=== PATIENT | female | born 1970 | race Caucasian/White ===

== ENCOUNTER → 2017-12-14 11:51 | Outpatient (CLI) | payer BC, SELFPAY ==
--- NOTE | 2017-12-14 11:56 | BI_ITS ---
MAMMOGRAPHY - BILATERAL SCREENING 3-D CORONA SYNTHESIS REASON FOR EXAM: Female, 47 years old. Bilateral Screening 3-D tomosynthesis PERTINENT HISTORY: No significant family history. TECHNIQUE: 2-D mammograms and 3-D Corona synthesis of the breast (s) were performed. CAD was performed. COMPARISON: 10/05/2015 through 05/27/2014. FINDINGS: The breast composition is heterogeneously dense that can obscure small breast masses. No new significant architectural distortion, asymmetric density, abnormal microcalcification cluster, dominant mass, adenopathy, skin thickening or nipple retraction identified. Coarse benign-appearing calcifications. No significant abnormality identified with tomosynthesis. BI/SCREENING MAMM (CAD), BILAT IMPRESSION: No mammographic sign of malignancy. Routine yearly mammograms recommended. ASSESSMENT CATEGORY: BIRADS Category 2: Benign. A letter regarding these results will be sent to the patient by the facility within 30 days. FOLLOW UP RECOMMENDATION: Yearly follow up mammogram recommended. (A) Negative results should not deter biopsy as a palpable lesion if present should be followed on clinical grounds and biopsy performed if clinically persistent for 3 months or increasing size. Approximately 10% of breast cancers are not detected by mammography. A normal mammogram should not delay biopsy of a clinically suspicious abnormality. Electronically Signed: Manan Bhatti, at 19:49 EDT Tel , Service support ,
== END ==
PROVIDERS: Family Provider Family Medicine; PCP Family Medicine; Visit Provider Obstetrics & Gynecology
DX: Z12.31 Encounter for screening mammogram for malignant neoplasm of breast (principal)
CPT/HCPCS: 77063; 77067

== ENCOUNTER → 2018-01-25 11:57 | Outpatient (CLI) | payer BC, SELFPAY ==
--- NOTE | 2018-01-25 12:02 | RAD_ITS ---
STUDY: X-RAY - PELVIS AND BILATERAL HIPS REASON FOR EXAM: Female, 47 years old. Pelvic pain and bilateral hip pain TECHNIQUE: Radiological exam, hip, bilateral, with pelvis when performed; minimum of 5 views COMPARISON: None. FINDINGS: There is a non-specific bowel gas pattern. Normal visualized soft tissue structures. There is narrowing with cortical sclerosis and osteophyte formation of the sacroiliac joint consistent with degenerative osteoarthritic changes. Normal bilateral superior and inferior pubic rami. There are degenerative changes of the pubic symphysis with articular narrowing and sclerosis. Normal bilateral ischial tuberosities. There are osteoarthritic changes of the right femoral head with marginal osteophyte formation. Normal right acetabulum. Normal right hip joint. There are osteoarthritic changes of the left femoral head with marginal osteophyte formation. Normal left acetabulum. Normal left hip joint. RAD/Hips B/L min 2 views w/ Pelvis IMPRESSION: There are osteoarthritic changes of the pelvis and bilateral hips. Electronically Signed: Veronica Chaidez MD at 8:08 EDT Tel , Service support ,
== END ==
PROVIDERS: Family Provider Family Medicine; PCP Family Medicine; Visit Provider Family Medicine
DX: M16.0 Bilateral primary osteoarthritis of hip (principal)
CPT/HCPCS: 73521

== ENCOUNTER 2018-04-17 15:30 | Outpatient (RCR) | payer BC, SELFPAY ==
--- NOTE | 2018-04-09 08:30 | HP.OTEVAL ---
Patient's Visit Information CHANELLE GUILLERMO is a 47 year old F, referred to Occupational Therapy by RUFINA EMERSON, with a diagnosis of Lesion of R median nn forearm and hand. Date of Evaluation: 04/08/18 Occupational Therapist: Amarilys Bell, OTR/Dominique, CHT - Subjective Subjective: pt. arrives and states that in 2013 elbow went stiff and determined that pt. broke radial head. Pt. reported that her elbow cont. to feel week and painful. Over time, pt. noticed that functional tasks were becoming more difficult. pt. currently has diasnoses of lat. 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 pt. has been trying conservative methods for a while, but has not had relief yet. pt. is to recieve sx on 04/22/18 to relsease median nn and carpal tunnel release. - Pain R forearm 0 Pain Intensity Range: 0, 1, 2, 3, 4, 5, 6 - ROM ROM Comments: WNL - Strength Elbow: 4+/5 in R and 5/5 on L Career Technical Supervisor: 63# in L and 65# in R Lateral Pinch: 11# in R and 14# in L Tripod Pinch: 8# in R and 16 # in L Strength Comments: increased pain in tripod pinch, pt. reported that is is harder for her to resist OT on the R side during MMT. - Sensation Sensation Comments: denies, tested WNL - Nine Hole Peg Right: 20.21 sec. Left: 21.67 sec - In-Hand Manipulation Palm to Finger Translation: Mild - Right Comments: pt. reported that is feels rotten when trying to move money from palm to fingers. pt. attempted to compensate during the task. - DASH-Disabilities of Arm, Shoulder& Hand DASH Sum: 59 - Goals Goal:: Patient will improve lateral and tripod grasps by 5 lbs. by completing strengthening and stretching exercises in order to complete BADL?s and IADL?s. Patient will improve UE strength to 5/5 in R arm in order to complete BADL's and IADL's with increased I. Goal:: Patient will have decreased tingling sensation and report overall decrease in pain of <3 in order to complete BADL?s and IADL?s. Goal:: patient will demo improved ability to manipulate coins from palm of hand to finger tips for increased ability to complete IADL's. Goal:: Patient will demo understanding of joint protection and ECM recommendations for increase I with BADL?s and IADL?s. Goal:: Patient will demo understanding and report completion of median nn and postural exercises for increased I with BADL's and IADL's. Patient will demonstrate knowledge and understanding of taping techniques for support while performing BADL's and IADL's. - Rehabilitation General Assessment: patient presents today with Lesion of R median nn forearm and hand. pt. reports that in 2013, she had a radial injury that is likely causing the mm nn lesion. pt. also has comorbidities of lat. 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 pt. will recieve carpal tunnel release and median nn release on 04/22/18. patient presents to today with decreased strength, tingling sensation, increasing pain, and decreased ability to complete BADL's and IADL's. pt. will benefit from OT services 2x/wk until 04/22/18. Today pt. recieved hot pack and US to increase circulation and promote healing in the forearm and elbow and friction massaging on the elbow to promote healing and decrease pain. pt. was also taped over the the lat. epicondylitis for support during daily functional tasks. pt. recieved education and handout on HEP for median nn exercises and postural exercises. Rehabilitation Potential: Good - Anticipated Interventions Anticipated Interventions: A/AAROM/PROM, Strengthening, Triggerpoint Release, Modalities, Orthoses, Joint Protection/Energy Conservation, Ergonomic Education, ADL Training, Education re Diagnosis, Home Program - Visit Plan Frequency: 2x /Week Duration: until 04/22/18 TEXT: Thank you for the opportunity to evaluate your patient. For Medicare and Medicare HMO plans, please review the plan of care and approve it. It will need to be FAXED BACK to us at [phone] for Medicare purposes. Please let me know if there are questions or concerns regarding this plan of care. Physician Signature: Date:
--- NOTE | 2018-04-19 08:50 | HP.OTDCSUM ---
HP - OT D/C Summary It has been my pleasure to treat CHANELLE GUILLERMO under orders from RUFINA EMERSON, for the diagnosis of Lesion of R median nn forearm and hand for a total of 4 visit(s). Please see the following information for a summary of their discharge status. - Objective Objective/Function: no pain today without movement, sometimes has sharp pain when picking up heavier objects - Goals Patient Goals: Regain Strength, Decrease Pain, Decrease Swelling/Stiffness, Improve Fine Motor Skills, Decrease Tingling/Numbness, Increase ROM, Be More Independent in ADLS, Resume Former Household Responsibilities (Cooking,Cleaning,Yard, etc.), Resume Hobbies Goal:: Patient will improve lateral and tripod grasps by 5 lbs. by completing strengthening and stretching exercises in order to complete BADL?s and IADL?s. Patient will improve UE strength to 5/5 in R arm in order to complete BADL's and IADL's with increased I. Goal:: Patient will have decreased tingling sensation and report overall decrease in pain of <3 in order to complete BADL?s and IADL?s. Goal:: patient will demo improved ability to manipulate coins from palm of hand to finger tips for increased ability to complete IADL's. Goal:: Patient will demo understanding of joint protection and ECM recommendations for increase I with BADL?s and IADL?s. Goal:: Patient will demo understanding and report completion of median nn and postural exercises for increased I with BADL's and IADL's. Patient will demonstrate knowledge and understanding of taping techniques for support while performing BADL's and IADL's. - Plan Plan: hawk tool/massaging. cont.kinesiotape - D/C Information Discharge Comments: Patient reports that conservative methods were helpful with managing lateral epicondylitis symptoms. pt. pain decreased throughout therapy POC. pt. d/c on this date d/t upcoming median nn relsease and carpal tunnel release. pt. educated on HEP and lat. epicondylitis taping and other conservative methods for cont. pain mangement. pt. reports no further concerns at this time. If there are questions or concerns regarding this patient's occupational therapy, please fell free to call me at [phone]. Thank you for the referral of this patient. Sincerely, Amarilys Bell, OTR/L, CHT
== END 2018-04-17 19:00 | disposition home or self-care (01) ==
LOC: OT 15:30
PROVIDERS: Family Provider Family Medicine; PCP Family Medicine
DX: G56.11 Other lesions of median nerve, right upper limb (principal); G56.01 Carpal tunnel syndrome, right upper limb; M75.21 Bicipital tendinitis, right shoulder
CPT/HCPCS: 97035; 97140; 97166

== ENCOUNTER → 2018-05-23 11:26 | Outpatient (CLI) | payer BC, SELFPAY ==
[2017-07-30 10:00] VITALS: BMI 32.2
[2018-05-25 18:17] LABS: HPV Reflexed? NOT INDICATED
== END ==
PROVIDERS: Family Provider Family Medicine; PCP Family Medicine; Visit Provider Obstetrics & Gynecology
DX: Z12.4 Encounter for screening for malignant neoplasm of cervix (principal)
CPT/HCPCS: 88175; G0145

== ENCOUNTER 2018-06-17 16:00 | Outpatient (RCR) | payer BC, SELFPAY ==
--- NOTE | 2018-05-06 12:28 | HP.OTEVAL_ITS ---
Patient's Visit Information MANDY GUILLERMO is a 47 year old F, referred to Occupational Therapy by RUFINA VIEIRA, with a diagnosis of Carpal tunnel syndrome R upper limb (G56.01); G56.11. Date of Evaluation: 05/06/18 Occupational Therapist: Jenna Carrasco - Subjective Subjective: Pt. arrived as referral from Dr. Vieira. She is two weeks post op from CTS release as well as neuroplasty of R median nerve in forearm. She noted she is doing well and no brace at times of arrival. 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 - Pain R elbow and hand 1 Pain Intensity Range: 1, 4 - Objective Objective/Observation: Scars are close and healing. Some hypersensitivity noted around lateral aspect of thumba nd IF of R hand. Edema noted over volar carpal incision. No pain with palpation of either scar. - ROM Wrist: Flexion R 0-86, L 0-84; extension R 0-46, L 0-54 ROM Comments: Able to make full composite fist. - Strength Barrel Painter: Flexed in position 2: R 90, L 11 lbs; extended in position 2 R 105, L 121 Lateral Pinch: R 13, L 15 Tripod Pinch: R 9, L 16 Tip-to-Tip Pinch: R 6, L 10 - Edema Wrist: volar edema pocket over scar for CTS release - Sensation Thumb: R 3.22, lateral thumb 2.44; L 2.83 Index: R 2.83, lateral 2.44, L 2.83 Middle: R 3.22, L 3.61 Ring: R 3.22, L 3.61 Little: R 3.22 lateral 2.44, L 2.83 - Nine Hole Peg Right: 16.55 s Left: 17.48 s - Quick DASH-Disab of Arm,Shoulder& Hand Quick DASH Score: 35.0000 - Goals Goal:: Mandy to increase R housekeeping/laundry to 30 lbs to promote increase strength and manipulation of R hand and UE for self-care and workrelated taks sby d/c. Goal:: Mandy to have no more than 1/10 pain for repetitive movements 4/5 trials 80% of the time topromote QOL by d/c. Goal:: Mandy to be able to complete and manipulate multiple textures and smalle office related items as well as decrease time of 9 hole pegboard test to promote finger dexterity by time of d/c. Goal:: Mandy to be (i) to complete scar massage to promote increased ROM and decrease adhersion to promote movement of wrista nd forearm by d/c. Goal:: Mandy to be (I) to complete porper R UE mechanics and aligment to promote increased form and work station set up to decreae risk of further or reinjury 100% of the time by d/c. Goal:: Mandy to be (i) to complete HEP to promote strengthening and sensory desensitization techniques as needed 4/5 trials 80% of the time to promote returning to PLOF by d/c. - Rehabilitation General Assessment: Mandy arrived for OT evaluation on this date of 05/06/18. She is two weeks post operation of endoscopic R transverse carpal ligament release and neuroplasty of right median nerve in forearm. Some decreased ROM and strengthening noted. Strength measurements were progressed from when previously seeing OT over three-four weeks ago. She would benefit from OT to promote increased strength and ROM needed to return to PLOF by d/c. Rehabilitation Potential: Good - Anticipated Interventions Anticipated Interventions: A/AAROM/PROM, Strengthening, Edema Control, Scar Care, Desensitization, Modalities, Orthoses, Joint Protection/Energy Conservation, Ergonomic Education, Fine Motor Coord/Mauro, ADL Training, Caregiver Training, Home Program - Visit Plan Frequency: 2x /Week Duration: 6 Weeks General Plan: OT to work on ROM, PRE for strengthening program, ergonomics, and general FMC and dexterity tasks to promote particpation in ADL/IADL inclduing work-related tasks. TEXT: Thank you for the opportunity to evaluate your patient. For Medicare and Medicare HMO plans, please review the plan of care and approve it. It will need to be FAXED BACK to us at [phone] for Medicare purposes. Please let me know if there are questions or concerns regarding this plan of care. Physician Signature: Date:
--- NOTE | 2018-06-17 16:58 | OTREVAL_ITS ---
RUFINA EMERSON, It has been my pleasure to treat MANDY GUILLERMO over the last 10 visits for Carpal tunnel syndrome R upper limb (G56.01); G56.11. Please see the progress note below for an update on the occupational therapy plan of care! Subjective: Arrived and noted that everything going well but notes getting sore and tired by end of day. She noted wrist still feeling very weak. Objective/Function: Completed reassessment on this date of 06/17/18. Measurements are as follows: Wrist. - flexion R 0-90, L WFL. - extension R 0-45, L WFL. Strength: - electrician substation in flexed position 2: R 100, L 89. - electrician substation in extension position 2: R 80, L 110. - lateral R 16, L 14 lbs. - tripod R 6, L 14 lbs. - pincer R 6, L 8 lbs. Sensation: R 2nd 2.83, 3rd 3.61, 4th 2.83, 5th 2.83, thumb 2.44. L 2nd 2.83, 3rd 2.83, 4th 2.83, 5th 2.83, thumb 2.83. 9 hole pegboard test: . R 15.98 seconds. L 17.68 seconds. Tolerated well. Some in creased tenderness around lateral epicondyle from previous tennis elbow injury. Some pocket edema around wrist incision. Plan Frequency: 2x /Week Duration: 6 Weeks Visits in this POC: 12 Plan: She is to return to doctor tomorrow. She is doing well. Notes variable carryover with HEP but is working on becoming more consistent. Some increased pain from returning to work around lateral epicondylitis from previous injury. She would like to wait to schedule last two appointments until after doctor visit. She is doing well and is looking at discharge within next two appointments. Goals - Goals Goal:: Mandy to increase R electrician substation to 30 lbs to promote increase strength and manipulation of R hand and UE for self-care and workrelated taks sby d/c. Goal:: Mandy to have no more than 1/10 pain for repetitive movements 4/5 trials 80% of the time topromote QOL by d/c. Goal:: Mandy to be able to complete and manipulate multiple textures and smalle office related items as well as decrease time of 9 hole pegboard test to promote finger dexterity by time of d/c. Goal:: Mandy to be (i) to complete scar massage to promote increased ROM and decrease adhersion to promote movement of wrista nd forearm by d/c. Goal:: Mandy to be (I) to complete porper R UE mechanics and aligment to promote increased form and work station set up to decreae risk of further or reinjury 100% of the time by d/c. Goal:: Mandy to be (i) to complete HEP to promote strengthening and sensory desensitization techniques as needed 4/5 trials 80% of the time to promote returning to PLOF by d/c. Anticipated Interventions Anticipated Interventions: A/AAROM/PROM, Strengthening, Edema Control, Scar Care, Desensitization, Modalities, Orthoses, Joint Protection/Energy Conservation, Ergonomic Education, Fine Motor Coord/Mauro, ADL Training, Caregiver Training, Home Program Please do not hesitate to contact me at [phone] by phone or if you have questions or concerns regarding this new plan of care! Sincerely, Jenna Carrasco
--- NOTE | 2018-11-04 17:35 | HP.OTDCSUM ---
HP - OT D/C Summary It has been my pleasure to treat MANDY GUILLERMO under orders from RUFINA EMERSON, for the diagnosis of Carpal tunnel syndrome R upper limb (G56.01); G56.11 for a total of 10 visit(s). Please see the following information for a summary of their discharge status. - Overall Improvement % Improvement: 75 - Objective Objective/Function: Completed reassessment on this date of 06/17/18. Measurements are as follows: Wrist. - flexion R 0-90, L WFL. - extension R 0-45, L WFL. Strength: - field placement director in flexed position 2: R 100, L 89. - field placement director in extension position 2: R 80, L 110. - lateral R 16, L 14 lbs. - tripod R 6, L 14 lbs. - pincer R 6, L 8 lbs. Sensation: R 2nd 2.83, 3rd 3.61, 4th 2.83, 5th 2.83, thumb 2.44. L 2nd 2.83, 3rd 2.83, 4th 2.83, 5th 2.83, thumb 2.83. 9 hole pegboard test: . R 15.98 seconds. L 17.68 seconds. Tolerated well. Some increased tenderness around lateral epicondyle from previous tennis elbow injury. Some pocket edema around wrist incision. - Goals Patient Goals: Regain Mobility, Regain Strength, Decrease Pain, Return to Work, Improve Fine Motor Skills, Use Hand/Wrist/Arm Normally Again, Sleep Better, Decrease Tingling/Numbness, Increase ROM, Be More Independent in ADLS, Resume Former Household Responsibilities (Cooking,Cleaning,Yard, etc.), Resume Hobbies Goal:: Mandy to increase R field placement director to 30 lbs to promote increase strength and manipulation of R hand and UE for self-care and workrelated taks sby d/c. Goal:: Mandy to have no more than 1/10 pain for repetitive movements 4/5 trials 80% of the time topromote QOL by d/c. Goal:: Mandy to be able to complete and manipulate multiple textures and smalle office related items as well as decrease time of 9 hole pegboard test to promote finger dexterity by time of d/c. Goal:: Mandy to be (i) to complete scar massage to promote increased ROM and decrease adhersion to promote movement of wrista nd forearm by d/c. Goal:: Mandy to be (I) to complete porper R UE mechanics and aligment to promote increased form and work station set up to decreae risk of further or reinjury 100% of the time by d/c. Goal:: Mandy to be (i) to complete HEP to promote strengthening and sensory desensitization techniques as needed 4/5 trials 80% of the time to promote returning to PLOF by d/c. - Plan Plan: She was to return to last follow up visits but did not return. She will be d/c'd at this time and is to all with questions/concerns. - D/C Information If there are questions or concerns regarding this patient's occupational therapy, please fell free to call me at [phone]. Thank you for the referral of this patient. Sincerely, Jenna Carrasco, OTR/L
== END 2018-06-17 19:00 | disposition home or self-care (01) ==
LOC: OT 16:00
PROVIDERS: Family Provider Family Medicine; PCP Family Medicine
DX: G56.01 Carpal tunnel syndrome, right upper limb (principal); G56.11 Other lesions of median nerve, right upper limb
CPT/HCPCS: 97035; 97110; 97140; 97166; 97530

== ENCOUNTER 2018-09-09 07:36 | Day surgery (SDC) | payer BC, SELFPAY ==
[2018-09-09 07:50] VITALS: BP 151/72; PULSE 79; RESP 16; TEMP 36.9; O2SAT 100; BMI 30.2
--- NOTE | 2018-09-09 07:54 | HP.PCM_ITS ---
History of Present Illness Date of Admission: 09/09/18 The patient is a 48 year old F presents for screening colonoscopy. Patient denies any previous colonoscopies. About 2 years ago patient states she had a rectal polyp removed in office at [facility]. 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 Patient denies any family history of colon cancer state that her mom had polyps but they were not large polyps. Patient states she has bowel movements daily denies any blood except for when her hemorrhoids flareup which may occur twice a year. Past Medical/Surgical History - Planned Operation Planned Operative Procedure/s: COLONOSCOPY Date of Operative Procedure: 09/09/18 Permit Signed: No S.O.S: No Is This Patient Having a Total Joint: No - Previous Hospitalizations/Surgeries HX Hospitalizations: No HX of Surgeries: WISDOM TEETH ADULT. CARPAL TUNNEL/ NERVE RELEASE RT ARM/ [facility] 2018. D AND C 2008. RECTAL POLYP REMOVAL OFFICE PROCEDURE Any Problems With Anesthesia: No You/Your Family Experience Fever (Hyperthermia) With Anes: No Cholinesterase deficiency: No - Cardiovascular Hx Chest Pain within Last 2 months: No Hx of Irregular Heartbeat and/or Afib: No - ANXIETY, RACING HEART PER HX, NOT RECENT Hx Heart Attack: No Hx Congestive Heart Failure: No Hx Rheumatic Fever: No Hx Hypertension: No Hx Internal Defibrillator: No Hx Pacemaker: No Hx Cardiac Catheterization: No Hx Cardiac Surgery/Stents/Etc.: No Hx Stress Test: No HX Edema: No Hx Pain in Legs when Walking/Leg Cramps: No - Respiratory Chronic Cough: No HX of Shortness of Breath: No - DENIES Hoarseness: No Hx Chronic Obstructive Pulmonary Disease (COPD): No Hx Asthma: No Hx Emphysema: No Hx Sleep Apnea: No Hx Oxygen Use at Home: No Hx Respiratory Tract Infection/Cold (presently): No Do You Snore Loudly (louder than talking or can be heard): Yes Do You Often Feel Tired/ Fatigued/ Sleepy Dring Daytime?: No Has Anyone Observed You Stop Breathing During Sleep?: No Result (for STOP score): Negative Hx Smoking: No Smoking Status: Never smoker - Gastrointestinal Hx Gastroesophageal Reflux: No Hx Gastrointestinal Disorders: Yes - POLYP REMOVED Hx Gastrointestinal Bleed: No Hx Ulcer: No Hx Hiatal Hernia: No Difficulty Chewing/Swallowing: No Recent Onset of Swallowing Problems: No Special diet followed at home: No Hx Unplanned Weight Loss of 20#: No HX Unplanned Weight Gain of 20#: No - Neurological Hx Seizures: No HX Syncope/Blackout Spells/Unconsciousness: No Hx CVA/Stroke: No Hx Transient Ischemic Attacks (TIA): No Hx Multiple Sclerosis: No Hx Parkinson's Disease: No Hx Head/Neck Injury: No Hx Headaches: No Hx Back Injury/Pain: No Recent Onset of Speech Difficulty: No Restless Legs: No Does patient have nerve stimulator: No Patient instructed to have device shut off: No Rep notified?: No - Blood Disorder Hx Leukemia: No Bleeding Tendencies: No Hx Deep Vein Thrombosis: No Hx High Cholesterol: No - BORDERLINE Blood Transmitted Disease: No Hx Hepatitis: No Hx Cirrhosis: No Hx Anemia: No Hx Blood Disorders: No - Reproduction : No Is Patient Lactating: No Hx Hysterectomy: No Hx Tubal Ligation: No Are You Post Menopause: Yes - Genitourinary Hx Renal Disease: No - Musculoskeletal Hx Arthritis: No Hx Rheumatoid Arthritis: No Hx Gout: No Recent Onset of an Orthopedic Problem: No - Endocrine Hx Diabetes: No Thyroid Disease: No Hx Steroid Therapy: No - Psycho/Social Hx Substance Use: No Hx Alcohol Use: Yes - 2-3 GLASSES/WEEK Hx Anxiety: Yes - NO MEDS CURRENTLY Hx Depression: No Mental Illness: No Hx Dementia: No - Miscellaneous Hx Cancer: No Recent Exposure to Contagious Disease: No Active MRSA: No Hx of C-Diff: No Any Loose Teeth: No Allergies No Known Allergies Allergy (Unverified 09/09/18 07:49) - Discharge Is Pt Admitted From a Jail, or a [facility]: No Who Could Help: After D/C, Where Do you Plan to Go: Return Home - Physical Exam General: Alert, Oriented x3, Cooperative, No apparent distress HEENT: Atraumatic Lungs: Normal air movement Cardiovascular: Regular rate Abdomen: Soft, Non Tender, Non-Distended Extremities: No clubbing, No cyanosis, No edema Neurological: Cranial nerves II-XII grossly intact Psych/Mental Status: Normal Affect Assessment/Plan All Active Problems (Last Updated 07/30/17 @ 10:02 by Isabel Harrington) Contact dermatitis and eczema due to detergents (Acute) 48-year-old female screening for colon cancer Surgery Risks - Colonoscopy I discussed with the patient the risks of the procedure: Yes Risks Include but are not Limited To: Risks include but are not limited to: Bleeding, perforation requiring further surgery, inability to complete colonoscopy requiring barium enema.
--- NOTE | 2018-09-09 09:00 | OP.ENDO_ITS ---
09/09/2018 Koffi Watt MD [address] [id number] Re : Colonoscopy procedure for Mandy Alvarado Dear Dr. Watt This procedure was performed on Sunday, September 09, 2018. My impressions and recommendations are as follows: Impressions : - Internal hemorrhoids. - The examination was otherwise normal on direct and retroflexion views. - No specimens collected. Recommendations : - Discharge patient to home. - Continue present medications. - Repeat colonoscopy in 10 years for screening purposes. My findings are described in the full procedure note, which is enclosed. If I can be of further assistance, please feel free to contact me at Doctor phone number(s): , Work: . Sincerely, MD Belkys Luna MD 09/09/2018 9:00:31 AM This report has been signed electronically.
[2018-09-09 09:05] VITALS: BP 119/72; BP 151/72; PULSE 68; RESP 16; TEMP 36.4; O2SAT 99
[2018-09-09 09:10] VITALS: BP 119/66; BP 151/72; PULSE 70; RESP 16; O2SAT 100
[2018-09-09 09:15] VITALS: BP 119/81; BP 151/72; PULSE 64; RESP 16; O2SAT 95
[2018-09-09 09:20] VITALS: BP 125/73; BP 151/72; PULSE 62; RESP 16; TEMP 36.2; O2SAT 100
[2018-09-09 09:50] VITALS: BP 151/72
== END 2018-09-09 10:13 | disposition home or self-care (01) ==
LOC: EN 07:37 → AC 07:38
PROVIDERS: Family Provider Family Medicine; PCP Family Medicine; Referring Provider Family Medicine; Visit Provider Surgery
PROC: 0DJD8ZZ Inspection of Lower Intestinal Tract, Via Natural or Artificial Opening Endoscopic (ICD-10-PCS; CPT 45378; principal; 2018-09-09 08:40)
DX: Z12.11 Encounter for screening for malignant neoplasm of colon (principal); K64.0 First degree hemorrhoids; K56.2 Volvulus
CPT/HCPCS: 45378; J7120

== ENCOUNTER → 2018-11-20 11:57 | Outpatient (CLI) | payer BC, SELFPAY ==
[2018-11-20 14:05] LABS: Hematocrit 42.2 % (37-47); Hemoglobin 14.6 g/dl (12.0-15.0); Mean Corp Hgb Conc 34.6 g/gl (32-36); Mean Corpuscular Hgb 29.1 pg (27.0-32.0); Mean Corpuscular Volume 84.2 fL (81-99); Mean Platelet Vol. 12.6 fl (6.2-12.0); Platelet Count 198 K/mm3 (150-450); RBC Distribution Width CV 13.1 % (11.6-14.6); Red Blood Count 5.01 M/mm3 (4.2-5.4); White Blood Count 7.4 K/mm3 (4.4-11.0)
[2018-11-20 14:07] LABS: Scan Indicated on CBC? Y/N NO
[2018-11-20 14:17] LABS: Erythrocyte Sedimentation Rate 9 mm/hr (0-30)
== END ==
PROVIDERS: Family Provider Family Medicine; PCP Family Medicine; Referring Provider Family Medicine; Visit Provider Family Medicine
DX: B02.9 Zoster without complications (principal)
CPT/HCPCS: 36415; 85027; 85652

== ENCOUNTER → 2018-12-16 07:18 | Outpatient (CLI) | payer BC, SELFPAY ==
--- NOTE | 2018-12-16 07:20 | BI_ITS ---
MAMMOGRAPHY - BILATERAL SCREENING REASON FOR EXAM: Female, 48 years old. Routine annual screening examination. PERTINENT HISTORY: Non-contributory. TECHNIQUE: Digital bilateral breast corona (3D mammographic acquisition) in the CC and MLO projections. 2-D mediolateral oblique (MLO) and craniocaudad (CC) views of both breasts were obtained. CAD: Full Field Digital Mammography with Computer Added Detection was performed. COMPARISON: Comparison is made with prior study dated December 14, 2017 and October 05, 2015. FINDINGS: Breast Composition: The breasts are heterogeneously dense, which may obscure small masses. There are no dominant masses or suspicious calcifications. No other significant abnormalities are identified. There has been no significant change since the prior study. BI/SCREEN MAMM (CAD) W/CORONA BILAT IMPRESSION: Stable bilateral screening mammogram. Yearly follow-up mammogram recommended. (A) ASSESSMENT CATEGORY: BIRADS Category 1: Negative. A letter regarding these results will be sent to the patient by the facility within 30 days. Approximately 10% of breast cancers are not detected by mammography. A normal mammogram should not delay biopsy of a clinically suspicious abnormality. [id number] Electronically Signed: Javid Stephen, at 9:39 EDT , Service support ,
== END ==
PROVIDERS: Family Provider Family Medicine; PCP Family Medicine; Referring Provider Family Medicine; Visit Provider Family Medicine
DX: Z12.31 Encounter for screening mammogram for malignant neoplasm of breast (principal)
CPT/HCPCS: 77063; 77067

== ENCOUNTER → 2019-11-20 14:46 | Outpatient (CLI) | payer BC, SELFPAY ==
--- NOTE | 2019-11-20 | EMB_PTH ---
PATIENT: CHANELLE GUILLERMO LOC: [facility] U#:[id number] AGE/SX: 54/F ROOM: RE11/20/[address]: Dr. Donna Rojo MD : [id number] BED: DIS: SPEC #: [id number] RECD: 11/21/19 08:42 STATUS: YULIANA KAVITA #: [id number] GIANNI: 11/20/19 00:[address]: Donna Meza DEPT: SURGICAL PATHOLOGY RECD BY: Ankit Carbajal ENTERED: 11/21/19 08:42 SP TYPE: ENDOM BX/C ANIYA DR: Dr. Koffi Watt MD Tissues: Endometrium, NOS Procedures: Surgery Specimen Level IV HEADER OPERATION: Endometrial biopsy PRE-OP DIAGNOSIS: Postmenopausal bleeding TISSUE SUBMITTED: Endometrial biopsy MICROSCOPIC DIAGNOSIS Endometrium, biopsy: Strips of benign glandular and squamous mucosa. AM:spencer 11/24/19 MICROSCOPIC DESCRIPTION Slides are reviewed. GROSS DESCRIPTION Received in fixative is one container labeled with the patient's name and designated EMB. The specimen consists of multiple fragments of hemorrhagic soft tissue that in aggregate measure 2 x 0.5 x 0.1 cm. The specimen is totally submitted in one cassette. / SJ:spencer 11/21/19 TC:5 CPT: 23520
== END ==
PROVIDERS: PCP Family Medicine; Visit Provider Obstetrics & Gynecology
DX: N95.0 Postmenopausal bleeding (principal)
CPT/HCPCS: 88305

== ENCOUNTER 2019-11-24 16:45 | Outpatient (RCR) | payer BC, SELFPAY ==
--- NOTE | 2019-11-24 18:29 | HP.PTEVAL ---
Patient's Visit Information CHANELLE GUILLERMO is a 49 year old F referred to Physical Therapy by Dr. Koffi Watt MD with a diagnosis of HIP PAIN. Date of Evaluation: 11/24/19 Physical Therapist: Gustavo Finley PT, Cert MDT, OCS - Visit Plan Frequency: 2x /Week Duration: 4 Weeks Plan: PT INTERVENTIO STICK/FOAM ROLL I TBAND/STM ,STRENGTHNEING BILATERAL HIPS ,MODALTIES NEEDED - Subjective This 49 y/o female presents to physical therapy with hip pain . Patient has lateral hip pain for 2 years. Patient symptoms worse walking on treadmill with increasing distances either hip can flare up along with increase speed. Patient also has bilateral knee pain. Patient able to ascend/descend stairs but pain with knees. Squatting affects knees. Denies parathesia/tingling . Patient able to sleep on right side . Patient symptoms affects job demands and housework tasks. Patient symptoms affects QOL. 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 PALPATION: greater trochanter ,I-T BAND MID -DISTAL. FLEXABITY : min tight ER,IR EXCESSIVE. GAIT: reciprocal pattern calcaneal valgus ,slight knee valgus. MMT: quad/hams 4/5 ,hip flexion 4-/5,abd 4-/5,extension 4-/5 ankle 4/5. LUMBRA ROM: WFL - Special Tests L/S Slump test left side: Negative L/S Slump test right side: Negative L/S Left Straight Leg Raise: Negative L/S Right Straight Leg Raise: Negative R Hip Scour: Negative R Hip Quadrant - Intraarticular Pathology: Negative R Hip TIFFANIE - Intraarticular Pathology: Negative R Hip Trendelenberg - Glut Medius: Negative R Hip Jovany - IT Band: Negative L Hip Scour: Negative L Hip Quadrant - Intraarticular Pathology: Negative L Hip TIFFANIE - Intraarticular Pathology: Negative L Hip Jovany - IT Band: Negative - Goals Goal 1:: Independant with HEP Goal Time Frame: 4-6 Weeks Goal 2:: Patient to decrease pain bilateral hips by 60% or> to improve function with gait. Goal Time Frame: 4-6 Weeks Goal 3:: Patient to increase strength bilateral hip abd to 4/5 to improve function. Goal Time Frame: 4-6 Weeks Goal 4:: Patient to improve LFES score by 10 points or > to improve QOL. Goal Time Frame: 4-6 Weeks Goal 5:: Patient to decrease tenderness bilateral I -t band for function Goal Time Frame: 4-6 Weeks - Rehabilitation Potential Physical Therapy Diagnosis: This patient has bilateral hip pain with tenderness greater trochanter and IT band with weakness impairs walking and function thus benifit from skilled PT Rehabilitation Potential: Good - Anticipated Interventions Patient/Client Instruction: Educate patient on: Condition, Plan of Care For the Purpose of:: To decrease pain, To increase ROM, To improve muscle performance and motor function, To improve ability to perform ADL's, To increase tolerance to activity/condition/position, To improve ability of physical actions for home/community/work/leisure, To improve health of tissue, To decrease soft tissue restriction, To increase flexibility/ROM, To improve ability to perform tasks related to life management Therapeutic Exercise to Include: Strength training, Postural training, Flexibilty training, Passive ROM Comment: HIPS For the Purpose of:: To decrease pain, To increase ROM, To improve nutrient delivery to tissue, To increase oxygenation perfusion, To improve muscle performance and motor function, To improve ability to perform ADL's, To increase tolerance to activity/condition/position, To improve ability of physical actions for home/community/work/leisure, To improve health of tissue, To decrease soft tissue restriction, To increase flexibility/ROM Manual Therapy Techniques to Include: Soft tissue mobilization Comment: STICK/FOAM ROLLER I -T BAND For the Purpose of:: To decrease pain, To increase ROM, To improve nutrient delivery to tissue, To increase oxygenation perfusion, To improve health of tissue, To decrease soft tissue restriction TENS: Yes IF ES: Yes Cryotherapy (ice pack, ice massage): Yes Thermo therapy (hot pack): Yes Ultrasound (thermal/non thermal): Yes For the Purpose of:: To decrease pain, To improve nutrient delivery to tissue, To increase oxygenation perfusion, To improve health of tissue, To decrease soft tissue restriction Thank you for the opportunity to evaluate your patient. For Medicare and Medicare HMO plans, please review the plan of care and approve it. It will need to be FAXED BACK to us at [phone] for Medicare purposes. For Medicare only, by signing this I certify the plan of care. Please let me know if there are questions or concerns regarding this plan of care. Physician Signature: Date:
--- NOTE | 2020-03-15 17:06 | HP.PT.NRP ---
CHANELLE GUILLERMO was seen in my office for initial evaluation on 11/24/19. The following Plan of Care was established for this patient: Initial Frequency: 2x /Week Initial Duration: 4 Weeks Patient/Client Instruction: Educate patient on: Condition, Plan of Care For the Purpose of:: To decrease pain, To increase ROM, To improve muscle performance and motor function, To improve ability to perform ADL's, To increase tolerance to activity/condition/position, To improve ability of physical actions for home/community/work/leisure, To improve health of tissue, To decrease soft tissue restriction, To increase flexibility/ROM, To improve ability to perform tasks related to life management Therapeutic Exercise to Include: Strength training, Postural training, Flexibilty training, Passive ROM For the Purpose of:: To decrease pain, To increase ROM, To improve nutrient delivery to tissue, To increase oxygenation perfusion, To improve muscle performance and motor function, To improve ability to perform ADL's, To increase tolerance to activity/condition/position, To improve ability of physical actions for home/community/work/leisure, To improve health of tissue, To decrease soft tissue restriction, To increase flexibility/ROM Manual Therapy Techniques to Include: Soft tissue mobilization Comment: STICK/FOAM ROLLER I -T BAND For the Purpose of:: To decrease pain, To increase ROM, To improve nutrient delivery to tissue, To increase oxygenation perfusion, To improve health of tissue, To decrease soft tissue restriction TENS: Yes IF ES: Yes Cryotherapy (ice pack, ice massage): Yes Thermo therapy (hot pack): Yes Ultrasound (thermal/non thermal): Yes For the Purpose of:: To decrease pain, To improve nutrient delivery to tissue, To increase oxygenation perfusion, To improve health of tissue, To decrease soft tissue restriction This patient was last seen in our office . Pertinent comments regarding their Physical therapy will appear below: Patient seen for PT for Intiall PT Eval for HEP thus is d/c . At this point I will be discontinuing this patient from physical therapy. I would be happy to see this patient again in the future if found appropriate by the physician. Thank you! Gustavo Finley, PT, Cert MDT, OCS
== END 2019-11-24 19:00 | disposition home or self-care (01) ==
LOC: PT 16:45
PROVIDERS: PCP Family Medicine; Referring Provider Family Medicine; Visit Provider Family Medicine
DX: M25.551 Pain in right hip (principal)
CPT/HCPCS: 97110; 97162

== ENCOUNTER → 2019-11-26 09:57 | Outpatient (CLI) | payer BC, SELFPAY ==
[2019-11-26 12:55] LABS: Absolute Lymphocyte Count 2.29 X10^3/uL (0.83-4.51); Absolute Neutrophil Count 3.1 X10^3/uL (2.0-7.7); Basophil# 0.05 X10^3/uL; Basophil% 0.8 % (0-1); Eosinophil# 0.14 X10^3/uL; Eosinophils% 2.3 % (0-5); Hematocrit 41.6 % (37-47); Hemoglobin 13.8 g/dL (12.0-15.0); Lymphocyte # 2.29 X10^3/ul (4.0); Lymphocyte % 37.9 % (19-41); Mean Corp Hgb Conc 33.2 g/dL (32-36); Mean Corpuscular Hgb 29.5 pg (27.0-32.0); Mean Corpuscular Volume 88.9 fL (81-99); Mean Platelet Vol. 13.1 fl (6.2-12.0); Monocyte# 0.47 X10^3/uL; Monocyte% 7.8 % (0-10); NRBC Flagged by Analyzer 0 % (0-5); Neutrophil # 3.08 X10^3/uL (2.7-7.7); Platelet Count 178 K/mm3 (150-450); RBC Distribution Width CV 12.9 % (11.6-14.6); RBC Distribution Width SD 41.7 fl (35.1-43.9); Red Blood Count 4.68 M/mm3 (4.2-5.4)
[2019-11-26 13:39] LABS: Anion Gap 8 (5-15); BUN 12 mg/dL (7-18); Calcium,Total 9.3 mg/dL (8.5-10.1); Chloride 103 mmol/L (98-107); Cholesterol 228 mg/dL (200); Creatinine, Serum 0.71 mg/dL (0.55-1.02); EST Glomerular Filtration Rate 93 mL/min (>60); Est Glom Filt Rate - Afr Amer 112 mL/min (>60); Glucose 103 mg/dL (74-106); High Density Lipoprotein 55 mg/dL; Potassium 3.9 mmol/L (3.5-5.1); Sodium Level 138 mmol/L (136-145); Triglycerides 43 mg/dL; Very Low Density Lipoprotein 9 mg/dL (5-40)
== END ==
PROVIDERS: PCP Family Medicine; Visit Provider Family Medicine
DX: T14.8XXA Other injury of unspecified body region, initial encounter (principal); I10 Essential (primary) hypertension
CPT/HCPCS: 36415; 80048; 80061; 85025

== ENCOUNTER → 2019-12-03 08:57 | Outpatient (CLI) | payer BC, SELFPAY | PROVIDERS: PCP Family Medicine; Referring Provider Family Medicine; Visit Provider Family Medicine | DX: R39.9 Unspecified symptoms and signs involving the genitourinary system (principal) | CPT/HCPCS: 87086 ==

== ENCOUNTER → 2019-12-24 07:15 | Outpatient (CLI) | payer BC, SELFPAY ==
--- NOTE | 2019-12-24 07:18 | BI_ITS ---
MAMMOGRAPHY - BILATERAL SCREENING REASON FOR EXAM: Female, 49 years old. Routine annual screening examination. PERTINENT HISTORY: Grandmother with breast cancer. TECHNIQUE: Digital bilateral breast corona (3D mammographic acquisition) in the CC and MLO projections. 2-D mediolateral oblique (MLO) and craniocaudad (CC) views of both breasts were obtained. CAD: Full Field Digital Mammography with Computer Added Detection was performed. COMPARISON: Comparison is made with prior study dated 12/16/2018 and 12/14/2017. FINDINGS: Breast Composition: The breasts are heterogeneously dense, which may obscure small masses. There are no dominant masses or suspicious calcifications. No other significant abnormalities are identified. There has been no significant change since the prior study. BI/SCREEN MAMM (CAD) W/CORONA BILAT IMPRESSION: Stable bilateral screening mammogram. Yearly follow-up mammogram recommended. (A) ASSESSMENT CATEGORY: BIRADS Category 1: Negative. A letter regarding these results will be sent to the patient by the facility within 30 days. Approximately 10% of breast cancers are not detected by mammography. A normal mammogram should not delay biopsy of a clinically suspicious abnormality. [id number] Electronically Signed: Javid Stephen, at 9:00 EDT , Service support ,
== END ==
PROVIDERS: PCP Family Medicine; Referring Provider Family Medicine; Visit Provider Family Medicine
DX: Z12.31 Encounter for screening mammogram for malignant neoplasm of breast (principal)
CPT/HCPCS: 77063; 77067

== ENCOUNTER → 2020-08-20 10:43 | Outpatient (CLI) | payer BC, SELFPAY ==
--- NOTE | 2020-08-20 10:46 | RAD_ITS ---
STUDY: X-RAY - UNILATERAL RIBS ( LEFT ) WITH CHEST REASON FOR EXAM: Female, 50 years old. PLEURITIC CHEST PAIN TECHNIQUE - RIBS: 4 view(s) of the ribs. TECHNIQUE - CHEST: Single PA view of the chest. COMPARISON: None. FINDINGS - RIBS: Normal visualized ribs without a demonstrated fracture. FINDINGS - CHEST: The lungs are clear and expanded. There is no demonstrated pleural abnormality. Normal size heart. Normal mediastinum and marguerite. Normal visualized pulmonary arteries. Normal visualized aortic arch and descending thoracic aorta. Normal visualized thoracic spine. Normal visualized ribs, clavicles, and shoulders. There is no demonstrated abnormality of the visualized soft tissue structures of the upper abdomen. RAD/Ribs Uni Min 3V w/PA Chest IMPRESSION: RIBS: Normal x-ray examination of the ribs. CHEST: Normal x-ray examination of the chest. Electronically Signed: Alok Howe MD at 7:58 EDT Tel , Service support ,
== END ==
PROVIDERS: PCP Family Medicine; Referring Provider Family Medicine; Visit Provider Family Medicine
DX: R07.81 Pleurodynia (principal)
CPT/HCPCS: 71101

== ENCOUNTER → 2020-12-31 07:23 | Outpatient (CLI) | payer BC, SELFPAY ==
[2020-09-09 16:44] VITALS: BMI 30.2
--- NOTE | 2020-12-31 07:24 | BI_ITS ---
MAMMOGRAPHY - BILATERAL SCREENING REASON FOR EXAM: Female, 50 years old. Routine annual screening examination. PERTINENT HISTORY: Grandmother with breast cancer. TECHNIQUE: Digital bilateral breast corona (3D mammographic acquisition) in the CC and MLO projections. 2-D mediolateral oblique (MLO) and craniocaudad (CC) views of both breasts were obtained. CAD: Full Field Digital Mammography with Computer Added Detection was performed. COMPARISON: Comparison is made with prior study dated 12/24/2019 and 12/16/2018. FINDINGS: Breast Composition: The breasts are heterogeneously dense, which may obscure small masses. There are no dominant masses or suspicious calcifications. No other significant abnormalities are identified. There has been no significant change since the prior study. BI/SCRN MAMM (CAD)W/CORONA BILAT IMPRESSION: Stable bilateral screening mammogram. Yearly follow-up mammogram recommended. (A) ASSESSMENT CATEGORY: BIRADS Category 1: Negative. A letter regarding these results will be sent to the patient by the facility within 30 days. Approximately 10% of breast cancers are not detected by mammography. A normal mammogram should not delay biopsy of a clinically suspicious abnormality. [id number] Electronically Signed: Javid Stephen MD at 8:29 EDT , Service support ,
== END ==
PROVIDERS: PCP Family Medicine; Referring Provider Obstetrics & Gynecology; Visit Provider Obstetrics & Gynecology
DX: Z12.31 Encounter for screening mammogram for malignant neoplasm of breast (principal)
CPT/HCPCS: 77063; 77067

== ENCOUNTER → 2021-11-17 | Outpatient (CLI) | payer OTHER, SELFPAY ==
[2021-11-24 17:23] LABS: HPV APTIMA, High Risk Negative (Negative)
== END | disposition home or self-care (01) ==
LOC: LABSPEC 16:45
PROVIDERS: PCP Family Medicine; Visit Provider Obstetrics & Gynecology
DX: Z12.4 Encounter for screening for malignant neoplasm of cervix (principal)
CPT/HCPCS: 87624; 88175; G0145

== ENCOUNTER → 2022-01-18 | Outpatient (CLI) | payer OTHER, SELFPAY ==
--- NOTE | 2022-01-18 07:09 | BI_ITS ---
MAMMOGRAPHY - BILATERAL SCREENING REASON FOR EXAM: Female, 51 years old. Routine annual screening examination. PERTINENT HISTORY: Grandmother with breast cancer. TECHNIQUE: Digital bilateral breast corona (3D mammographic acquisition) in the CC and MLO projections. 2-D mediolateral oblique (MLO) and craniocaudad (CC) views of both breasts were obtained. CAD: Full Field Digital Mammography with Computer Added Detection was performed. COMPARISON: Comparison is made with prior study dated 12/31/2020 and 12/24/2019. FINDINGS: Breast Composition: The breasts are heterogeneously dense, which may obscure small masses. There are no dominant masses or suspicious calcifications. No other significant abnormalities are identified. There has been no significant change since the prior study. BI/SCRN MAMM (CAD)W/CORONA BILAT IMPRESSION: Stable bilateral screening mammogram. Yearly follow-up mammogram recommended. (A) ASSESSMENT CATEGORY: BIRADS Category 1: Negative. A letter regarding these results will be sent to the patient by the facility within 30 days. Approximately 10% of breast cancers are not detected by mammography. A normal mammogram should not delay biopsy of a clinically suspicious abnormality. [id number] Electronically Signed: Javid Stephen MD at 9:58 EDT ,
== END | disposition home or self-care (01) ==
LOC: OPBI 07:07
PROVIDERS: PCP Family Medicine; Visit Provider Obstetrics & Gynecology
DX: Z12.31 Encounter for screening mammogram for malignant neoplasm of breast (principal)
CPT/HCPCS: 77063; 77067

== ENCOUNTER → 2023-01-04 | Outpatient (CLI) | payer OTHER, SELFPAY ==
--- NOTE | 2023-01-04 14:23 | US_ITS ---
EXAM: Diagnostic bilateral breast mammogram and diagnostic right breast ultrasound REASON FOR EXAM: Female, 52 years old. Palpable lump along the right chest wall. 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 PERTINENT HISTORY: Grandmother with breast cancer.. TECHNIQUE: Digital bilateral breast grant (3D mammographic acquisition) in the CC and MLO projections. 2-D mediolateral oblique (MLO) and craniocaudad (CC) views of the bilateral breasts were obtained. CAD: Full Field Digital Mammography with Computer Added Detection was performed. Real-time wise scale and color sonographic images were obtained at the 3:00 position of the right inner breast and along the right axilla at the palpable area of clinical concern. COMPARISON: Screening mammogram from 01/18/2022, 12/31/2020. FINDINGS: Mammogram findings: Breast Composition: The breasts are heterogeneously dense, which may obscure small masses. There are no suspicious masses or suspicious calcifications. No other significant findings. No significant change since prior study. Ultrasound was also obtained of the right inner breast/right axilla in the palpable area of clinical concern. Ultrasound findings: There is a 0.3 x 0.3 x 0.4 cm hyperechoic lesion with indistinct but smooth margins at the 3:00 position approximately 9 cm posterior to the nipple. There is no posterior acoustic enhancement or posterior shadowing. There is no change in shape on compression. No other suspicious masses or abnormal fluid collections in the imaged right breast. US/Breast Limited Unilateral IMPRESSION: No mammographic findings suggestive of malignancy. 0.3 x 0.3 x 0.4 cm hyperechoic lesion at the 3:00 position, approximately 9 cm posterior to the nipple. This may correlate to patient''s palpable finding. Lesion is favored to represent a benign lipoma. However, a follow-up ultrasound is recommended in 6 months to assess stability. ASSESSMENT CATEGORY: BIRADS Category 3: Probably Benign - Short-Interval Follow-up Suggested. A letter regarding these results will be sent to the patient by the facility within 30 days. Recommendation: Follow-up ultrasound is recommended 6 months to assess the stability. Approximately 10% of breast cancers are not detected by mammography. A normal mammogram should not delay biopsy of a clinically suspicious abnormality. Electronically Signed: John Kruse DO at 10:16 EDT ,
== END | disposition home or self-care (01) ==
PROVIDERS: PCP Family Medicine; Referring Provider Obstetrics & Gynecology; Visit Provider Obstetrics & Gynecology
DX: N63.10 Unspecified lump in the right breast, unspecified quadrant (principal)
CPT/HCPCS: 76642; 77062; 77066; G0279

== ENCOUNTER → 2023-04-11 | Outpatient (CLI) | payer OTHER, SELFPAY ==
--- NOTE | 2023-04-11 08:34 | EKG12_ITS ---
Test Reason : PREOP Blood Pressure : / mmHG Vent. Rate : 077 BPM Atrial Rate : 077 BPM P-R Int : 132 ms QRS Dur : 092 ms QT Int : 388 ms P-R-T Axes : -18 -39 -03 degrees QTc Int : 439 ms Normal sinus rhythm Left axis deviation Abnormal ECG Confirmed by WAYNE HOPE, NATALIA ([id number]), editor city [place] ([id number]) on 04/12/2023 9:22:32 AM Referred By: Misa Wheeler Confirmed By:NATALIA BLACK MD
--- NOTE | 2023-04-11 08:50 | RAD_ITS ---
STUDY: X-RAY CHEST REASON FOR EXAM: Female, 52 years old. Preoperative evaluation for ankle fracture. TECHNIQUE: Frontal and lateral views of the chest. COMPARISON: Chest dated August 2020. FINDINGS: The lungs are clear and expanded. There is no demonstrated pleural abnormality. Stable borderline cardiomegaly with aortic tortuosity. Normal mediastinum and marguerite. Normal visualized pulmonary arteries. Mild thoracolumbar scoliosis unchanged. Normal visualized ribs, clavicles, and shoulders. No abnormality of the visualized soft tissue structures of the upper abdomen. RAD/Chest PA and Lateral IMPRESSION: Stable borderline cardiomegaly with no acute or active cardiopulmonary disease. Electronically Signed: Atul Ritchie MD at 9:38 EST ,
== END | disposition home or self-care (01) ==
LOC: RAD 08:31
PROVIDERS: PCP Family Medicine; Referring Provider Nurse Practitioner Family; Visit Provider Nurse Practitioner Family
DX: Z01.818 Encounter for other preprocedural examination (principal); S82.899A Other fracture of unspecified lower leg, initial encounter for closed fracture
CPT/HCPCS: 71046; 93005

== ENCOUNTER 2023-04-20 10:22 | Day surgery (SDC) | payer OTHER, SELFPAY ==
[2023-04-20] VITALS (12 sets, daily range): BP systolic 131–170; BP diastolic 70–109; PULSE 78–95; RESP 16–18; TEMP 36.4–36.8; O2SAT 91–99; BMI 27.6
[2023-04-20] MEDS: Lactated Ringers 1,000 ML 15 ML IV (11:09)
--- NOTE | 2023-04-20 16:20 | RAD_ITS ---
EXAM: XR RIGHT ANKLE COMPLETE, 3 OR MORE VIEWS CLINICAL INDICATION: FX TECHNIQUE: Frontal, lateral and oblique views of the right ankle. COMPARISON: No relevant prior studies available. FINDINGS: FLUOROSCOPY: IMAGES: 10 images provided. Real-time exam. Stabilization of ankle fractures. SOFT TISSUES: [Surgical exam. RAD/Ankle min 3 Views IMPRESSION: Fluoroscopic images provided. Real-time study. Electronically Signed: Coni Briceno MD at 7:51 EST ,
[2023-04-20] MEDS: Cefazolin 2 GM in 0.9% Normal Saline (100mL Bag) 100 ML IV (16:21)
[2023-04-20] MEDS: Bupivacaine 0.5% PF 10 ML VIAL (17:50)
[2023-04-20] MEDS: Bupivacaine Mpf 0.5% 30 ML VIAL (17:52)
--- NOTE | 2023-04-20 18:09 | PCM.OPRPT ---
Problems Associated Problem List Diagnoses (1) Bimalleolar fracture of right ankle: Report of Operation Date of Procedure: 04/20/23 Pre-Operative Diagnosis: 1) Right closed, displaced bimalleolar ankle fracture Post-Operative Diagnosis: same Surgery/Procedure Performed:: 1) open reduction internal fixation right bimalleolar ankle fracture 2) application of AO splint right lower extremity Description of Surgical Findings:: Anatomic reduction of right closed displaced ankle fracture noted upon ORIF. This confirmed with fluoroscopic imaging using AP mortise and lateral views. Surgeon: Jono Crowder field sales specialist: None (Duane Hernandez) Type of Anesthesia: General Special Medications: 30cc marcaine plain Specimen's removed: none Drains: none Estimated Blood Loss (mL): minimal Description of Procedure: Patient was brought back the operating placed comfortably in the supine position on the operating room table. All osseous prominences offloaded prevent any compression neuropraxia's. Well-padded right thigh tourniquet was applied. Right lower extremity was bumped to knock out any external rotation. He was positioned on blankets to elevate relative the contralateral limb. Right lower extremity scrubbed prepped draped using typical aseptic fashion. Procedure #1 open reduction internal fixation right bimalleolar ankle fracture: Palpation of the distal fibula was used to identify the distal fibula for incisional planning a direct lateral incision was made through epidermis and dermis into subcutaneous tissue with #15 blade. Any bleeders identified cauterized. Neurovascular structures protected with blunt retraction. A full-thickness periosteal and deep fascial incision was then made with a 15 blade and blunt dissection was used to clear the periosteal rail layer of the distal fibula to expose the laterally shortened and externally rotated distal fibular fracture which was oblique with regards to the sagittal plane. This was closed reduced using bone reduction forceps and Charnley's principles. AP mortise views and lateral imaging was used to confirm anatomic reduction of the fibula. The malleolus did reduce during this process due to. Vitalis phenomenon secondary ligamentotaxis. A lateral anatomic plate was applied with combination of locking and nonlocking screws per [place] using manufactures guidelines. Again anatomic reduction was noted on AP mortise and lateral views. Attention was taken to the medial malleolus in which the medial malleolus was pinned in a reduced position with 2 guidewires for partially-threaded cancellous 4 oh screws per [place] once anatomic reduction was confirmed using fluoroscopic imaging the screws were drilled and placed using manufactures guidelines. AP mortise lateral imaging confirmed anatomic reduction and stability of the close displaced bimalleolar ankle fracture status post ORIF. All incisional sites were flushed with copious amounts of normal sterile saline. Tourniquet was let down. Deep closure was performed laterally using simple interrupted buried 2-0 Vicryl. Skin closure performed with simple interrupted buried 2-0 Vicryl. Skin closure was performed with ben laterally. Medial site was closed after flushing with ben. Foot was cleansed and then dressed with Betadine Adaptic 4 x 4's Kerlix. Procedure #2 application of AO splint right lower extremity: Using 2 layers of cast padding from the base of the of the digits to proximal the widest portion of the calf were wrapped followed by two 4 inch Sonu bandages followed by additional 2 layers of cast padding followed by 2 sets of 3 x 5 x 30 plaster splint material first 1 was placed in a U position cupping the heel extending along the medial and lateral aspects of the ankle followed by a sugar-tong crossing the ankle from the heel. This was then dressed with a double 6 inch Sonu wrap. Patient was then transferred to PACU vital signs stable vascular status intact all digits for further monitoring prior to discharge. Patient tolerated procedure and anesthesia well in apparent satisfactory condition. No complications Patient will be discharged follow-up in 1 week she will maintain nonweightbearing will likely initiate early weightbearing at 4 weeks postop in a Cam walking boot. Admit VTE Documentation VTE Present on Admission: Yes VTE Pharm Prophylaxis ordered?: Yes
[2023-04-20] MEDS: Ketorolac 30 MG/ML Syringe IV (18:25)
[2023-04-20] MEDS: Acetaminophen 325 MG Tablet PO (19:16)
== END 2023-04-20 20:04 | disposition home or self-care (01) ==
LOC: SDC 10:28 → AC 10:29
PROVIDERS: PCP Nurse Practitioner Family; Referring Provider Podiatrist; Visit Provider Podiatrist
PROC: (CPT 27814; principal; 2023-04-20 11:40)
DX: S82.841A Displaced bimalleolar fracture of right lower leg, initial encounter for closed fracture (principal); X58.XXXA Exposure to other specified factors, initial encounter; I10 Essential (primary) hypertension; Z79.899 Other long term (current) drug therapy
CPT/HCPCS: 27814; 64450; 01480; 73610; 76000; C1713; J7120; J2405

== ENCOUNTER → 2023-05-18 | Outpatient (CLI) | payer OTHER, SELFPAY ==
--- NOTE | 2023-05-18 14:43 | ECHOD_ITS ---
Reason For Study: Abnormal EKG Procedure This was a 2D Doppler, Color Flow transthoracic echocardiogram. Exam performed in department. Left Ventricle Normal LV size. Left ventricular systolic function is normal. The estimated ejection fraction is 65 %. Stage 1 diastolic dysfunction. No regional wall motion abnormalities noted. Right Ventricle Normal RV size. The right ventricle is normal in size, function, and thickness. Atria Normal left atrium. Normal right atrium. Mitral Valve Normal mitral valve. Tricuspid Valve Normal tricuspid valve. Trivial tricuspid valve insufficiency. Aortic Valve Trisinus/trileaflet aortic valve. Pulmonic Valve Normal pulmonic valve. Great Vessels Normal aortic root. The pulmonary artery is normal size. Normal inferior vena cava. Pericardium/Pleural No pericardial effusion. MMode/2D Measurements & Calculations LVIDd: 4.3 cm IVSd: 1.1 cm Ao root diam: 3.4 cm LVIDs: 2.7 cm LVPWd: 0.86 cm LA dimension: 4.1 cm RVDd: 3.3 cm FS: 37.2 % LAV(MOD-bp): 40.0 ml LVAd ap4: 25.6 cm2 SV(MOD-sp4): 48.4 ml LAV(MOD-bp) Indexed: 21.9 ml/m2 LVLd ap4: 7.2 cm LAV(MOD-sp2): 40.4 ml EDV(MOD-sp4): 73.8 ml LAV(MOD-sp4): 34.1 ml EDV(sp4-el): 77.1 ml LVAs ap4: 13.3 cm2 LVLs ap4: 6.1 cm ESV(MOD-sp4): 25.3 ml ESV(sp4-el): 24.9 ml EF(MOD-sp4): 65.7 % EF(sp4-el): 67.7 % SV(sp4-el): 52.2 ml LA A4 area: 14.0 cm2 RA A4 area: 11.1 cm2 TAPSE: 2.5 cm Time Measurements MV dec time: 0.19 sec Doppler Measurements & Calculations MV E max jasper: 71.2 cm/sec Lat Peak E' Jasper: 15.0 cm/sec Med Peak E' Jasper: 5.6 cm/sec MV A max jasper: 99.0 cm/sec E/E' lat: 4.8 E/E' med: 12.6 MV E/A: 0.72 MV V2 max: 104.4 cm/sec MV P1/2t max jasper: 79.5 cm/sec Ao V2 max: 159.9 cm/sec MV max P.4 mmHg MV P1/2t: 65.2 msec Ao max P.2 mmHg MV V2 mean: 61.2 cm/sec MV dec slope: 357.1 cm/sec2 Ao V2 mean: 107.6 cm/sec MV mean P.7 mmHg Ao mean P.3 mmHg MV V2 VTI: 21.7 cm MVA(P1/2t): 3.4 cm2 Ao V2 VTI: 34.6 cm AV (velocity ratio): 0.92 LV V1 max: 148.7 cm/sec PA V2 max: 83.2 cm/sec TR max jasper: 211.6 cm/sec LV V1 max P.8 mmHg TR max P.9 mmHg LV V1 mean P.7 mmHg LV V1 mean: 103.3 cm/sec LV V1 VTI: 31.8 cm ECHO/Echo Complete Interpretation Summary Normal LV size. Left ventricular systolic function is normal. The estimated ejection fraction is 65 %. Stage 1 diastolic dysfunction. Trivial tricuspid valve insufficiency. Ordering Physician: Misa Wheeler Referring Physician: Misa Wheeler Performed By: Kamari Pettit RCS
--- OUTSIDE RECORDS SUMMARY | 2023-05-18 15:02 | XMS RPT_ITS | CCD ---
Author Name Unknown Address [address] [place] [address] Organization [facility] Care Team Providers Care Customer Service Driver Name Role Phone Magalis REYNOSO, Manjinder Myriam Unavailable [phone] Shukri HOPE, Koffi Hinkle Primary Care Provider Shukri HOPE, Koffi Hinkle Primary Care Provider [phone] Unknown, Referring Provider Unavailable Unav ailable Shukri HOPE, Koffi Hinkle Primary Care Provider None, No PCP Unavailable Unavailable Self, Referral Referring Unavailable UNKNOWN, PCP Primary Care Unavailable ALONZO, Dr. CACHORRO VEGA Attending Jeny vabalbina Slade, Dr. Norman Wolf Referring Unavai daniel Slade, Dr. Norman Wolf Attending Jojo Slade, Dr. Norman Wolf Attending Jojo sanchez UNKNOWN, PCP Primary Care Unavailable ALONZO, Dr. CACHORRO VEGA Referring Jeny vailable UNKNOWN, PCP Primary Care Unavailable [place], Dr. Norman Wolf Attending Jojo Watt MD, Koffi Maxwell Primary Care Provider Medications Completed/Discontinued Medications Medication Drug Class(es) Dates Sig (Normalized) Sig (Original) acetaminophen 325 mg / oxyCODONE hydrochloride 5 mg oral tablet (19 sources) Opioid Agonist Start: 11-08-2016 take 1 tablet by mouth every four hours as needed oxyCODONE-acetami nophen (PERCOCET) 5-325 mg tablet Take 1 tablet by mouth every 4 hours as needed. 10 tablet 0 11/08/2016 Active Problems Active Problems Problem Classification Problem Date Documented Date Episodic/Chronic Osteoarthritis (20 sources) Primary gonarthrosis, bilateral; Translations: [Bilateral primary osteoarthritis of knee] Onset: 08-10-2021 Chronic Other aftercare (1 source) Patient encounter status; Translations: [Other termination clerk (current) drug therapy] Episodic Other connective tissue disease (1 source) Dysfunction of posterior tibial tendon; Translations: [Posterior tibial tendinitis, unspecified leg] Episodic Other non-traumatic joint disorders (8 sources) Pain in right knee; Translations: [Pain in joint, lower leg] Episodic Other non-traumatic joint disorders (3 sources) Pain in left knee; Translations: [Pain in left knee] Onset: 03-24-2022 Episodic Residual codes; unclassified (2 sources) Pain; Translations: [Pain, unspecified] Episodic Past or Other Problems Problem Classification Problem Date Documented Da te Episodic/Chronic Anal and rectal conditions (19 sources) Anal polyp; Translations: [Anal polyp] Onset: 10-21-2015 10-21-2015 Episodic Genitourinary symptoms and ill-defined conditions (3 sources) Dysuria; Translations: [Dysuria] Onset: 02-11-2017 02-11-2017 Episodic Hemorrhoids (19 sources) Internal hemorrhoids grade II; Translations: [Second degree hemorrhoids] Onset: 10-21-2015 10-21-2015 Episodic Results Test Name Value Interpretation Reference Range Facil ity Vital Signs Date Time Vital Sign Value Performing Clinician Sirisha flores 01-11-2022 14:10-0400 Body height 152.4 cm Referring Provider Unknown [facility]-Yxkvpoabbdtf-Md sman 210 Work Phone: 01-11-2022 14:10-0400 Body mass index (BMI) [Ratio] 34.18 kg/m2 Referring Provider Unknown RD-Vocvuccdmbou-Jq sman 210 Work Phone: 01-11-2022 14:10-0400 Body surface area Derived from formula 1.76 m2 Referring Provider Unknown U[facility]-Uelezezfopnv-Rc sman 210 Work Phone: 01-11-2022 14:10-0400 Body weight 79.38 kg Referring Provider Unknown TX-Fudmpnkjmwcx-Tp sman 210 Work Phone: 12-05-2021 15:47-0400 Body height 165.1 cm Birgit Mancini PA-C Work Phone: [facility] 12-05-2021 15:47-0400 Body weight 81.65 kg Birgit Mancini PA-C Work Phone: [facility] 08-05-2021 09:41-0400 Body height 162.6 cm Birgit Live PA-C Work Phone: [facility] 08-05-2021 09:41-0400 Body weight 81.65 kg Birgit Mancini PA-C Work Phone: [facility] 02-11-2017 12:11-0400 BMI (Body Mass Index) 30.22 kg/m2 Manjinder Magalis PA-C [facility] Work Phone: 02-11-2017 12:11-0400 Body Temperature 98.4 [degF] Manjinder Magalis PA-C [facility] Work Phone: 02-11-2017 12:11-0400 BP Diastolic 72 mm[Hg] Manjinder Blancas PA-C [facility] Work Phone: 02-11-2017 12:11-0400 BP Systolic 118 mm[Hg] Manjinder Blancas PA-C [facility] Work Phone: 02-11-2017 12:11-0400 Height 165.1 cm Manjinder Magalis PA-C [facility] Work Phone: 02-11-2017 12:11-0400 Pulse (Heart Rate) 99 /min Manjinder Blancas PA-C [facility] Work Phone: 02-11-2017 12:11-0400 Respiratory Rate 12 /min Manjinder Blancas PA-C [facility] Work Phone: 02-11-2017 12:11-0400 Weight 82.37 kg Manjinder Blancas PA-C [facility] Work Phone: Encounters Encounter Date Encounter Type Care Provider Facility Start: 04-09-2023 Orders Only Tomas Olivera MD Work Phone: [facility] Procedures Date Procedure Procedure Detail Performing Clinician Start: 12-06-2021 Mri any jt lower ext rem w/o contrast matrl Birgit Milan PA-C Work Phone: Start: 08-05-2021 Radiologic exam knee complete 4/more views Toni Echeverria MD Work Phone: Start: 02-11-2017 End: 02-11-2017 Urnls dip stick/tablet rgnt non-auto w/o micrscp Manjinder Blancas PA-C Work Phone: Start: 02-11-2017 End: 02-11-2017 Urinalysis nonauto w/o scope Manjinder Blancas PA-C Work Phone: Plan of Treatment Date Care Activity Detail Author Start: 11-17-2026 HPV Testing HPV Testing [facility] Start: 11-17-2026 Pap Testing Pap Testing [facility] Start: 01-18-2023 Mammography Mammogram Screening [facility] Start: 01-12-2023 Influenza vaccination Influenza Vacc ine (#1) [facility] Start: 05-14-2022 Depression Assessment Depression Ass essment [facility] Start: 03-14-2022 End: 05-14-2022 CREATININE BLD CREATININE BLD Lab Routine Encounter for long-term (current) use of medications Expected: 03/14/2022, Expires: 05/14/2022 [facility] Work Phone: Immunizations Immunization Date Immunization Notes Care Provider Jace rubio 04-03-2016 influenza, injectabl e, quadrivalent, contains preservative No PCP None [facility] [address] DO Work Phone: 04-03-2016 influenza virus vaccine, unspecified formulation Tomas Olivera MD Work Phone: [facility] 01-06-2013 influenza, seasonal, injectable No PCP None [facility] [address] DO Work Phone: 01-06-2013 pneumococcal conjuga te vaccine, 13 valent No PCP None [place] [address] DO Work Phone: 01-06-2013 TD(adult) unspecifie d formulation No PCP None [place] [address] DO Work Phone: Payers Date Payer Category Payer Private Health Insurance [employer] A ETNA CHOICE POS II [id number] 2021-Present [phone] [address] [place] [address] POS [id number] 2021 Private Health Insurance [id number] 1970 Unknown [id number] 1968 Unknown [id number] 1968 Unknown [id number] 1968 Unknown [id number] Private Health Insurance [id number] Unknown [employer] Social History Date Type Detail Facility Start: 11-08-2016 End: 08-03-2020 Tobacco smoking status NHIS Never smoked tobacco [facility] Work Phone: Start: 11-08-2016 End: 08-03-2020 Tobacco use and exposure Smokeless tobacco non-user [facility] Work Phone: Start: 08-05-2021 End: 01-16-2023 Alcohol intake Current drinker of alcohol (finding) [facility] Start: 08-03-2020 History SDOH Alcohol Comment some [facility] Start: 1970 Sex Assigned At Female C [facility] Start: 07-26-2021 End: 12-05-2021 Exposure to SARS-CoV-2 (event) Not sure [facility] Start: 06-10-2022 End: 01-16-2023 History of Social function [facility] Start: 06-10-2022 End: 01-16-2023 Tobacco use panel [facility] National Score (1-10 0), lower number is lower risk 67 [facility] Start: 07-31-2021 Gender identity Identifies as female gender (finding) [facility] Start: 07-31-2021 Sexual orientation Heterosexual (kin mancilla) [facility] Clinical Notes 08-05-2021 to 12-09-2021 Telephone Encounter - MAGO Dawkins - 12/09/2021 9:09 AM EDTTelephone Encounter - [place] LPN - 12/07/2021 10:26 AM RT Arianna(Alissa) - 12/06/2021 11:20 AM EDT Note Date & Type Note Facility 12-09-2021 Miscellaneous Notes Pt would like to use port for appt on 12/12/21 @ 8:40 Please call pt to let her know what time to come in please documented in this encounter [facility] 12-07-2021 Miscellaneous Notes Pt calling to today to make sure her MRI results are available to her ortho provider. She has not seen them come to My Chart yet. Advised her results were in there and provider has not reviewed them yet. Advised her that Dr Mancini's office should be contacting her with results. Pt verbalizes understanding. [place] LPN documented in this encounter [facility] 12-06-2021 Note HNO ID: [id number] Author: RT Ramón(Alissa) Service: Radiology Author Type: Technologist Type: Progress Notes Filed: 12/06/2021 12:13 PM Note Text: Radiology Service Progress Note PATIENT NAME: Mandy Alvarado DATE OF SERVICE: December 06, 2021 TIME: 12:13 PM PATIENT IDENTITY VERIFICATION COMPLETED USING TWO (2) IDENTIFIERS: Name and Date of confirmed by patient verbally. FALL SCREENING: Has the patient had 2 falls in the last year or 1 fall with injury or currently using an Ambulatory Assistive Device (Walker, Cane, Wheelchair, Crutches, etc.)? No PATIENT GENDER DATA: Female. status: : No status: NO. PATIENT RELEVANT IMPLANT DATA REVIEWED: Yes RADIOLOGY DEPARTMENT: MR; Exam(s) Completed: Lower MSK: Knee, right PERIPHERAL IV DATA: Not applicable SIGNED BY: RT Ramón(R) December 06, 2021 12:[address] [facility] 12-06-2021 History of Presen t illness Narrative Radiology Service Progress Note PATIENT NAME: Mandy Alvarado DATE OF SERVICE: December 06, 2021 TIME: 12:13 PM PATIENT IDENTITY VERIFICATION COMPLETED USING TWO (2) IDENTIFIERS: Name and Date of confirmed by patient verbally. FALL SCREENING: Has the patient had 2 falls in the last year or 1 fall with injury or currently using an Ambulatory Assistive Device (Walker, Cane, Wheelchair, Crutches, etc.)? No PATIENT GENDER DATA: Female. status: : No status: NO. PATIENT RELEVANT IMPLANT DATA REVIEWED: Yes RADIOLOGY DEPARTMENT: MR; Exam(s) Completed: Lower MSK: Knee, right PERIPHERAL IV DATA: Not applicable SIGNED BY: RT Ramón(Alissa) December 06, 2021 12:13 PM documented in this encounter [facility] 12-05-2021 Note HNO ID: [id number] Author: Birgit Mancini PA-C Service: ? Author Type: Physician Motor Vehicle Clerk Type: Progress Notes Filed: 12/05/2021 4:55 PM Note Text: Birgit Mancini PA-C Established Patient Department of Orthopaedics Orthopaedics [address] [place] [address] Dept: [phone] December 05, 2021 SUBJECTIVE: CHIEF COMPLAINT: Established Patient and Knee Pain of the Right Knee HPI: Ms. Mandy Alvarado is a 51 year old female. She was last seen in the office on 08/05/2021 where she was started on meloxicam and consulted to physical therapy. She presents today for follow up. Today she rates her pain a 5 on a scale of 0 to 10. The pain is worse with walking. She describes the pain as achy at rest with occasional sharp/stabbing pain. She has been taking meloxicam as prescribed and is requesting a refill. She denies any recent injury or the onset of new symptoms. Past Medical History: PAST MEDICAL HISTORY Diagnosis Date - Hot flashes Past Surgical History: PAST SURGICAL HISTORY Procedure Laterality Date - HEMORRHOIDECTOMY 2018 in office - [facility] N/CARPAL TUNNEL SURG Right Family History: FAMILY HISTORY Problem Relation Age of Onset - Ovarian cancer Mother - Cancer Father Social History: Social History Tobacco Use - Smoking status: Never Smoker - Smokeless tobacco: Never Used Substance Use Topics - Alcohol use: Yes Comment: some - Drug use: Never Medications: Current Outpatient Medications Medication Sig - MULTI-VITAMIN ORAL Take by mouth once daily. - FISH OIL-DHA-EPA ORAL Take by mouth once daily. - ubidecarenone (ULTRA COQ10 ORAL) Take by mouth. - gabapentin (NEURONTIN) 100 mg capsule Take 300 mg by mouth daily at bedtime. - multivitamin (DAILY VITAMIN) tablet Take 1 tablet by mouth once daily. - VITAMIN E, DL,TOCOPHERYL ACET, (VITAMIN E, DL, ACETATE,) 100 unit cap Take by mouth. - meloxicam (MOBIC) 15 mg tablet Take 1 tablet by mouth once daily. - lidocaine (XYLOCAINE) 5 % ointment Apply 1 application to affected area as needed. (Patient not taking: Reported on 01/07/2020 ) - oxyCODONE-acetaminophen (PERCOCET) 5-325 mg tablet Take 1 tablet by mouth every 4 hours as needed. (Patient not taking: Reported on 01/07/2020) No current facility-administered medications for this visit. Allergies: Patient has no known allergies. ROS: General: negative for fatigue, malaise, weight loss/gain Musculoskeletal: see HPI Psych: no depression, anxiety OBJECTIVE: Ms. Mandy Alvarado is a pleasant 51 year old in no apparent distress. Gen:Ht 5' 5 (1.65m) Wt 180 lb (81.6kg) BMI 29.95 kg/(m2). nl development, non obese, no deformities ENT: Normocephalic, normal hearing, moist mucosa CV: Pulses:DP/PT= 2+ and symmetric, capillary refill < 2 secs, no peripheral edema/varicosities Skin: no rash, bruising or lesions. Good turgor. Psych: cooperative and appropriate, alert and oriented x 3, good mood and affect. Musculoskeletal: Left knee, bilateral hips and ankles FROM without pain or limitation. RT Knee: Alignment: Varus deformity, Correctable Active Extension 0 and Active Flexion 120 Extension lag: No Pain with ROM: Yes Effusion: Slight Erythema: No Ecchymosis: No Tender to the palpation of Medial joint line Pain with patellar compression: No Stability: Anterior/Posterior stable and Varus/Valgus stable Patellofemoral crepitus: Yes Quad Atrophy: No Herberth's: Negative Anterior drawer: Negative IMAGING: Not indicated ASSESSMENT: M17.11 Primary osteoarthritis of right knee (primary encounter diagnosis) M25.561, G89.29 Chronic pain of right knee PLAN: Reviewed images taken previously. Discussed treatment options for persistent knee pain despite therapy and anti-inflammatories including advanced imaging and corticosteroid injection. MRI of right knee ordered today. We will call patient to discuss results and schedule appropriate follow up. Patient agreeable. FOLLOW UP INSTRUCTIONS: After MRI Birgit Mancini PA-C [facility] 12-05-2021 History of Presen t illness Narrative Birgit Mancini PA-C Established Patient Department of Orthopaedics Orthopaedics [address] [place] [address] Dept: [phone] December 05, 2021 SUBJECTIVE: CHIEF COMPLAINT: Established Patient and Knee Pain of the Right Knee HPI: Ms. Mandy Alvarado is a 51 year old female. She was last seen in the office on 08/05/2021 where she was started on meloxicam and consulted to physical therapy. She presents today for follow up. Today she rates her pain a 5 on a scale of 0 to 10. The pain is worse with walking. She describes the pain as achy at rest with occasional sharp/stabbing pain. She has been taking meloxicam as prescribed and is requesting a refill. She denies any recent injury or the onset of new symptoms. Past Medical History: PAST MEDICAL HISTORY Diagnosis Date Hot flashes Past Surgical History: PAST SURGICAL HISTORY Procedure Laterality Date HEMORRHOIDECTOMY 2018 in office REVISE MEDIAN N/CARPAL TUNNEL SURG Right Family History: FAMILY HISTORY Problem Relation Age of Onset Ovarian cancer Mother Cancer Father Social History: Social History Tobacco Use Smoking status: Never Smoker Smokeless tobacco: Never Used Substance Use Topics Alcohol use: Yes Comment: some Drug use: Never Medications: Current Outpatient Medications Medication Sig MULTI-VITAMIN ORAL Take by mouth once daily. FISH OIL-DHA-EPA ORAL Take by mouth once daily. ubidecarenone (ULTRA COQ10 ORAL) Take by mouth. gabapentin (NEURONTIN) 100 mg capsule Take 300 mg by mouth daily at bedtime. multivitamin (DAILY VITAMIN) tablet Take 1 tablet by mouth once daily. VITAMIN E, DL,TOCOPHERYL ACET, (VITAMIN E, DL, ACETATE,) 100 unit cap Take by mouth. meloxicam (MOBIC) 15 mg tablet Take 1 tablet by mouth once daily. lidocaine (XYLOCAINE) 5 % ointment Apply 1 application to affected area as needed. (Patient not taking: Reported on 01/07/2020 ) oxyCODONE-acetaminophen (PERCOCET) 5-325 mg tablet Take 1 tablet by mouth every 4 hours as needed. (Patient not taking: Reported on 01/07/2020) No current facility-administered medications for this visit. Allergies: Patient has no known allergies. ROS: General: negative for fatigue, malaise, weight loss/gain Musculoskeletal: see HPI Psych: no depression, anxiety OBJECTIVE: Ms. Mandy Alvarado is a pleasant 51 year old in no apparent distress. Gen:Ht 5' 5 (1.65m) Wt 180 lb (81.6kg) BMI 29.95 kg/(m^2). nl development, non obese, no deformities ENT: Normocephalic, normal hearing, moist mucosa CV: Pulses:DP/PT= 2+ and symmetric, capillary refill < 2 secs, no peripheral edema/varicosities Skin: no rash, bruising or lesions. Good turgor. Psych: cooperative and appropriate, alert and oriented x 3, good mood and affect. Musculoskeletal: Left knee, bilateral hips and ankles FROM without pain or limitation. RT Knee: Alignment: Varus deformity, Correctable Active Extension 0 and Active Flexion 120 Extension lag: No Pain with ROM: Yes Effusion: Slight Erythema: No Ecchymosis: No Tender to the palpation of Medial joint line Pain with patellar compression: No Stability: Anterior/Posterior stable and Varus/Valgus stable Patellofemoral crepitus: Yes Quad Atrophy: No Herberth's: Negative Anterior drawer: Negative IMAGING: Not indicated ASSESSMENT: M17.11 Primary osteoarthritis of right knee (primary encounter diagnosis) M25.561, G89.29 Chronic pain of right knee PLAN: Reviewed images taken previously. Discussed treatment options for persistent knee pain despite therapy and anti-inflammatories including advanced imaging and corticosteroid injection. MRI of right knee ordered today. We will call patient to discuss results and schedule appropriate follow up. Patient agreeable. FOLLOW UP INSTRUCTIONS: After MRI Birgit Mancini PA-C documented in this encounter [facility] 11-16-2021 Miscellaneous Notes See [employer] message from 11/09/21. Orthotics ordered. Please have patient picker and packer prescription and she can schedule with [employer] documented in this encounter [facility] 11-11-2021 History of Presen t illness Narrative Mandy is a 51F presenting to clinic with complaints of R knee pain since June of this year. She states that this started after falling onto her knee. She had been doing well with the pain until this November when she felt a pop in her knee while running. She has since been experiencing migrating pain and swelling towards the end of the today. She has tried a intraarticular steroid injection, last in November at the [facility], which has given her some relief. She has also tried a course of Meloxicam and Tylenol with some relief but the pt is reluctant to stay on senior care medications. She also had an MRI performed showing a R medial meniscal tear. She comes to clinic for a second opinion as she has been told she is not a surgical candidate for meniscal surgery given her degree of medial compartment arthritis. GT-Jsopnyxvcebn-Mfpfjv 210 Work Phone: 11-11-2021 History of Presen t illness Narrative Mandy is a 51F presenting to clinic with complaints of R knee pain since June of this year. She states that this started after falling onto her knee. She had been doing well with the pain until this November when she felt a pop in her knee while running. She has since been experiencing migrating pain and swelling towards the end of the today. She has tried a intraarticular steroid injection, last in November at the [facility], which has given her some relief. She has also tried a course of Meloxicam and Tylenol with some relief but the pt is reluctant to stay on termination clerk medications. She also had an MRI performed showing a R medial meniscal tear. She comes to clinic for a second opinion as she has been told she is not a surgical candidate for meniscal surgery given her degree of medial compartment arthritis. UJ-Yjjahgyoynjl-Sfscok 200 Work Phone: 09-06-2021 Miscellaneous Notes Noted, thanks Birgit Mancini PA-C Spoke with pt jihan update: Worked great, solved initial trauma Used it as instructed Asking if she could use on a PRN basis Advised she could Pt verbalized understanding ans will call if she needs anything else documented in this encounter [facility] 09-02-2021 Note HNO ID: [id number] Author: Devon Lees PT Service: ? Author Type: Physical Therapist Type: Progress Notes Filed: 09/02/2021 9:45 AM Note Text: Episode Visit Count: 3 Therapist That Will Oversee The Plan Of Care: Devon Lees Start of Care Date: 08/10/21 Onset Date: 08/10/18 REHABILITATION AND SPORTS THERAPY PHYSICAL THERAPY TREATMENT NOTE ASSESSMENT: Mandy Alvarado tolerated the session with expected muscle soreness and no issues. She demonstrated being challenged during single leg bridging today and other new exercises, however showed good form and proper muscle activation. The patient will continue to benefit from ongoing skilled physical therapy to progress toward set goals. PLAN FOR NEXT VISIT: NC SUBJECTIVE: Patient Reason for Visit: Patient reports continued improvement. Both knees have had little to no symptoms since last visit. Has been getting outside more and walking much more and farther without any flareups. Pt. reports heel slides on the right cause sharp pain if she really pulls hard on it near end range, believes it might be hanson cyst behind that knee. Pain: Pain Pain Level: 0 Pain Location: Knee - Right;Knee - Left Post Treatment Pain Post Treatment Pain Level: No Change Post Treatment Symptoms: Muscles Worked OBJECTIVE MEASURES WITH LEVEL OF FUNCTION: Patient has slight tightness/discomfort when squatting to parallel on TRX squat, cued to not descend as far - symptoms disappeared through completion of exercise after. TREATMENT: Therapeutic Exercise: 2: Supine Bridges 2x15 4: Inchworms 4 laps on parallel bars, green band 6: Deadlift, Hoist Machine 30# - 2x15 7: TRX Alt. Backward Lunge, 2x15 8: TRX Squats 2x15 9: G Tband TKE, ea. leg, 3x20 10: Prostretch Calf Stretch, 3x30 ea. leg 11: SL Bridge 2x10 ea. 12: *W Walks - Green TB 2 Laps Skilled Intervention: Patient was educated in proper exercise technique and purpose for exercises. Reviewed and educated patient on additions for home exercise program - deadlifts, squats and backward lunges. Skilled judgment was provided in selection of appropriate interventions. Provided written instruction for home exercise program to facilitate proper performance and compliance. Correct performance of therapeutic exercises was facilitated with verbal, visual and tactile cuing. Billing Therapeutic Exercise Treatment Minutes: 43 Total Treatment Time Minutes (timed/untimed): 43 Narendra Blum, SPT Supervising therapist was present and guided the care of the patient for the entire session on this date. All documentation was reviewed and agreed upon. Devon Lees, PT [facility] 09-02-2021 History of Presen t illness Narrative Episode Visit Count: 3 Therapist That Will Oversee The Plan Of Care: Devon Lees Start of Care Date: 08/10/21 Onset Date: 08/10/18 REHABILITATION AND SPORTS THERAPY PHYSICAL THERAPY TREATMENT NOTE ASSESSMENT: Mandy Alvarado tolerated the session with expected muscle soreness and no issues. She demonstrated being challenged during single leg bridging today and other new exercises, however showed good form and proper muscle activation. The patient will continue to benefit from ongoing skilled physical therapy to progress toward set goals. PLAN FOR NEXT VISIT: NC SUBJECTIVE: Patient Reason for Visit: Patient reports continued improvement. Both knees have had little to no symptoms since last visit. Has been getting outside more and walking much more and farther without any flareups. Pt. reports heel slides on the right cause sharp pain if she really pulls hard on it near end range, believes it might be hanson cyst behind that knee. Pain: Pain Pain Level: 0 Pain Location: Knee - Right;Knee - Left Post Treatment Pain Post Treatment Pain Level: No Change Post Treatment Symptoms: Muscles Worked OBJECTIVE MEASURES WITH LEVEL OF FUNCTION: Patient has slight tightness/discomfort when squatting to parallel on TRX squat, cued to not descend as far - symptoms disappeared through completion of exercise after. TREATMENT: Therapeutic Exercise: 2: Supine Bridges 2x15 4: Inchworms 4 laps on parallel bars, green band 6: Deadlift, Hoist Machine 30# - 2x15 7: TRX Alt. Backward Lunge, 2x15 8: TRX Squats 2x15 9: G Tband TKE, ea. leg, 3x20 10: Prostretch Calf Stretch, 3x30 ea. leg 11: SL Bridge 2x10 ea. 12: *W Walks - Green TB 2 Laps Skilled Intervention: Patient was educated in proper exercise technique and purpose for exercises. Reviewed and educated patient on additions for home exercise program - deadlifts, squats and backward lunges. Skilled judgment was provided in selection of appropriate interventions. Provided written instruction for home exercise program to facilitate proper performance and compliance. Correct performance of therapeutic exercises was facilitated with verbal, visual and tactile cuing. Billing Therapeutic Exercise Treatment Minutes: 43 Total Treatment Time Minutes (timed/untimed): 43 JABIER Calvin Supervising therapist was present and guided the care of the patient for the entire session on this date. All documentation was reviewed and agreed upon. Devon Lees PT documented in this encounter [facility] 08-19-2021 Note HNO ID: [id number] Author: Devon Lees PT Service: ? Author Type: Physical Therapist Type: Progress Notes Filed: 08/19/2021 8:48 AM Note Text: Episode Visit Count: 2 Therapist That Will Oversee The Plan Of Care: Devon Lees Start of Care Date: 08/10/21 Onset Date: 08/10/18 REHABILITATION AND SPORTS THERAPY PHYSICAL THERAPY TREATMENT NOTE ASSESSMENT: Mandy Alvarado tolerated the session with decreased pain, expected muscle soreness and no issues. She demonstrated improvements in activity tolerance and decreased symptoms in bilateral knees. The patient will continue to benefit from ongoing skilled physical therapy to progress toward set goals. PLAN FOR NEXT VISIT: Begin squat progression. Focus on dynamic knee valgus control. Progress standing exercises. SUBJECTIVE: Patient Reason for Visit: Patient reports decreased pain in ERIN knees today. She reports not doing as much lately such as walking, hiking, etc. She reports HEP is a workout for her but good overall. Sitting calf stretch kind of flares up the posterior knee. Overall, pt. is doing good. Pain: Pain Pain Level: 0 Pain Location: Knee - Right;Knee - Left Post Treatment Pain Post Treatment Pain Level: No Change Post Treatment Symptoms: Feels Great OBJECTIVE MEASURES WITH LEVEL OF FUNCTION: Lateral step ups were more difficult/challenging going up with the Left foot first to the Lt. Over the Right foot first to the Rt. TREATMENT: Therapeutic Exercise: 1: Heel slides 2x10, 5 sec holds 2: * Supine Bridges 2x15 3: Supine HS stretch 2x30 sec/side 4: * Inchworms 3 laps on parallel bars, yellow bands 5: Forward Step-ups onto blue box, 2x15 - ea. leg first. 6: Lateral Step-ups onto blue box, 2x15 - ea. leg first. 7: SL hip abduction progression 3x10 each/side 8: G Tband clamshells 3x10/side 9: G Tband TKE, ea. leg, 2x15 10: Prostretch Calf Stretch, 3x30 ea. leg Skilled Intervention: Patient was educated in proper exercise technique and purpose for exercises. Reviewed and educated patient on additions for home exercise program as above (*). Skilled judgment was provided in selection of appropriate interventions. Provided written instruction for home exercise program to facilitate proper performance and compliance. Correct performance of therapeutic exercises was facilitated with verbal and visual cuing. Billing Therapeutic Exercise Treatment Minutes: 54 Total Treatment Time Minutes (timed and untimed codes) : 54 Narendra Blum, JABIER Supervising therapist was present and guided the care of the patient for the entire session on this date. All documentation was reviewed and agreed upon. Devon Lees PT [facility] 08-19-2021 History of Presen t illness Narrative Episode Visit Count: 2 Therapist That Will Oversee The Plan Of Care: Devon Lees Start of Care Date: 08/10/21 Onset Date: 08/10/18 REHABILITATION AND SPORTS THERAPY PHYSICAL THERAPY TREATMENT NOTE ASSESSMENT: Mandy Alvarado tolerated the session with decreased pain, expected muscle soreness and no issues. She demonstrated improvements in activity tolerance and decreased symptoms in bilateral knees. The patient will continue to benefit from ongoing skilled physical therapy to progress toward set goals. PLAN FOR NEXT VISIT: Begin squat progression. Focus on dynamic knee valgus control. Progress standing exercises. SUBJECTIVE: Patient Reason for Visit: Patient reports decreased pain in ERIN knees today. She reports not doing as much lately such as walking, hiking, etc. She reports HEP is a workout for her but good overall. Sitting calf stretch kind of flares up the posterior knee. Overall, pt. is doing good. Pain: Pain Pain Level: 0 Pain Location: Knee - Right;Knee - Left Post Treatment Pain Post Treatment Pain Level: No Change Post Treatment Symptoms: Feels Great OBJECTIVE MEASURES WITH LEVEL OF FUNCTION: Lateral step ups were more difficult/challenging going up with the Left foot first to the Lt. Over the Right foot first to the Rt. TREATMENT: Therapeutic Exercise: 1: Heel slides 2x10, 5 sec holds 2: * Supine Bridges 2x15 3: Supine HS stretch 2x30 sec/side 4: * Inchworms 3 laps on parallel bars, yellow bands 5: Forward Step-ups onto blue box, 2x15 - ea. leg first. 6: Lateral Step-ups onto blue box, 2x15 - ea. leg first. 7: SL hip abduction progression 3x10 each/side 8: G Tband clamshells 3x10/side 9: G Tband TKE, ea. leg, 2x15 10: Prostretch Calf Stretch, 3x30 ea. leg Skilled Intervention: Patient was educated in proper exercise technique and purpose for exercises. Reviewed and educated patient on additions for home exercise program as above (*). Skilled judgment was provided in selection of appropriate interventions. Provided written instruction for home exercise program to facilitate proper performance and compliance. Correct performance of therapeutic exercises was facilitated with verbal and visual cuing. Billing Therapeutic Exercise Treatment Minutes: 54 Total Treatment Time Minutes (timed and untimed codes) : 54 JABIER Calvin Supervising therapist was present and guided the care of the patient for the entire session on this date. All documentation was reviewed and agreed upon. Devon Lees PT documented in this encounter [facility] 08-10-2021 Note HNO ID: [id number] Author: Devon Lees, PT Service: ? Author Type: Physical Therapist Type: Progress Notes Filed: 08/10/2021 10:08 AM Note Text: Episode Visit Count: 1 Therapist That Will Oversee The Plan Of Care: Devon Lees Start of Care Date: 08/10/21 Onset Date: 08/10/18 Patient Identified by Name and Date of : Yes REHABILITATION AND SPORTS THERAPY PHYSICAL THERAPY EVALUATION PLAN OF CARE: Assessment: Mandy Alvarado presents with chief complaint of R>L knee pain that interferes with walking in the community;stair negotiation;bending;heavy exertion;lifting;physical activities;recreational activities;squatting . She presents with impairments in ADL's, flexibility, independence in exercise, overall function, range of motion, and strength. Prognosis for therapy is Good due to: current objective clinical presentation;good overall health status;within-session changes;good support system/ coping skills . She will benefit from skilled therapy services to meet the goals established for this plan of care as noted below. Goals for Episode of Care: created on 08/10/21 through 10/10/21 [place] in home exercise program. Patient will decrease pain rating by 2 points to meet minimal clinical important difference for numeric pain rating scale. Patient will increase active ROM of R knee to = L or with 5 total degrees to allow pt to to improve performance of ADLs. Patient will demonstrate increase in BLE strength to 4+ to 5/5 during manual muscle testing in order to improve function for basic self-care tasks, home management tasks, leisure / recreation skills, light functional tasks, moderate to heavy functional tasks and prior functional tasks. Perform squatting and hiking with decreased report of symptoms/pain in 4-6 weeks. Perform ADLs without pain. Improve postural awareness. Planned Interventions, Frequency, and Duration: Current Frequency: 1x/week Duration: 6 weeks Total Number of Visits Planned: 6 Planned Treatment Interventions: Therapeutic exercise (40333);Neuromuscular re-education (10039);Manual therapy (50925);Therapeutic activities (10643);Self-residential management (93152);Patient/Family/Caregiver Education;Body Mechanics Training PLAN FOR NEXT VISIT: Assess HEP carry over, will work on decreasing dynamic valgus with heel taps and squatting Patient demonstrates good understanding of plan of care and treatment. The above goals and plan of care were discussed and agreed upon by patient/family. SUBJECTIVE: Mandy Alvarado is a 51 year old female seen today for B knee pain x3 years with gradual increase. Bakers cyst on both knees R>L and knee pain is worse R>L also. Squatting, going down hill are usually the hardest and most painful motions for her. Pain is sharp, deep in the knee, and resolves with rest. 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 5 points is clinically meaningfully difference Percentiles provide an indication of how the patient's score ranks in relation to the general population. Higher percentile rankings indicate better function/quality of life. 50th percentile is the average of the general population and indicates half of respondents had a worse score. T-scores: mean of general population = 50. 5 points is clinically meaningfully difference Percentiles provide an indication of how the patient's score ranks in relation to the general population. Higher percentile rankings indicate better function/quality of life. 50th percentile is the average of the general population and indicates half of respondents had a worse score. OBJECTIVE MEASURES WITH LEVEL OF FUNCTION: LE AROM R Knee Extension: 2 Degrees R Knee Flexion: 126 Degrees R Ankle Dorsiflexion: 11 Degrees L Knee Extension: 5 Degrees L Knee Flexion: 140 Degrees L Ankle Dorsiflexion: 11 Degrees LE Strength R Hip ABduction: 4-/5 R Hip ADduction: 4/5 R Hip Internal Rotation: 4+/5 R Hip External Rotation: 4-/5 R Knee Extension (L3): 4+/5 R Knee Flexion: 4+/5 L Hip ABduction: 4/5 L Hip ADduction: 4/5 L Hip Internal Rotation: 4+/5 L Hip External Rotation: 4/5 L Knee Extension (L3): 4+/5 L Knee Flexion: 4+/5 Special Tests - Knee Knee Special Tests: Herberth's Test;Thessaly's Test Herberth's Test: Right Negative;Left Negative Thessaly's Test: Thessaly's Test (5 degrees flexion);Thessaly's Test (20 degrees flexion) Thessaly's Test (5 degrees flexion): Right Negative;Left Negative Thessaly's Test (20 degrees flexion): Right Negative;Left Negative Educatio (more content not included)... [facility] 08-10-2021 History of Presen t illness Narrative Episode Visit Count: 1 Therapist That Will Oversee The Plan Of Care: Devon Lees Start of Care Date: 08/10/21 Onset Date: 08/10/18 Patient Identified by Name and Date of : Yes REHABILITATION AND SPORTS THERAPY PHYSICAL THERAPY EVALUATION PLAN OF CARE: Assessment: Mandy Alvarado presents with chief complaint of R>L knee pain that interferes with walking in the community;stair negotiation;bending;heavy exertion;lifting;physical activities;recreational activities;squatting . She presents with impairments in ADL's, flexibility, independence in exercise, overall function, range of motion, and strength. Prognosis for therapy is Good due to: current objective clinical presentation;good overall health status;within-session changes;good support system/ coping skills . She will benefit from skilled therapy services to meet the goals established for this plan of care as noted below. Goals for Episode of Care: created on 08/10/21 through 10/10/21 [place] in home exercise program. Patient will decrease pain rating by 2 points to meet minimal clinical important difference for numeric pain rating scale. Patient will increase active ROM of R knee to = L or with 5 total degrees to allow pt to to improve performance of ADLs. Patient will demonstrate increase in BLE strength to 4+ to 5/5 during manual muscle testing in order to improve function for basic self-care tasks, home management tasks, leisure / recreation skills, light functional tasks, moderate to heavy functional tasks and prior functional tasks. Perform squatting and hiking with decreased report of symptoms/pain in 4-6 weeks. Perform ADLs without pain. Improve postural awareness. Planned Interventions, Frequency, and Duration: Current Frequency: 1x/week Duration: 6 weeks Total Number of Visits Planned: 6 Planned Treatment Interventions: Therapeutic exercise (87539);Neuromuscular re-education (48517);Manual therapy (24021);Therapeutic activities (14228);Self-residential management (86743);Patient/Family/Caregiver Education;Body Mechanics Training PLAN FOR NEXT VISIT: Assess HEP carry over, will work on decreasing dynamic valgus with heel taps and squatting Patient demonstrates good understanding of plan of care and treatment. The above goals and plan of care were discussed and agreed upon by patient/family. SUBJECTIVE: Mandy Alvarado is a 51 year old female seen today for B knee pain x3 years with gradual increase. Bakers cyst on both knees R>L and knee pain is worse R>L also. Squatting, going down hill are usually the hardest and most painful motions for her. Pain is sharp, deep in the knee, and resolves with rest. 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 5 points is clinically meaningfully difference Percentiles provide an indication of how the patient's score ranks in relation to the general population. Higher percentile rankings indicate better function/quality of life. 50th percentile is the average of the general population and indicates half of respondents had a worse score. T-scores: mean of general population = 50. 5 points is clinically meaningfully difference Percentiles provide an indication of how the patient's score ranks in relation to the general population. Higher percentile rankings indicate better function/quality of life. 50th percentile is the average of the general population and indicates half of respondents had a worse score. OBJECTIVE MEASURES WITH LEVEL OF FUNCTION: LE AROM R Knee Extension: 2 Degrees R Knee Flexion: 126 Degrees R Ankle Dorsiflexion: 11 Degrees L Knee Extension: 5 Degrees L Knee Flexion: 140 Degrees L Ankle Dorsiflexion: 11 Degrees LE Strength R Hip ABduction: 4-/5 R Hip ADduction: 4/5 R Hip Internal Rotation: 4+/5 R Hip External Rotation: 4-/5 R Knee Extension (L3): 4+/5 R Knee Flexion: 4+/5 L Hip ABduction: 4/5 L Hip ADduction: 4/5 L Hip Internal Rotation: 4+/5 L Hip External Rotation: 4/5 L Knee Extension (L3): 4+/5 L Knee Flexion: 4+/5 Special Tests - Knee Knee Special Tests: Herberth's Test;Thessaly's Test Herberth's Test: Right Negative;Left Negative Thessaly's Test: Thessaly's Test (5 degrees flexion);Thessaly's Test (20 degrees flexion) Thessaly's Test (5 degrees flexion): Right Negative;Left Negative Thessaly's Test (20 degrees flexion): Right Negative;Left Negative Education: Education Learning/educational needs: Home exercise program;Plan of Care;Posture;Body Mechanics TREATMENT: PT Treatment Interventions: Therapeutic Exercise Evaluation Therapeutic Exercise: 1: *Heel slides 3x10, 5 sec holds 2: *Quad sets 3x10, 5 sec holds 3: *Supine HS stretch 3x30 sec/side 4: *Seated or standing HS stretch 3x30 sec/side 5: *Long sitting calf stretch 3x30 sec 6: *Standing wall calf stretch 3x30 sec 7: *SL hip abduction progression 3x10 each/side 8: *G Tband clamshells 3x10/side Skilled Intervention: Patient was educated in proper exercise technique and purpose for exercises. Skilled judgment was provided in selection of appropriate interventions. Provided written instruction for home exercise program to facilitate proper performance and compliance. Correct performance of therapeutic exercises was facilitated with verbal, visual and tactile cuing. Billing * Evaluation Low Complexity: 1 Unit Therapeutic Exercise Treatment Minutes: 24 Total Treatment Time Minutes (timed and untimed codes) : 40 Devon Lees PT documented in this encounter [facility] 08-05-2021 Note HNO ID: [id number] Author: Birgit Mancini PA-C Service: ? Author Type: Physician Motor Vehicle Clerk Type: Progress Notes Filed: 08/05/2021 2:39 PM Note Text: Birgit Mancini PA-C Department of Orthopaedics Orthopaedics [facility] [address] [address] Dept: [phone] August 05, 2021 SUBJECTIVE: CHIEF COMPLAINT: New and Knee Pain of the Right Knee and New and Knee Pain of the Left Knee HPI: Ms. Mandy Alvarado is a 51 year old female. She presents today with bilateral knee pain that has been present for year. Today she rates her pain a 1 on a scale of 0 to 10. She describes the pain at rest as dull and tight. She describes the pain as sharp with squatting and when navigating down hill. She takes ibuprofen as needed for the pain. She does wear custom orthotics for plantar fascitis. Of note, she fell about a month ago and has had some swelling in her knee since then. She denies any numbness/tingling, weakness, locking/catching, giving out or previous surgeries. Past Medical History: PAST MEDICAL HISTORY Diagnosis Date - Hot flashes Past Surgical History: PAST SURGICAL HISTORY Procedure Laterality Date - HEMORRHOIDECTOMY 2018 in office - [facility]IAN N/CARPAL TUNNEL SURG Right Family History: FAMILY HISTORY Problem Relation Age of Onset - Ovarian cancer Mother - Cancer Father Social History: Social History Tobacco Use - Smoking status: Never Smoker - Smokeless tobacco: Never Used Substance Use Topics - Alcohol use: Yes Comment: some - Drug use: Never Medications: Current Outpatient Medications Medication Sig - MULTI-VITAMIN ORAL Take by mouth once daily. - FISH OIL-DHA-EPA ORAL Take by mouth once daily. - ubidecarenone (ULTRA COQ10 ORAL) Take by mouth. - gabapentin (NEURONTIN) 100 mg capsule Take 300 mg by mouth daily at bedtime. - multivitamin (DAILY VITAMIN) tablet Take 1 tablet by mouth once daily. - VITAMIN E, DL,TOCOPHERYL ACET, (VITAMIN E, DL, ACETATE,) 100 unit cap Take by mouth. - meloxicam (MOBIC) 15 mg tablet Take 1 tablet by mouth once daily. - lidocaine (XYLOCAINE) 5 % ointment Apply 1 application to affected area as needed. (Patient not taking: Reported on 01/07/2020 ) - oxyCODONE-acetaminophen (PERCOCET) 5-325 mg tablet Take 1 tablet by mouth every 4 hours as needed. (Patient not taking: Reported on 01/07/2020) No current facility-administered medications for this visit. Allergies: Patient has no known allergies. ROS: General: negative for fatigue, malaise, weight loss/gain Musculoskeletal: see HPI Psych: no depression, anxiety OBJECTIVE: Ms. Mandy Alvarado is a pleasant 51 year old in no apparent distress. Gen:Ht 5' 4 (1.63m) Wt 180 lb (81.6kg) BMI 30.88 kg/(m2). nl development, non obese, no deformities ENT: Normocephalic, normal hearing, moist mucosa CV: Pulses:DP/PT= 2+ and symmetric, capillary refill < 2 secs, no peripheral edema/varicosities Skin: no rash, bruising or lesions. Good turgor. Psych: cooperative and appropriate, alert and oriented x 3, good mood and affect. Musculoskeletal: bilateral hips and ankles FROM without pain or limitation. RT Knee: Alignment: Varus deformity, Correctable Active Extension 0 and Active Flexion 120 Extension lag: No Pain with ROM: No Effusion: Slight Erythema: No Ecchymosis: No Tender to the palpation of Medial joint line and inferior patellar pole Pain with patellar compression: No Stability: Anterior/Posterior stable and Varus/Valgus stable Patellofemoral crepitus: Yes Quad Atrophy: No Herberth's: Negative Anterior drawer: Negative LT Knee: Alignment: Varus deformity, Correctable Active Extension 0 and Active Flexion 120 Extension lag: No Pain with ROM: Yes Effusion: Slight Erythema: No Ecchymosis: No Tender to the palpation of Medial joint line Pain with patellar compression: No Stability: Anterior/Posterior stable and Varus/Valgus stable Patellofemoral crepitus: No Quad Atrophy: No Herberth's: Negative Anterior drawer: Negative IMAGIN08/05/2021 10:18 AM - Radiology, [place] In Impression IMPRESSION: Osteoarthrosis of the knees. ?This is slightly more prominent on the right compared to the left.. Hybrid Car Mechanic: YANET ? Transcribe Date/Time: Aug 05 2021 10:12A Dictated by : MORRIS CALDERÓN MD This examination was interpreted and the report reviewed and electronically signed by: MORRIS CALDERÓN MD on Aug 05 2021 10:16AM ?EST Results-Findings * * *Final Report* * * DATE OF EXAM: Aug 05 2021 ?9:15AM ? CHANG ? [id number] ?- ?XR KNEE 4V AP/PA/LAT/MERCH ERIN ? / PROCEDURE REASON: [id number] ?? ? * * * * Physician Interpretation * * * * ?Knee radiographs HISTORY: ?51 years old Clinical information: Pain BILATERAL KNEE PAIN TECHNIQUE: Images: ?XR KNEE 4V AP/PA/LAT/MERCH ERIN Comparison: ?None. RESULT: Findings: LEFT KNEE: Mild narrowing of medial compartment joint sp (more content not included)... [facility] 08-05-2021 History of Presen t illness Narrative Birgit Mancini PA-C Department of Orthopaedics Orthopaedics [address] [address] Dept: [phone] August 05, 2021 SUBJECTIVE: CHIEF COMPLAINT: New and Knee Pain of the Right Knee and New and Knee Pain of the Left Knee HPI: Ms. Mandy Alvarado is a 51 year old female. She presents today with bilateral knee pain that has been present for year. Today she rates her pain a 1 on a scale of 0 to 10. She describes the pain at rest as dull and tight. She describes the pain as sharp with squatting and when navigating down hill. She takes ibuprofen as needed for the pain. She does wear custom orthotics for plantar fascitis. Of note, she fell about a month ago and has had some swelling in her knee since then. She denies any numbness/tingling, weakness, locking/catching, giving out or previous surgeries. Past Medical History: PAST MEDICAL HISTORY Diagnosis Date Hot flashes Past Surgical History: PAST SURGICAL HISTORY Procedure Laterality Date HEMORRHOIDECTOMY 2018 in office REVISE MEDIAN N/CARPAL TUNNEL SURG Right Family History: FAMILY HISTORY Problem Relation Age of Onset Ovarian cancer Mother Cancer Father Social History: Social History Tobacco Use Smoking status: Never Smoker Smokeless tobacco: Never Used Substance Use Topics Alcohol use: Yes Comment: some Drug use: Never Medications: Current Outpatient Medications Medication Sig MULTI-VITAMIN ORAL Take by mouth once daily. FISH OIL-DHA-EPA ORAL Take by mouth once daily. ubidecarenone (ULTRA COQ10 ORAL) Take by mouth. gabapentin (NEURONTIN) 100 mg capsule Take 300 mg by mouth daily at bedtime. multivitamin (DAILY VITAMIN) tablet Take 1 tablet by mouth once daily. VITAMIN E, DL,TOCOPHERYL ACET, (VITAMIN E, DL, ACETATE,) 100 unit cap Take by mouth. meloxicam (MOBIC) 15 mg tablet Take 1 tablet by mouth once daily. lidocaine (XYLOCAINE) 5 % ointment Apply 1 application to affected area as needed. (Patient not taking: Reported on 01/07/2020 ) oxyCODONE-acetaminophen (PERCOCET) 5-325 mg tablet Take 1 tablet by mouth every 4 hours as needed. (Patient not taking: Reported on 01/07/2020) No current facility-administered medications for this visit. Allergies: Patient has no known allergies. ROS: General: negative for fatigue, malaise, weight loss/gain Musculoskeletal: see HPI Psych: no depression, anxiety OBJECTIVE: Ms. Mandy Alvarado is a pleasant 51 year old in no apparent distress. Gen:Ht 5' 4 (1.63m) Wt 180 lb (81.6kg) BMI 30.88 kg/(m^2). nl development, non obese, no deformities ENT: Normocephalic, normal hearing, moist mucosa CV: Pulses:DP/PT= 2+ and symmetric, capillary refill < 2 secs, no peripheral edema/varicosities Skin: no rash, bruising or lesions. Good turgor. Psych: cooperative and appropriate, alert and oriented x 3, good mood and affect. Musculoskeletal: bilateral hips and ankles FROM without pain or limitation. RT Knee: Alignment: Varus deformity, Correctable Active Extension 0 and Active Flexion 120 Extension lag: No Pain with ROM: No Effusion: Slight Erythema: No Ecchymosis: No Tender to the palpation of Medial joint line and inferior patellar pole Pain with patellar compression: No Stability: Anterior/Posterior stable and Varus/Valgus stable Patellofemoral crepitus: Yes Quad Atrophy: No Herberth's: Negative Anterior drawer: Negative LT Knee: Alignment: Varus deformity, Correctable Active Extension 0 and Active Flexion 120 Extension lag: No Pain with ROM: Yes Effusion: Slight Erythema: No Ecchymosis: No Tender to the palpation of Medial joint line Pain with patellar compression: No Stability: Anterior/Posterior stable and Varus/Valgus stable Patellofemoral crepitus: No Quad Atrophy: No Herberth's: Negative Anterior drawer: Negative IMAGIN08/05/2021 10:18 AM - Radiology, [place] In Impression IMPRESSION: Osteoarthrosis of the knees. This is slightly more prominent on the right compared to the left.. 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 RESULT: Findings: LEFT KNEE: Mild narrowing of medial compartment joint space. Marginal ossified exam tibial plateaus, femoral condyles, and posterior aspect of the patella. No fracture or dislocation. Trace joint fluid. No soft tissue abnormality identified. RIGHT KNEE: Narrowing of medial compartment joint space. Marginal osteophytes extend tibial plateaus, femoral condyles, and posterior aspect of the superior patella. No fracture or dislocation. No joint effusion. 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 No soft tissue abnormality identified. ASSESSMENT: M17.0 Bilateral primary osteoarthritis of knee (primary encounter diagnosis) PLAN: Reviewed images taken previously. Discussed treatment options for osteoarthritis including otc anti-inflammatories, prescription anti-inflammatories, bracing, physical therapy, and corticosteroid injections. Consult to PT placed today. Prescription for mobic sent to pharmacy. Patient agreeable with plan and will follow up as needed. FOLLOW UP INSTRUCTIONS: As needed Birgit Mancini PA-C documented in this encounter [facility] 08-05-2021 History of Presen t illness Narrative Radiology Service Progress Note PATIENT NAME: Mandy Alvarado DATE OF SERVICE: August 05, 2021 TIME: 9:15 AM PATIENT IDENTITY VERIFICATION COMPLETED USING TWO (2) IDENTIFIERS: Name and Date of confirmed by patient verbally. FALL SCREENING: Has the patient had 2 falls in the last year or 1 fall with injury or currently using an Ambulatory Assistive Device (Walker, Cane, Wheelchair, Crutches, etc.)? No PATIENT GENDER DATA: Female. status: : No status: NO. PATIENT RELEVANT IMPLANT DATA REVIEWED: Not Applicable RADIOLOGY DEPARTMENT: General X-ray: Exam(s) Completed: Lower Extremity X-Ray(s): Knee, AP / Lat / Tunne / Merchant Bilateral and Wt. Bearing PERIPHERAL IV DATA: Not applicable SIGNED BY: REMY Armijo August 05, 2021 9:15 AM documented in this encounter [facility] Chief complaint Narrative - Reported Patient here for initial evaluation of Right Knee Pain. -mv- [id number] Work Phone: Chief complaint Narrative - Reported Patient here for initial evaluation of Right Knee Pain. -mv- [id number] Work Phone: documented in this encounter [facility] note* Diagnosis Bilateral primary osteoarthritis of knee- Primary documented in this encounter [facility] note* Diagnosis Pain Generalized pain documented in this encounter [facility] note* Diagnosis Bilateral primary osteoarthritis of knee- Primary documented in this encounter [facility] note* Diagnosis Bilateral primary osteoarthritis of knee documented in this encounter [facility] note* Diagnosis Bilateral primary osteoarthritis of knee- Primary documented in this encounter [facility] note* Diagnosis Posterior tibial tendon dysfunction- Primary Other disorders of synovium, tendon, and bursa Arthritis of ankle Unspecified arthropathy, ankle and foot documented in this encounter [facility] note* Diagnosis Primary osteoarthritis of right knee- Primary Primary localized osteoarthrosis, lower leg Chronic pain of right knee documented in this encounter [facility] note* Diagnosis Primary osteoarthritis of right knee Primary localized osteoarthrosis, lower leg Chronic pain of right knee documented in this encounter [facility] note* Diagnosis Primary osteoarthritis of right knee Primary localized osteoarthrosis, lower leg Chronic pain of right knee documented in this encounter [facility] note* Diagnosis Primary osteoarthritis of right knee Primary localized osteoarthrosis, lower leg Chronic pain of right knee documented in this encounter [facility] note* Diagnosis Encounter for long-term (current) use of medications- Primary Encounter for long-term (current) use of other medications documented in this encounter [facility] note* Diagnosis Pain- Primary Generalized pain [id number] female referred by Dr. Jackson for right knee viscosupplementation. Patient has known right knee arthritis and has had physical therapy, corticosteroid injections, and multiple analgesics without significant improvement. Therefore, it was discussed that she would likely benefit from viscosupplementation as her next best option. In addition, patient is presenting with complaint of left knee pain that she has had for few years but progressively worse the past few months. She feels as th ough her right knee is worse than her left, however her left is now becoming progressively worse.[id number][facility] [place] [address] DO Work Phone: [facility] for referral (narrative)* Diagnostic Procedure Only (Routine) - Closed Specialty Diagnoses / Procedures Referred By Contac t Referred To Contact XR IMAGING Diagnoses Pain Procedures XR KNEE GENERAL 4V AP BOTH/PA BOTH/LAT/MERC BILATERAL RADIOLOGIC EXAM KNEE COMPLETE 4/MORE VIEWS Toni Echeverria MD [address] [address] Xr Imaging Referral ID Status Reason Start Date Expiration Date V isits Requested Visits Authorized [id number] Closed Auto-Generate d Referral 06/28/2021 07/28/2022 1 1 [facility] for referral (narrative)* Diagnostic Procedure Only (Routine) - Authorized Specialty Diagnoses / Procedures Referred By Contac t Referred To Contact XR IMAGING Diagnoses Pain Procedures XR FOOT GENERAL 3V AP/LAT/OBL RIGHT RADEX FOOT COMPLETE MINIMUM 3 VIEWS Tomas Olivera MD [address] [place] [address] [place] [address] Referral ID Status Reason Start Date Expiration Date Visits Requested Visits Authorized [id number] Authorized Auto-Generat ed Referral 3 05/08/2024 1 1 * Diagnostic Procedure Only (Routine) - Authorized Specialty Diagnoses / Procedures Referred By Contac t Referred To Contact XR IMAGING Diagnoses Pain Procedures XR ANKLE GENERAL 3V AP/LAT/OBL RIGHT RADEX ANKLE COMPLETE MINIMUM 3 VIEWS Tomas Olivera MD [address] [place] [address] [place] [id number] Referral ID Status Reason Start Date Expiration Date Visits Requested Visits Authorized [id number] Authorized Auto-Generat ed Referral 05/08/2024 1 1 [facility] for visit Narrative* Diagnostic Procedure Only (Routine) - Closed Specialty Diagnoses / Procedures Referred By Contac t Referred To Contact XR IMAGING Diagnoses Pain Procedures XR KNEE GENERAL 4V AP BOTH/PA BOTH/LAT/MERC BILATERAL RADIOLOGIC EXAM KNEE COMPLETE 4/MORE VIEWS Toni Echeverria MD [address] [address] Xr Imaging Referral ID Status Reason Start Date Expiration Date V isits Requested Visits Authorized [id number] Closed Auto-Generate d Referral 06/28/2021 07/28/2022 1 1 [facility] Reason for Referral Specialty Diagnoses / Procedures Referred By Contac t Referred To Contact [facility] Diagnoses Bilateral primary osteoarthritis of knee Procedures CONSULT TO PHYSICAL THERAPY PHYSICAL THERAPY EVALUATION HIGH COMPLEX 45 MINS Birgit Mancini PA-C [address] [place] [address] [facility] [place] [address] [place] [address] Referral ID Status Reason Start Date Expiration Date Visits Requested Visits Authorized [id number] Pending Review Auto-Generat ed Referral 08/05/2021 08/05/2022 1 1 Specialty Diagnoses / Procedures Referred By Contac t Referred To Contact MR IMAGING Diagnoses Primary osteoarthritis of right knee Chronic pain of right knee Procedures MRI KNEE WO IVCON RT MRI ANY JT LOWER EXTREM W/O CONTRAST MATRL Birgit Mancini PA-C [address] [place] [address] Mr Imaging Referral ID Status Reason Start Date Expiration Date Visits Requested Visits Authorized [id number] Authorized Auto-Generat ed Referral 12/05/2021 01/04/2023 1 1 Referral ID Status Reason Start Date Expiration Date V isits Requested Visits Authorized [id number] Closed Auto-Generate d Referral 12/05/2021 01/04/2023 1 1 Summary Purpose Family History No Family History Records FoundNo Family History Records FoundNo Family History Records FoundNo Family History Records Found Advance Directives No Advanced Directives Records FoundNo Advanced Directives Records FoundNo Advanced Directives Records FoundNo Advanced Directives Records Found Chief Complaint Pt is here today for a erin knee visco consult ref by alonzo. Additional Source Comments Source Comments (unrecognize d section and content) In the event this informatio n is protected by the Federal Confidentiality of Alcohol and Drug Abuse Patient Records regulations: The Federal rules restrict any use of the information to criminally investigate or prosecute any alcohol or drug abuse patient.[facility] the event this information is protected by the Federal Confidentiality of Alcohol and Drug Abuse Patient Records regulations: The Federal rules restrict any use of the information to criminally investigate or prosecute any alcohol or drug abuse patient.[facility] the event this information is protected by the Federal Confidentiality of Alcohol and Drug Abuse Patient Records regulations: The Federal rules restrict any use of the information to criminally investigate or prosecute any alcohol or drug abuse patient.[facility] the event this information is protected by the Federal Confidentiality of Alcohol and Drug Abuse Patient Records regulations: The Federal rules restrict any use of the information to criminally investigate or prosecute any alcohol or drug abuse patient.[facility] the event this information is protected by the Federal Confidentiality of Alcohol and Drug Abuse Patient Records regulations: The Federal rules restrict any use of the information to criminally investigate or prosecute any alcohol or drug abuse patient.[facility] the event this information is protected by the Federal Confidentiality of Alcohol and Drug Abuse Patient Records regulations: The Federal rules restrict any use of the information to criminally investigate or prosecute any alcohol or drug abuse patient.[facility] the event this information is protected by the Federal Confidentiality of Alcohol and Drug Abuse Patient Records regulations: The Federal rules restrict any use of the information to criminally investigate or prosecute any alcohol or drug abuse patient.[facility] the event this information is protected by the Federal Confidentiality of Alcohol and Drug Abuse Patient Records regulations: The Federal rules restrict any use of the information to criminally investigate or prosecute any alcohol or drug abuse patient.[facility] the event this information is protected by the Federal Confidentiality of Alcohol and Drug Abuse Patient Records regulations: The Federal rules restrict any use of the information to criminally investigate or prosecute any alcohol or drug abuse patient.[facility] the event this information is protected by the Federal Confidentiality of Alcohol and Drug Abuse Patient Records regulations: The Federal rules restrict any use of the information to criminally investigate or prosecute any alcohol or drug abuse patient.[facility] the event this information is protected by the Federal Confidentiality of Alcohol and Drug Abuse Patient Records regulations: The Federal rules restrict any use of the information to criminally investigate or prosecute any alcohol or drug abuse patient.[facility] the event this information is protected by the Federal Confidentiality of Alcohol and Drug Abuse Patient Records regulations: The Federal rules restrict any use of the information to criminally investigate or prosecute any alcohol or drug abuse patient.[facility] the event this information is protected by the Federal Confidentiality of Alcohol and Drug Abuse Patient Records regulations: The Federal rules restrict any use of the information to criminally investigate or prosecute any alcohol or drug abuse patient.[facility] the event this information is protected by the Federal Confidentiality of Alcohol and Drug Abuse Patient Records regulations: The Federal rules restrict any use of the information to criminally investigate or prosecute any alcohol or drug abuse patient.[facility] the event this information is protected by the Federal Confidentiality of Alcohol and Drug Abuse Patient Records regulations: The Federal rules restrict any use of the information to criminally investigate or prosecute any alcohol or drug abuse patient.[facility] the event this information is protected by the Federal Confidentiality of Alcohol and Drug Abuse Patient Records regulations: The Federal rules restrict any use of the information to criminally investigate or prosecute any alcohol or drug abuse patient.[facility] the event this information is protected by the Federal Confidentiality of Alcohol and Drug Abuse Patient Records regulations: The Federal rules restrict any use of the information to criminally investigate or prosecute any alcohol or drug abuse patient.[facility] the event this information is protected by the Federal Confidentiality of Alcohol and Drug Abuse Patient Records regulations: The Federal rules restrict any use of the information to criminally investigate or prosecute any alcohol or drug abuse patient.[facility] the event this information is protected by the Federal Confidentiality of Alcohol and Drug Abuse Patient Records regulations: The Federal rules restrict any use of the information to criminally investigate or prosecute any alcohol or drug abuse patient.[facility] Reason for Visit (unrecogniz ed section and content) Specialty Diagnoses / Procedures Referred By Archie bobby Referred To Contact [facility] Diagnoses Bilateral primary osteoarthritis of knee Procedures CONSULT TO PHYSICAL THERAPY PHYSICAL THERAPY EVALUATION HIGH COMPLEX 45 MINS Birgit Mancini PA-C [address] [place] [address] [facility] [place] [address] [place] [address] Referral ID Status Reason Start Date Expiration Date Visits Requested Visits Authorized [id number] Authorized Auto-Generat ed Referral 08/05/2021 2022 30 30 Reason Comments New Knee Pain Reason Comments PT Eval Reason Comments Refill Request Reason Comments Patient Update Reason Comments Orders Reason Comments Established Patient Knee Pain Specialty Diagnoses / Procedures Referred By Archie bobby Referred To Contact MR IMAGING Diagnoses Primary osteoarthritis of right knee Chronic pain of right knee Procedures MRI KNEE WO IVCON RT MRI ANY JT LOWER EXTREM W/O CONTRAST MATRL Birgit Mancini PA-C [address] [place] [address] Mr Imaging Referral ID Status Reason Start Date Expiration Date V isits Requested Visits Authorized [id number] Closed Auto-Generate d Referral 12/05/2021 01/04/2023 1 1 Reason Comments Results Reason Comments Opened In Error Reason Comments Appointment Care Teams (unrecognized sec tion and content) Customer Service Driver Relationship Specialty Start Date End Date Koffi Watt MD PCP - General Family Practice 10/21/15 Customer Service Driver Relationship Specialty Start Date End Date Koffi Watt MD PCP - General Family Practice 10/21/15 Customer Service Driver Relationship Specialty Start Date End Date Koffi Watt MD PCP - General Family Practice 10/21/15 Customer Service Driver Relationship Specialty Start Date End Date Koffi Watt MD PCP - General Family Practice 10/21/15 Customer Service Driver Relationship Specialty Start Date End Date Koffi Watt MD PCP - General Family Practice 10/21/15 Customer Service Driver Relationship Specialty Start Date End Date Koffi Watt MD PCP - General Family Practice 10/21/15 Customer Service Driver Relationship Specialty Start Date End Date Koffi Watt MD PCP - General Family Practice 10/21/15 Customer Service Driver Relationship Specialty Start Date End Date Koffi Watt MD PCP - General Family Practice 10/21/15 Customer Service Driver Relationship Specialty Start Date End Date Koffi Watt MD PCP - General Family Practice 10/21/15 Customer Service Driver Relationship Specialty Start Date End Date Koffi Watt MD PCP - General Family Practice 10/21/15 Customer Service Driver Relationship Specialty Start Date End Date Koffi Watt MD PCP - General Family Practice 10/21/15 Customer Service Driver Relationship Specialty Start Date End Date Koffi Watt MD PCP - General Family Medicine 10/21/15 Customer Service Driver Relationship Specialty Start Date End Date Koffi Watt MD PCP - General Family Medicine 10/21/15 Customer Service Driver Relationship Specialty Start Date End Date Koffi Watt MD PCP - General Family Medicine 10/21/15 INFORMATION SOURCE (unrecogn ized section and content) DATE CREATED AUTHOR AUTHOR'S ORGANIZ ATION 01/14/[address] [facility] DATE CREATED AUTHOR AUTHOR'S ORGANIZ ATION 06/13/2022 [facility] DATE CREATED AUTHOR AUTHOR'S ORGANIZ ATION 06/13/2022 [facility] FOR RECORDS PERTAINING TO PATIENTS WHO ARE OR HAVE BEEN ENROLLED IN A CHEMICAL DEPENDENCY/SUBSTANCEABUSE PROGRAM, SOME INFORMATION MAY BE OMITTED. This clinical summary was aggregated from multiple sources. Caution should be exercised in using it in the provision of clinical care. This summary normalizes information from multiple sources, and as a consequence, information in this document may materially change the coding, format and clinical context of patient data. In addition, data may be omitted in some cases. CLINICAL DECISIONS SHOULD BE BASED ON THE PRIMARY CLINICAL RECORDS. [employer] provides no warranty or guarantee of the accuracy or completeness of information in this document.
== END | disposition home or self-care (01) ==
LOC: CVS 14:42
PROVIDERS: PCP Nurse Practitioner Family; Referring Provider Nurse Practitioner Family; Visit Provider Nurse Practitioner Family
DX: R94.31 Abnormal electrocardiogram [ECG] [EKG] (principal)
CPT/HCPCS: 93306

== ENCOUNTER → 2023-05-28 | Outpatient (CLI) | payer OTHER, SELFPAY ==
--- NOTE | 2023-05-28 10:38 | US_ITS ---
STUDY: ULTRASOUND BREAST - RIGHT REASON FOR EXAM: Female, 53 years old. Six-month follow-up ultrasound of the breast. TECHNIQUE: Axial and longitudinal images of the RIGHT breast were performed with a high resolution ultrasound transducer. # OF IMAGES: 19 COMPARISON: Comparison is made with prior study January 04, 2023. FINDINGS: RIGHT Breast: Stable 4 mm x 3 mm x 3 mm slightly echogenic nodule at the 3:00 position in the breast at 9 cm from nipple. I suspect tiny calcifications within it. US/Breast Limited Unilateral IMPRESSION: Stable sonographic examination. Routine annual mammographic follow-up is recommended. ASSESSMENT CATEGORY: BIRADS Category 2: Benign. A letter regarding these results will be sent to the patient by the facility within 30 days. Electronically Signed: Javid Stephen MD at 12:41 EST ,
== END | disposition home or self-care (01) ==
LOC: OPUS 10:35
PROVIDERS: PCP Nurse Practitioner Family; Referring Provider Obstetrics & Gynecology; Visit Provider Obstetrics & Gynecology
DX: R92.8 Other abnormal and inconclusive findings on diagnostic imaging of breast (principal)
CPT/HCPCS: 76642

== ENCOUNTER 2023-06-13 15:00 | Outpatient (RCR) | payer OTHER, SELFPAY ==
--- NOTE | 2023-05-30 16:42 | HP.PTEVAL_ITS ---
Patient's Visit Information Visit Information Visit Information: CHANELLE GUILLERMO is a 53 year old F referred to Physical Therapy by Dr. Jono Crowder DPM with a diagnosis of R ankle ORIF. Date of Evaluation: 05/16/23 Physical Therapist: Janak Vidal DPT Visit Plan Frequency: 2x /Week Duration: 6 Weeks Plan: Start with WBing at 25%, progressing by 25% per week in CAM boot. Add in calf stretching, GS Progress ankle strengthening initially in [place] progressing to [place]. Subjective Subjective: Pt. is here today for her initial evaluation with diagnosis of R bi malleolar fracture. Pt. reports falling in [place] and having a resulting fracture. Pt. had ORIF on 04/21/23. Pt. reports overall doing well. She was just released to so 25% WBing but able to progress to full WBing in CAM boot over the next few weeks. Pt. is overall doing well, she does have some lateral soreness, but nothing major. Some light N/T noted. Pt. has not tried much exercises yet. Pt. is sleeping well. No major issues noted. Pt. is hopeful to get back to all recreational hiking without issues. Pain R lateral ankle: Pain Intensity (Out of 10): 1 Pain Intensity Range: 0 and 4 Ankle: Pain Intensity (Out of 10): 0 Comment: at rest. 5/10 with walking Objective Objective: POSTURE: Pt. has increased wt. shift to L side, with good tolerance. Pt. pleased thus far. PALPATION: Pt. has good healing incision, slight open area near the bottom. NEURO: slight reduction on lateral sensation, but otherwise normal. ROM: R ankle: DF 0deg, PF 38deg, INV 6, EVR 2deg. Normal knee ROM MMT: Pt. has 4/5 throughout R ankle, no pain with testing. GAIT: Pt. ambulates with crutches with good tolerance with ~25% WBing. Pt. reports no major pain with gait today. STAIRS: Step to pattern with use of 2 HR. Balance/Special Test Scores Lower Extremity Functional Score: 22 Goals Goal 1:: LTG: Pt. to be I with HEP. Goal 2:: STG: Pt. to be able to ambulate with CAM boot with full WBing without increase in symptoms. Goal Time Frame: 2-4 Weeks Goal 3:: LTG: Pt. to have increased R ankle ROM to symmetrical to L side without increase in symptoms. Goal Time Frame: 4-6 Weeks Goal 4:: LTG: Pt. to have increased R ankle strength to 5/5 throughout. Goal Time Frame: 4-6 Weeks Goal 5:: LTG: Pt. to have normal gait pattern without use of CAM boot. Goal Time Frame: 6-8 Weeks Goal 6:: LTG: pt. to negotiate steps with 1 HR with normal reciprocal pattern without increase in symptoms. Goal Time Frame: 6-8 Weeks Rehabilitation Potential Physical Therapy Diagnosis: Pt. has signs and symptoms consistent with R ankle hypomobility, difficulty with walking after having an ankle ORIF. Pt. would benefit from PT to address the above limitations progressing back to all previous recreational and work activities without limitations. Rehabilitation Potential: Excellent Anticipated Interventions Patient/Client Instruction: Educate patient on: Condition, Plan of Care, Risk Factors and Benefits of Fitness Program For the Purpose of:: To improve decision making, To facilitate caregiver knowledge, To improve self management, To prevent re-injury and To improve ability to perform tasks related to life management Therapeutic Exercise to Include: Strength training, Power training, Coordination, Postural training, Flexibilty training, Gait and locomotor training, Passive ROM and Active ROM For the Purpose of:: To decrease pain, To increase ROM, To improve nutrient delivery to tissue, To increase oxygenation perfusion, To improve muscle performance and motor function, To improve ability to perform ADL's, To improve gait and locomotor functions, To improve health of tissue, To decrease soft tissue restriction and To increase flexibility/ROM Text: Thank you for the opportunity to evaluate your patient. For Medicare and Medicare HMO plans, please review the plan of care and approve it. It will need to be FAXED BACK to us at [phone] for Medicare purposes. For Medicare only, by signing this I certify the plan of care. Please let me know if there are questions or concerns regarding this plan of care. Physician Signature: Date:
--- NOTE | 2023-06-21 13:11 | HP.PTREVAL ---
Re-Evaluation Intro: Dr. Jono Crowder, DPM, It has been my pleasure to treat CHANELLE GUILLERMO over the last 5 visits for R ankle ORIF. Please see the progress note below for an update on the physical therapy plan of care! Subjective Subjective: Pt has been working 4 hours per day at home, going back to work tomorrow for 2 hours to start with for the first week, will be increasing to full work day by end of Jun. Pt has been able to workout on elliptical, has been using one crutch for walking long periods (grocery shopping). No tightness or stiffness, some swelling at the end of the day and wear compression socks. Objective Objective/Function: Figure 8 R ankle measurements: 20in with some puffiness noted by pt AROM/PROM: DF 10,20 PF 40,48 INV 35 EV 15 some pain at lateral malleolus GAIT: slight decreased stance time on RLE, some soreness STAIRS: early heel off when descending, some pinching in ant R ankle Educated pt on scar mobilization, updated HEP to include self mobilization techniques and eccentric heel raises. Pt continues to have difficulty with R calf strength and stairs, especially with descending. ROM, strength, and gait have improved to a functional capacity, continue to improve with indep HEP. Plan Plan Plan: PT on hold, to trial exercises on own but to call back and schedule if having issues. Continue R ankle strengthening and joint mobility/stability. Balance/Gait/Functional tests Balance/Special Test Scores Lower Extremity Functional Score: 22 Goals Goals Goal 1:: LTG: Pt. to be I with HEP. Goal Progress: Goal Met Goal 2:: STG: Pt. to be able to ambulate with CAM boot with full WBing without increase in symptoms. Goal Time Frame: 2-4 Weeks Goal Progress: Goal Met Goal 3:: LTG: Pt. to have increased R ankle ROM to symmetrical to L side without increase in symptoms. Goal Time Frame: 4-6 Weeks Goal Progress: Goal Met Goal 4:: LTG: Pt. to have increased R ankle strength to 5/5 throughout. Goal Time Frame: 4-6 Weeks Goal Progress: Progressing Goal 5:: LTG: Pt. to have normal gait pattern without use of CAM boot. Goal Time Frame: 6-8 Weeks Goal Progress: Progressing Goal 6:: LTG: pt. to negotiate steps with 1 HR with normal reciprocal pattern without increase in symptoms. Goal Time Frame: 6-8 Weeks Goal Progress: Progressing Anticipated Interventions Anticipated Interventions Patient/Client Instruction: Educate patient on: Condition, Plan of Care, Risk Factors and Benefits of Fitness Program For the Purpose of:: To improve decision making, To facilitate caregiver knowledge, To improve self management, To prevent re-injury and To improve ability to perform tasks related to life management Therapeutic Exercise to Include: Strength training, Power training, Coordination, Postural training, Flexibilty training, Gait and locomotor training, Passive ROM and Active ROM For the Purpose of:: To decrease pain, To increase ROM, To improve nutrient delivery to tissue, To increase oxygenation perfusion, To improve muscle performance and motor function, To improve ability to perform ADL's, To improve gait and locomotor functions, To improve health of tissue, To decrease soft tissue restriction and To increase flexibility/ROM Re-Evaluation Ending Re-evaluation ending: Please do not hesitate to contact me at [phone] by phone or if you have questions or concerns regarding this new plan of care! Sincerely, Janak Vidal DPT
--- NOTE | 2023-08-20 09:45 | HP.PTDCNRP_ITS ---
Patient Information Patient Information: CHANELLE GUILLERMO was seen in my office for initial evaluation on 05/16/23. The following Plan of Care was established for this patient: POC Established Initial Frequency: 2x /Week Initial Duration: 6 Weeks Anticipated Interventions Patient/Client Instruction: Educate patient on: Condition, Plan of Care, Risk Factors and Benefits of Fitness Program For the Purpose of:: To improve decision making, To facilitate caregiver knowledge, To improve self management, To prevent re-injury and To improve ability to perform tasks related to life management Therapeutic Exercise to Include: Strength training, Power training, Coordination, Postural training, Flexibilty training, Gait and locomotor training, Passive ROM and Active ROM For the Purpose of:: To decrease pain, To increase ROM, To improve nutrient delivery to tissue, To increase oxygenation perfusion, To improve muscle perfor luna and motor function, To improve ability to perform ADL's, To improve gait and locomotor functions, To improve health of tissue, To decrease soft tissue restriction and To increase flexibility/ROM Last Seen Last Seen: This patient was last seen in our office 06/13/23. Pertinent comments regarding their Physical therapy will appear below: Pt. was seen for her ankle ORIF in PT. She was doing very well at her last visit. She was to follow up with PT if needed. She has not been back in several months and will be DC from PT at this point in time. At this point I will be discontinuing this patient from physical therapy. I would be happy to see this patient again in the future if found appropriate by t he physician. Thank you! Janak Vidal, DPT Balance/Gait/Functional tests Balance/Special Test Scores Lower Extremity Functional Score: 22
== END 2023-06-13 19:00 | disposition home or self-care (01) ==
LOC: PT 15:00
PROVIDERS: PCP Nurse Practitioner Family; Referring Provider Podiatrist; Visit Provider Podiatrist
DX: S82.841D Displaced bimalleolar fracture of right lower leg, subsequent encounter for closed fracture with routine healing (principal)
CPT/HCPCS: 97110; 97140; 97161

== ENCOUNTER → 2024-01-09 | Outpatient (CLI) | payer OTHER, SELFPAY ==
--- NOTE | 2024-01-09 07:16 | BI_ITS ---
MAMMOGRAPHY - BILATERAL SCREENING REASON FOR EXAM: Female, 53 years old. Routine annual screening examination. PERTINENT HISTORY: Grandmother with breast cancer. Aunt with breast cancer. TECHNIQUE: Digital bilateral breast corona (3D mammographic acquisition) in the CC and MLO projections. 2-D mediolateral oblique (MLO) and craniocaudad (CC) views of both breasts were obtained. CAD: Full Field Digital Mammography with Computer Added Detection was performed. COMPARISON: Comparison is made with prior study January 04, 2023 and January 18, 2022. FINDINGS: Breast Composition: The breasts are heterogeneously dense, which may obscure small masses. There are no dominant masses or suspicious calcifications. No other significant abnormalities are identified. There has been no significant change since the prior study. BI/SCRN MAMM (CAD)W/CORONA BILAT IMPRESSION: Stable bilateral screening mammogram. Yearly follow-up mammogram recommended. (A) ASSESSMENT CATEGORY: BIRADS Category 1: Negative. A letter regarding these results will be sent to the patient by the facility within 30 days. Approximately 10% of breast cancers are not detected by mammography. A normal mammogram should not delay biopsy of a clinically suspicious abnormality. [id number] Electronically Signed: Javid Stephen MD at 8:39 EDT ,
== END | disposition home or self-care (01) ==
LOC: OPBI 07:13
PROVIDERS: PCP Nurse Practitioner Family; Referring Provider Obstetrics & Gynecology; Visit Provider Obstetrics & Gynecology
DX: Z12.31 Encounter for screening mammogram for malignant neoplasm of breast (principal)
CPT/HCPCS: 77063; 77067

== ENCOUNTER 2024-01-10 06:55 | Outpatient (RCR) | payer OTHER, SELFPAY ==
--- NOTE | 2024-01-16 09:39 | HP.PTEVAL_ITS ---
Patient's Visit Information Visit Information Visit Information: CHANELLE GUILLERMO is a 53 year old F referred to Physical Therapy by Dr. Toni Starks DO with a diagnosis of L elbow OA. Date of Evaluation: 01/10/24 Physical Therapist: Janak Vidal DPT Visit Plan Frequency: 1x/Week Duration: 6 Weeks Plan: Start with progressive L elbow extension stretching, DFM, elbow joint mobs, RTC strengthening and triceps strengthening. Subjective Subjective: Pt. is here today for her initial evaluation with diagnosis of L elbow DJD, OA of L elbow. Pt. reports no mech of injury. pt. reports having increasing anterior elbow (biceps region) and posterior elbow pain. Pt. is able to work out without much issues, but reports most of her pain is with carrying heavier objects in her L UE. Pt. is sleeping well without issues. No N/T in either UE. Pt. is concerned that her exercises are making her symptoms worse, but is unsure. Pt. reports mild tenderness with palpation. She reports symptoms have been there for a while, but worse more recently. Pt. is hopeful to reduce symptoms in order to complete all activities without limitations. Pain L elbow: Pain Intensity (Out of 10): 0 Pain Intensity Range: 0 and 4 Objective Objective: POSTURE: Pt. has good posture in sitting and standing. PALPATION: Pt. has tenderness along distal biceps and lateral aspect of proximal forearm. Not much pain of UCL, LCL or olecranon. NEURO: Pt. has normal sensation through BUEs. Pt. has normal DTR of BUEs. ROM: Pt. has close to full elbow flexion, mild soreness with end range OP. Pt. is lacking 8deg of extension with OP patient reports pain at distal biceps and posterior elbow. Increase NW. PT. has full shoulder ROM, but does describe some proximal shoulder soreness with increased flexion. MMT: Pt. has good strength in mid range without increase in symptoms. Mild soreness at end range extension during eccentric movements. Special Tests L Elbow Valgus Stress Test - MCL Instability: Negative L Elbow Varus Stress Stest - MCL Instability: Negative Balance/Special Test Scores Quick DASH Score: 15.9075 Goals Goal 1:: LTG: pt. to be I with HEP for elbow ROM and strengthening. Goal Time Frame: 4-6 Weeks Goal 2:: LTG: Pt. to have increased L elbow extension to 0deg. Goal Time Frame: 4-6 Weeks Goal 3:: LTG: pt. to be able to carry a bucket at home without increase in L elbow pain. Goal Time Frame: 4-6 Weeks Rehabilitation Potential Physical Therapy Diagnosis: Pt. has signs and symptoms consistent with L elbow OA. Pt. has some lack of elbow extension and some tightness in her brachial radialis. I would recommend elbow joints mobs, stretching and some st rengthening. Rehabilitation Potential: Good Anticipated Interventions Patient/Client Instruction: Educate patient on: Condition, Plan of Care, Risk Factors and Benefits of Fitness Program For the Purpose of:: To facilitate caregiver knowledge, To improve self management, To prevent re-injury, To improve ability to perform tasks related to life management and To improve tolerance to ADL's Therapeutic Exercise to Include: Strength training, Power training, Postural training, Flexibilty training, via [employer] Balance Mas, Active ROM and Scapular Strength/Stabilization For the Purpose of:: To decrease pain, To increase ROM, To improve muscle performance and motor function, To improve ability to perform ADL's, To decrease soft tissue restriction and To increase flexibility/ROM Manual Therapy Techniques to Include: Mobilization For the Purpose of:: To decrease pain and To increase ROM Text: Thank you for the opportunity to evaluate your patient. For Medicare and Medicare HMO plans, please review the plan of care and approve it. It will need to be FAXED BACK to us at [phone] for Medicare purposes. For Medicare only, by signing this I certify the plan of care. Please let me know if there are questions or concerns regarding this plan of care. Physician Signature: Date:__
== END 2024-01-10 19:00 | disposition home or self-care (01) ==
LOC: PT 06:55
PROVIDERS: PCP Nurse Practitioner Family; Referring Provider Orthopaedic Surgery; Visit Provider Orthopaedic Surgery
DX: M19.022 Primary osteoarthritis, left elbow (principal)
CPT/HCPCS: 97161

== ENCOUNTER 2024-05-09 07:21 | Day surgery (SDC) | payer OTHER, SELFPAY ==
--- NOTE | 2024-05-05 16:36 | PAT.ANE_ITS ---
Pre-Assessment Diagnosis/Proposed Procedure Planned Operative Procedure(s): Right ankle hardware removal with posterior tibial tendon repair. 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 When Was Last Pacemaker Check QUESTION #4 FULL TEXT: You/Your Family Experience fever (hyperthermia) with Anesthesia Last Oral Intake Last Oral intake: Last Oral Intake NPO since Meds taken in AM with sips of water? Meds patient instructed to take am of surgery PONV PONV - joggle press operator: PONV - joggle press operator Female Yes 05/05/24 08:18 HX of Motion Sickness Yes 05/05/24 08:18 HX of N/V After Surgery No 05/05/24 08:18 Non-Smoker Yes 05/05/24 08:18 Duration of Surgery greater Yes 05/05/24 08:18 than 60 minutes Number of Risk Factors 4 05/05/24 08:18 PONV Score Severe Risk 05/05/24 08:18 Height & Weight Height & Weight: Anesthesia: Height & Weight Height 5 ft 4.5 in 01/02/24 07:55 Respiratory Assessment Respiratory Assessment - joggle press operator: Respiratory Tract Infection Hx - joggle press operator Hx Respiratory Tract Infection No 05/05/24 08:18 STOP Sleep Apnea STOP Sleep Apnea - joggle press operator: STOP Sleep Apnea - joggle press operator Hx Hypertension Yes 05/05/24 08:18 Hx Sleep Apnea No 05/05/24 08:18 CPAP BIPAP Do you snore loudly (louder No 05/05/24 08:18 than talking or can be heard Do you often feel tired/ No 05/05/24 08:18 fatigued/ sleepy during daytime? Has anyone observed you stop No 05/05/24 08:18 breathing during sleep? STOP Results Negative 05/05/24 08:18 QUESTION #5 FULL TEXT : Do you snore loudly (louder than talking or can be heard through closed doors)? 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 Specify any problems Hx of Preganancy in last 3 No 05/05/24 08:18 Months Nurse Filling Out Transfusion MGRIALYSSAITH 05/05/24 08:18 & Questions: Date: 05/05/24 05/05/24 08:18 Time: 08:20 05/05/24 08:18 Patient unable to answer at this time (ie. confused, unrespo /Reproduction History /Reproductive History - joggle press operator: /Reproductive Hx- joggle press operator Hx Now No 05/05/24 08:18 Gestational Age (in weeks): EDC: Hx Hx Para Hx Section SAB No 05/05/24 08:18 [facility] Medical History (Updated 05/05/24 @ 08:29 by Yasmine Hinds) History of motion sickness PONV (postoperative nausea and vomiting) Wears glasses Post-menopausal Alcohol use History of ulceration Non-smoker History of echocardiogram Cardiology follow-up encounter Diastolic dysfunction RLS (restless legs syndrome) Arthritis High cholesterol Hypertension Epistaxis, recurrent Hemorrhoids Home Medications ?Medication ?Instructions ?Recorded ?Last Taken ?Type cholecalciferol (vitamin D3) 25 2,000 unit PO DAILY SUPPLEMENT 09/05/18 Unknown History mcg (1,000 unit) tablet (Vitamin D3) [id number] carb-vit K 1 ea PO DAILY SUPPLEMENT 09/05/18 Unknown History 18 mg iron-400 mcg-500 mg tablet (Women's Daily Formula) omega 0-ore-uwi-fish oil 300 1 ea PO DAILY SUPPLEMENT 09/05/18 09/02/18 History mg-1,000 mg capsule (Fish Oil) losartan 50 mg tablet (Cozaar) 50 mg PO QHS 12/04/23 12/07/23 History glucosamine HCl 500 mg tablet 500 mg PO DAILY 07/11/23 Unknown History turmeric 400 mg capsule 400 mg PO DAILY 01/02/24 Unknown History Allergy/AdvReac Type Severity Reaction Status Date / Time No Known Allergies Allergy Verified 05/05/24 08:14 Family History (Updated 01/02/24 @ 08:01 by Izzy Maldonado MA) Father Non-Hodgkin lymphoma Mother Ovarian cancer Sister Cancer Neuroendocrine Surgical History (Updated 05/05/24 @ 08:17 by Yasmine Hinds) History of colonoscopy History of ankle surgery History of carpal tunnel surgery of right wrist Social History Smoking Status: Never smoker alcohol intake: current Alcohol type: wine Audit: Pertinent Findings Pertinent Findings EKG Perinent findings: July 11, 2023. Sinus rhythm. Occasional PAC. Left axis deviation. Left atrial enlargement. Negative T waves may be normal but possible anterior septal ischemia Echo (EF%) pertinent findings: May 18, 2023. Ejection fraction 65%. No aortic stenosis seen. Consult pertinent findings: July 11, 2023. Hypertension patient recently started on losartan. Echo as above. EKG done today noted. No change in treatment at this time. Recommendation Anesthesia Recommendation Anesthesia recommendation: OPTIMIZED for anesthesia
[2024-05-09] VITALS (10 sets, daily range): BP systolic 92–148; BP diastolic 48–88; PULSE 72–91; RESP 16; TEMP 36.1–36.8; O2SAT 93–100; BMI 27.6
[2024-05-09] MEDS: 0.9% Normal Saline (1000mL) 1,000 ML 15 ML IV (07:49)
--- NOTE | 2024-05-09 08:09 | PCM.PRE.AN2 ---
ASA Classification* ASA Classification ASA Classification: 2 Assessment & Plan Anesthesia* Anesthesia Assessment Anesthesia Assessment: Discussed sedation and/or anesthesia options, risks, benefits, and alternatives with patient/parents/legal guardian/POA. Questions invited. The patient/parents/legal guardian/POA seems to understand and agrees to proceed with anesthesia plan. Reviewed the physical assessment, medical history, allergy history and patient home medications list prior to surgery/procedure/anesthetic and documented any changes. Performed airway and anesthesia risk assessments. Anesthesia Type Anesthesia Type: General and Block Anesthesia Focused Assessment* Temperature: 98.3 F Pulse Rate: 91 Blood Pressure: 148/87 Respiratory Rate: 16 Pulse Ox: 100 Airway Assessment Mouth opens: >3 cm Mallampati Score: II Focused Labs Anesthesia Preop lab: CBC WBC 6.0 K/mm3 (4.4-11.0) 11/26/19 09:59 RBC 4.68 M/mm3 (4.2-5.4) 11/26/19 09:59 Hgb 13.8 g/dL (12.0-15.0) 11/26/19 09:59 Hct 41.6 % (37-47) 11/26/19 09:59 Plt Count 178 K/mm3 (150-450) 11/26/19 09:59 CHEMISTRY Potassium 3.9 mmol/L (3.5-5.1) 11/26/19 09:59 Sodium 138 mmol/L (136-145) 11/26/19 09:59 BUN 12 mg/dL (7-18) 11/26/19 09:59 Creatinine 0.71 mg/dL (0.55-1.02) 11/26/19 09:59 Glucose 103 mg/dL (74-106) 11/26/19 09:59 TSH 2.42 uIU/mL (0.358-3.74) 03/25/15 10:16 COAG Pre-Assessment Diagnosis/Proposed Procedure Planned Operative Procedure(s): Right ankle hardware removal with posterior tibial tendon repair. 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 When Was Last Pacemaker Check QUESTION #4 FULL TEXT: You/Your Family Experience fever (hyperthermia) with Anesthesia Last Oral Intake Last Oral intake: Last Oral Intake NPO since 04:00 05/09/24 07:37 Meds taken in AM with sips of water? Meds patient instructed to take am of surgery PONV PONV - retail performance specialist: PONV - retail performance specialist Female Yes 05/05/24 08:18 HX of Motion Sickness Yes 05/05/24 08:18 HX of N/V After Surgery No 05/05/24 08:18 Non-Smoker Yes 05/05/24 08:18 Duration of Surgery greater Yes 05/05/24 08:18 than 60 minutes Number of Risk Factors 4 05/05/24 08:18 PONV Score Severe Risk 05/05/24 08:18 Height & Weight Height & Weight: Anesthesia: Height & Weight Height 5 ft 5 in 05/09/24 07:37 Weight: 75.296 kg 05/09/24 07:37 Body Mass Index (BMI) 27.6 05/09/24 07:37 Respiratory Assessment Respiratory Assessment - retail performance specialist: Respiratory Tract Infection Hx - retail performance specialist Hx Respiratory Tract Infection No 05/05/24 08:18 STOP Sleep Apnea STOP Sleep Apnea - retail performance specialist: STOP Sleep Apnea - retail performance specialist Hx Hypertension Yes 05/05/24 08:18 Hx Sleep Apnea No 05/05/24 08:18 CPAP BIPAP Do you snore loudly (louder No 05/05/24 08:18 than talking or can be heard Do you often feel tired/ No 05/05/24 08:18 fatigued/ sleepy during daytime? Has anyone observed you stop No 05/05/24 08:18 breathing during sleep? STOP Results Negative 05/05/24 08:18 QUESTION #5 FULL TEXT : Do you snore loudly (louder than talking or can be heard through closed doors)? 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 Specify any problems Hx of Preganancy in last 3 No 05/05/24 08:18 Months Nurse Filling Out Transfusion MGRIFFITH 05/05/24 08:18 & Questions: Date: 05/05/24 05/05/24 08:18 Time: 08:20 05/05/24 08:18 Patient unable to answer at this time (ie. confused, unrespo /Reproduction History /Reproductive History - retail performance specialist: /Reproductive Hx- retail performance specialist Hx Now No 05/05/24 08:18 Gestational Age (in weeks): EDC: Hx Hx Para Hx Section SAB No 05/05/24 08:18 Active Medications Active Medications: Current Medications Generic Name Dose Route Start Last Admin Trade Name Freq PRN Reason Stop Dose Admin Cefazolin Sodium 2 gm/ N/A 20 mls @ 400 mls/hr 05/09/24 09:00 IV 05/09/24 09:02 PREOP ONE Sodium Chloride 1,000 mls @ 15 mls/hr 05/09/24 07:30 05/09/24 07:49 IV 05/14/24 20:49 15 mls/hr .Q48H FAIZAN Administration Protocol [facility] Medical History History of motion sickness PONV (postoperative nausea and vomiting) Wears glasses Post-menopausal Alcohol use History of ulceration Non-smoker History of echocardiogram Cardiology follow-up encounter Diastolic dysfunction RLS (restless legs syndrome) Arthritis High cholesterol Hypertension Epistaxis, recurrent Hemorrhoids Home Medications ?Medication ?Instructions ?Recorded ?Last Taken ?Type cholecalciferol (vitamin D3) 25 2,000 unit PO DAILY SUPPLEMENT 09/05/18 Unknown History mcg (1,000 unit) tablet (Vitamin D3) eptmaywz-oma-vlwn-FA-Ca carb-vit K 1 ea PO DAILY SUPPLEMENT 09/05/18 Unknown History 18 mg iron-400 mcg-500 mg tablet (Women's Daily Formula) omega 6-nzj-sfc-fish oil 300 1 ea PO DAILY SUPPLEMENT 09/05/18 09/02/18 History mg-1,000 mg capsule (Fish Oil) losartan 50 mg tablet (Cozaar) 50 mg PO QHS 04/16/23 05/09/24 History glucosamine HCl 500 mg tablet 500 mg PO DAILY 07/11/23 Unknown History turmeric 400 mg capsule 400 mg PO DAILY 01/02/24 Unknown History Allergy/AdvReac Type Severity Reaction Status Date / Time No Known Allergies Allergy Verified 05/09/24 07:36 Family History Father Non-Hodgkin lymphoma Mother Ovarian cancer Sister Cancer Neuroendocrine Surgical History History of colonoscopy History of ankle surgery History of carpal tunnel surgery of right wrist Social History Smoking Status: Never smoker alcohol intake: current Alcohol type: wine Review of Systems (Anesthesia) ROS Narrative System reviewed and no additional complaints, except as documented.
[2024-05-09] MEDS: Cefazolin 2 GM in Syringe IV (08:52)
--- NOTE | 2024-05-09 09:00 | RAD_ITS ---
INDICATION: PAIN EXAMINATION/TECHNIQUE: X-RAY - RIGHT XR Ankle 2 Views 3 VIEWS COMPARISON: April 20, 2023 FINDINGS: Two fluoroscopic images of the ankle were submitted. 52 seconds of fluoroscopy was utilized. There are ghost tracts within the distal fibula. The alignment is anatomic. No acute fracture nor dislocation. No suspicious bony lesions are seen. Please refer to the procedural note for further discussion. Electronically Signed: Yohana Díaz MD at 17:18 EST , RAD/Ankle 2 Views IMPRESSION: undefined
--- NOTE | 2024-05-09 10:30 | OP.PCM_ITS ---
Problems Associated Problem List Diagnoses (1) Pain due to internal orthopedic prosthetic devices, implants and grafts, initial encounter: (2) Pain in right ankle and joints of right foot: (3) Right tibialis tendinitis: Operative Report (Standard) Operative Information Date of Procedure: 05/09/24 Pre-Operative Diagnosis: 1) Painful retained hardware, right ankle 2) Posterior tibial tendinopathy, right ankle 3) Bone Spur, medial aknle, right side Post-Operative Diagnosis: same Surgery/Procedure Performed: 1) removal of painful retained hardware from medial and lateral right ankle 2) posterior tibial tendon repair via redo tubularization, right ankle 3) exostectomy right medial ankle retail product advisor: Yes Chef Assistant: leonor mederos Tasks completed by yard assistant: Opening, Closing, Opening & closing, Altering tissue, Hemostasis: Electrocautery and Retracting Type of Anesthesia: General RN Documented Start/Stop Times: Operation Date: 05/09/24 09:00 Case Time Into Pre-Op 05/09/24 07:25 Anesthesia Start 05/09/24 08:52 Into Room 05/09/24 08:52 Out of Pre-Op 05/09/24 08:52 Procedure Start 05/09/24 09:08 Procedure End 05/09/24 10:18 Anesthesia End 05/09/24 10:21 Out of Room 05/09/24 10:21 Procedure Start Time: 08:30 Procedure Stop Time: 10:15 Select all DRAINS/GRAFTS/IMPLANTS that apply: Graft Graft details: FileTrek 2 x 4 cm BioSkin Estimated Blood Loss: Minimal Specimen collected: No Description of surgery: Patient ankle fracture ORIF approximately 1 year prior. Patient had continued pain to medial and lateral ankle at the hardware site. Patient underwent MRI which confirmed thickening of the posterior tibial tendon. Decision for hardware removal on an debridement and repair of the posterior tibial tendon was made. Patient brought back the operating placed complaint supervision on the operating room table. Patient underwent spinal anesthesia. Well-padded right thigh tourniquet was applied. Right lower extremity was positioned on blankets to elevate relative to contralateral limb. Right lower extremity scrubbed prepped draped using typical aseptic fashion. Once cleared by anesthesia right lower extremity was elevated exsanguinated tourniquet was inflated to 300 mmHg. Through a lateral incision using the old incision a full-thickness incision was made with a #15 blade down to the level of the plate any bleeders identified cauterized neurovascular structures were identified and protected with blunt retraction. The plate was removed using a screwdriver and a [place] removal was confirmed with fluoroscopic imaging there remained 2 screws to the medial ankle. A medial incision was drawn along the medial aspect of the ankle extending along the course of the tibialis posterior tendon just posterior to the medial malleolus. This incision was made through the epidermis stripes into subcutaneous tissue. Any bleeders identified cauterized. Using help with a [place] the posterior tibial tendon sheath and flexor retinaculum were identified and released to expose the posterior tibial tendon with blunt dissection using Metzenbaum dissecting scissors. The posterior tibial tendon was examined there is no obvious tearing of the tendon but is noted to be flattened and thickened. Repair was made with a running interlocking 2-0 PDS. At this time the 2 medial malleolus screws were removed with the appropriate screwdriver this was confirmed with fluoroscopic imaging. There is noted be some bone spurring that is pinching the tibialis posterior tendon medially this was removed with combination of a bone rongeur and a rasp. Removal was confirmed upon fluoroscopic imaging. There is noted be healthy gliding of the tibialis posterior tendon just posterior to the medial malleolus upon repair of the tendon. The medial lateral ankle sites were flushed with copious amounts normal sterile saline. Tourniquet was let down. Again any bleeders were identified and cauterized. The flexor retinaculum and tibialis posterior tendon sheath were closed in 1 layer using a running interlocking 3-0 Vicryl prior to complete closure a 2 x 4 cm right medical bio skin graft was applied to the posterior tibial tendon to limit scar tissue formation in the area. Subcutaneous closure was performed next using a simple interrupted buried 3-0 Vicryl. Skin closure performed with a 3-0 nylon. Deep closure performed with simple interrupted buried 3-0 Vicryl to the lateral ankle followed by subcutaneous closure with s imple interrupted buried 3-0 Vicryl and skin closure with horizontal mattress using 3-0 nylon. Incisional sites were dressed with Betadine Adaptic 4 x 4's Kerlix and a single layer Cerda compression wrap. Patient was transferred to PACU with vital signs stable vascular status intact all dated for further monitoring prior to discharge. Patient tolerated procedure and anesthesia well apparent satisfactory condition. Patient can weight-bear initially with 50% body weightbearing to the right lower extremity assisted by crutches or cane. No complications. The tibialis posterior tendon was noted to be flattened and thickened. This was repaired via retubularization and noted to glide more efficiently along the posterior aspect of the medial mall lateral malleolus postrepair Hardware removal was confirmed with fluoroscopic imaging Patient tolerated procedure well Surgical Findings: as dictated above Complications Complications: No
--- NOTE | 2024-05-09 11:42 | PCM.POST.ANE ---
Anesthesia: Postop Eval I Current Vital Signs Temperature: 97.1 F Pulse Rate: 73 Blood Pressure: 109/72 Respiratory Rate: 16 Pulse Ox: 97 Oxygen Delivery Method: Room Air Assessment Airway patent: Yes Spontaneous unlabored respirations: Yes Mental status: Awake and Calm nausea: No Vomiting: No Anesthesia Complication: No Fluid Hydration Crystalloid volume administer (ml): 1,000 Total IV fluid infused: 1,000 Progress Note Anesthesia document: Postop Eval 1 completed: Yes
== END 2024-05-09 14:51 | disposition home or self-care (01) ==
LOC: SDC 07:22 → AC 07:24
PROVIDERS: PCP Nurse Practitioner Family; Referring Provider Podiatrist; Visit Provider Podiatrist
PROC: (CPT 20680; principal; 2024-05-09 08:45)
DX: T84.84XA Pain due to internal orthopedic prosthetic devices, implants and grafts, initial encounter (principal); M77.9 Enthesopathy, unspecified; Z79.899 Other long term (current) drug therapy; X58.XXXA Exposure to other specified factors, initial encounter
CPT/HCPCS: 20680; 27658; 64450; 01480; 73600; 76000; J2405

== ENCOUNTER → 2024-05-26 | Outpatient (CLI) | payer OTHER, SELFPAY | END | disposition home or self-care (01) | PROVIDERS: PCP Nurse Practitioner Family; Referring Provider Podiatrist; Visit Provider Podiatrist | DX: L97.522 Non-pressure chronic ulcer of other part of left foot with fat layer exposed (principal) | CPT/HCPCS: 87070; 87077; 87186; 87205 ==

== ENCOUNTER 2024-08-13 08:00 | Outpatient (RCR) | payer OTHER, SELFPAY ==
--- NOTE | 2024-07-16 08:16 | HP.PTEVAL ---
Patient's Visit Information Visit Information Visit Information: CHANELLE GUILLERMO is a 54 year old F referred to Physical Therapy by Dr. Jono Crowder DPM with a diagnosis of R distal LE Fx/post tib repair/infection. Date of Evaluation: 07/16/24 Physical Therapist: Devon Freitas, PT, ATC Visit Plan Frequency: 1x/Week Duration: 3 Weeks Plan: Follow up in one week to issue balance and strengthening ex's. Then follow up every 2 weeks to monitor I progress Subjective Subjective: Pt reports she had a bimalleoulor Fx in 2023. Pt notes she had surgery for the fracture that involved a plate and screws. Pt reports she was doing well when she suddenly noted a clicking sensation in her R ankle which was limiting. Pt reports she had another surgery at that time to remove her hardware and repair a torn post tib tendon. Pt reports she then had a staph infection which needed attended to. Pt reports she is now infection free and the incision is healed. Pt reports she is still in a lot of pain now. 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 Pt reports she had to wait for initiating PT until she was cleared of infection. Pt reports she is really weak at this time and is limited with flexibility. Pt denies tingling or numbness in R LE at this time. Pt reports occasional sleep difficulty at this time secondary to pain. Pt notes she is limited with stair negotiation which she has a lot of at home. Pt reports she is always better in the morning than by the end of the day. 1/10 pain while sitting here in the clinic, 6/10 pain at worst (after being on her feet for a while and has to hobble) Pain R ankle Fx: Pain Intensity (Out of 10): 1 Pain Intensity Range: 6 Objective Objective: Neuro: B LE sensation is WNL to light touch. Observation: R ankle is still noticeably swollen. Incision is healed. No signs of infection at this time. ROM: L ankle DF= 12, PF= 65; R ankle DF= 8, PF= 65 degrees MMT: L ankle DF= 38, PF= 39 #F; R ankle DF= 29, PF= 31 Gait: Pt ambulates on R LE with a mild limp. Girth: L ankle 47 cm, R ankle 53 cm Balance/Special Test Scores Lower Extremity Functional Score: 40 Goals Goal 1:: Decrease R ankle pain x 50% to aid with sleep Goal Time Frame: 4-6 Weeks Goal 2:: Increase R ankle DF ROM x 5 degrees to aid with restoring a more normalized gait pattern Goal Time Frame: 4-6 Weeks Goal 3:: Increase R ankle DF and PF strength x 7 #F to aid with return to IADL's without limitation Goal Time Frame: 4-6 Weeks Goal 4:: I with HEP Goal Time Frame: 4-6 Weeks Rehabilitation Potential Physical Therapy Diagnosis: Pt has R LE pain, weakness, and limited ROM secondary to R ankle Fx Rehabilitation Potential: Good Anticipated Interventions Patient/Client Instruction: Educate patient on: Condition and Plan of Care For the Purpose of:: To improve self management Therapeutic Exercise to Include: Strength training, Endurance training, Balance training, Flexibilty training, Passive ROM and Active ROM For the Purpose of:: To decrease pain, To increase ROM and To improve muscle performance and motor function Cryotherapy (ice pack, ice massage): Yes For the Purpose of:: To decrease pain Text: Thank you for the opportunity to evaluate your patient. For Medicare and Medicare HMO plans, please review the plan of care and approve it. It will need to be FAXED BACK to us at [phone] for Medicare purposes. For Medicare only, by signing this I certify the plan of care. Please let me know if there are questions or concerns regarding this plan of care. Physician Signature: Date:
--- NOTE | 2024-10-07 16:21 | HP.PT.NRP ---
Patient Information Patient Information: CHANELLE GUILLERMO was seen in my office for initial evaluation on 07/16/24. The following Plan of Care was established for this patient: POC Established Initial Frequency: 1x/Week Initial Duration: 3 Weeks Anticipated Interventions Patient/Client Instruction: Educate patient on: Condition and Plan of Care For the Purpose of:: To improve self management Therapeutic Exercise to Include: Strength training, Endurance training, Balance training, Flexibilty training, Passive ROM and Active ROM For the Purpose of:: To decrease pain, To increase ROM and To improve muscle performance and motor function Cryotherapy (ice pack, ice massage): Yes For the Purpose of:: To decrease pain Last Seen Last Seen: This patient was last seen in our office . Pertinent comments regarding their Physical therapy will appear below: Pt has not returned to [facility] is greater than 30 days and is discharged at this time. At this point I will be discontinuing this patient from physical therapy. I would be happy to see this patient again in the future if found appropriate by the physician. Thank you! Devon Freitas, PT, ATC Balance/Gait/Functional tests Balance/Special Test Scores Lower Extremity Functional Score: 40
== END 2024-08-13 19:00 | disposition home or self-care (01) ==
LOC: PT 08:00
PROVIDERS: PCP Nurse Practitioner Family; Referring Provider Podiatrist; Visit Provider Podiatrist
DX: S82.841D Displaced bimalleolar fracture of right lower leg, subsequent encounter for closed fracture with routine healing (principal); T84.84XD Pain due to internal orthopedic prosthetic devices, implants and grafts, subsequent encounter
CPT/HCPCS: 97110; 97161

== ENCOUNTER → 2024-10-20 | Outpatient (CLI) | payer OTHER, SELFPAY ==
--- NOTE | 2024-10-20 07:17 | CT_ITS ---
PROCEDURE: LIMITED CHEST CT CARDIAC ONLY REASON FOR EXAM: HYPERLIPIDEMIA, UNSPECIFIED TECHNIQUE: Prone and supine chest CT without contrast, high resolution CT (HRCT) protocol. Coronal and Sagittal reconstruction series were provided. One or more dose reduction techniques were used (e.g., Automated exposure control, adjustment of the mA and/or kV according to patient size, use of iterative reconstruction technique). COMPARISON: Cardiac calcium scoring October 20, 2024 FINDINGS: Hardware: None Lymph nodes: None. Heart and Vasculature: Normal size heart aortic punctate calcifications Coronary Artery Calcifications: None Lungs and Airways: Lungs and airways are clear. Pleura: No pleural thickening. No effusion. No pneumothorax. Upper Abdomen: Unremarkable. Bones: Unremarkable CT/Limited Chest CT Cardiac Only IMPRESSION: Coronary artery calcification (CAC) is 0 no other significant findings [facility]
--- OUTSIDE RECORDS SUMMARY | 2024-10-20 07:19 | XMS RPT_ITS | CCD ---
Author Organization [facility] Care Team Providers Care Internet Systems Administrator Name Role Phone Magalis REYNOSO, Manjinder Calle Unavailable [phone] Shukri HOPE, Koffi Hinkle Primary Care Provider Koffi Watt MD Primary Care Provider Unknown, Referring Provider Unavailable Unav ailable Shukri HOPE, Koffi Hinkle Primary Care Provider None, No PCP Unavailable Unavailable Self, Referral Referring Unavailable UNKNOWN, PCP Primary Care Unavailable SALATA, Dr. CACHORRO VEGA Attending Jeny vailable Berlin, Dr. Norman Wolf Referring Unavai lable Berlin, Dr. Norman Wolf Attending Unavai lable Winkelman, Dr. Norman Wolf Attending Unavai lable UNKNOWN, PCP Primary Care Unavailable SALATA, Dr. CACHORRO VEGA Referring Jeny vailable UNKNOWN, PCP Primary Care Unavailable Berlin, Dr. Norman Wolf Attending Koffi Daniel MD Primary Care Provider Dr. Koffi Watt Primary Care Provider Dr. Beni Fuller Attending Provider Monroe INSURANCE ACCOUNT ASSISTANT, INSURANCE ACCOUNT ASSISTANT-C Misa Referring Provider [phone] Monroe INSURANCE ACCOUNT ASSISTANT, INSURANCE ACCOUNT ASSISTANT-C Misa Primary Care Provider Monroe INSURANCE ACCOUNT ASSISTANT, INSURANCE ACCOUNT ASSISTANT-C Misa Primary Care Provider Dr. Beni Fuller Attending Provider Monroe INSURANCE ACCOUNT ASSISTANT, INSURANCE ACCOUNT ASSISTANT-C Misa Referring Provider Koffi Watt MD Primary Care Provider Koffi Watt MD Primary Care Provider Isauro INSURANCE ACCOUNT ASSISTANT-C, Skylar Primary Care Provider [phone], Dr. De La Cruz Attending Provider Vel DPM, Dr. De La Cruz Referring Provider KOFFI WATT Primary Care Unavailable SELF Referring Unavailable DAGMAR SCHROEDER Attending Unavailable KOFFI WATT Primary Care Unavailable DAGMAR SCHROEDER Attending Unavailable Isauro, Skylar Attending Unavailable Isauro, Skylar Referring Unavailable Isauro, Skylar Primary Care Unavailable Jono Crowder Attending Unavailable Vel, Jono Referring Unavailable Isauro, Skylar Primary Care Unavailable Beni Fuller Attending Unavailable Monroe, Misa Primary Care Unavailable Monroe, Misa Referring Unavailable Borruso, Toni Attending Unavailable Monroe, Misa Primary Care Unavailable Borruso, Toni Attending Unavailable Borruso, Toni Referring Unavailable Isauro, Skylar Primary Care Unavailable Isauro, Skylar Primary Care Unavailable Elda, Dagmar Attending Unavailable Elda, Dagmar Referring Unavailable Jono Crowder Referring Unavailable Isauro, Skylar Primary Care Unavailable Jono Crowder Attending Unavailable Jono Crowder Referring Unavailable Isauro, Skylar Primary Care Unavailable Jono Crowder Attending Unavailable Medications Current Medications Medication Drug Class(es) Dates Sig (Normalized) Sig (Original) aspirin 81 mg delayed release oral tablet (9 sources) Platelet Aggregation Inhibitor, Nonsteroidal Anti-inflammatory Drug Start: 05-09-2024 take 2 tablets by mouth once daily Aspirin 81 mg tablet,delayed release (DR/EC) Active 162 mg PO DAILY May 09, 2024 1:00am Start: 04-20-2023 End: 07-11-2023 take 2 tablets by mouth once daily Aspirin 81 mg tablet,delayed release (DR/EC) Discontinued 162 mg PO DAILY April 20, 2023 1:00am July 11, 2023 3:55pm Start: 04-20-2023 End: 07-11-2023 take 162 mg by mouth once daily Aspirin Discontinued 162 MG PO DAILY April 20, 2023 1:00am July 11, 2023 3:55pm Start: 04-16-2023 End: 04-20-2023 take 1 capsule by mouth once daily Aspirin 81 mg capsule Discontinued 81 mg PO DAILY April 16, 2023 1:00am April 20, 2023 7:08pm azithromycin 250 mg oral tablet (1 source) Macrolide Antimicrobial Start: 08-04-2024 take 2 tablets by mouth once daily, then take 1 tablet by mouth once daily azithromycin 250 mg tablet TAKE 2 TABLETS (500 MG) BY ORAL ROUTE ONCE DAILY FOR 1 DAY THEN 1 TABLET (250 MG) BY ORAL ROUTE ONCE DAILY FOR 4 DAYS 08/04/2024 active Not Available Not Available Not Available Start: 08-04-2024 take 2 tablets by mo [facility] once daily, then take 1 tablet by mouth once daily azithromycin 250 mg tablet TAKE 2 TABLETS (500 MG) BY ORAL ROUTE ONCE DAILY FOR 1 DAY THEN 1 TABLET (250 MG) BY ORAL ROUTE ONCE DAILY FOR 4 DAYS 08/04/2024 active Not Available Not Available Not Available benzonatate 100 mg oral capsule (1 source) Non-narcotic Antitussive Start: 08-04-2024 take 1 capsule by mouth three times daily benzonatate 100 mg capsule Take 1 capsule 3 times a day by oral route for 10 days. 08/04/2024 active Not Available Not Available Not Available Start: 08-04-2024 take 1 capsule by [facility] three times daily benzonatate 100 mg capsule Take 1 capsule 3 times a day by oral route for 10 days. 08/04/2024 active Not Available Not Available Not Available cholecalciferol 0.025 mg oral tablet (8 sources) Vitamin D Start: 09-05-2018 take 2 tablets by mouth once daily Cholecalciferol (Vitamin D3) (Vitamin D3) 1,000 UNIT tablet Active 2000 U PO DAILY September 05, 2018 12:00am Start: 09-05-2018 take 1 tablet by [facility] once daily Cholecalciferol (Vitamin D3) (Vitamin D3) 1,000 UNIT tablet Active 1000 UNIT PO DAILY September 05, 2018 12:00am [place] 0-Wuk-Awq-Fish Oil (8 sources) Start: 09-05-2018 take 1 capsule by mouth once daily [place] 2-Noz-Zzb-Fish Oil (Fish Oil) 1 EACH capsule Active 1 NMA PO DAILY September 05, 2018 12:00am Start: 09-05-2018 take 1 capsule by mo [facility] once daily [place] 5-Xql-Sao-Fish Oil (Fish Oil) 1 EACH capsule Active 1 EACH PO DAILY September 05, 2018 12:00am Start: 09-05-2018 take 1 capsule by [facility] once daily [place] 0-Ous-Vku-Fish Oil (Fish Oil) 1 EACH capsule Active 1 EACH PO DAILY September 04, 2018 11:00pm Start: 09-05-2018 take 1 capsule by [facility] once daily [place] 6-Fuq-Fvv-Fish Oil (Fish Oil 1,000 Mg Softgel) 1 EACH capsule Active 1 EACH PO DAILY September 04, 2018 11:00pm Start: 09-05-2018 take 1 capsule by [facility] once daily [place] 9-Gus-Knp-Fish Oil (Fish Oil 1,000 Mg Softgel) 1 EACH capsule Active 1 EACH PO DAILY September 05, 2018 12:00am estradiol 0.1 mg/ml vaginal cream (5 sources) Estrogen Start: 09-15-2024 estradiol (EST RACE) 0.01 % (0.1 mg/gram) vaginal cream INSERT 0.5 GRAM VAGINALLY AT BEDTIME TWICE WEEKLY. APPLY A PEA SIZED AMOUNT TO OUTSIDE OF VAGINA WELL 126 g 1 09/15/2024 Active Start: 12-31-2023 End: 09-15-2024 estradiol (ESTRACE) 0.01 % ( 0.1 mg/gram) vaginal cream Insert 1 gram vaginally qHS for 2 weeks, then 0.5 gram vaginally at bedtime twice weekly. Apply a pea sized amount to outside of vagina as well. 42.5 g 2 12/31/2023 09/15/2024 Discontinued FISH OIL-DHA-EPA ORAL (20 sources) FISH OIL-DHA-EPA ORAL Take by mouth once daily. Active FISH OIL-DHA-EPA ORAL Take by mouth once daily. 0 Active Comment on above: Take by mouth once d aily. glucosamine 500 mg oral tablet (6 sources) Start: 07-11-2023 take 1 tablet by mouth once daily Glucosamine Hcl 500 mg tablet Active 500 mg PO DAILY July 11, 2023 1:00am administer with a meal glucosamine sulf ate (GLUCOSAMINE ORAL) Take by mouth. Active ibuprofen 200 mg oral tablet (1 source) Nonsteroidal Anti-inflammatory Drug Wal-Profen 200 mg tablet active Encounter Date: 09/26/2023 ; prn;alternating with tylenol Status: 'Taking'; Not Available Not Available Not Available losartan potassium 50 mg oral tablet (9 sources) Angiotensin 2 Receptor Jocelyn Start: 023 take 1 tablet by mouth at bedtime Losartan (Cozaar) 50 mg tablet Active 50 mg PO AT BEDTIME April 16, 2023 1:00am MULTI-VITAMIN ORAL (20 sources) MULTI-VITAMIN OR AL Take by mouth once daily. Active MULTI-VITAMIN OR AL Take by mouth once daily. 0 Active Comment on above: Take by mouth once d aily. Af-Fl-Vadm-Fa-Ca Carb-Vit K (Women's Daily Formula Tablet) 1 EACH tablet (4 sources) Start: 09-05-2018 Eh-Om-Uxhq-Fa-Ca Carb-Vit K (Women's Daily Formula Tablet) 1 EACH tablet Active 1 EACH PO DAILY September 04, 2018 11:00pm Start: 09-05-2018 On-Wo-Qhnn-Fa- Ca Carb-Vit K (Women's Daily Formula Tablet) 1 EACH tablet Active 1 EACH PO DAILY September 05, 2018 12:00am Bq-Wv-Eppp-Fa-Ca Carb-Vit K (Women's Daily Formula) 1 EACH tablet (4 sources) Start: 09-05-2018 take 1 tablet by mouth once daily St-Ks-Zewe-Fa-Ca Carb-Vit K (Women's Daily Formula) 1 EACH tablet Active 1 NMA PO DAILY September 05, 2018 12:00am Start: 09-05-2018 take 1 tablet by anya th once daily Hr-Us-Pilt-Fa-Ca Carb-Vit K (Women's Daily Formula) 1 EACH tablet Active 1 EACH PO DAILY September 05, 2018 12:00am Start: 09-05-2018 take 1 tablet by anya th once daily Wq-Bh-Yuic-Fa-Ca Carb-Vit K (Women's Daily Formula) 1 EACH tablet Active 1 EACH PO DAILY September 04, 2018 11:00pm ondansetron 4 mg disintegrating oral tablet (5 sources) Serotonin-3 Receptor Antagonist Start: 05-09-2024 take 1 tablet by mouth every eight hours as needed for nausea and vomiting Ondansetron 4 mg tablet,disintegrating Active 4 mg PO Q8H as needed for nausea and vomiting May 09, 2024 1:00am Start: 04-20-2023 End: 07-11-2023 take 1 tablet by mouth every eight hours as needed for nausea and vomiting Ondansetron 4 mg tablet,disintegrating Discontinued 4 mg PO Q8H as needed for nausea and vomiting April 20, 2023 1:00am July 11, 2023 3:56pm oxyCODONE hydrochloride 5 mg oral tablet (6 sources) Opioid Agonist Start: 05-09-2024 take 1 tablet by mouth every four hours as needed for pain Oxycodone 5 mg tablet Active 5 mg PO Q4H as needed for pain 42 May 09, 2024 Start: 04-13-2023 End: 07-11-2023 take 1 capsule by mouth every eight hours as needed for pain Oxycodone 5 mg capsule Discontinued 5 mg PO Q8H as needed for pain 15 April 13, 2023 July 11, 2023 3:56pm Turmeric extract (1 source) Start: 01-02-2024 take 1 capsule by mouth once daily Turmeric 400 mg capsule Active 400 mg PO DAILY January 02, 2024 12:00am ubidecarenone (ULTRA COQ10 ORAL) (20 sources) ubidecarenone (U LTRA COQ10 ORAL) Take by mouth. Active ubidecarenone (U LTRA COQ10 ORAL) Take by mouth. 0 Active Comment on above: Take by mouth. vitamin e 100 unt oral capsule (20 sources) Start: 10-21-2015 VITAMIN E, DL, TOCOPHERYL ACET, (VITAMIN E, DL, ACETATE,) 100 unit cap Take by mouth. 0 10/21/2015 Active Start: 10-21-2015 VITAMIN E, DL, TOCOPHERYL ACET, (VITAMIN E, DL, ACETATE,) 100 unit cap Take by mouth. 0 10/21/2015 Active Comment on above: Take by mouth. Completed/Discontinued Medications Medication Drug Class(es) Dates Sig (Normalized) Sig (Original) acetaminophen 325 mg / HYDROcodone bitartrate 5 mg oral tablet (4 sources) Opioid Agonist Start: 04-20-2023 End: 07-11-2023 Hydrocodone-Acetami nophen 5-325 mg tablet Discontinued 1 {tbl} PO Q4H as needed for pain 42 April 20, 2023 July 11, 2023 3:55pm Start: 04-20-2023 End: 07-11-2023 take 1 tablet by mouth every four hours Hydrocodone-Acetaminophen Discontinued 1 TABLET PO Q4H 42 April 20, 2023 July 11, 2023 3:55pm acetaminophen 325 mg / oxyCODONE hydrochloride 5 mg oral tablet (20 sources) Opioid Agonist Start: 11-08-2016 End: 09-19-2024 take 1 tablet by mouth every four hours as needed oxyCODONE-acetaminophen (PERCOCET) 5-325 mg tablet Take 1 tablet by mouth every 4 hours as needed. 10 tablet 11/08/2016 09/19/2024 Discontinued (Discontinued by Patient) Comment on above: Take 1 tablet by anya every 4 hours as needed. calcium polycarbophil 625 mg oral tablet (12 sources) Start: 09-05-2018 End: 01-02-2024 take 1 tablet by mouth once daily Calcium Polycarbophil (Fiber (Calcium Polycarbophil)) 625 MG tablet Discontinued 625 mg PO DAILY September 05, 2018 12:00am January 02, 2024 7:59am docusate sodium 100 mg oral capsule (4 sources) Start: 04-20-2023 End: 07-11-2023 take 1 capsule by mouth twice daily Docusate Sodium 100 mg capsule Discontinued 100 mg PO TWICE A DAY April 20, 2023 1:00am July 11, 2023 3:55pm doxycycline monohydrate 100 mg oral capsule (12 sources) Tetracycline-cla ss Drug Start: 09-09-2020 End: 09-09-2020 take 1 capsule by mouth twice daily Doxycycline Monohydrate 100 mg capsule Discontinued 100 mg PO TWICE A DAY September 09, 2020 12:00am September 09, 2020 4:55pm Pt aware to abstain from fiber/ calcium supplement and women's multivitamin with iron while on this medication etodolac 500 mg oral tablet (1 source) Nonsteroidal Anti-inflammator y Drug Start: 01-02-2024 End: 05-05-2024 Etodolac 500 mg tablet Discontinued 500 mg PO TWICE A DAY as needed for pain 60 January 02, 2024 12:00am May 05, 2024 9:14am take regularly for 10-14 days then as needed, do not take in conjunction with other NSAID. Tylenol is okay. famotidine 10 mg oral tablet (4 sources) Histamine-2 Receptor Antagonist Start: 04-16-2023 End: 07-11-2023 take 1 tablet by mouth once daily Famotidine (Acid Controller) 10 mg tablet Discontinued 10 mg PO DAILY April 16, 2023 1:00am July 11, 2023 3:55pm gabapentin 100 mg oral capsule (20 sources) Anti-epileptic Agent Start: 05-24-2023 End: 09-19-2024 take 3 capsules by mouth at bedtime Gabapentin 100 mg capsule Discontinued 300 mg PO AT BEDTIME May 24, 2023 1:00am July 11, 2023 3:55pm Start: 05-24-2023 End: 07-11-2023 take 300 mg by mouth at bedtime Gabapentin Discontinue d 300 MG PO AT BEDTIME May 24, 2023 1:00am July 11, 2023 3:55pm gabapentin activ e Encounter Date: 09/26/2023 ; prn MedicationName: 'Gabapentin'; ConceptType: 'NDC'; Status: 'Taking'; Not Available Not Available Not Available Comment on above: Take 300 mg by mouth daily at bedtime. lidocaine 0.05 mg/mg topical ointment (20 sources) Antiarrhythmic, Amide Local Anesthetic Start: 7 End: lidocaine (XYLOCAINE) 5 % ointment Apply 1 application to affected area as needed. 1 Tube 11/09/2016 09/19/2024 Discontinued (Discontinued by Patient) Comment on above: Apply 1 application to affected area as needed. meloxicam 15 mg oral tablet (20 sources) Nonsteroidal Anti-inflammatory Drug Start: 2 End: 5 take 1 tablet by mouth once daily meloxicam (MOBIC) 15 mg tablet Indications: Primary osteoarthritis of right knee , Chronic pain of right knee TAKE 1 TABLET BY MOUTH EVERY DAY 30 tablet 03/14/2022 09/19/2024 Discontinued (Discontinued by Patient) Start: 08-05-2021 End: 01-04-2022 take 1 tablet by mouth once daily meloxicam (MOBIC) 15 mg tablet Indications: Primary osteoarthritis of right knee , Chronic pain of right knee Take 1 tablet by mouth once daily. 30 tablet 0 12/05/2021 01/04/2022 Active Comment on above: Take 1 tablet by anya th once daily. TAKE 1 TABLET BY ANYA TH EVERY DAY multivitamin (DAILY VITAMIN) tablet (20 sources) Start: 10-21-2015 End: 05-09-2025 take 1 tablet by mouth once daily multivitamin (DAILY VITAMIN) tablet Take 1 tablet by mouth once daily. 0 10/21/2015 09/19/2024 Discontinued (Discontinued by Patient) Start: 10-21-2015 take 1 tablet by anya th once daily multivitamin (DAILY VITAMIN) tablet Take 1 tablet by mouth once daily. 0 10/21/2015 Active Comment on above: Take 1 tablet by anya th once daily. predniSONE 10 mg oral tablet (8 sources) Start: 07-30-2017 End: 08-11-2017 Prednisone 10 mg tablet Discontinued 10 mg PO daily 30 July 30, 2017 12:00am August 10, 2017 12:00am August 11, 2017 12:06am Take 4 tabs once daily days 1-3 3 tabs once daily days 4-6 2 tabs once daily days 7-9 and 1 tab once daily days 10-12. sulfamethoxazole 800 mg / trimethoprim 160 mg oral tablet (3 sources) Dihydrofolate Reductase Inhibitor Antibacterial, Sulfonamide Antimicrobial Start: 02-11-2017 BACTRIM DS 800-160 MG TABS one pill q 12 hours SULFAMETHOXAZOLE-TRIME THOPRIM [id number] Manjinder Blancas PA-C Start: 02-11-2017 BACTRIM DS 800 -160 MG TABS one pill q 12 hours SULFAMETHOXAZOLE-TRIMETHOPRIM [id number] Manjinder Blancas PA-C Problems Active Problems Problem Classification Problem Date Documented Date Episodic/Chronic Allergic reactions (8 sources) Contact dermatitis due to detergent; Translations: [Irritant contact dermatitis due to detergents] 07-30-2017 Episodic Chronic ulcer of skin (1 source) Non-pressure chronic ulcer of other part of left foot with fat layer exposed; Translations: [Non-pressure chronic ulcer of other part of left foot with fat layer exposed] Onset: 06-16-2024 Chronic Disorders of lipid metabolism (4 sources) Hypercholesterolemia; Translations: [Pure hypercholesterolemia, unspecified] Onset: 10-16-2024 07-11-2023 Chronic Comment on above: BORDERLINE Essential hypertension (3 sources) Hypertensive disorder; Translations: [Essential (primary) hypertension] 07-11-2023 Chronic Fracture of lower limb (7 sources) Bimalleolar fracture of ankle ; Translations: [Displaced bimalleolar fracture of right lower leg, initial encounter for closed fracture] 04-13-2023 Episodic Joint disorders and dislocations; trauma-related (1 source) Radial tear of medial meniscus; Translations: [Other tear of medial meniscus, current injury, unspecified knee, initial encounter] 01-02-2024 Episodic Comment on above: Right Menopausal disorders (1 source) Menopausal flushing Chronic Nonmalignant breast conditions (1 source) Breast finding ; Translations: [Dense breast tissue] 12-31-2023 Episodic Osteoarthritis (20 sources) Primary gonarthrosis, bilateral; Translations: [Bilateral primary osteoarthritis of knee] Onset: 08-10-2021 Chronic Other aftercare (2 sources) Patient encounter status; Translations: [Other medical terminologist (current) drug therapy] Episodic Other and ill-defined heart disease (3 sources) Diastolic dysfunction; Translations: [Other ill-defined heart diseases] 05-24-2023 Chronic Other connective tissue disease (1 source) Dysfunction of posterior tibial tendon; Translations: [Posterior tibial tendinitis, unspecified leg] Episodic Other connective tissue disease (1 source) Tibialis tendinitis; Translations: [Posterior tibial tendinitis, right leg] 05-09-2024 Episodic Other female genital disorders (1 source) Vaginal dryness; Translations: [Other specified noninflammatory disorders of vagina] 09-19-2024 Episodic Other lower respiratory disease (2 sources) Cough; Translations: [Cough, unspecified] Onset: 08-04-2024 Resolved: 08-04-2024 Episodic Other nervous system disorders (4 sources) Acute postoperative pain; Translations: [Other acute postprocedural pain] 04-20-2023 Episodic Other non-traumatic joint disorders (8 sources) Pain in right knee; Translations: [Pain in joint, lower leg] Episodic Other non-traumatic joint disorders (3 sources) Pain in left knee; Translations: [Pain in left knee] Onset: 03-24-2022 Episodic Other non-traumatic joint disorders (1 source) Arthralgia of the ankle and/or foot; Translations: [Pain in right ankle and joints of right foot] 05-09-2024 Episodic Other upper respiratory disease (2 sources) Bleeding from nose; Translations: [Epistaxis] Episodic Other upper respiratory disease (8 sources) Cellulitis of face; Translations: [Abscess, furuncle and carbuncle of nose] 09-09-2020 Episodic Other upper respiratory disease (6 sources) Epistaxis; Translations: [Recurrent epistaxis] 09-09-2020 Episodic Other upper respiratory infections (2 sources) Acute sinusitis; Translations: [Acute sinusitis, unspecified] Onset: 08-04-2024 Resolved: 08-04-2024 Episodic Residual codes; unclassified (2 sources) Pain; Translations: [Pain, unspecified] Episodic Residual codes; unclassified (2 sources) Family history of cancer; Translations: [Family history of malignant neoplasm, unspecified] 09-19-2024 Episodic Residual codes; unclassified (1 source) Flushing; Translations: [Flushing] 09-19-2024 Episodic Residual codes; unclassified (1 source) Reduced libido; Translations: [Decreased libido] 09-19-2024 Episodic Residual codes; unclassified (1 source) Difficulty sleeping ; Translations: [Sleep disorder, unspecified] 09-19-2024 Episodic Residual codes; unclassified (1 source) Family history of malignant neoplasm, unspecified; Translations: [Family history of cancer] Onset: 09-18-2024 Episodic Past or Other Problems Problem Classification Problem Date Documented Da te Episodic/Chronic Anal and rectal conditions (20 sources) Anal polyp; Translations: [Anal polyp] Onset: 10-21-2015 10-21-2015 Episodic Complication of device; implant or graft (2 sources) Pain due to internal prosthetic device; Translations: [Pain due to internal orthopedic prosthetic devices, implants and grafts, initial encounter] Onset: 06-02-2024 05-09-2024 Episodic Genitourinary symptoms and ill-defined conditions (3 sources) Dysuria; Translations: [Dysuria] Onset: 02-11-2017 02-11-2017 Episodic Hemorrhoids (20 sources) Internal hemorrhoids grade II; Translations: [Second degree hemorrhoids] Onset: 10-21-2015 10-21-2015 Episodic Other non-traumatic joint disorders (1 source) Pain in left elbow; Translations: [Pain in left elbow] Onset: 01-02-2024 Episodic Other screening for suspected conditions (not mental disorders or infectious disease) (1 source) Encounter for screening mammogram for malignant neoplasm of breast; Translations: [Encounter for screening mammogram for malignant neoplasm of breast] Onset: 01-15-2024 Episodic Results Test Name Value Interpretation Reference Range Facility [facility] 09-18-2024 [facility] Office Visit (OBGYWM ) -- CHANELLE GUILLERMO ([id number]) 1970 F Date Time Provider Department 09/18/24 10:50 AM DAGMAR SCHROEDER OBGYWM During your visit today, we recorded the following information about you: Blood pressure Weight 110/72 77.4 kg Dagmar Schroeder MD 09/19/2024 1:33 PM Signed Chanelle Eagle is a 54 year old female who presents to discuss hormone replacement therapy. HPI: Wants to discuss HRT and family history of cancer. Doing well on vaginal estrogen cream and is satisfied with it. She is having difficulty sleeping, low libido, brain fog, hot flashes. Interested in HRT. 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 History Comments: Sexual Activity: Yes; Male Contraception: No contraception data on record PAST MEDICAL HISTORY Diagnosis Date Atypical squamous cells of undetermined significance (ASCUS) on Papanicolaou smear of cervix 12/2008 Hot flashes Hyperlipemia Menometrorrhagia Vaginal inclusion cyst 2008 PAST SURGICAL HISTORY Procedure Laterality Date ANKLE SURGERY HX Right 04/20/2023 screws and plates COLONOSCOPY SCREENING 2019 [place], DIAG AND/OR THERAPEUTIC 04/19/2011 EXTRACTION ERUPTED TOOTH/EXR HEMORRHOIDECTOMY 2018 in office PAST SURGICAL HISTORY OF Right excision of lipoma-forearm REVISE MEDIAN N/CARPAL TUNNEL SURG Right 2019 FAMILY HISTORY Problem Relation Age of Onset Ovarian cancer Mother 65 Melanoma Mother Cancer Father Lymphoma Father other (neuro endocrine cancer) Sister Breast Cancer Maternal Aunt other (vulvar cancer) Maternal Aunt Factor 5 Leiden Maternal Uncle Social History Tobacco Use Smoking status: Never Smokeless tobacco: Never Vaping Use Vaping status: Never Used Substance Use Topics Alcohol use: Yes Comment: some Drug use: Never Current Outpatient Medications Medication Sig estradiol (ESTRACE) 0.01 % (0.1 mg/gram) vaginal cream INSERT 0.5 GRAM VAGINALLY AT BEDTIME TWICE WEEKLY. APPLY A PEA SIZED AMOUNT TO OUTSIDE OF VAGINA WELL losartan (COZAAR) 50 mg tablet 1 TABLET ORALLY ONCE A DAY IN EVENING 90 DAYS calcium polycarbophil (FIBERCON) 625 mg tablet Take by mouth. glucosamine sulfate (GLUCOSAMINE ORAL) Take by mouth. MULTI-VITAMIN ORAL Take by mouth once daily. FISH OIL-DHA-EPA ORAL Take by mouth once daily. ubidecarenone (ULTRA COQ10 ORAL) Take by mouth. VITAMIN E, DL,TOCOPHERYL ACET, (VITAMIN E, DL, ACETATE,) 100 unit cap Take by mouth. No current facility-administered medications for this visit. Allergies As of Date: 09/18/2024 (No Known Allergies) Fully Assessed 09/18/2024 REVIEW OF SYSTEMS Expanded ROS: N/A Allergies and current medication updated:Yes SENSITIVE EXAM: Sensitive exam not performed. EXAM: BP 110/72 Wt 170 lb 9.6 oz (77.4kg) GENERAL: pleasant, female in no apparent distress HEENT: Normocephalic and atraumatic CHEST: Normal inspiratory effort NEURO: exam grossly non-focal EXTREMITIES: normal ASSESSMENT AND PLAN: Assessment AND Plan Family history of cancer Orders: CONSULT TO MEDICAL GENETICS - CANCER; Future Hot flashes Vaginal dryness Low libido Difficulty sleeping Doing well on vaginal estrogen cream. Discussed r/b/a HRT and questions answered. Patient interested in starting HRT. She will notify office after her mother has Factor 5 Leiden test, and patient has met with genetics regarding family history of cancer. Information given for her to read. Dagmar Schroeder, I spent 20 minutes in the visit, with more than 50% of the total [id number] time of the visit in counseling / coordination of care. Dagmar Schroeder MD 09/18/2024 11:37 AM Signed Non-Hormonal Ways to [place] with Hot Flashes and Menopause Hormone therapy is the most effective therapy for hot flashes. It is also the only FDA approved method to treat hot flashes. However, other non-hormonal options are available for women who are suffering from symptoms, but are not yet ready to consider hormone therapy. Some women are not appropriate candidates for hormone therapy, such as those have been recently treated for breast cancer, ovarian cancer, or endometrial/uterine cancer. It is important to remember that when used appropriately, hormone therapy can be a safe and effective option for many women. Here we will review non-hormonal treatment options for women. Knowing the triggers of hot flashes Hot flashes may be precipitated by hot weather, smoking, caffeine, spicy foods, alcohol, tight clothing, heat and stress. Identify and avoid your hot flash triggers. Some women notice hot flashes when they eat a lot of sugar. Exercising in warm temperatures might make hot flashes worse. Diet Avoiding caffeine, spicy foods, and alcohol can (more content not included)... Normal [facility] Inital Evaluation (1) - PTon 07-16-2024 Inital Evaluation (1) - PT [facility] [address] [place] [address] / REHABILITATION SERVICES INITIAL EVALUATION MR#: [id number] Acct: [id number] Name: CHANELLE GUILLERMO Rep #: [id number] : 1970 54 From: Devon Freitas PT, ATC Referring Dr.: Dr. Jono Crowder DPM Status: REG R [facility] Patient's Visit Information Visit Information Visit Information: CHANELLE GUILLERMO is a 54 year old F referred to Physical Therapy by Dr. Jono Crowder, ARIANA with a diagnosis of R distal LE Fx/post tib repair/infection. Date of Evaluation: 07/16/24 Physical Therapist: Devon Freitas PT, ATC Visit Plan Frequency: 1x/Week Duration: 3 Weeks Plan: Follow up in one week to issue balance and strengthening ex's. Then follow up every 2 weeks to monitor I progress Subjective Subjective: Pt reports she had a bimalleoulor Fx in 2023. Pt notes she had surgery for the fracture that involved a plate and screws. Pt reports she was doing well when she suddenly noted a clicking sensation in her R ankle which was limiting. Pt reports she had another surgery at that time to remove her hardware and repair a torn post tib tendon. Pt reports she then had a staph infection which needed attended to. Pt reports she is now infection free and the incision is healed. Pt reports she is still in a lot of pain now. 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 Pt reports she had to wait for initiating PT until she was cleared of infection. Pt reports she is really weak at this time and is limited with flexibility. Pt denies tingling or numbness in R LE at this time. Pt reports occasional sleep difficulty at this time secondary to pain. Pt notes she is limited with stair negotiation which she has a lot of at home. Pt reports she is always better in the morning than by the end of the day. 1/10 pain while sitting here in the clinic, 6/10 pain at worst (after being on her feet for a while and has to hobble) Pain R ankle Fx: Pain Intensity (Out of 10): 1 Pain Intensity Range: 6 Objective Objective: Neuro: B LE sensation is WNL to light touch. Observation: R ankle is still noticeably swollen. Incision is healed. No signs of infection at this time. ROM: L ankle DF= 12, PF= 65; R ankle DF= 8, PF= 65 degrees MMT: L ankle DF= 38, PF= 39 #F; R ankle DF= 29, PF= 31 Gait: Pt ambulates on R LE with a mild limp. Girth: L ankle 47 cm, R ankle 53 cm Balance/Special Test Scores Lower Extremity Functional Score: 40 Goals Goal 1:: Decrease R ankle pain x 50% to aid with sleep Goal Time Frame: 4-6 Weeks Goal 2:: Increase R ankle DF ROM x 5 degrees to aid with restoring a more normalized gait pattern Goal Time Frame: 4-6 Weeks Goal 3:: Increase R ankle DF and PF strength x 7 #F to aid with return to IADL's without limitation Goal Time Frame: 4-6 Weeks Goal 4:: I with HEP Goal Time Frame: 4-6 Weeks Rehabilitation Potential Physical Therapy Diagnosis: Pt has R LE pain, weakness, and limited ROM secondary to R ankle Fx Rehabilitation Potential: Good Anticipated Interventions Patient/Client Instruction: Educate patient on: Condition and Plan of Care For the Purpose of:: To improve self management Therapeutic Exercise to Include: Strength training, Endurance training, Balance training, Flexibilty training, Passive ROM and Active ROM For the Purpose of:: To decrease pain, To increase ROM and To improve muscle performance and motor function Cryotherapy (ice pack, ice massage): Yes For the Purpose of:: To decrease pain Text: Thank you for the opportunity to evaluate your patient. For Medicare and Medicare HMO plans, please review the plan of care and approve it. It will need to be FAXED BACK to us at [phone] for Medicare purposes. For Medicare only, by signing this I certify the plan of care. Please let me know if there are questions or concerns regarding this plan of care. Physician Signature: Date: 07/16/2426 CC: ARIANA Crowder; INSURANCE ACCOUNT ASSISTANT-C Skylar Box [facility] Signed [facility] Wound Cultureon 05-28-2024 PATIENT NOT PRESENT Copy of report sent to Infection Control Printer MS#[id number] 05/28/24 [facility] Meth. resistant Staph. aureus Amount Growth 3+ mecA Testing not performed Meth. resistant Staph. aureus: REACTION cefOXitin Susc Islt POS Doxycycline Islt RAUL <=0.5 Clindamycin Islt RAUL 0.25 S Clindamycin.induced Susc Islt NEG Erythromycin Islt RAUL 4 I Gentamicin Islt RAUL <=0.5 S Linezolid Islt RAUL 2 S Moxifloxacin Islt RAUL 4 I Oxacillin Susc Islt >=4 R Tetracycline Islt RAUL <=1 S TMP SMX Islt RAUL <=10 S Vancomycin Islt RAUL <=0.5 S Normal [facility] Comment on above: Performed By: #### M 100.3000, #### [facility] [address] [place], [place], [id number] Gram Stainon 05-27-2024 PATIENT NOT PRESENT Gram Stain Rare Epithelial cells Rare White Blood Cells Rare Gram positive cocci Normal [facility] Comment on above: Performed By: #### M 100.3000, #### [facility] [address] [place], [address] Ankle 2 Viewson 05-09-2024 Ankle 2 Views [facility] Imaging Services [address] [place] [address] Ankle 2 Views MR#: [id number] Acct: [id number] Name: EAGLECHANELLE THOMASON ALAN Rep #: [id number] : 1970 F 53 From: Yohana Díaz MD PCP: JHONY Roth Status: [facility] Study: Ankle 2 Views Date of Exam: 05/09/24 Exam# [id number] Ordering Dr: Jono Crowder DPM [id number] INDICATION: PAIN EXAMINATION/TECHNIQUE: X-RAY - RIGHT XR Ankle 2 Views 3 VIEWS COMPARISON: April 20, 2023 FINDINGS: Two fluoroscopic images of the ankle were submitted. 52 seconds of fluoroscopy was utilized. There are ghost tracts within the distal fibula. The alignment is anatomic. No acute fracture nor dislocation. No suspicious bony lesions are seen. Please refer to the procedural note for further discussion. Electronically Signed: Yohana Díaz MD at 17:18 EST , RAD/Ankle 2 Views IMPRESSION: undefined CC: DPM Dr. Jono Crowder; INSURANCE ACCOUNT ASSISTANT-C Skylar Box Contact Lens Technician: Signed Normal [facility] MR/POSTOP.ANEon 05-09-2024 MR/POSTOP.ANE [facility] Medical Records Department [address] [place] [address] Anesthesia Postop Eval I 05/09/24 1142 MR#: [id number] Acct: [id number] Name: CHANELLE GUILLERMO Rep #: [id number] : 1970 53 From: Ralph Smith CRNA PCP: JHONY Roth Status:REG [facility] Y Race: C Location: [place] [address] Anesthesia: Postop Eval I Current Vital Signs Temperature: 97.1 F Pulse Rate: 73 Blood Pressure: 109/72 Respiratory Rate: 16 Pulse Ox: 97 Oxygen Delivery Method: Room Air Assessment Airway patent: Yes Spontaneous unlabored respirations: Yes Mental status: Awake and Calm nausea: No Vomiting: No Anesthesia Complication: No Fluid Hydration Crystalloid volume administer (ml): 1,000 Total IV fluid infused: 1,000 Progress Note Anesthesia document: Postop Eval 1 completed: Yes 05/09/24 1144 Date Ralph Smith WAITER/WAITRESS [employer]CON[employer]Y CLASS Cosigner Signature: Date CC: Signed [facility] Operative Reporton 4 Operative Report [facility] Medical Records Department [address] [place] [address] Operative Report 05/09/24 1030 MR#: [id number] Acct: [id number] Name: CHANELLE GUILLERMO Rep #: [id number] : 1970 53 From: Jono Crowder DPM PCP: JHONY Roth Status:REG [facility] Location: [place] [address] Problems Associated Problem List Diagnoses (1) Pain due to internal orthopedic prosthetic devices, implants and grafts, initial encounter: (2) Pain in right ankle and joints of right foot: (3) Right tibialis tendinitis: Operative Report (Standard) Operative Information Date of Procedure: 05/09/24 Pre-Operative Diagnosis: 1) Painful retained hardware, right ankle 2) Posterior tibial tendinopathy, right ankle 3) Bone Spur, medial aknle, right side Post-Operative Diagnosis: same Surgery/Procedure Performed: 1) removal of painful retained hardware from medial and lateral right ankle 2) posterior tibial tendon repair via redo tubularization, right ankle 3) exostectomy right medial ankle tobacco grower: Yes Php Mysql Developer: leonor mederos Tasks completed by engineer first assistant: Opening, Closing, Opening closing, Altering tissue, Hemostasis: Electrocautery and Retracting Type of Anesthesia: General RN Documented Start/Stop Times: Operation Date: 05/09/24 09:00 Case Time Into Pre-Op 05/09/24 07:25 Anesthesia Start 05/09/24 08:52 Into Room 05/09/24 08:52 Out of Pre-Op 05/09/24 08:52 Procedure Start 05/09/24 09:08 Procedure End 05/09/24 10:18 Anesthesia End 05/09/24 10:21 Out of Room 05/09/24 10:21 Procedure Start Time: 08:30 Procedure Stop Time: 10:15 Select all DRAINS/GRAFTS/IMPLANTS that apply: Graft Graft details: ViViFi 2 x 4 cm BioSkin Estimated Blood Loss: Minimal Specimen collected: No Description of surgery: Patient ankle fracture ORIF approximately 1 year prior. Patient had continued pain to medial and lateral ankle at the hardware site. Patient underwent MRI which confirmed thickening of the posterior tibial tendon. Decision for hardware removal on an debridement and repair of the posterior tibial tendon was made. Patient brought back the operating placed complaint supervision on the operating room table. Patient underwent spinal anesthesia. Well-padded right thigh tourniquet was applied. Right lower extremity was positioned on blankets to elevate relative to contralateral limb. Right lower extremity scrubbed prepped draped using typical aseptic fashion. Once cleared by anesthesia right lower extremity was elevated exsanguinated tourniquet was inflated to 300 mmHg. Through a lateral incision using the old incision a full-thickness incision was made with a #15 blade down to the level of the plate any bleeders identified cauterized neurovascular structures were identified and protected with blunt retraction. The plate was removed using a screwdriver and a Hampton removal was confirmed with fluoroscopic imaging there remained 2 screws to the medial ankle. A medial incision was drawn along the medial aspect of the ankle extending along the course of the tibialis posterior tendon just posterior to the medial malleolus. This incision was made through the epidermis stripes into subcutaneous tissue. Any bleeders identified cauterized. Using help with a Hampton the posterior tibial tendon sheath and flexor retinaculum were identified and released to expose the posterior tibial tendon with blunt dissection using Metzenbaum dissecting scissors. The posterior tibial tendon was examined there is no obvious tearing of the tendon but is noted to be flattened and thickened. Repair was made with a running interlocking 2-0 PDS. At this time the 2 medial malleolus screws were removed with the appropriate screwdriver this was confirmed with fluoroscopic imaging. There is noted be some bone spurring that is pinching the tibialis posterior tendon medially this was removed with combination of a bone rongeur and a rasp. Removal was confirmed upon fluoroscopic imaging. There is noted be healthy gliding of the tibialis posterior tendon just posterior to the medial malleolus upon repair of the tendon. The medial lateral ankle sites were flushed with copious amounts normal sterile saline. Tourniquet was let down. Again any bleeders were identified and cauterized. The flexor retinaculum and tibialis posterior tendon sheath were closed in 1 layer using a running interlocking 3-0 Vicryl prior to complete closure a 2 x 4 cm right medical bio skin graft was applied to the posterior tibial tendon to limit scar tissue formation in the area. Subcutaneous closure was performed next using a simple interrupted buried 3- 0 Vicryl. Skin closure performed with a 3-0 nylon. Deep closure performed with simple interrupted buried 3-0 Vicryl to the lateral ankle followed by subcutaneous closure with simple interrupted buried 3-0 Umer (more content not included)... Normal [facility] MR/PAT.RADHAon 05-05-2024 MR/PAT.[facility] Medical Records Department [address] [place] [address] PAT - Anesthesia 05/05/24 1636 MR#: [id number] Acct: [id number] Name: CHANELLE GUILLERMO Rep #: [id number] : 1970 53 From: Tez Og MD PCP: JHONY Roth Status:PRE [facility] Y Race: C Location: [facility] Pre-Assessment Diagnosis/Proposed Procedure Planned Operative Procedure(s): Right ankle hardware removal with posterior tibial tendon repair. 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 When Was Last Pacemaker Check QUESTION #4 FULL TEXT: You/Your Family Experience fever (hyperthermia) with Anesthesia Last Oral Intake Last Oral intake: Last Oral Intake NPO since Meds taken in AM with sips of water? Meds patient instructed to take am of surgery PONV PONV - strickler attendant: PONV - strickler attendant Female Yes 05/05/24 08:18 HX of Motion Sickness Yes 05/05/24 08:18 HX of N/V After Surgery No 05/05/24 08:18 Non-Smoker Yes 05/05/24 08:18 Duration of Surgery greater Yes 05/05/24 08:18 than 60 minutes Number of Risk Factors 4 05/05/24 08:18 PONV Score Severe Risk 05/05/24 08:18 Height Weight Height Weight: Anesthesia: Height Weight Height 5 ft 4.5 in 01/02/24 07:55 Respiratory Assessment Respiratory Assessment - strickler attendant: Respiratory Tract Infection Hx - strickler attendant Hx Respiratory Tract Infection No 05/05/24 08:18 STOP Sleep Apnea STOP Sleep Apnea - strickler attendant: STOP Sleep Apnea - strickler attendant Hx Hypertension Yes 05/05/24 08:18 Hx Sleep Apnea No 05/05/24 08:18 CPAP BIPAP Do you snore loudly (louder No 05/05/24 08:18 than talking or can be heard Do you often feel tired/ No 05/05/24 08:18 fatigued/ sleepy during daytime? Has anyone observed you stop No 05/05/24 08:18 breathing during sleep? STOP Results Negative 05/05/24 08:18 QUESTION #5 FULL TEXT : Do you snore loudly (louder than talking or can be heard through closed doors)? 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 Specify any problems Hx of Preganancy in last 3 No 05/05/24 08:18 Months Nurse Filling Out Transfusion MGMONSE 05/05/24 08:18 Questions: Date: 05/05/24 05/05/24 08:18 Time: 08:20 05/05/24 08:18 Patient unable to answer at this time (ie. confused, unrespo /Reproduction History /Reproductive History - strickler attendant: /Reproductive Hx- strickler attendant Hx Now No 05/05/24 08:18 Gestational Age (in weeks): EDC: Hx Hx Para Hx Section SAB No 05/05/24 08:18 PFSH Medical History (Updated 05/05/24 @ 08:29 by Yasmine Hinds) History of motion sickness PONV (postoperative nausea and vomiting) Wears glasses Post-menopausal Alcohol use History of ulceration Non-smoker History of echocardiogram Cardiology follow-up encounter Diastolic dysfunction RLS (restless legs syndrome) Arthritis High cholesterol Hypertension Epistaxis, recurrent Hemorrhoids Home Medications ???Medication ???Instructions ???Recorded ???Last Taken ???Type cholecalciferol (vitamin D3) 25 2,000 unit PO DAILY SUPPLEMENT 09/05/18 Unknown History mcg (1,000 unit) tablet (Vitamin D3) hvfnvtka-hsb-zqtq-FA-Ca carb-vit K 1 ea PO DAILY SUPPLEMENT 09/05/18 Unknown History 18 mg iron-400 mcg-500 mg tablet (Women's Daily Formula) omega 9-aya-wew-fish oil 300 1 ea PO DAILY SUPPLEMENT 09/05/18 09/02/18 History mg-1,000 mg capsule (Fish Oil) losartan 50 mg tablet (Cozaa (more content not included)... Normal [facility] Inital Evaluation (1) - PTon 01-16-2024 Inital Evaluation (1) - PT [facility] [address] [place] [address] / REHABILITATION SERVICES INITIAL EVALUATION MR#: [id number] Acct: [id number] Name: CHANELLE GUILLERMO Rep #: [id number] : 1970 53 From: Janak DANGT Referring Dr.: Dr. Toni Starks DO Status: R EG RCR Insurance: [employer] SELF PAY INSURANCE Patient's Visit Information Visit Information Visit Information: CHANELLE GUILLERMO is a 53 year old F referred to Physical Therapy by Dr. Toni Starks DO with a diagnosis of L elbow OA. Date of Evaluation: 01/10/24 Physical Therapist: Janak Vidal DPT Visit Plan Frequency: 1x/Week Duration: 6 Weeks Plan: Start with progressive L elbow extension stretching, DFM, elbow joint mobs, RTC strengthening and triceps strengthening. Subjective Subjective: Pt. is here today for her initial evaluation with diagnosis of L elbow DJD, OA of L elbow. Pt. reports no mech of injury. pt. reports having increasing anterior elbow (biceps region) and posterior elbow pain. Pt. is able to work out without much issues, but reports most of her pain is with carrying heavier objects in her L UE. Pt. is sleeping well without issues. No N/T in either UE. Pt. is concerned that her exercises are making her symptoms worse, but is unsure. Pt. reports mild tenderness with palpation. She reports symptoms have been there for a while, but worse more recently. Pt. is hopeful to reduce symptoms in order to complete all activities without limitations. Pain L elbow: Pain Intensity (Out of 10): 0 Pain Intensity Range: 0 and 4 Objective Objective: POSTURE: Pt. has good posture in sitting and standing. PALPATION: Pt. has tenderness along distal biceps and lateral aspect of proximal forearm. Not much pain of UCL, LCL or olecranon. NEURO: Pt. has normal sensation through BUEs. Pt. has normal DTR of BUEs. ROM: Pt. has close to full elbow flexion, mild soreness with end range OP. Pt. is lacking 8deg of extension with OP patient reports pain at distal biceps and posterior elbow. Increase NW. PT. has full shoulder ROM, but does describe some proximal shoulder soreness with increased flexion. MMT: Pt. has good strength in mid range without increase in symptoms. Mild soreness at end range extension during eccentric movements. Special Tests L Elbow Valgus Stress Test - MCL Instability: Negative L Elbow Varus Stress Stest - MCL Instability: Negative Balance/Special Test Scores Quick DASH Score: 15.9075 Goals Goal 1:: LTG: pt. to be I with HEP for elbow ROM and strengthening. Goal Time Frame: 4-6 Weeks Goal 2:: LTG: Pt. to have increased L elbow extension to 0deg. Goal Time Frame: 4-6 Weeks Goal 3:: LTG: pt. to be able to carry a bucket at home without increase in L elbow pain. Goal Time Frame: 4-6 Weeks Rehabilitation Potential Physical Therapy Diagnosis: Pt. has signs and symptoms consistent with L elbow OA. Pt. has some lack of elbow extension and some tightness in her brachial radialis. I would recommend elbow joints mobs, stretching and some strengthening. Rehabilitation Potential: Good Anticipated Interventions Patient/Client Instruction: Educate patient on: Condition, Plan of Care, Risk Factors and Benefits of Fitness Program For the Purpose of:: To facilitate caregiver knowledge, To improve self management, To prevent re- injury, To improve ability to perform tasks related to life management and To improve tolerance to ADL's Therapeutic Exercise to Include: Strength training, Power training, Postural training, Flexibilty training, via Neurocom Balance Mas, Active ROM and Scapular Strength/Stabilization For the Purpose of:: To decrease pain, To increase ROM, To improve muscle performance and motor function, To improve ability to perform ADL's, To decrease soft tissue restriction and To increase flexibility/ROM Manual Therapy Techniques to Include: Mobilization For the Purpose of:: To decrease pain and To increase ROM Text: Thank you for the opportunity to evaluate your patient. For Medicare and Medicare HMO plans, please review the plan of care and approve it. It will need to be FAXED BACK to us at [phone] for Medicare purposes. For Medicare only, by signing this I certify the plan of care. Please let me know if there are questions or concerns regarding this plan of care. Physician Signature: Date: 01/16/24 0939 CC: INSURANCE ACCOUNT ASSISTANT-C Skylar Box; Dr. Toni Starks DO CLS Signed [facility] SCRN MAMM (CAD)W/CORONA BILATo n 01-09-2024 SCRN MAMM (CAD)W/CORONA BILAT [facility] Imaging Services [address] [place] [address] SCRN MAMM (CAD)W/CORONA BILAT MR#: [id number] Acct: [id number] Name: CHANELLE GUILLERMO Rep #: [id number] : 1970 F 53 From: Javid marin MD PCP: JHONY Roth Status: REG CLI Study: SCRN MAMM (CAD)W/CORONA BILAT Date of Exam: 12/13 01/04 Exam# [id number] Ordering Dr: Dagmar Schroeder DO [id number] MAMMOGRAPHY - BILATERAL SCREENING REASON FOR EXAM: Female, 53 years old. Routine annual screening examination. PERTINENT HISTORY: Grandmother with breast cancer. Aunt with breast cancer. TECHNIQUE: Digital bilateral breast corona (3D mammographic acquisition) in the CC and MLO projections. 2-D mediolateral oblique (MLO) and craniocaudad (CC) views of both breasts were obtained. CAD: Full Field Digital Mammography with Computer Added Detection was performed. COMPARISON: Comparison is made with prior study January 04, 2023 and January 18, 2022. FINDINGS: Breast Composition: The breasts are heterogeneously dense, which may obscure small masses. There are no dominant masses or suspicious calcifications. No other significant abnormalities are identified. There has been no significant change since the prior study. BI/SCRN MAMM (CAD)W/CORONA BILAT IMPRESSION: Stable bilateral screening mammogram. Yearly follow-up mammogram recommended. (A) ASSESSMENT CATEGORY: BIRADS Category 1: Negative. A letter regarding these results will be sent to the patient by the facility within 30 days. Approximately 10% of breast cancers are not detected by mammography. A normal mammogram should not delay biopsy of a clinically suspicious abnormality. [id number] Electronically Signed: Javid Stephen MD at 8:39 EDT Reading Location ID and State: [facility] / [place] , Service support , CC: JHONY Box; Dr. Dagmar Schroeder DO Contact Lens Technician: Signed Normal [facility] Elbow min 3 Viewson 01-02-20 Elbow min 3 Views [facility] [address] [place] [address] Elbow min 3 Views MR#: [id number] Acct: [id number] Name: CHANELLE GUILLERMO Rep #: [id number] : 1970 F 53 From: Alok Howe MD PCP: JHONY Cullen Status: DEP AMB Study: Elbow min 3 Views Date of Exam: 01/02/24 Exam# [id number] Ordering Dr: Toni Starks DO [id number] STUDY: X-RAY - LEFT ELBOW REASON FOR EXAM: Female, 53 years old. pain TECHNIQUE: 3 view(s) of the elbow. COMPARISON: None. FINDINGS: Normal visualized humerus, radius and ulna. There is degenerative arthrosis of the radiocapitellar and ulnotrochlear articulations. The soft tissue structures are unremarkable. RAD/Elbow min 3 Views IMPRESSION: Arthrosis of the elbow, as described above. Electronically Signed: Alok Howe MD at 8:16 EDT , CC: JHONY Monroe; Dr. Toni Starks DO Contact Lens Technician: Signed Normal [facility] Orthopedic Visit Reporton Orthopedic Visit Report [facility] [address] [place] [address] [address] [place] [address] OFFICE VISIT Date of Service: 01/02/24 MR#: [id number] Acct: [id number] Name: CHANELLE GUILLERMO Rep #: [id number] : 1970 Provider: Dr. Toni kebede DO Age/Sex: 53/F Location[place] [facility] Status: Signed Intake Vital Signs 07/11/23 14:50 01/02/24 07:55 Height 5 ft 4.5 in 5 ft 4.5 in Weight: 172 lb 3 oz 165 lb BMI 29.0 27.8 BP 148/81 H Blood Pressure Location Lt brachial Position Sitting Respiration 14 Pulse 104 H Pulse Source Monitor Intake Visit Reasons: LEFT ELBOW Accompanied by: Self Is patient in pain?: Yes Pain scale (1-10): 4 Allergies No Known Allergies Allergy (Verified 01/02/24 07:58) Medications ???Medication ???Instructions ???Recorded ???Confirmed ???Type cholecalciferol (vitamin D3) 25 1,000 unit PO DAILY SUPPLEMENT 09/05/18 01/02/24 History mcg (1,000 unit) tablet (Vitamin D3) oaquvduj-tex-fwka-FA-Ca carb-vit K 1 ea PO DAILY SUPPLEMENT 09/05/18 01/02/24 History 18 mg iron-400 mcg-500 mg tablet (Women's Daily Formula) omega 2-tzr-vwi-fish oil 300 1 ea PO DAILY SUPPLEMENT 09/05/18 01/02/24 History mg-1,000 mg capsule (Fish Oil) losartan 50 mg tablet (Cozaar) 50 mg PO DAILY 04/16/23 01/02/24 History glucosamine HCl 500 mg tablet 500 mg PO DAILY 07/11/23 01/02/24 History etodolac 500 mg tablet 500 mg PO BID PRN pain #60 tabs 01/02/24 01/02/24 Rx turmeric 400 mg capsule mg PO 01/02/24 01/02/24 History PFSH Medical History Diastolic dysfunction RLS (restless legs syndrome) Arthritis High cholesterol Hypertension Epistaxis, recurrent Stomach ulcer Hemorrhoids Surgical History History of ankle surgery History of carpal tunnel surgery of right wrist Family History (Updated 01/02/24 @ 08:01 by Izzy Maldonado MA) Father Non-Hodgkin lymphoma Mother Ovarian cancer Sister Cancer Neuroendocrine Social History Smoking Status: Never smoker alcohol intake: current Alcohol type: wine HPI LEFT ELBOW Details: This documentation accurately reflects the service provided and the decisions made by me, Dr. Toni Starks, DO 01/02/24 0754. Part of today???s visit was documented by Kait NORTH, acting as scribe. CHANELLE GUILLERMO is a 53 year old F here today for Left elbow. Patient states it has bothered her for about 10 years. Patient states that it has been stiff for years but with in the last year she has increase pain and it is starting to bothered her daily living. Patient has no injury to her elbow. Patient states she did do [facility]. The pain is mainly located deep in the antecubital fossa with some radiation proximal and distal. Patient works out daily and she is noticing it more. Patient can't put lotion on her neck due to the elbow tightening up. No recent images. Patient doesn't take anything for pain unless its bad and then she takes Tylenol and ibuprofen. She will use a topical arthritis cream. Her pain is not bad unless she tries to lift something with weight. Ortho Exam General General: Yes no acute distress Neurologic: Yes alert and Yes oriented x3 Psychologic: Yes reasonable and appropriate Left Elbow Skin/Wound: No eccymosis, No erythema and No Swelling Test: No Valgus Stress Test, No Varus Stress Test, No TTP Medial Epicondyle, No TTP Lateral Epicondyle and No Ulnar Nerve Subluxation ROM: Yes Flexion 0-140, Extension 0 (-14), Supination 0-90 and Pronation 0-80 Sensation: Radial: I, Ulnar: I and Median: I ELBOW: There is no joint effusion there is no crepitation with elbow range of motion she has pain with terminal extension no significant pain with terminal flexion. There is no block in her motion there is no collateral ligament instability she has an intact biceps and triceps tendon good strength. She is tender to palpation at the ulnohumeral joint laterally No gross motor or sensory deficits Supplemental Info 01/02/2024 x-ray left elbow: There is degenerative change with joint space narrowing and spurring of the ulnohumeral joint Coding Level of Care Code Off vis,new,level 3 Diagnoses Primary osteoarthritis of left elbow M19.022 Osteoarthritis type: primary Assessment and Plan Assessment and Plan (1) Degenerative joint disease of left elbow: Status: Acute Qualifiers: Osteoarthritis type: primary Qualified Code(s): M19.022 - Primary osteoarthritis, left elbow Orders: Orders Elbow min 3 Views Today M25.522 - Pain in left elbow Referrals Physical Therapy Referral M19.022 - Primary osteoarthritis, left elbow Medi (more content not included)... Normal [facility] 12-31-2023 [facility] Office Visit (OBGYWM ) -- CHANELLE GUILLERMO ([id number]) 1970 F Date Time Provider Department 12/31/23 2:50 PM DAGMAR SCHROEDER OBGYWM During your visit today, we recorded the following information about you: Blood pressure Weight Height 142/88 76.7 kg 1.613 m Dagmar Schroeder MD 12/31/2023 9:56 PM Signed Chanelle is a 53 year old who presents for an annual gynecologic exam with complaints, hot flashes . Was on Gabapentin for this, and it stopped working. Vaginal dryness. Pain with intercourse. Having night sweats as well. Questions if HRT is reasonable option for her. 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 History Comments: Sexual Activity: Yes; Male Contraception: No contraception data on record PAST MEDICAL HISTORY 12/2008: Atypical squamous cells of undetermined significance (ASCUS) on Papanicolaou smear of cervix No date: Hot flashes No date: Hyperlipemia No date: Menometrorrhagia 2009: Vaginal inclusion cystPAST SURGICAL HISTORY 04/20/2023: ANKLE SURGERY HX; Right Comment: screws and plates 2019: COLONOSCOPY SCREENING 04/19/2011: DANDC, DIAG AND/OR THERAPEUTIC No date: EXTRACTION ERUPTED TOOTH/EXR 2018: HEMORRHOIDECTOMY Comment: in office No date: PAST SURGICAL HISTORY OF; Right Comment: excision of lipoma-forearm 2019: REVISE MEDIAN N/CARPAL TUNNEL SURG; Right FAMILY HISTORY Problem Relation Age of Onset Ovarian cancer Mother 65 Cancer Father other (neuro endocrine cancer) Sister SOCIAL HISTORY Social History Tobacco Use Smoking status: Never Smokeless tobacco: Never Vaping Use Vaping status: Never Used Substance Use Topics Alcohol use: Yes Comment: some Drug use: Never REVIEW OF SYSTEMS Abdomen: No abdominal pain, nausea, vomiting, diarrhea, or constipation. No bloating, early satiety, indigestion, or increased flatulence. Bladder: No dysuria, gross hematuria, urinary frequency, urinary urgency, or incontinence Breast: No breast lumps, nipple d/c, overlying skin changes, redness or skin retraction Allergies and current medication updated:Yes EXAM: BP 142/88 Ht 5' 3.5 (1.61m) Wt 169 lb (76.7kg) BMI 29.46 kg/(m2). GENERAL: pleasant, female in no apparent distress HEENT: Normocephalic and atraumatic NECK: full range of motion DERMATOLOGY: Normal, without lesions, non-icteric, and non-hirsute BREAST: soft, non-tender, symmetric, no dominant mass, normal nipple-areolar complex, no lymphadenopathy, and no nipple discharge CHEST: Normal inspiratory effort ABDOMEN: soft, non-tender, and no masses PELVIC: external genitalia atrophic, normal Bartholin's glands, urethra, Bouton's glands, no vulvar lesions, no cervical lesions, good vaginal support, physiologic discharge present, normal appearing perineal body and perianal region, vaginal atrophy noted BIMANUAL: uterus normal size, shape and consistency, no adnexal masses, and non-tender RECTOVAGINAL: deferred. NEURO: exam grossly non-focal EXTREMITIES: normal ASSESSMENT/PLAN: 1) Health maintenance: Pap/HPV up to date. Mammogram ordered to be completed at [facility] Nutrition, exercise and routine health maintenance exams reviewed. Colon cancer screening: up to date with screening TSH/lipids/glucose: followed by PCP Information given on non hormonal treatment options and HRT for menopausal symptoms after discussion of r/b/a Rx for vaginal estrogen sent after discussion of r/b/a 2) Follow up one year or sooner as needed DO Elda Griffin Sara, MD 12/31/2023 4:01 PM Signed Hormone Therapy* (HT): Understanding Benefits and Risks (*Sometimes also called hormone replacement therapy, HRT) What are estrogen and progesterone? Estrogen and progesterone are hormones that are produced by a woman's ovaries. Why does the body need estrogen? Estrogen thickens the lining of the uterus, preparing it for the possible implantation of a fertilized egg. Estrogen also influences how the body uses calcium, an important mineral in the building of bones. In addition, estrogen helps maintain healthy levels of cholesterol in the blood. Estrogen is necessary in keeping the vagina healthy. As menopause nears, the ovaries reduce most of their production of these hormones. Lowered or fluctuating estrogen levels may cause menopause symptoms such as hot flashes, and medical conditions such as osteoporosis. What is hormone therap (more content not included)... Normal [facility] Established Visit (Orthopaed ic Surgery)on 06-12-2022 Established Visit (Orthopaedic Surgery) Diagnoses/Problems Assessed Arthritis of both knees (716.96) (M17.0) Orders Arthritis of both knees Administered: Durolane 60 MG/3ML Intra-articular Prefilled Syringe Patient Discussion/Summary Discussed risks versus benefits of having injections performed. Patient has elected to proceed with procedures. Please refer to procedure notes above. Discussed with patient to limit weightbearing activities over the next 24-48 hours, they can then progress to full activities as tolerated. Discussed with patient to avoid water submersion over the next 2 days. Discussed with patient to call me immediately if they develop worsening pain, rash, erythema, or fevers. Patient should follow-up as needed if pain persists or worsens. Rudolph Davidson, Sports Medicine [facility] Please excuse any errors in grammar or translation related to this dictation. Voice recognition software was utilized to prepare this document. Chief Complaint Bilateral knee Durolane injections, patient provided. CT History of Present Illness 06/12/22: Patient returns today for bilateral knee pain. During her last visit on 03/24/2022, we discussed the option of bilateral knee viscosupplementation injections for longer duration of symptomatic relief. She returns today for those injections. She denies any further injuries. She has no additional complaints at this time. 03/24/22: 51-year-old female referred by Dr. Luke for right knee viscosupplementation. Patient has known [...] the past few months. She feels as though her right knee is worse than her left, however her left is now becoming progressively worse. Review of Systems All other systems have been reviewed and are negative for complaint. Active Problems Problems Arthritis of both knees (716.96) (M17.0) Left knee pain (719.46) (M25.562) Right knee DJD (715.96) (M17.11) Right knee pain (719.46) (M25.561) Allergies Medication No Known Drug Allergies Recorded By: Norman Davidson; 03/24/2022 5:25:19 PM Current Meds Medication NameInstruction Durolane 60 MG/3ML Intra-articular Prefilled Syringe1 injection to each knee OrthoVisc 30 MG/2ML Intra-articular Solution Prefilled SyringeInj Aiden knee once a week for 3 weeks Physical Exam General/Constitutional: No apparent distress. Well-nourished and well developed. Head: Normocephalic, Atraumatic. Eyes: EOMI. Vascular: No edema, swelling or tenderness, except as noted in detailed exam. Respiratory: Non-labored breathing. Integumentary: No impressive skin lesions present, except as noted in detailed exam. Neurological: Alert and oriented. Psychological: Normal mood and affect. Musculoskeletal: Normal, except as noted in detailed exam. Right Knee Flexion 130. Extension 0. Crepitus present with knee flexion/extension. No ecchymosis. Muscle strength 5 out of 5 with flexion and extension. Melissa negative. Anterior drawer negative. Posterior drawer negative. Valgus stress negative. Varus stress negative. Left Knee Flexion 130. Extension 0. Crepitus present with knee flexion/extension. No ecchymosis. Muscle strength 5 out of 5 with flexion and extension. Melissa negative. Anterior drawer negative. Posterior drawer negative. Valgus stress negative. Varus stress negative. Procedure Right knee Joint Injection with Durolane Consent After discussing the various treatment options for the condition, It was agreed that a hyaluronan injection would the next step in treatment. The nature of and the indications for a hyaluronan and / or local anaesthetic injection were reviewed in detail with the patient today. The inherent risks of injection including infection, allergic reaction, increased pain, incomplete relief or temporary relief of symptoms, or nerve injury were discussed. Procedure After the risks and benefits of the procedure were explained, consent was given, and time-out was performed. The knee joint and surrounding structures were visualized with ultrasound. The site for the injection was properly marked and prepped with ChloraPrep solution. The injection site in the superior lateral pouch was anesthetized with ethyl chloride. The 1 knee capsule 1 was visualized 1 and the knee was injected with 3mL Durolane using the 22 1 gauge 1.5 inch needle and sterile technique. During injection, there was unrestricted flow and care was taken not to inject the viscosupplementation into the skin or subcutaneous tissues. A sterile band-aide was applied. Post-injection instructions were given regarding post-procedure care, when to follow up in clinic and what to expect from the procedure. T (more content not included)... Normal [facility]-24-[facility]22 Initial Visit (Orthopaedic Surgery) Diagnoses/Problems Assessed Arthritis of both knees (716.96) (M17.0) Patient Discussion/Summary I discussed with patient and agree that their pain is likely due to worsening arthritis. Considering they have failed previous conservative measures with activity modifications, therapy, multiple analgesics, and corticosteroid injections without significant improvement, I feel that MOONEY supplementation would be the next best option. Considering that she did not have a good response and is apprehensive about continued pain with a corticosteroid injection of the left knee, I feel that MOONEY supplementation would be her best option for that as well. We will begin preauthorization process for this. I will see her back for MOONEY supplementation injections when they are approved. Rudolph Davidson, [facility] Medicine [facility] Please excuse any errors in grammar or translation related to this dictation. Voice recognition software was utilized to prepare this document. Chief Complaint Pt is here today for a aiden knee visco consult ref by alonzo. History of Present Illness 51-year-old female referred by Dr. Luke for right knee viscosupplementation. Patient has known [...] the past few months. She feels as though her right knee is worse than her left, however her left is now becoming progressively worse. Review of Systems All other systems have been reviewed and are negative for complaint. Active Problems Problems Left knee pain (719.46) (M25.562) Right knee DJD (715.96) (M17.11) Right knee pain (719.46) (M25.561) Allergies No Known Drug Allergies Recorded By: Norman Davidson; 03/24/2022 5:25:19 PM Physical Exam General/Constitutional: No apparent distress. Well-nourished and well developed. Head: Normocephalic, Atraumatic. Eyes: EOMI. Vascular: No edema, swelling or tenderness, except as noted in detailed exam. Respiratory: Non-labored breathing. Integumentary: No impressive skin lesions present, except as noted in detailed exam. Neurological: Alert and oriented. Psychological: Normal mood and affect. Musculoskeletal: Normal, except as noted in detailed exam. Right Knee Flexion 130. Extension 0. Crepitus present with knee flexion/extension. No ecchymosis. Muscle strength 5 out of 5 with flexion and extension. Melissa negative. Anterior drawer negative. Posterior drawer negative. Valgus stress negative. Varus stress negative. Left Knee Flexion 130. Extension 0. Crepitus present with knee flexion/extension. No ecchymosis. Muscle strength 5 out of 5 with flexion and extension. Melissa negative. Anterior drawer negative. Posterior drawer negative. Valgus stress negative. Varus stress negative. Results/Data Imaging: I have personally reviewed and agree with Radiologist interpretation of previous imaging studies performed prior to this visit. I have included further imaging and interpretation as discussed below. Radiographs: Left knee AP, lateral, merchant, Luther: No acute fractures or dislocations. Moderate degenerative changes most pronounced in the medial and anterior compartments. Xray Knee Complete 4 or more [id number] 09:08Norman Epstein Test NameResultFlagReference Xray Knee Complete 4 or more View Please click on the link to view the study images Xray Knee Complete 4 or more [id number] 08:34ACachorro Maharaj Test NameResultFlagReference Xray Knee Complete 4 or more View(Report) FINAL REPORT Interpreted by: SENAIT LOPES KRISHNA, MD 01/12/22 10:03 Patient Name: CHANELLE GUILLERMO STUDY: Right knee 4 views. INDICATION: RIGHT KNEE PAIN M25.561: Right knee pain. COMPARISON: None. ACCESSION NUMBER(S): [id number] ORDERING CLINICIAN: CACHORRO LUKE FINDINGS: No acute fracture or malalignment. Rmnw-ho-ipwazuox medial and mild lateral/patellofemoral compartment degenerative changes with joint space loss and osteophytes. Chronic corticated fragmented tibial tubercle compatible with sequela of remote [place]-Schlatter disease. Small suprapatellar recess loose body. No significant knee joint effusion. Soft tissues are unremarkable. IMPRESSION: 1. Zium-hd-zyerhfki medial and mild lateral/patellofemoral compartment osteoarthrosis. Electronically signed by: SENAIT LOPES 01/12/22 10:03 Signatures Electronically signed by : Norman Davidson MD; Mar 24 2022 5:27PM EST (Author) [facility] KNEE CMPLT, 4 OR MORE VIEWSo n 03-24-2022 KNEE CMPLT, 4 OR MORE VIEWS Patient Name: CHANELLE GUILLERMO STUDY: KNEE; COMPLT, 4 OR MORE VIEWS; 03/24/2022 9:08 am INDICATION: knee pn M25.562: Left knee pain. COMPARISON: None. ACCESSION NUMBER(S): [id number] ORDERING CLINICIAN: NORMAN DAVIDSON FINDINGS: Left knee, four views There is tricompartmental osteophytosis without joint space narrowing. There is no fracture. There is no dislocation. There is no effusion. IMPRESSION: Mild degenerative changes left knee Electronically signed by: ANDREA WOOTEN MD Normal [facility] Radiology[facility] 03-24-2022 XR Knee 4 Views Please click on the link to view the study images Normal [facility] 130 DO Work Phone: Initial Visit (Orthopaedic S urgery)on 01-11-2022 Initial Visit (Orthopaedic Surgery) Diagnoses/Problems Assessed Right knee DJD (710.96) (M17.11) Patient Discussion/Summary R knee, osteoarthritis R knee medial meniscus tear The diagnosis and treatment options were discussed at length and the pt educated on her condition. I discussed that meniscal surgery is unlikely to help this patient given the degree of OA in her medial compartment. The pt also shares that she has only received minimal relief from conservative management including steroid injections, Meloxicam, and PT. I discussed that given she has nearly exhausted her nonsurgical options, viscosupplementation is a potential avenue she should explore which may provide her with pain relief. The patient was agreeable wit this plan and she was given a recommendation to our nonoperative sports medicine colleagues for discussion of viscosupplementation injections. Chief Complaint Patient here for initial evaluation of Right Knee Pain. -mv- History of Present Illness Chanelle is a 51F presenting to clinic with [...] steroid injection, last in November at the [facility], which has given her some relief. She has also tried a course of Meloxicam and Tylenol with some relief but the pt is reluctant to stay on medical terminologist medications. She also had an MRI performed showing a R medial meniscal tear. She comes to clinic for a second opinion as she has been told she is not a surgical candidate for meniscal surgery given her degree of medial compartment arthritis. Review of Systems Reviewed and documented Active Problems Problems Right knee pain (719.46) (M25.561) Vitals Vital Signs Recorded: [id number] 02:10PM Height5 ft Eqekdm220 lb BMI Jxbuqfvqmc86.18 kg/m2 BSA Calculated1.76 Physical Exam GENERAL EXAM General: awake, alert, conversational; no acute distress Resp: breathing comfortably on RA CV: extremities WWP KNEE EXAM The patient's limb is warm and well-perfused. They have intact sensation to light touch in all lower extremity dermatomes. There 10 cc effusion The patient's quadriceps and hamstring strength is 5 of 5. The patient can do a straight leg raise with no radicular pain. Negative Lachmans, posterior drawer The knee is stable to varus and valgus stress at both 0 and 30. There is tenderness along the medial joint line. Results/Data Xrays of the R knee demonstrating medial and patella-femoral compartment degenerative changes. MRI of the R knee personally reviewed demonstrating a tear of the medial meniscus Signatures Electronically signed by : Cachorro Luke MD; Feb 06 2022 7:42AM EST (Author) Normal [facility] KNEE CMPLT, 4 OR MORE VIEWSo n 01-11-2022 KNEE CMPLT, 4 OR MORE VIEWS Patient Name: CHANELLE GUILLERMO STUDY: Right knee 4 views. INDICATION: RIGHT KNEE PAIN M25.561: Right knee pain. COMPARISON: None. ACCESSION NUMBER(S): [id number] ORDERING CLINICIAN: CACHORRO LKUE FINDINGS: No acute fracture or malalignment. Zhvf-cn-wgjuopfh medial and mild lateral/patellofemoral compartment degenerative changes with joint space loss and osteophytes. 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 Small suprapatellar recess loose body. No significant knee joint effusion. Soft tissues are unremarkable. IMPRESSION: 1. Dwkx-ur-qmbpovug medial and mild lateral/patellofemoral compartment osteoarthrosis. Electronically signed by: SENAIT LOPES MD Normal [facility] Radiologyon 01-11-2022 XR Knee 4 Views Please click on the link to view the study images Normal [facility] [address] Work Phone: MRI KNEE WO IVCON RTon 12-06 [facility] Cervical or vagninal specime n microscopic examination by cytology stain (reported ason 11-17-2021 Cytology report Cyto stain Doc (Cvx/Vag) Comment . [facility] Work Phone: Comment on above: The Pap smear is a s creening test designed to aid in thedetection of premalignant and malignant conditions of theuterine cervix. It is not a diagnostic procedure andshould not be used as the sole means of detecting cervicalcancer. Both false-positive and false-negative reports dooccur. Detection in cervical specim en of any of human papilloma virus (HPV) 16, 18, 31, 33,on 11-17-2021 HPV 16+18+31+33+35+39 +45+51+52+56+58+5 9+66+68 DNA Probe+sig amp Ql (Cvx) Negative Negative [facility] Work Phone: Comment on above: This nucleic acid am plification test detects fourteen high- risk HPV types (16,18,31,33,35,39,45,51,52,56,58,59,66,68)without differentiation.Performed at: - [address] [id number] Director: Nara Fernandez MD, Phone: [phone] at: = - [address] [id number] Director: Nara Fernandez MD, Phone: [phone] Laboratory - Cytologyon Civil Engineering Professor Cyto stain Nom (Cvx/Vag) [ID] Comment . [facility] Work Phone: Comment on above: Riana Carmona, Furniture Finisher Apprentice (ASCP) Laboratory - Miscellaneous t estson 11-17-2021 Service comment (Unsp spec) [Interp] Comment . [facility] Work Phone: Comment on above: This liquid based Th inPrep(R) pap test was screened withthe use of an image guided system. Service comment (Unsp spec) [Interp] . . [facility] Work Phone: No Panel Informationon 11-17 Pathology report final diagnosis Narrative Comment . [facility] Work Phone: Comment on above: NEGATIVE FOR INTRAEP ITHELIAL LESION OR MALIGNANCY. XR KNEE GENERAL 4V AP BOTH/P A BOTH/LAT/MERC BILATERALon 08-05-2021 [facility] Lab Report: (P) Urinalysis, Completeon 02-12-2017 Bilirubin Ql (U) Negative Invalid Interpretation Code Negative [facility] Work Phone: [phone] NITRITE UR Negative Invalid Interpretation Code Negative [facility] Work Phone: [phone] OCCULT BLOOD-UR 250 High Negative [facility] Work Phone: [phone] specific gravity, urine 1.005 Invalid Interpretation Code 1.002-1.030 [facility] Work Phone: [phone] Urine, clarity Sl. Cloudy Invalid Interpretation Code Clear [facility] Work Phone: [phone] Urine, color Straw Invalid Interpretation Code Yellow [facility] Work Phone: [phone] Urine, glucose presence Normal mg/dl Invalid Interpretation Code Normal [facility] Work Phone: [phone] Urine, ketones presence Negative Invalid Interpretation Code Negative [facility] Work Phone: [phone] Urine, leukocyte esterase presence 25 High Negative [facility] Work Phone: [phone] Urine, pH 7.0 [pH] Invalid Interpretation Code 5.0 - 8.0 [facility] Work Phone: [phone] Urine, protein Negative Invalid Interpretation Code Negative [facility] Work Phone: [phone] UROBILI Normal mg/dl Invalid Interpretation Code Normal [facility] Work Phone: [phone] Lab Report: Urinalysis, Comp leteon 02-12-2017 Urine, bacteria in sediment 0 /[HPF] Invalid Interpretation Code None Seen [facility] Work Phone: [phone] Urine, epithelial cells in sediment 0-5 SEEN Invalid Interpretation Code 5-10 [facility] Work Phone: [phone] Urine, erythrocytes in sediment by volume 25-50 SEEN Invalid Interpretation Code 0-5 [facility] Work Phone: [phone] Urine, mucus presence in sediment 0 SEEN Invalid Interpretation Code [facility] Work Phone: WBC (Leukocytes) 0-5 SEEN Invalid Interpretation Code 0-5 [facility] Work Phone: [phone] Office Visit: UC: Bladder in fectionon 02-11-2017 blood in urine (hemoglobin) by dipstick 3+ Invalid Interpretation Code [facility] Work Phone: [phone] Documentation of current medications (procedure) Done Invalid Interpretation Code [facility] Work Phone: [phone] Fall risk assessment No Invalid Interpretation Code [facility] Work Phone: [phone] specific gravity, urine 1.010 Invalid Interpretation Code [facility] Work Phone: [phone] Tobacco use HS Never smoker Invalid Interpretation Code [facility] Work Phone: [phone] Urine, appearance clear Invalid Interpretation Code [facility] Work Phone: [phone] Urine, bilirubin presence Negative Invalid Interpretation Code [facility] Work Phone: [phone] Urine, color lt. yellow Invalid Interpretation Code [facility] Work Phone: [phone] Urine, glucose presence Negative Invalid Interpretation Code [facility] Work Phone: [phone] Urine, ketones presence Negative Invalid Interpretation Code [facility] Work Phone: [phone] Urine, leukocyte esterase presence 2+ Invalid Interpretation Code [facility] Work Phone: [phone] Urine, nitrite presence Negative Invalid Interpretation Code [facility] Work Phone: [phone] Urine, pH 5.0 [pH] Invalid Interpretation Code [facility] Work Phone: Urine, protein Negative Invalid Interpretation Code [facility] Work Phone: [phone] Urine, urobilinogen presence Negative Invalid Interpretation Code [facility] Work Phone: [phone] Vital Signs Date Time Vital Sign Value Performing Clinician Sirisha flores 09-18-2024 10:59-0400 Body mass index (BMI) [Ratio] 29.75 kg/m2 Dagmar Schroeder MD Work Phone: [facility] 09-18-2024 10:59-0400 Body weight 77.38 kg Dagmar Schroeder MD Work Phone: [facility] 09-18-2024 10:59-0400 Diastolic blood pressure 72 mm[Hg] Dagmar Schroeder MD Work Phone: [facility] 09-18-2024 10:59-0400 Systolic blood pressure 110 mm[Hg] Dagmar Schroeder MD Work Phone: [facility] 12-31-2023 15:15-0400 Body height 161.3 cm Dagmar Schroeder MD Work Phone: [facility] 12-31-2023 15:15-0400 Body mass index (BMI) [Ratio] 29.47 kg/m2 Dagmar Schroeder MD Work Phone: [facility] 12-31-2023 15:15-0400 Body weight 76.66 kg Dagmar Schroeder MD Work Phone: [facility] 12-31-2023 15:15-0400 Diastolic blood pressure 88 mm[Hg] Dagmar Schroeder MD Work Phone: [facility] 12-31-2023 15:15-0400 Systolic blood pressure 142 mm[Hg] Dagmar Schroeder MD Work Phone: [facility] 07-11-2023 14:50-0500 Body height 163.83 cm INSURANCE ACCOUNT ASSISTANT-C Misa Monroe INSURANCE ACCOUNT ASSISTANT Work Phone: [facility] 07-11-2023 14:50-0500 Body mass index (BMI) [Ratio] 29 kg/m2 INSURANCE ACCOUNT ASSISTANT-C Misa Monroe INSURANCE ACCOUNT ASSISTANT Work Phone: [facility] 07-11-2023 14:50-0500 Body weight 78.1 kg INSURANCE ACCOUNT ASSISTANT-C Misa Monroe INSURANCE ACCOUNT ASSISTANT Work Phone: [facility] 07-11-2023 14:50-0500 Diastolic blood pressure 81 mm[Hg] INSURANCE ACCOUNT ASSISTANT-C Misa Monroe INSURANCE ACCOUNT ASSISTANT Work Phone: [facility] 07-11-2023 14:50-0500 Heart rate 104 /min INSURANCE ACCOUNT ASSISTANT-C Misa Monroe INSURANCE ACCOUNT ASSISTANT Work Phone: [facility] 07-11-2023 14:50-0500 Respiratory rate 14 /min INSURANCE ACCOUNT ASSISTANT-C Misa Monroe INSURANCE ACCOUNT ASSISTANT Work Phone: [facility] 07-11-2023 14:50-0500 Systolic blood pressure 148 mm[Hg] INSURANCE ACCOUNT ASSISTANT-C Misa Monroe INSURANCE ACCOUNT ASSISTANT Work Phone: [facility] 04-20-2023 19:00-0500 Body temperature 98.3 [degF] Dr. Koffi Watt Work Phone: [facility] 04-20-2023 19:00-0500 Diastolic blood pressure 80 mm[Hg] Dr. Koffi Watt Work Phone: [facility] 04-20-2023 19:00-0500 Heart rate 78 /min Dr. Koffi Watt Work Phone: [facility] 04-20-2023 19:00-0500 Respiratory rate 18 /min Dr. Koffi Watt Work Phone: [facility] 04-20-2023 19:00-0500 SaO2% (BldA) [Mass fraction] 98 % Dr. Koffi Watt Work Phone: [facility] 04-20-2023 19:00-0500 Systolic blood pressure 136 mm[Hg] Dr. Koffi Watt Work Phone: [facility] 04-20-2023 11:[id number] Body height 163.[address] Koffi Watt Work Phone: [facility] 04-20-2023 11:02-0500 Body mass index (BMI) [Ratio] 27.6 kg/m2 Dr. Koffi Watt Work Phone: [facility] 04-20-2023 11:020500 Body weight 74.[address] Koffi Watt Work Phone: [facility] 01-11-2022 14:10-0400 Body height 152.4 cm Referring Provider Unknown XI-Wlvxylmlbcem-Ke sman 210 Work Phone: 01-11-2022 14:10-0400 Body mass index (BMI) [Ratio] 34.18 kg/m2 Referring Provider Unknown WQ-Ieqsxymhocib-Nu sman 210 Work Phone: 01-11-2022 14:10-0400 Body surface area Derived from formula 1.76 m2 Referring Provider Unknown QS-Oxgjjkwhshxu-Pz sman 210 Work Phone: 01-11-2022 14:10-0400 Body weight 79.38 kg Referring Provider Unknown MC-Mlhfgvfaybnq-Ul sman 210 Work Phone: 12-05-2021 15:47-0400 Body height 165.1 cm Birgit LYNNE-C Work Phone: [facility] 12-05-2021 15:47-0400 Body weight 81.65 kg Birgit Mancini PA-C Work Phone: [facility] 08-05-2021 09:41-0400 Body height 162.6 cm Birgit Mancini PA-C Work Phone: [facility] 08-05-2021 09:41-0400 Body weight 81.65 kg Birgit Milan PA-C Work Phone: [facility] 02-11-2017 12:11-0400 BMI (Body Mass Index) 30.22 kg/m2 Manjinder Blancas PA-C [facility] Work Phone: 02-11-2017 12:11-0400 Body Temperature 98.4 [degF] Manjinder Blancas PA-C [facility] Work Phone: 02-11-2017 12:11-0400 BP Diastolic 72 mm[Hg] Manjinder Blancas PA-C [facility] Work Phone: 02-11-2017 12:11-0400 BP Systolic 118 mm[Hg] Manjinder Blancas PA-C [facility] Work Phone: 02-11-2017 12:11-0400 Height 165.1 cm Manjinder Blancas PA-C [facility] Work Phone: 02-11-2017 12:11-0400 Pulse (Heart Rate) 99 /min Manjinder Blancas PA-C [facility] Work Phone: 02-11-2017 12:11-0400 Respiratory Rate 12 /min Manjinder Blancas PA-C [facility] Work Phone: 02-11-2017 12:11-0400 Weight 82.37 kg Manjinder Blancas PA-C [facility] Work Phone: Encounters Encounter Date Encounter Type Care Provider Facility Start: 10-20-2024 ambulatory Skylar Box Facility:[facility] Start: 09-19-2024 End: 09-19-2024 E-mail encounter from caregiver Nataliia Samuels MS Work Phone: [facility] Start: 09-19-2024 End: 09-19-2024 Patient encounter procedure Nataliia Samuels MS Work Phone: [facility] Comment on above: Genetic counseling a ppointment Start: 09-18-2024 End: 09-18-2024 Patient encounter procedure Dagmar Schroeder MD Work Phone: OB/Gynecology Comment on above: Family history of ca ncer (Primary Dx); Hot flashes; Vaginal dryness; Low libido; Difficulty sleeping Start: 09-18-2024 End: 09-18-2024 ambulatory KOFFI WATT Facility:[facility] [place] Start: 09-13-2024 End: 09-15-2024 Refill Dagmar Schroeder MD Work Phone: OB/Gynecology Comment on above: Med Change Request Start: 08-13-2024 End: 08-13-2024 ambulatory Skylar Box INSURANCE ACCOUNT ASSISTANT-C Work Phone: [facility] Work Phone: Start: 08-13-2024 End: 08-13-[address] Jono Crowder DPM -Physical Therapy Work Phone: Start: 08-04-2024 Office outpatient vi sit 15 minutes Nolvia Miles [facility] Start: 05-26-2024 End: 05-26-2024 ambulatory Jono Crowder Facility:[facility] Start: 05-09-2024 End: 05-09-2024 ambulatory Jono Crowder Facility:[facility] Start: 01-10-2024 End: 01-10-2024 ambulatory Toni Starks Facility:[facility] Start: 01-09-2024 End: 01-09-2024 ambulatory Skylar Box Facility:[facility] Start: 01-02-2024 End: 01-02-2024 ambulatory Misa Monroe Facility:[facility] Start: 12-31-2023 End: 12-31-2023 ambulatory KOFFI WATT Facility:[facility] [place] Start: 12-31-2023 End: 12-31-2023 Patient encounter procedure Dagmar Schroeder MD Work Phone: OB/Gynecology Comment on above: Encounter for gyneco logical examination (general) (routine) without abnormal findings (Primary Dx); Encounter for screening mammogram for breast cancer; Dense breast tissue Start: 12-31-2023 End: 12-31-2023 Patient encounter status Dagmar Schroeder MD Work Phone: [facility] Start: 07-11-2023 End: 07-11-2023 Patient encounter procedure INSURANCE ACCOUNT ASSISTANT-C Misa Monroe INSURANCE ACCOUNT ASSISTANT Work Phone: [facility] Work Phone: Start: 06-13-2023 End: 06-13-2023 ambulatory INSURANCE ACCOUNT ASSISTANT-C Misa Monroe INSURANCE ACCOUNT ASSISTANT Work Phone: [facility] Work Phone: Start: 06-13-2023 End: 06-13-2023 Discharged Recurring INSURANCE ACCOUNT ASSISTANT-C Misa Monroe INSURANCE ACCOUNT ASSISTANT Work Phone: [facility]-Physical Therapy Work Phone: Start: 05-30-[address] Koffi Watt Work Phone: [facility]-Physical Therapy Work Phone: Start: 05-28-2023 End: 05-28-[address] Koffi Watt Work Phone: [facility] Work Phone: Start: 05-28-2023 End: 05-28-[address] Koffi Watt Work Phone: [facility] Ul[facility] Work Phone: Start: 05-18-2023 Non-patient / Non-visit Dr. Jesús Watt Work Phone: [facility] Start: 05-18-2023 End: 05-18-[address] Koffi Watt Work Phone: [facility] Work Phone: Start: 05-18-2023 End: 05-18-[address] Koffi Watt Work Phone: [facility]Cardiovascula r Services Work Phone: Start: 05-16-[address] Koffi Watt Work Phone: [facility]-Physical Therapy Work Phone: Start: 04-20-2023 End: 04-20-2023 Admission to same day surgery center Dr. Koffi Watt Work Phone: [facility] Start: 04-11-2023 End: 04-11-2023 Non-patient / Non-visit Dr. Koffi Watt Work Phone: [facility] [facility] Work Phone: Start: 04-11-2023 End: 04-11-2023 ambulatory [facility] Work Phone: Start: 04-11-2023 End: 04-11-2023 Patient encounter procedure [facility]-Radiology, [facility] Work Phone: Start: 04-09-2023 Orders Only Tomas Olivera MD Work Phone: [facility] Comment on above: Pain (Primary Dx) Start: 01-04-2023 End: 01-04-2023 ambulatory [facility] Work Phone: Start: 01-04-2023 End: 01-04-2023 Patient encounter procedure [facility] Work Phone: Start: 06-12-[address] Norman Davidson Facility:[id number] Start: 03-24-2022 Office consultation new/estab patient 60 min No PCP None XO-Evbuvfkeqaiy-Kwbwmr [place] [address] DO Work Phone: Start: 03-24-2022 ambulatory PCP UNKNOWN Facility:[id number] Start: 03-14-2022 ambulatory Birgit montoya PA-C Work Phone: Orthopaedics Comment on above: jihan Start: 03-14-2022 E-mail encounter fro m caregiver Birgit Mancini PA-C Work Phone: [facility] Start: 03-14-2022 Refill Birgit montoya PA-C Work Phone: Orthopaedics Comment on above: Refill Request Start: 01-18-2022 End: 01-18-2022 ambulatory [facility] Work Phone: Start: 01-18-2022 End: 01-18-2022 Patient encounter procedure [facility] Start: 01-11-2022 Office outpatient ne w 30 minutes Referring Provider Unknown BT-Qahkckivicin-Lwrhzd 210 Work Phone: Start: 01-11-2022 ambulatory Referral Self Facility: [id number] Start: 01-07-2022 Refill Birgit Nair an PA-C Work Phone: Orthopaedics Comment on above: Refill Request Start: 12-09-2021 Telephone encounter Koffi banuelos DO Work Phone: Hematology/Oncology Comment on above: Appointment Start: 12-07-2021 ambulatory Birgit Nair an PA-C Work Phone: Orthopaedics Comment on above: MRI Results Start: 12-07-2021 Telephone encounter Birgit Mancini PA-C Work Phone: [facility] [place] Comment on above: Results Opened In Error Start: 12-06-2021 End: 12-06-2021 Subsequent hospital visit by physician [facility] (I-Stat/1.5t) Work Phone: Radiology Comment on above: Primary osteoarthrit is of right knee [M17.11] Start: 12-05-2021 End: 12-05-2021 Patient encounter procedure Birgit Mancini PA-C Work Phone: Orthopaedics Comment on above: Primary osteoarthrit is of right knee (Primary Dx); Chronic pain of right knee Start: 11-17-2021 End: 11-17-2021 Patient encounter procedure [facility]-Laboratory, Specimen Start: 11-11-2021 Orders Only Tim buchanan Work Phone: Podiatry Comment on above: Posterior tibial ten don dysfunction (Primary Dx); Arthritis of ankle Orders Start: 09-06-2021 Telephone encounter Birgit Mancini PA-C Work Phone: Orthopaedics Comment on above: Patient Update Start: 09-02-2021 Refill Birgit Nair an PA-C Work Phone: Orthopaedics Comment on above: Refill Request Start: 09-02-2021 End: 09-02-2021 ambulatory Devon Lees PT Work Phone: [facility] Physical Therapy Comment on above: Bilateral primary os teoarthritis of knee (Primary Dx) Start: 08-19-2021 End: 08-19-2021 ambulatory Devonjazlyn Lees PT Work Phone: [facility] Physical Therapy Comment on above: Bilateral primary os teoarthritis of knee (Primary Dx) Start: 08-10-2021 End: 08-10-2021 ambulatory Devon Nabeel PT Work Phone: [facility] Physical Therapy Comment on above: Bilateral primary os teoarthritis of knee (Primary Dx) Start: 08-05-2021 End: 08-05-2021 Patient encounter procedure Birgit Mancini PA-C Work Phone: Orthopaedics Comment on above: Bilateral primary os teoarthritis of knee (Primary Dx) Start: 08-05-2021 End: 08-05-2021 Subsequent hospital visit by physician [facility] Mellissa Timmons Work Phone: Radiology Comment on above: Pain [R52] Procedures Date Procedure Procedure Detail Performing Clinician Start: 05-28-[address] Koffi Watt Work Phone: Start: 04-20-2023 Fluoroscopic guidance Sumanth Watt Work Phone: Start: 04-20-[address] Charlotte Watt Work Phone: Start: 04-11-2023 Plain chest X-ray Start: 01-04-2023 Bilateral mammography Start: 01-04-2023 Ultrasonography of breast Start: 01-18-2022 Screening mammography Start: 12-06-2021 Mri any jt lower ext rem w/o contrast matrl Birgit Mancini PA-C Work Phone: Start: 08-05-2021 Radiologic exam knee complete 4/more views Toni Echeverria MD Work Phone: Start: 02-11-2017 End: 02-11-2017 Urnls dip stick/tablet rgnt non-auto w/o micrscp Manjinder Blancas PA-C Work Phone: Start: 02-11-2017 End: 02-11-2017 Urinalysis nonauto w/o scope Manjinder murillo PA-C Work Phone: Adult health examination Fab[facility] Plan of Treatment Date Care Activity Detail Author Start: 11-17-2026 HPV Testing HPV Testing [facility] Start: 11-17-2026 Pap Testing Pap Testing [facility] Start: 03-25-2025 End: 03-25-2025 Patient encounter procedure 03/25/2025 12:00 PM EST Office Visit [facility] [address] [place], [place] [id number] Nataliia Samuels, [place] [address] [place], [place] [id number] Family history of cancer [Z80.9] [facility] Comment on above: Family history of ca ncer [Z80.9] Start: 01-15-2025 End: 01-15-2025 Patient encounter procedure 01/15/2025 4:00 PM EDT Office Visit OB/Gynecology [address] [place], [place] [id number] Dagmar Schroeder MD [address] [facility] [place] [place] [address] Annual OB/Gynecology Comment on above: Annual Start: 01-12-2025 Influenza vaccination Influenz a Vaccine (Season Ended) [facility] Start: 01-08-2025 Screening for malign ant neoplasm of breast Mammogram Screening [facility] Start: 01-01-2025 End: 01-01-2025 Patient encounter procedure 01/01/2025 4:00 PM EDT Office Visit OB/Gynecology [address] [place], [place] [id number] Dagmar Schroeder MD [address] [facility] [place], [place] [id number] Annual OB/Gynecology Comment on above: Annual Start: 11-17-2024 Screening for malign ant neoplasm of cervix Cervical Cancer Screening [facility] Start: 09-18-2024 End: 09-18-2024 Patient encounter procedure 09/18/2024 10:50 AM EDT Office Visit OB/Gynecology [address] [place] [address] Dagmar Schroeder MD [address] [place] [address] discuss hormone therapy OB/Gynecology Comment on above: discuss hormone ther apy Start: 08-04-2024 Phone; Acute Simple Phone; [place] [facility] Start: 08-04-2024 [place] [facility] Start: 01-13-2024 Covid-19 Vaccine ( season) Covid-19 Vaccine ( season) [facility] Start: 01-13-2024 Influenza vaccination Influenza Vacc ine (#1) [facility] Start: 04-20-2023 Patient discharge [facility] Start: 04-20-2023 Anes open proc bones lower leg/ankle/foot nos ANESTH LOWER LEG BONE SURG [facility] Start: 04-20-2023 Injection aa&/strd other peripheral nerve/branch NJX AA&/STRD OTHER PN/BRANCH [facility] Start: 04-20-2023 Open treatment bimalleolar ankle fracture TREATMENT OF ANKLE FRACTURE [facility] Start: 01-18-2023 Mammography Mammogram Screening [facility] Start: 01-18-2023 Screening for malign ant neoplasm of breast Mammogram Screening [facility] Start: 01-12-2023 Covid-19 Vaccine ( season) Covid-19 Vaccine () [facility] Start: 01-12-2023 Influenza vaccination Influenza Vacc ine (#1) [facility] Start: 05-14-2022 Depression Assessment Depression Ass essment [facility] Start: 03-14-2022 End: 05-14-2022 CREATININE BLD CREATININE BLD Lab Routine Encounter for long-term (current) use of medications Expected: 03/14/2022, Expires: 05/14/2022 [facility] Work Phone: Comment on above: Expected: 03/14/2022 , Expires: 05/14/2022 Start: 02-10-2022 NPV, Provider: Norman Davidson, Status: Pen, Time: 8:20 AM NPV, Provider: Norman Davidson, Status: Pen, Time: 8:20 AM AE-Gkuuvvxiraer-Cvck an 200 Work Phone: Start: 01-27-2022 NPV, Provider: Norman Davidson, Status: Pen, Time: 8:00 AM NPV, Provider: Norman Davidson, Status: Pen, Time: 8:00 AM BN-Gsgwooibnpcd-Yjms an 210 Work Phone: Start: 01-12-2022 Influenza vaccination [facility] Start: 05-14-2021 [facility] Start: 01-12-2021 Influenza vaccination INFLUENZA (#1) [facility] Start: 2018 Pneumococcal Vaccine : 50+ (2 of 2 - PPSV23) Pneumococcal Vaccine: 50+ (2 of 2 - PPSV23) [facility] Start: 2018 SHINGRIX VACCINE (1 of 2) SHINGRIX VACCINE (1 of 2) [facility] Start: 02-11-2017 End: 02-11-2017 Urinalysis complete panel - Urine *UAC- Urinalysis, Complete w/ Micro [facility] Work Phone: Start: 02-11-2017 End: 02-11-2017 Appointment Appointment [facility] Work Phone: Start: 02-11-2017 End: 02-11-2017 Urinalysis complete panel - Urine *UAC- Urinalysis, Complete w/ Micro [facility] Work Phone: Start: 2013 COLOGUARD (FIT-DNA) COLOGUARD (FIT-D NA) [facility] Start: 2013 Colonoscopy COLONOSCOPY [facility] Start: 2013 COLORECTAL CANCER SCREENING COLORECTAL CANCER SCREENING [facility] Start: [address] COLONOGRAPHY [facility] Start: 2013 DIABETES SCREEN DIABETES SCREEN [facility] Start: 12-31-2013 Diabetes Screening Diabetes Screenin g [facility] Start: 2013 FECAL OCCULT BLOOD FECAL OCCULT BLOO D [facility] Start: 2013 Lipid 1996 panel - Serum or Plasma Lipid Screening [facility] Start: 2013 Lipid panel Lipid Screening [facility] Start: 2013 LIPID SCREEN LIPID SCREEN [facility] Start: 2013 Screening for malign ant neoplasm of colon [facility] Start: 2013 SIGMOIDOSCOPY SIGMOIDOSCOPY [facility] Start: 01-07-2013 Urine microalbumin profile DTaP,Tdap,Td Vaccine (1 - Tdap) [facility] Start: 2008 Mammography MAMMOGRAM [facility] Start: 1998 HPV TESTING HPV TESTING [facility] Start: 1989 PAP TESTING PAP TESTING [facility] Start: 1987 Hepatitis B Vaccine (1 of 3 - 19+ 3-dose series) Hepatitis B Vaccine (1 of 3 - 19+ 3-dose series) [facility] Start: 1987 Urine microalbumin profile DTAP,TDAP,TD (1 - Tdap) [facility] Start: 1986 Anxiety Screening Anxiety Screening [facility] Start: 1986 Depression Screening Depression Scre ening [facility] Start: 1986 HEPATITIS C SCREENING HEPATITIS C [facility] Start: 1986 Hepatitis C screening Hepatitis C [facility] Start: 1986 HIV SCREENING HIV SCREENING [facility] Start: 1986 HIV screening HIV Screening [facility] Start: 1980 Adult depression screening assessment DEPRESSION SCREENING [facility] Start: 1973 COVID-19 VACCINE (1) COVID-19 VACCIN E (1) [facility] Start: 1968 COVID-19 VACCINE (#1) COVID-19 VACCI NE (#1) [facility] Start: 1968 HEPATITIS B (1 of 3 - 3-dose series) HEPATITIS B (1 of 3 - 3-dose series) [facility] Start: 1968 Hepatitis B Vaccine (1 of 3 - 3-dose series) Hepatitis B Vaccine (1 of 3 - 3-dose series) [facility] Blood chemistry [facility] End: 01-29-2025 DBT Breast - bilateral screening [facility] Work Phone: Comment on above: 1 Occurrences starti ng 12/31/2023 until 01/29/2025 Lipid 1996 panel - Serum or Plasma [facility] End: 01-04-2023 MRI KNEE WO IVCON RT MRI KNEE WO IVCON RT Radiology Routine Primary osteoarthritis of right knee Chronic pain of right knee 1 Occurrences starting 12/05/2021 until 01/04/2023 [facility] Work Phone: Comment on above: 1 Occurrences starti ng 12/05/2021 until 01/04/2023 Path report.final Dx Spec [facility] Work Phone: Patient Education Post-Op Tips: Foot [facility] Work Phone: Patient referral [facility] Work Phone: End: 05-08-2024 XR ANKLE GENERAL 3V AP/LAT/OBL RIGHT XR ANKLE GENERAL 3V AP/LAT/OBL RIGHT Radiology Routine Pain 1 Occurrences starting 04/09/2023 until 05/08/2024 [facility] Work Phone: Comment on above: 1 Occurrences starti ng 04/09/2023 until 05/08/2024 End: 05-08-2024 XR FOOT GENERAL 3V AP/LAT/OBL RIGHT XR FOOT GENERAL 3V AP/LAT/OBL RIGHT Radiology Routine Pain 1 Occurrences starting 04/09/2023 until 05/08/2024 [facility] Work Phone: Comment on above: 1 Occurrences starti ng 04/09/2023 until 05/08/2024 [facility] Immunizations Immunization Date Immunization Notes Care Provider Jace rubio 04-03-2016 influenza, injectabl e, quadrivalent, contains preservative No PCP None TW-[facility] [address] DO Work Phone: 04-03-2016 influenza virus vaccine, unspecified formulation Tomas Olivera MD Work Phone: [facility] 01-06-2013 influenza, seasonal, injectable No PCP None JS-Wxjjtwuvapse-Yla [facility] 130 DO Work Phone: 01-06-2013 pneumococcal conjuga te vaccine, 13 valent No PCP None LY-Ypvwlhovlpft-Vqy [facility] 130 DO Work Phone: 01-06-2013 TD(adult) unspecifie d formulation No PCP None HB-Sgwwqxzfmuaw-Wog [facility] 130 DO Work Phone: Payers Date Payer Category Payer Self-pay [id number] Private Health Insurance [id number] 2021 Private Health Insurance AETNA A ETNA CHOICE POS II [id number] 2021-[facility] [[email or web address]] [phone] [address] [place] [address] POS [id number] 2021 Private Health Insurance [id number] 1970 Unknown [id number]. 356 1968 Unknown [id number]. 356 1968 Unknown [id number]. 356 1968 Unknown [id number]. 356 Private Health Insurance [id number] Unknown [id number] Unknown AETNA Unknown [id number]. 462 Unknown [id number] [id number]. 462 Unknown [id number] [id number]. 462 Unknown [id number] [id number]. 462 Unknown [id number] [id number]. 462 Unknown [id number] [id number]. 462 Unknown [id number] [id number]. 462 Unknown [id number]. 462 Social History Date Type Detail Facility Start: 11-08-2016 End: 05-05-2024 Tobacco smoking status NHIS Never smoked tobacco [facility] Work Phone: Start: 11-08-2016 End: 12-31-2023 Tobacco use and exposure Smokeless tobacco non-user [facility] Work Phone: Start: 08-05-2021 End: 09-18-2024 Alcohol intake Current drinker of alcohol (finding) [facility] Start: 08-03-2020 History SDOH Alcohol Comment some [facility] Start: 1970 Sex Assigned At Female [facility] Start: 07-26-2021 End: 12-05-2021 Exposure to SARS-CoV-2 (event) Not sure [facility] Start: 09-09-2020 End: 07-11-2023 Tobacco smoking status NHIS Unknown if ever smoked [facility] Start: 01-16-2023 End: 12-31-2023 History of Social function [facility] Start: 01-16-2023 End: 12-31-2023 Tobacco use panel [facility] National Score (1-100), lower number is lower risk 67 [facility] Start: 07-31-2021 Gender identity Identifies as female gender (finding) [facility] Start: 07-31-2021 Sexual orientation Heterosexual (kin mancilla) [facility] Sex Assigned At Unknown [facility] NEGATED: Highlighted row [facility] Medical Equipment Procedure Code Equipment Code Equipment Origin al Text Equipment Identifier Dates Repair of tendon BIOSKIN, 2 X 4 FDA Star t: 05-09-2024 ORIF, ankle Implant ([id number]) [id number] FDA Start: 04-20-2023 ORIF, ankle ([id number]) ()[id number] FDA Start: 04-20-2023 ORIF, ankle ([id number]) ()[id number] FDA Start: 04-20-2023 ORIF, ankle ()[id number] FDA Start: 04-20-2023 ORIF, ankle ()[id number] FDA Start: 04-20-2023 ORIF, ankle ([id number]) ()[id number] FDA Start: 04-20-2023 Goals Date Patient Goal Desired Activity /State Mental Status Date Assessment Result Facility 04-20-2023 Cognitive function Level Of Cons ciousness Awake;Alert [facility] Work Phone: 04-20-2023 Cognitive function Voice/Name [facility] Work Phone: Clinical Notes 08-05-2021 to 10-07-2024 Note Date & Type Note Facility 10-07-2024 Discharge summary Note Date/Time October 07, 2024 4:21p m [facility] Physical Therapy [address] [place] [address] / REHABILITATION SERVICES DISCHARGE SUMMARY MR#: [id number] Acct: [id number] Name: CHANELLE GUILLERMO Rep #: [id number] : 1970 54 From: Devon Freitas PT, ATC Referring Dr.: DPCindy Crowder Status: REG RCR Insurance: [employer] SELF PAY INSURANCE Patient Information Patient Information: CHANELLE GUILLERMO was seen in my office for initial evaluation on 07/16/24. The following Plan of Care was established for this patient: POC Established Initial Frequency: 1x/Week Initial Duration: 3 Weeks Anticipated Interventions Patient/Client Instruction: Educate patient on: Condition and Plan of Care For the Purpose of:: To improve self management Therapeutic Exercise to Include: Strength training, Endurance training, Balance training, Flexibilty training, Passive ROM and Active ROM For the Purpose of:: To decrease pain, To increase ROM and To improve muscle performance and motor function Cryotherapy (ice pack, ice massage): Yes For the Purpose of:: To decrease pain Last Seen Last Seen: This patient was last seen in our office . Pertinent comments regarding their Physical therapy will appear below: [facility] and is discharged at this time. At this point I will be discontinuing this patient from physical therapy. I would be happy to see this patient again in the future if found appropriate by the physician. Thank you! Devon Freitas PT, ATC Balance/Gait/Functional tests Balance/Special Test Scores Lower Extremity Functional Score: 40 <Electronically signed by Devon Freitas PT, ATC> 10/07/24 1621 CC: ARIANA Crowder; INSURANCE ACCOUNT ASSISTANT-C Skylar Box ~ [facility] Signed [facility] Work Phone: [phone]) 836-414505-27-2025 Discharge summary [facility] [address] [place] [address] [address] [place] [address] / REHABILITATION SERVICES DISCHARGE SUMMARY MR#: [id number] Acct: [id number] Name: CHANELLE GUILLERMO Rep #: [id number] : 1970 54 From: Devon Freitas PT, ATC Referring Dr.: ARIANA Crowder Status: REG R Insurance: CIGNA SELF PAY INSURANCE Patient Information Patient Information: CHANELLE GUILLERMO was seen in my office for initial evaluation on 07/16/24. The following Plan of Care was established for this patient: POC Established Initial Frequency: 1x/Week Initial Duration: 3 Weeks Anticipated Interventions Patient/Client Instruction: Educate patient on: Condition and Plan of Care For the Purpose of:: To improve self management Therapeutic Exercise to Include: Strength training, Endurance training, Balance training, Flexibilty training, Passive ROM and Active ROM For the Purpose of:: To decrease pain, To increase ROM and To improve muscle performance and motor function Cryotherapy (ice pack, ice massage): Yes For the Purpose of:: To decrease pain Last Seen Last Seen: This patient was last seen in our office . Pertinent comments regarding their Physical therapy willappear below: Pt has not returned to [facility] is greater than 30 days and is discharged at this time. At this point I will be discontinuing this patient from physical therapy. I would be happy to see this patient again in the future if found appropriate by the physician. Thank you! Devon Freitas, PT, ATC Balance/Gait/Functional tests Balance/Special Test Scores Lower Extremity Functional Score: 40 10/07/24 1621 CC: ARIANA Crowder; INSURANCE ACCOUNT ASSISTANT-C Skylar Box ~ [facility] Signed [facility]05-21-2025 NoteHNO ID: [id number] Author: NATALIIA SAMUELS MS Service: ? Author Type: Genetic Counselor Type: Progress Notes Filed: 10/04/2024 10:30 Note Text: [facility] Department of Medical Genetics Consultation Note Genetic Counselor: Nataliia Samuels MS, [facility] [place] Patient: Chanelle Guillermo This visit was conducted via [employer]. I have communicated my name and active licensure. The patient's identity and physical location were verified at the time of this visit. Either the patient or their legal commissary representative has been informed of the risks and benefits of -- and alternatives to -- treatment through a remote evaluation and consents to proceed with the evaluation remotely. HIGH LEVEL SUMMARY: We discussed that the best person to begin with genetic testing is a family member with a history of cancer. Since patient's mother and sister had negative genetic testing, we discussed that genetic testing for the patient is not recommended at this time. Patient will reach out if she learns of any updates to her family history or if she would like to pursue testing in the future. IDENTIFICATION AND CHIEF COMPLAINT: Dr. Dagmar Schroeder requested a consultation for genetic counseling and risk assessment for Chanelle Guillermo, a 54 year old female, for discussion of her family history of cancer. She presents to clinic today to discuss the possibility of a genetic predisposition to cancer, and to further clarify her risks, as well as her family members' risks for cancer. HISTORY OF PRESENT ILLNESS: Chanelle Guillermo is a 54 year old female with no personal history of cancer. PAST MEDICAL HISTORY Diagnosis Date Atypical squamous cells of undetermined significance (ASCUS) on Papanicolaou smear of cervix 12/2008 Hot flashes Hyperlipemia Menometrorrhagia Vaginal inclusion cyst 2008 PAST SURGICAL HISTORY Procedure Laterality Date ANKLE SURGERY HX Right 04/20/2023 screws and plates COLONOSCOPY SCREENING 2019 DANDC, DIAG AND/OR THERAPEUTIC 04/19/2011 EXTRACTION ERUPTED TOOTH/EXR HEMORRHOIDECTOMY 2018 in office PAST SURGICAL HISTORY OF Right excision of lipoma-forearm REVISE MEDIAN N/CARPAL TUNNEL SURG Right 2019 CANCER SURVEILLANCE HISTORY: Mammograms: last 05/2023, one due this summer Breast MRI's: N/A Breast Biopsies: N/A Colonoscopy: last in 2018 EGD: N/A GI Polyps: no polyps per pt report Dermatology: Yes/ annual skin checks REPRODUCTIVE HISTORY AND PERSONAL RISK ASSESSMENT FACTORS: Weight: Last 1 Encounter Wt Readings: Date: Wt: 09/18/2024 77.4 kg (170 lb 9.6 oz) Height: Last 1 Encounter Ht Readings: Date: Ht: 12/31/2023 161.3 cm (5' 3.5) Menarche was at age 11 Postmenopausal at age 48 Uterus Intact: Yes Ovaries Intact: Yes First live at age 22 She has been using estradiol for 18 months. SOCIAL HISTORY: Social History Tobacco Use Smoking status: Never Smokeless tobacco: Never Vaping Use Vaping status: Never Used Substance Use Topics Alcohol use: Yes Comment: some Drug use: Never FAMILY HISTORY: We obtained a detailed, 4-generation family history. Significant diagnoses are listed below: FAMILY HISTORY Problem Relation Age of Onset Ovarian cancer Mother 65 Melanoma Mother Cancer Father Lymphoma Father other (neuro endocrine cancer) Sister Breast Cancer Maternal Aunt other (vulvar cancer) Maternal Aunt Factor 5 Leiden Maternal Uncle The patient's maternal ancestors are of [place]/Sinhala descent and paternal ancestors are of [place] descent. There is no known Ashkenazi Latter Day ancestry. There is no known consanguinity. A copy of the patient's pedigree will be available under the scanned documents tab following today's visit. GENETIC COUNSELING RISK ASSESSMENT, DISCUSSION, AND SUGGESTED FOLLOW UP: We reviewed the natural history and genetic etiology of sporadic, familial and hereditary cancer syndromes. The patient's family history is not suggestive of: a hereditary cancer syndrome We discussed that the best person to begin with genetic testing is a family member with a history of cancer. Since patient's mother and sister had negative genetic testing, we discussed that genetic testing for the patient is not recommended at this time. She will reach out if she learns of any updates to her family history or if she would like to pursue testing in the future. I spent a total of 30 minutes on the date of the service, which included preparing to see the patient, completing clinical documentation, obtaining and/or reviewing separately obtained history, counseling and educating the patient/family/caregiver, ordering tests, communicating with other HCPs (not separately reported), independently interpreting results (not separately reported), communicating results to the patient/family/caregiver, and care coordination (not separately reported). This plan is being carried out under the oversight of Dr. Samantha Mukherjee (more content not included)...[facility]05-08-2025 Instructions* Patient Instructions* Dagmar Schroeder MD - 09/18/2024 11:37 AM EDT Non-Hormonal Ways to [place] with Hot Flashes and Menopause Hormone therapy is the most effective therapy for hot flashes. It is also the only FDA approved method to treat hot flashes. However, other non-hormonal options are available for women who are suffering from symptoms, but are not yet ready to consider hormone therapy. Some women are not appropriatecandidates for hormone therapy, such as those have been recently treated for breast cancer, ovariancancer, or endometrial/uterine cancer. It is important to remember that when used appropriately, hormone therapy can be a safe and effective option for many women. Here we will review non-hormonal treatment options for women. Knowing the triggers of hot flashes Hot flashes may be precipitated by hot weather, smoking, caffeine, spicy foods, alcohol, tight clothing, heat and stress. Identify and avoid your hot flash triggers. Some women notice hot flashes when they eat a lot of sugar. Exercising in warm temperatures might make hot flashes worse. Diet Avoiding caffeine, spicy foods, and alcohol can help lessen both the number and severity of hot flashes. Many women try to incorporate more plant estrogens into their diet. Plant estrogens, such as isoflavones, are thought to have weak estrogen-like effects that may reduce hot flashes. They may work in the body like a weak form of estrogen. Examples of plant estrogens include: soybeans, chickpeas, lentils, flaxseed, grains, beans, fruits, red clover and vegetables. In general, soybeans, chickpeas, and lentils are considered to have the most powerful plant estrogens, though their effect is much less than that of human estrogen. Try to choose natural foods rather than supplements. Also remember that only crushed or ground forms of flaxseed are likely to help (as compared to the whole seed or seed oil forms). What foods have high amounts of isoflavones Food Isoflavone Amount (Mg) In Food (100g) Soymilk 9.65 Soybeans, green, raw 151.17 Soy flour (textured) 148.61 148.61 Soybeans, dry roasted 128.35 Instant beverage soy, powder, not reconstituted 109.51 Miso soup mix, dry 60.39 Soybean chips 54.16 Tempeh, cooked 53.00 Soybean curd cheese 28.20 Tofu, silken 27.91 Tofu, yogurt 16.30 Source: USDA -- [facility] Database on the Isoflavone Content of Foods, 1998 Lifestyle changes Reducing the temperature in a room, dressing in layers, and the use of a fan while asleep can be effective ways to help deal with troublesome hot flashes. Women who are overweight tend to have more bothersome hot flashes, therefore weight loss can be helpful. Quitting smoking has a dual importance during menopause. First, smoking contributes to the increased cardiovascular risks of being postmenopausal. Second, smokers tend to experience more hot flashes. Women who lead a sedentary life seem tosuffer more from hot flashes; however, it is best to exercise in a cooler environment. Try deep, slow abdominal breathing (6 to 8 breaths per minute). Practice deep breathing for 15 minutes in the morning, 15 minutes in the evening and at the onset of hot flashes. For some women, wearing socks to bed is helpful as it can help to cool core body temperature. Relieving insomnia Keep the bedroom cool to prevent night sweats. Avoid using sleeping pills. Exercise daily. Avoid caffeine and alcohol at night. Take a warm bath or shower at bedtime. Try milk products at bedtime or during the night (but avoid products that contain caffeine). Coping with mood swings, fears, and depression Find a self-calming skill to practice, such as yoga, meditation or slow, deep breathing. Avoid tranquilizers, if possible. Engage in a creative outlet that fosters a sense of achievement. Stay connected with your family and community; nurture your friendships. Relieving painful intercourse Try using a vaginal water-based moisturizing lotion or lubricant during intercourse. These are soldwithout a prescription near the condoms in most stores. Common names include-Astroglide and [place] liquid . Avoid Vaseline , as it may lead to yeast infections. Prescription and nonprescription remedies A number of non-hormonal remedies are available for the treatment of hot flashes. Some of these remedies (e.g., black cohosh and soy products) are available gsvj-iwq-zoztojt but are not FDA-approved.Some prescription medications are used off label to help reduce hot flashes. Using a product off label means that it is not FDA approved for the treatment of hot flashes, but is often used because it can be safe and effective for hot flash treatment.(considered the more effective non-hormonal treatments): Drug Side Effect Effectiveness venlafaxine (Effexor ) Nausea, change in bowel habits, headache (temporary side effects for most). Elevated blood pressure (at high doses) Effectiveness has been proven in several well-designed studies. One of the safer medications for women taking tamoxifen (no drug interaction). desvenlafaxine (Pristiq ) Similar to venlafaxine. Nausea, change in bowel habits, headache (temporary side effectsfor most). Elevated blood pressure (at high doses) Improvement in hot flashes compared to placebo has been shown. Newer med compared to venlafaxine, so a smaller number of studies are available. fluoxetine (Prozac ) Nausea, change in bowel habits, decreased libido, insomnia. Should be avoided in women taking tamoxifen. Improvement in hot flashes has been shown in well-designed studies. paroxetine (Paxil ) Nausea, change in bowel habits, decreased libido, dry mouth, weight gain (not common) Should be avoided in women taking tamoxifen. eTends to be more effective for sleep in women who are alsosuffering with insomnia. Improvement in hot flashes has been shown in well-designed studies. scitalopram (Lexapro ) Nausea, change in bowel habits, decreased libido, abnormal EKG (not common) Improvement in hot flashes has been shown in well-designed studies. Gabapentin (Neurontin ) Fatigue, dizziness, nausea, disorientation, swelling, weight gain Tends to be more effective for sleep in women who are also suffering with insomnia. Clonidine (Catapres ) Dry mouth, drowsiness, fatigue, constipation, lowers blood pressure Relieved hot flashes in some, but not all studies.Less commonly used than some of the other options. Non-prescription, herbal, htgl-tpn-jxrbpzc therapies: Drug Side Effects Effectiveness Evening Elma Oil Nausea, diarrhea, headache. Only one well-designed study showing not effective. Black cohosh Mild stomach upset. Safe up to 6 months only due to possible estrogen-like effects. Liver toxicity has been reported. Some small, short-term studies have suggested benefits, however moststudies do not suggest that it works. Soy (plant estrogen) Also referred to as phytoestrogens. Appears safe if consumed in foods. In supplement form, consistency of dose and quality can be a concern. Supplements are not recommended for breast cancer survivors For the most part, results from clinical studies show that phytoestrogens are not effective for treatment of hot flashes. Acupuncture Uncomfortable for some, often costly. Generally well-tolerated, but multiple visits required Individual trials have reported some benefits, but larger studies have not shown any improvement over placebo procedures. However some women do report benefits with this, so it is possible that more well- designed studies are needed to answer this question. Vitamin E 13% increase risk of heart failure. Might increase rate in those who use high dosesfor a long time. A higher risk of prostate cancer has also been shown, but applies only to men. Onestudy showing effective. However the improvement seen in this was only one less hot flash per day compared to placebo. Are the cdug-okk-oetzips herbal products (botanicals) safe? While safe when taken in moderate amounts through diet, the consumption of extraordinary amounts ofsoy and isoflavone supplements may be harmful to women with a history of estrogen-dependent cancer,like breast cancer, and possibly to other women as well. More research is needed to determine the safety and effectiveness of botanical treatments. For example, Ginseng, Dong Quai, Wild yam, Progesterone cream, reflexology, and magnetic devices are sold tohelp menopausal symptoms, but there are no good studies looking at their safety or effectiveness. To make an informed decision about the use of these treatments, be sure to discuss them with your doctor. Because little is known about many botanicals, the best way to evaluate their safety and effectiveness is to become an educated consumer. Here are some tips to consider when shopping for alternative therapies. Ask yourself the following questions: What is the treatment? What does it involve? How does it work? Why does it work? Are there any risks? What are the side effects? Is it effective? (Ask for evidence or proof) How much does it cost? Once you answer these questions, discuss the therapy with your doctor. Make sure your doctor knows what therapy you are considering in order to discuss possible interactions or side effects with yourcurrent treatment. What are warning signs that a product may not be legitimate? When trying to determine whether or not a product is what it says it is, one of the elements you may want to look at is how the product is promoted. Be cautious of products promoted through: [employer] mailings [employer] Ads disguised as valid news articles Ads in the back of magazines Additional red flags to look for include: Big claims: If products claim to be a cure for your condition, or gives outrageous claims, be cautious. Source: Be wary if the product is only offered through one [employer] or purchased only through [facility] provider s office. Ingredients: Make sure all of the active ingredients are listed, and don t trust secret formulas. Testimonials: Remember that only people who are satisfied with a product give testimonials and thatthey may be getting paid for their endorsement References: National Center for Complementary and Alternative Medicine. Vitamin E. [facility] clinicam.nih.gov Assessed 2012 Almas Schmidt et al. meta-analysis: High Dosage Vitamin E. Supplementation Might Increase All Cause Mortality. Annals of Internal Medicine May 17, 2004. annals.org National Center for Complementary and Alternative Medicine. Menopausal Symptoms and CAM. nccam.nih.gov Accessed August 12, 2012 [place] Menopause Society, Hormone Therapy for women in 2012. www.menopause.org Assessed August 12, 2012 [place] Congress of Obstetricians and Gynecologists. Publications. The Menopause Years. www.acog.org Accessed 07/11/2010 Centers for Disease Control and Prevention. Women s Reproductive Health: Menopause. www.cdc.gov Accessed 07/11/2010 National [place] [employer] Aging. Age Page: Menopause. www.kelli.nih.gov Accessed 07/11/2010 Hormone Therapy* (HT): Understanding Benefits and Risks (*Sometimes also called hormone replacement therapy, HRT) What are estrogen and progesterone? Estrogen and progesterone are hormones that are produced by a woman's ovaries. Why does the body need estrogen? Estrogen thickens the lining of the uterus, preparing it for the possible implantation of a fertilized egg. Estrogen also influences how the body uses calcium, an important mineral in the building ofbones. In addition, estrogen helps maintain healthy levels of cholesterol in the blood. Estrogen isnecessary in keeping the vagina healthy. As menopause nears, the ovaries reduce most of their production of these hormones. Lowered or fluctuating estrogen levels may cause menopause symptoms such as hot flashes, and medical conditions suchas osteoporosis. What is hormone therapy (HT)? Hormone therapy (HT) is a treatment that is used to supplement the body with either estrogen alone or estrogen and progesterone in combination. When the ovaries no longer produce adequate amounts of these hormones (as in menopause), HT can be given to supplement the body with adequate levels of estrogen and progesterone. HT helps to replenish the estrogen, relieving some of the symptoms of menopause and helping to prevent osteoporosis. Why is progesterone taken? Progesterone is used along with estrogen in women who still have their uterus. In these women, estrogen-- if taken without progesterone--increases a woman's risk for cancer of the endometrium (the lining of the uterus). During a woman's reproductive years, cells from the endometrium are shed duringmenstruation. When the endometrium is no longer shed, estrogen can cause an overgrowth of cells in the uterus, a condition that can lead to cancer. Progesterone reduces the risk of endometrial (uterine) cancer by making the endometrium thin. Womenwho take progesterone may have monthly bleeding, or no bleeding at all, depending on how the hormone therapy is taken. Monthly bleeding can be lessened and, in some cases, eliminated by taking progesterone and estrogen together continuously. Women who have had a hysterectomy (removal of the uterus through surgery) usually do not need to take progesterone. This is an important point, because estrogen taken alone has fewer long-term risks than HT that uses a combination of estrogen and progesterone. What are the types of HT? There are two main types of HT: Estrogen Therapy (ET): Estrogen is taken alone. Doctors most often prescribe a low dose of estrogento be taken as a pill or patch every day. Estrogen may also be prescribed as a cream, vaginal ring,gel or spray. You should take the lowest dose of estrogen needed to relieve menopause symptoms and/or to prevent osteoporosis. This type of HT is used if a woman has had a hysterectomy. Estrogen Progesterone/Progestin Hormone Therapy (EPT): Also called combination therapy, this form of HT combines doses of estrogen and progesterone (progestin is a synthetic form of progesterone). This type of HT is used if a woman still has her uterus. What are the benefits of taking HT? HT is prescribed to relieve: Hot flashes Vaginal dryness that can result in painful intercourse Other problematic symptoms of menopause, such as night sweats and dry, itchy skin Other benefits of taking HT include: Reduced risk of developing osteoporosis and reduced risk of bone breakage Improvement of mood and overall sense of mental well-being in some women Decreased tooth loss Lowered risk of colon cancer Lowered risk of diabetes Modest improvement in joint pains Lower rate for women who take hormone therapy in their 50s. What are the risks of taking HT? While HT helps many women get through menopause, the treatment (like any prescription or even non-prescription medicines) is not risk-free. Known health risks include: An increased risk of endometrial cancer (only if a woman still has her uterus and is not taking a progestin along with estrogen). Increased risk of blood clots and stroke. However, in women within 5 years of menopause there was no statistically significant increase in stroke risk. Also, studies suggest that using estrogen delivered from the skin via a patch/cream might further lessen the risk of blood clots. Increased chance of gallbladder/gallstone problems. Increased risk of dementia if hormone therapy is started after a woman has been in menopause for 10years. It is not yet known if it might be beneficial for women who start HT in their 50s. Most of our understanding about the benefits and risks of hormone therapy on the heart and breast come from the Women s Health Initiative (WHI) study (one of the largest studies done on hormone therapy): HT and the heart Recent analysis of WHI actually shows that the risk of heart disease may be related more to the advanced age of the participants as opposed to the HT. The study also found that HT given to younger women, at the onset of menopause, appeared to decrease the risk of heart disease. More specifically: An increased risk of heart disease is only seen in women taking long-term estrogen-progestin combination therapy (EPT) if they start HT in their mid-60s. There does not seem to be an increased risk of heart disease when women in their 50s start EPT. Estrogen alone (ET) has not been shown to increase the risk of heart disease. Analysis of the age since menopause actually shows a decrease in the risk of heart disease when ET was started in younger women (those just beginning menopause). Currently, it is not recommended to use hormone therapy solely for the purpose of preventing heart disease. However these studies give us reassurance that when women just newly approaching menopause need HT for a short time, it is safe to do so in terms of medical terminologist heart disease risk. HT and breast cancer Diagnosis of breast cancer increases when combination EPT is used beyond 3-5 years. This means thatout of 10,000 women who use estrogen progestin therapy for more than 5 years, there will be 8 additional breast cancers diagnosed. In contrast, the WHI study showed women who use estrogen alone had no increase in risk of breast cancer even after 11 years of use. In fact, fewer breast cancers were seen in the group taking estrogen alone, though this was not statistically significant. When a woman comes off of hormone therapy, any potential increase in her risk of breast cancer quickly goes back to her baseline norm. This is why hormone therapy can be a safe option when women in their 50s (who are generally at lower risk for breast cancer compared to older women). Does starting HT closer to the time of menopause make it safer? One of the problems with the WHI study, which gave us much of our knowledge on the risks of HT, is that most women in the study were starting hormones in their mid-60s. Typically, women who need HT are newly menopausal, in their early 50s. Younger women in the WHI study had fewer risks and more benefits from HT. Newer studies are trying to understand the risks and benefits of HT in women in their 50s. One such study showed HT started early in postmenopausal women significantly reduced rate, heart attacks and heart failure. These postmenopausal women who started HT early and used it for more than 10 years were not at increased risk of breast cancer or stroke. What are some commonly used postmenopausal hormones? The following charts list the names of some, but not all, postmenopausal hormones. Types Brand Names Vaginal Tablet Vagifem Estrogen Pills Cenestin , Estinyl , Estrace , Menest , Ogen , Premarin , Femtrace Cream Estrace , Ogen , Premarin Vaginal Ring Estring , Femring Patch Lynda , Climara , Minivelle , Estraderm , Vivelle , Vivelle-Dot , Menostar Progestin Types Brand Names Pills/Capsules Amen , Aygestin , Curretab , Cycrin , Megace , Prometrium , Provera Vaginal Gel Prochieve progesterone gel 4%, 8% Combination types Brand Names Pills Activella , FemHRT , Premphase , Prempro , Angeliq Patchs CombiPatch , Climara-Pro Who shouldn't take HT? HT is not usually recommended for women who have: Active or past breast cancer Recurrent or active endometrial cancer Abnormal vaginal bleeding that has not been evaluated Recurrent or active blood clots History of stroke Liver disease Known or suspected What are the side effects of HT? Like almost all medications, hormone therapy has side effects. The most common side effects are: Monthly bleeding (if progestin given cyclical) Irregular spotting Breast tenderness Less common side effects of hormone therapy include: Fluid retention Headaches (including migraine) Skin discoloration (brown or black spots) Increased breast density making mammogram interpretation more difficult Skin irritation under estrogen patch How can I reduce these side effects? Adjusting either the dosage or the form of the medication you are taking can often reduce side effects of HT. However, you should never make changes in your medication or stop taking it without firstconsulting your doctor. How can I know if HT is right for me? The balance of risks versus benefits of HT can be very different for each woman, depending on her age, family history, and personal medical history. It is important to allow enough time at an office visit to discuss the risks and benefits of hormone therapy. This is a question that should usually be addressed at a separate office visit to allow plenty of time for detailed discussion with your doctor. How long should I take HT? Since research on HT is ongoing, women should reevaluate their treatment plans each year. Discontinue HT (under your health care provider's guidance) if you develop a medical condition that would make it less safe for you. Based on the WHI study results, should I stop taking HT? It's important that you do not make any abrupt changes to your HT without consulting your doctor. He or she can discuss with you the benefits and risks of HT based on your individual circumstances. First, the therapy should not be continued or started to prevent heart disease. Women should consult their doctor about other methods of prevention, such as lifestyle changes, and cholesterol- and blood pressure-lowering drugs. Second, for osteoporosis prevention, women should consult their doctor and weigh the benefits against their personal risks. Alternate treatments also are available to prevent osteoporosis and fractures. Finally, women taking HT for relief of menopausal symptoms may reap more benefits than risks. Women should talk with their doctor about their personal risks and benefits. References: Effect of Hormone Replacement Therapy on Cardiovascular Events in Recently Postmenopausal Women: Randomized Trial. BMJ Feb 2012. [place] Menopause Society. The 2012 hormone therapy position statement Accessed 10/10/12. [place] Association of Clinical Endocrinologists. [place] Association of Clinical Endocrinologists Medical Guidelines for the Clinical Practice for the Diagnosis and Treatment of Menopause Accessed11/03/12. Committee on Gynecological Practice. Postmenopausal estrogen therapy: Route of administration and risk of venous thromboembolism. Obstet Gynecol 2013 Apr; 121:887. Estrogen alone and joint symptoms in the Women's Health Initiative randomized trial. Menopause 18. [facility] NoteHNO ID: [id number] Author: DAGMAR SCHROEDER MD Service: ? Author Type: Physician Type: Progress Notes Filed: 09/19/2024 13:33 Note Text: Chanelle Guillermo is a 54 year old female who presents to discuss hormone replacement therapy. HPI: Wants to discuss HRT and family history of cancer. Doing well on vaginal estrogen cream and is satisfied with it. She is having difficulty sleeping, low libido, brain fog, hot flashes. Interested in HRT. 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 History Comments: Sexual Activity: Yes; Male Contraception: No contraception data on record PAST MEDICAL HISTORY Diagnosis Date Atypical squamous cells of undetermined significance (ASCUS) on Papanicolaou smear of cervix 12/2008 Hot flashes Hyperlipemia Menometrorrhagia Vaginal inclusion cyst 2008 PAST SURGICAL HISTORY Procedure Laterality Date ANKLE SURGERY HX Right 04/20/2023 screws and plates COLONOSCOPY SCREENING 2019 [facility], DIAG AND/OR THERAPEUTIC 04/19/2011 EXTRACTION ERUPTED TOOTH/EXR HEMORRHOIDECTOMY 2018 in office PAST SURGICAL HISTORY OF Right excision of lipoma-forearm REVISE MEDIAN N/CARPAL TUNNEL SURG Right 2019 FAMILY HISTORY Problem Relation Age of Onset Ovarian cancer Mother 65 Melanoma Mother Cancer Father Lymphoma Father other (neuro endocrine cancer) Sister Breast Cancer Maternal Aunt other (vulvar cancer) Maternal Aunt Factor 5 Leiden Maternal Uncle Social History Tobacco Use Smoking status: Never Smokeless tobacco: Never Vaping Use Vaping status: Never Used Substance Use Topics Alcohol use: Yes Comment: some Drug use: Never Current Outpatient Medications Medication Sig estradiol (ESTRACE) 0.01 % (0.1 mg/gram) vaginal cream INSERT 0.5 GRAM VAGINALLY AT BEDTIME TWICE WEEKLY. APPLY A PEA SIZED AMOUNT TO OUTSIDE OF VAGINA WELL losartan (COZAAR) 50 mg tablet 1 TABLET ORALLY ONCE A DAY IN EVENING 90 DAYS calcium polycarbophil (FIBERCON) 625 mg tablet Take by mouth. glucosamine sulfate (GLUCOSAMINE ORAL) Take by mouth. MULTI-VITAMIN ORAL Take by mouth once daily. FISH OIL-DHA-EPA ORAL Take by mouth once daily. ubidecarenone (ULTRA COQ10 ORAL) Take by mouth. VITAMIN E, DL,TOCOPHERYL ACET, (VITAMIN E, DL, ACETATE,) 100 unit cap Take by mouth. No current facility-administered medications for this visit. Allergies As of Date: 09/18/2024 (No Known Allergies) Fully Assessed 09/18/2024 REVIEW OF SYSTEMS Expanded ROS: N/A Allergies and current medication updated:Yes SENSITIVE EXAM: Sensitive exam not performed. EXAM: BP 110/72 Wt 170 lb 9.6 oz (77.4kg) GENERAL: pleasant, female in no apparent distress HEENT: Normocephalic and atraumatic CHEST: Normal inspiratory effort NEURO: exam grossly non-focal EXTREMITIES: normal ASSESSMENT AND PLAN: Assessment AND Plan Family history of cancer Orders: CONSULT TO MEDICAL GENETICS - CANCER; Future Hot flashes Vaginal dryness Low libido Difficulty sleeping Doing well on vaginal estrogen cream. Discussed r/b/a HRT and questions answered. Patient interested in starting HRT. She will notify office after her mother has Factor 5 Leiden test, and patient has met with genetics regarding family history of cancer. Information given for her to read. Dagmar Schroeder DO I spent 20 minutes in the visit, with more than 50% of the total [id number] time of the visit in counseling / coordination of care.[facility]05-08[facility]25 History of Present illness Narrative* Dagmar Schroeder MD - 09/18/2024 10:54 AM EDT Chanelle Guillermo is a 54 year old female who presents to discuss hormone replacement therapy. HPI: Wants to discuss HRT and family history of cancer. Doing well on vaginal estrogen cream and issatisfied with it. She is having difficulty sleeping, low libido, brain fog, hot flashes. Interested in HRT. 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 History Comments: Sexual Activity: Yes; Male Contraception: No contraception data on record PAST MEDICAL HISTORY Diagnosis Date Atypical squamous cells of undetermined significance (ASCUS) on Papanicolaou smear of cervix 12/2008 Hot flashes Hyperlipemia Menometrorrhagia Vaginal inclusion cyst 2008 PAST SURGICAL HISTORY Procedure Laterality Date ANKLE SURGERY HX Right 04/20/2023 screws and plates COLONOSCOPY SCREENING 2019 D&C, DIAG AND/OR THERAPEUTIC 04/19/2011 EXTRACTION ERUPTED TOOTH/EXR HEMORRHOIDECTOMY 2018 in office PAST SURGICAL HISTORY OF Right excision of lipoma-forearm REVISE MEDIAN N/CARPAL TUNNEL SURG Right 2019 FAMILY HISTORY Problem Relation Age of Onset Ovarian cancer Mother 65 Melanoma Mother Cancer Father Lymphoma Father other (neuro endocrine cancer) Sister Breast Cancer Maternal Aunt other (vulvar cancer) Maternal Aunt Factor 5 Leiden Maternal Uncle Social History Tobacco Use Smoking status: Never Smokeless tobacco: Never Vaping Use Vaping status: Never Used Substance Use Topics Alcohol use: Yes Comment: some Drug use: Never Current Outpatient Medications Medication Sig estradiol (ESTRACE) 0.01 % (0.1 mg/gram) vaginal cream INSERT 0.5 GRAM VAGINALLY AT BEDTIME TWICE WEEKLY. APPLY A PEA SIZED AMOUNT TO OUTSIDE OF VAGINA WELL losartan (COZAAR) 50 mg tablet 1 TABLET ORALLY ONCE A DAY IN EVENING 90 DAYS calcium polycarbophil (FIBERCON) 625 mg tablet Take by mouth. glucosamine sulfate (GLUCOSAMINE ORAL) Take by mouth. MULTI-VITAMIN ORAL Take by mouth once daily. FISH OIL-DHA-EPA ORAL Take by mouth once daily. ubidecarenone (ULTRA COQ10 ORAL) Take by mouth. VITAMIN E, DL,TOCOPHERYL ACET, (VITAMIN E, DL, ACETATE,) 100 unit cap Take by mouth. No current facility-administered medications for this visit. Allergies As of Date: 09/18/2024 (No Known Allergies) Fully Assessed 09/18/2024 REVIEW OF SYSTEMS Expanded ROS: N/A Allergies and current medication updated:Yes SENSITIVE EXAM: Sensitive exam not performed. EXAM: BP 110/72 Wt 170 lb 9.6 oz (77.4kg) GENERAL: pleasant, female in no apparent distress HEENT: Normocephalic and atraumatic CHEST: Normal inspiratory effort NEURO: exam grossly non-focal EXTREMITIES: normal ASSESSMENT AND PLAN: Assessment & Plan Family history of cancer Orders: CONSULT TO MEDICAL GENETICS - CANCER; Future Hot flashes Vaginal dryness Low libido Difficulty sleeping Doing well on vaginal estrogen cream. Discussed r/b/a HRT and questions answered. Patient interested in starting HRT. She will notify office after her mother has Factor 5 Leiden test, and patient has met with genetics regarding family history of cancer. Information given for her to read. Dagmar Schroeder DO I spent 20 minutes in the visit, with more than 50% of the total [id number] time of the visit in counseling / coordination of care. [facility] Telephone encounter Note * Telephone Encounter - Dagmar Schroeder MD - 09/15/2024 12:01 PM EDT filed [facility] Miscellaneous Notes* Telephone Encounter - Dagmar Schroeder MD - 09/15/2024 12:01 PM EDT filed * Telephone Encounter - Petty Buck RN - 09/15/2024 9:05 AM EDT Pharmacy requesting 90 day supply. Last annual 12/31/23. Requested Prescriptions Pending Prescriptions Disp Refills estradiol (ESTRACE) 0.01 % (0.1 mg/gram) vaginal cream [Pharmacy Med Name: ESTRADIOL 0.01% CREAM] 126 g 1 Sig: INSERT 0.5 GRAM VAGINALLY AT BEDTIME TWICE WEEKLY. APPLY A PEA SIZED AMOUNT TO OUTSIDE OF VAGINA WELL Petty Buck RN documented in [facility] encounter[facility] Telephone encounter Note * Telephone Encounter - Petty Buck RN - 09/15/2024 9:05 AM EDT Pharmacy requesting 90 day supply. Last annual 12/31/23. Requested Prescriptions Pending Prescriptions Disp Refills estradiol (ESTRACE) 0.01 % (0.1 mg/gram) vaginal cream [Pharmacy Med Name: ESTRADIOL 0.01% CREAM] 126 g 1 Sig: INSERT 0.5 GRAM VAGINALLY AT BEDTIME TWICE WEEKLY. APPLY A PEA SIZED AMOUNT TO OUTSIDE OF VAGINA WELL Petty Buck RN [facility]-19[facility] Instructions* Patient Instructions* Dagmar Schroeder MD - 12/31/2023 4:01 PM EDT Hormone Therapy* (HT): Understanding Benefits and Risks (*Sometimes also called hormone replacement therapy, HRT) What are estrogen and progesterone? Estrogen and progesterone are hormones that are produced by a woman's ovaries. Why does the body need estrogen? Estrogen thickens the lining of the uterus, preparing it for the possible implantation of a fertilized egg. Estrogen also influences how the body uses calcium, an important mineral in the building ofbones. In addition, estrogen helps maintain healthy levels of cholesterol in the blood. Estrogen isnecessary in keeping the vagina healthy. As menopause nears, the ovaries reduce most of their production of these hormones. Lowered or fluctuating estrogen levels may cause menopause symptoms such as hot flashes, and medical conditions suchas osteoporosis. What is hormone therapy (HT)? Hormone therapy (HT) is a treatment that is used to supplement the body with either estrogen alone or estrogen and progesterone in combination. When the ovaries no longer produce adequate amounts of these hormones (as in menopause), HT can be given to supplement the body with adequate levels of estrogen and progesterone. HT helps to replenish the estrogen, relieving some of the symptoms of menopause and helping to prevent osteoporosis. Why is progesterone taken? Progesterone is used along with estrogen in women who still have their uterus. In these women, estrogen-- if taken without progesterone--increases a woman's risk for cancer of the endometrium (the lining of the uterus). During a woman's reproductive years, cells from the endometrium are shed duringmenstruation. When the endometrium is no longer shed, estrogen can cause an overgrowth of cells in the uterus, a condition that can lead to cancer. Progesterone reduces the risk of endometrial (uterine) cancer by making the endometrium thin. Womenwho take progesterone may have monthly bleeding, or no bleeding at all, depending on how the hormone therapy is taken. Monthly bleeding can be lessened and, in some cases, eliminated by taking progesterone and estrogen together continuously. Women who have had a hysterectomy (removal of the uterus through surgery) usually do not need to take progesterone. This is an important point, because estrogen taken alone has fewer long-term risks than HT that uses a combination of estrogen and progesterone. What are the types of HT? There are two main types of HT: Estrogen Therapy (ET): Estrogen is taken alone. Doctors most often prescribe a low dose of estrogento be taken as a pill or patch every day. Estrogen may also be prescribed as a cream, vaginal ring,gel or spray. You should take the lowest dose of estrogen needed to relieve menopause symptoms and/or to prevent osteoporosis. This type of HT is used if a woman has had a hysterectomy. Estrogen Progesterone/Progestin Hormone Therapy (EPT): Also called combination therapy, this form of HT combines doses of estrogen and progesterone (progestin is a synthetic form of progesterone). This type of HT is used if a woman still has her uterus. What are the benefits of taking HT? HT is prescribed to relieve: Hot flashes Vaginal dryness that can result in painful intercourse Other problematic symptoms of menopause, such as night sweats and dry, itchy skin Other benefits of taking HT include: Reduced risk of developing osteoporosis and reduced risk of bone breakage Improvement of mood and overall sense of mental well-being in some women Decreased tooth loss Lowered risk of colon cancer Lowered risk of diabetes Modest improvement in joint pains Lower rate for women who take hormone therapy in their 50s. What are the risks of taking HT? While HT helps many women get through menopause, the treatment (like any prescription or even non-prescription medicines) is not risk-free. Known health risks include: An increased risk of endometrial cancer (only if a woman still has her uterus and is not taking a progestin along with estrogen). Increased risk of blood clots and stroke. However, in women within 5 years of menopause there was no statistically significant increase in stroke risk. Also, studies suggest that using estrogen delivered from the skin via a patch/cream might further lessen the risk of blood clots. Increased chance of gallbladder/gallstone problems. Increased risk of dementia if hormone therapy is started after a woman has been in menopause for 10years. It is not yet known if it might be beneficial for women who start HT in their 50s. Most of our understanding about the benefits and risks of hormone therapy on the heart and breast come from the Women s Health Initiative (WHI) study (one of the largest studies done on hormone therapy): HT and the heart Recent analysis of WHI actually shows that the risk of heart disease may be related more to the advanced age of the participants as opposed to the HT. The study also found that HT given to younger women, at the onset of menopause, appeared to decrease the risk of heart disease. More specifically: An increased risk of heart disease is only seen in women taking long-term estrogen-progestin combination therapy (EPT) if they start HT in their mid-60s. There does not seem to be an increased risk of heart disease when women in their 50s start EPT. Estrogen alone (ET) has not been shown to increase the risk of heart disease. Analysis of the age since menopause actually shows a decrease in the risk of heart disease when ET was started in younger women (those just beginning menopause). Currently, it is not recommended to use hormone therapy solely for the purpose of preventing heart disease. However these studies give us reassurance that when women just newly approaching menopause need HT for a short time, it is safe to do so in terms of longterm heart disease risk. HT and breast cancer Diagnosis of breast cancer increases when combination EPT is used beyond 3-5 years. This means thatout of 10,000 women who use estrogen progestin therapy for more than 5 years, there will be 8 additional breast cancers diagnosed. In contrast, the WHI study showed women who use estrogen alone had no increase in risk of breast cancer even after 11 years of use. In fact, fewer breast cancers were seen in the group taking estrogen alone, though this was not statistically significant. When a woman comes off of hormone therapy, any potential increase in her risk of breast cancer quickly goes back to her baseline norm. This is why hormone therapy can be a safe option when women in their 50s (who are generally at lower risk for breast cancer compared to older women). Does starting HT closer to the time of menopause make it safer? One of the problems with the WHI study, which gave us much of our knowledge on the risks of HT, is that most women in the study were starting hormones in their mid-60s. Typically, women who need HT are newly menopausal, in their early 50s. Younger women in the WHI study had fewer risks and more benefits from HT. Newer studies are trying to understand the risks and benefits of HT in women in their 50s. One such study showed HT started early in postmenopausal women significantly reduced rate, heart attacks and heart failure. These postmenopausal women who started HT early and used it for more than 10 years were not at increased risk of breast cancer or stroke. What are some commonly used postmenopausal hormones? The following charts list the names of some, but not all, postmenopausal hormones. Types Brand Names Vaginal Tablet Vagifem Estrogen Pills Cenestin , Estinyl , Estrace , Menest , Ogen , Premarin , Femtrace Cream Estrace , Ogen , Premarin Vaginal Ring Estring , Femring Patch Lynda , Climara , Minivelle , Estraderm , Vivelle , Vivelle-Dot , Menostar Progestin Types Brand Names Pills/Capsules Amen , Aygestin , Curretab , Cycrin , Megace , Prometrium , Provera Vaginal Gel Prochieve progesterone gel 4%, 8% Combination types Brand Names Pills Activella , FemHRT , Premphase , Prempro , Angeliq Patchs CombiPatch , Climara-Pro Who shouldn't take HT? HT is not usually recommended for women who have: Active or past breast cancer Recurrent or active endometrial cancer Abnormal vaginal bleeding that has not been evaluated Recurrent or active blood clots History of stroke Liver disease Known or suspected What are the side effects of HT? Like almost all medications, hormone therapy has side effects. The most common side effects are: Monthly bleeding (if progestin given cyclical) Irregular spotting Breast tenderness Less common side effects of hormone therapy include: Fluid retention Headaches (including migraine) Skin discoloration (brown or black spots) Increased breast density making mammogram interpretation more difficult Skin irritation under estrogen patch How can I reduce these side effects? Adjusting either the dosage or the form of the medication you are taking can often reduce side effects of HT. However, you should never make changes in your medication or stop taking it without firstconsulting your doctor. How can I know if HT is right for me? The balance of risks versus benefits of HT can be very different for each woman, depending on her age, family history, and personal medical history. It is important to allow enough time at an office visit to discuss the risks and benefits of hormone therapy. This is a question that should usually be addressed at a separate office visit to allow plenty of time for detailed discussion with your doctor. How long should I take HT? Since research on HT is ongoing, women should reevaluate their treatment plans each year. Discontinue HT (under your health care provider's guidance) if you develop a medical condition that would make it less safe for you. Based on the WHI study results, should I stop taking HT? It's important that you do not make any abrupt changes to your HT without consulting your doctor. He or she can discuss with you the benefits and risks of HT based on your individual circumstances. First, the therapy should not be continued or started to prevent heart disease. Women should consult their doctor about other methods of prevention, such as lifestyle changes, and cholesterol- and blood pressure-lowering drugs. Second, for osteoporosis prevention, women should consult their doctor and weigh the benefits against their personal risks. Alternate treatments also are available to prevent osteoporosis and fractures. Finally, women taking HT for relief of menopausal symptoms may reap more benefits than risks. Women should talk with their doctor about their personal risks and benefits. References: Effect of Hormone Replacement Therapy on Cardiovascular Events in Recently Postmenopausal Women: Randomized Trial. BMJ Feb 2012. [place] Menopause Society. The 2012 hormone therapy position statement Accessed 10/10/12. [place] Association of Clinical Endocrinologists. [place] Association of Clinical Endocrinologists Medical Guidelines for the Clinical Practice for the Diagnosis and Treatment of Menopause Accessed11/03/12. Committee on Gynecological Practice. Postmenopausal estrogen therapy: Route of administration and risk of venous thromboembolism. Obstet Gynecol 2013 Aug; 121:887. Estrogen alone and joint symptoms in the Women's Health Initiative randomized trial. Menopause 18. Non-Hormonal Ways to [place] with Hot Flashes and Menopause Hormone therapy is the most effective therapy for hot flashes. It is also the only FDA approved method to treat hot flashes. However, other non-hormonal options are available for women who are suffering from symptoms, but are not yet ready to consider hormone therapy. Some women are not appropriatecandidates for hormone therapy, such as those have been recently treated for breast cancer, ovariancancer, or endometrial/uterine cancer. It is important to remember that when used appropriately, hormone therapy can be a safe and effective option for many women. Here we will review non-hormonal treatment options for women. Knowing the triggers of hot flashes Hot flashes may be precipitated by hot weather, smoking, caffeine, spicy foods, alcohol, tight clothing, heat and stress. Identify and avoid your hot flash triggers. Some women notice hot flashes when they eat a lot of sugar. Exercising in warm temperatures might make hot flashes worse. Diet Avoiding caffeine, spicy foods, and alcohol can help lessen both the number and severity of hot flashes. Many women try to incorporate more plant estrogens into their diet. Plant estrogens, such as isoflavones, are thought to have weak estrogen-like effects that may reduce hot flashes. They may work in the body like a weak form of estrogen. Examples of plant estrogens include: soybeans, chickpeas, lentils, flaxseed, grains, beans, fruits, red clover and vegetables. In general, soybeans, chickpeas, and lentils are considered to have the most powerful plant estrogens, though their effect is much less than that of human estrogen. Try to choose natural foods rather than supplements. Also remember that only crushed or ground forms of flaxseed are likely to help (as compared to the whole seed or seed oil forms). What foods have high amounts of isoflavones Food Isoflavone Amount (Mg) In Food (100g) Soymilk 9.65 Soybeans, green, raw 151.17 Soy flour (textured) 148.61 148.61 Soybeans, dry roasted 128.35 Instant beverage soy, powder, not reconstituted 109.51 Miso soup mix, dry 60.39 Soybean chips 54.16 Tempeh, cooked 53.00 Soybean curd cheese 28.20 Tofu, silken 27.91 Tofu, yogurt 16.30 Source: [facility] Database on the Isoflavone Content of Foods, 1998 Lifestyle changes Reducing the temperature in a room, dressing in layers, and the use of a fan while asleep can be effective ways to help deal with troublesome hot flashes. Women who are overweight tend to have more bothersome hot flashes, therefore weight loss can be helpful. Quitting smoking has a dual importance during menopause. First, smoking contributes to the increased cardiovascular risks of being postmenopausal. Second, smokers tend to experience more hot flashes. Women who lead a sedentary life seem tosuffer more from hot flashes; however, it is best to exercise in a cooler environment. Try deep, slow abdominal breathing (6 to 8 breaths per minute). Practice deep breathing for 15 minutes in the morning, 15 minutes in the evening and at the onset of hot flashes. For some women, wearing socks to bed is helpful as it can help to cool core body temperature. Relieving insomnia Keep the bedroom cool to prevent night sweats. Avoid using sleeping pills. Exercise daily. Avoid caffeine and alcohol at night. Take a warm bath or shower at bedtime. Try milk products at bedtime or during the night (but avoid products that contain caffeine). Coping with mood swings, fears, and depression Find a self-calming skill to practice, such as yoga, meditation or slow, deep breathing. Avoid tranquilizers, if possible. Engage in a creative outlet that fosters a sense of achievement. Stay connected with your family and community; nurture your friendships. Relieving painful intercourse Try using a vaginal water-based moisturizing lotion or lubricant during intercourse. These are soldwithout a prescription near the condoms in most stores. Common names include-Astroglide and [place] liquid . Avoid Vaseline , as it may lead to yeast infections. Prescription and nonprescription remedies A number of non-hormonal remedies are available for the treatment of hot flashes. Some of these remedies (e.g., black cohosh and soy products) are available [id number] but are not FDA-approved.Some prescription medications are used off label to help reduce hot flashes. Using a product off label means that it is not FDA approved for the treatment of hot flashes, but is often used because it can be safe and effective for hot flash treatment.(considered the more effective non-hormonal treatments): Drug Side Effect Effectiveness venlafaxine (Effexor ) Nausea, change in bowel habits, headache (temporary side effects for most). Elevated blood pressure (at high doses) Effectiveness has been proven in several well-designed studies. One of the safer medications for women taking tamoxifen (no drug interaction). desvenlafaxine (Pristiq ) Similar to venlafaxine. Nausea, change in bowel habits, headache (temporary side effectsfor most). Elevated blood pressure (at high doses) Improvement in hot flashes compared to placebo has been shown. Newer med compared to venlafaxine, so a smaller number of studies are available. fluoxetine (Prozac ) Nausea, change in bowel habits, decreased libido, insomnia. Should be avoided in women taking tamoxifen. Improvement in hot flashes has been shown in well-designed studies. paroxetine (Paxil ) Nausea, change in bowel habits, decreased libido, dry mouth, weight gain (not common) Should be avoided in women taking tamoxifen. eTends to be more effective for sleep in women who are alsosuffering with insomnia. Improvement in hot flashes has been shown in well-designed studies. scitalopram (Lexapro ) Nausea, change in bowel habits, decreased libido, abnormal EKG (not common) Improvement in hot flashes has been shown in well-designed studies. Gabapentin (Neurontin ) Fatigue, dizziness, nausea, disorientation, swelling, weight gain Tends to be more effective for sleep in women who are also suffering with insomnia. Clonidine (Catapres ) Dry mouth, drowsiness, fatigue, constipation, lowers blood pressure Relieved hot flashes in some, but not all studies.Less commonly used than some of the other options. Non-prescription, herbal, yjnf-oof-csfqhfx therapies: Drug Side Effects Effectiveness Evening Elma Oil Nausea, diarrhea, headache. Only one well-designed study showing not effective. Black cohosh Mild stomach upset. Safe up to 6 months only due to possible estrogen-like effects. Liver toxicity has been reported. Some small, short-term studies have suggested benefits, however moststudies do not suggest that it works. Soy (plant estrogen) Also referred to as phytoestrogens. Appears safe if consumed in foods. In supplement form, consistency of dose and quality can be a concern. Supplements are not recommended for breast cancer survivors For the most part, results from clinical studies show that phytoestrogens are not effective for treatment of hot flashes. Acupuncture Uncomfortable for some, often costly. Generally well-tolerated, but multiple visits required Individual trials have reported some benefits, but larger studies have not shown any improvement over placebo procedures. However some women do report benefits with this, so it is possible that more well- designed studies are needed to answer this question. Vitamin E 13% increase risk of heart failure. Might increase rate in those who use high dosesfor a long time. A higher risk of prostate cancer has also been shown, but applies only to men. Onestudy showing effective. However the improvement seen in this was only one less hot flash per day compared to placebo. Are the bccs-yle-rkmytsb herbal products (botanicals) safe? While safe when taken in moderate amounts through diet, the consumption of extraordinary amounts ofsoy and isoflavone supplements may be harmful to women with a history of estrogen-dependent cancer,like breast cancer, and possibly to other women as well. More research is needed to determine the safety and effectiveness of botanical treatments. For example, Ginseng, [place]ai, Wild yam, Progesterone cream, reflexology, and magnetic devices are sold tohelp menopausal symptoms, but there are no good studies looking at their safety or effectiveness. To make an informed decision about the use of these treatments, be sure to discuss them with your doctor. Because little is known about many botanicals, the best way to evaluate their safety and effectiveness is to become an educated consumer. Here are some tips to consider when shopping for alternative therapies. Ask yourself the following questions: What is the treatment? What does it involve? How does it work? Why does it work? Are there any risks? What are the side effects? Is it effective? (Ask for evidence or proof) How much does it cost? Once you answer these questions, discuss the therapy with your doctor. Make sure your doctor knows what therapy you are considering in order to discuss possible interactions or side effects with yourcurrent treatment. What are warning signs that a product may not be legitimate? When trying to determine whether or not a product is what it says it is, one of the elements you may want to look at is how the product is promoted. Be cautious of products promoted through: [employer] Direct mailings [employer] Ads disguised as valid news articles Ads in the back of magazines Additional red flags to look for include: Big claims: If products claim to be a cure for your condition, or gives outrageous claims, be cautious. Source: Be wary if the product is only offered through one tick inspector or purchased only through [facility] provider s office. Ingredients: Make sure all of the active ingredients are listed, and don t trust secret formulas. Testimonials: Remember that only people who are satisfied with a product give testimonials and thatthey may be getting paid for their endorsement References: National Center for Complementary and Alternative Medicine. Vitamin E. [facility] clinicam.nih.gov Assessed 2012 Almas Schmidt et al. meta-analysis: High Dosage Vitamin E. Supplementation Might Increase All Cause Mortality. Annals of Internal Medicine May 17, 2004. annals.org National Center for Complementary and Alternative Medicine. Menopausal Symptoms and CAM. nccam.nih.gov Accessed August 12, 2012 [place] Menopause Society, Hormone Therapy for women in 2012. www.menopause.org Assessed August 12, 2012 [place] Congress of Obstetricians and Gynecologists. Publications. The Menopause Years. www.acog.org Accessed 07/11/2010 Centers for Disease Control and Prevention. Women s Reproductive Health: Menopause. www.cdc.gov Accessed 07/11/2010 National [place] on Aging. Age Page: Menopause. www.kelli.nih.gov Accessed 07/11/2010 [facility] NoteHNO ID: [id number] Author: DAGMAR SCHROEDER MD Service: ? Author Type: Physician Type: Progress Notes Filed: 12/31/2023 21:56 Note Text: Chanelle is a 53 year old who presents for an annual gynecologic exam with complaints, hot flashes . Was on Gabapentin for this, and it stopped working. Vaginal dryness. Pain with intercourse. Having night sweats as well. Questions if HRT is reasonable option for her. 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 History Comments: Sexual Activity: Yes; Male Contraception: No contraception data on record PAST MEDICAL HISTORY 12/2008: Atypical squamous cells of undetermined significance (ASCUS) on Papanicolaou smear of cervix No date: Hot flashes No date: Hyperlipemia No date: Menometrorrhagia 2009: Vaginal inclusion cystPAST SURGICAL HISTORY 04/20/2023: ANKLE SURGERY HX; Right Comment: screws and plates 2019: COLONOSCOPY SCREENING 04/19/2011: DANDC, DIAG AND/OR THERAPEUTIC No date: EXTRACTION ERUPTED TOOTH/EXR 2018: HEMORRHOIDECTOMY Comment: in office No date: PAST SURGICAL HISTORY OF; Right Comment: excision of lipoma-forearm 2019: REVISE MEDIAN N/CARPAL TUNNEL SURG; Right FAMILY HISTORY Problem Relation Age of Onset Ovarian cancer Mother 65 Cancer Father other (neuro endocrine cancer) Sister SOCIAL HISTORY Social History Tobacco Use Smoking status: Never Smokeless tobacco: Never Vaping Use Vaping status: Never Used Substance Use Topics Alcohol use: Yes Comment: some Drug use: Never REVIEW OF SYSTEMS Abdomen: No abdominal pain, nausea, vomiting, diarrhea, or constipation. No bloating, early satiety, indigestion, or increased flatulence. Bladder: No dysuria, gross hematuria, urinary frequency, urinary urgency, or incontinence Breast: No breast lumps, nipple d/c, overlying skin changes, redness or skin retraction Allergies and current medication updated:Yes EXAM: BP 142/88 Ht 5' 3.5 (1.61m) Wt 169 lb (76.7kg) BMI 29.46 kg/(m2). GENERAL: pleasant, female in no apparent distress HEENT: Normocephalic and atraumatic NECK: full range of motion DERMATOLOGY: Normal, without lesions, non-icteric, and non-hirsute BREAST: soft, non-tender, symmetric, no dominant mass, normal nipple-areolar complex, no lymphadenopathy, and no nipple discharge CHEST: Normal inspiratory effort ABDOMEN: soft, non-tender, and no masses PELVIC: external genitalia atrophic, normal Bartholin's glands, urethra, Bouton's glands, no vulvar lesions, no cervical lesions, good vaginal support, physiologic discharge present, normal appearing perineal body and perianal region, vaginal atrophy noted BIMANUAL: uterus normal size, shape and consistency, no adnexal masses, and non-tender RECTOVAGINAL: deferred. NEURO: exam grossly non-focal EXTREMITIES: normal ASSESSMENT/PLAN: 1) Health maintenance: Pap/HPV up to date. Mammogram ordered to be completed at [facility] Nutrition, exercise and routine health maintenance exams reviewed. Colon cancer screening: up to date with screening TSH/lipids/glucose: followed by PCP Information given on non hormonal treatment options and HRT for menopausal symptoms after discussion of r/b/a Rx for vaginal estrogen sent after discussion of r/b/a 2) Follow up one year or sooner as needed Dagmar Schroeder [facility]08-19-2024 History of Present illness Narrative* Dagmar Schroeder MD - 12/31/2023 3:08 PM EDT Chanelle is a 53 year old who presents for an annual gynecologic exam with complaints, hot flashes . Was on Gabapentin for this, and it stopped working. Vaginal dryness. Pain with intercourse. Having night sweats as well. Questions if HRT is reasonable option for her. 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 History Comments: Sexual Activity: Yes; Male Contraception: No contraception data on record PAST MEDICAL HISTORY 12/2008: Atypical squamous cells of undetermined significance (ASCUS) on Papanicolaou smear of cervix No date: Hot flashes No date: Hyperlipemia No date: Menometrorrhagia 2009: Vaginal inclusion cystPAST SURGICAL HISTORY 04/20/2023: ANKLE SURGERY HX; Right Comment: screws and plates 2019: COLONOSCOPY SCREENING 04/19/2011: D&C, DIAG AND/OR THERAPEUTIC No date: EXTRACTION ERUPTED TOOTH/EXR 2018: HEMORRHOIDECTOMY Comment: in office No date: PAST SURGICAL HISTORY OF; Right Comment: excision of lipoma-forearm 2019: REVISE MEDIAN N/CARPAL TUNNEL SURG; Right FAMILY HISTORY Problem Relation Age of Onset Ovarian cancer Mother 65 Cancer Father other (neuro endocrine cancer) Sister SOCIAL HISTORY Social History Tobacco Use Smoking status: Never Smokeless tobacco: Never Vaping Use Vaping status: Never Used Substance Use Topics Alcohol use: Yes Comment: some Drug use: Never REVIEW OF SYSTEMS Abdomen: No abdominal pain, nausea, vomiting, diarrhea, or constipation. No bloating, early satiety, indigestion, or increased flatulence. Bladder: No dysuria, gross hematuria, urinary frequency, urinary urgency, or incontinence Breast: No breast lumps, nipple d/c, overlying skin changes, redness or skin retraction Allergies and current medication updated:Yes EXAM: BP 142/88 Ht 5' 3.5 (1.61m) Wt 169 lb (76.7kg) BMI 29.46 kg/(m^2). GENERAL: pleasant, female in no apparent distress HEENT: Normocephalic and atraumatic NECK: full range of motion DERMATOLOGY: Normal, without lesions, non-icteric, and non-hirsute BREAST: soft, non-tender, symmetric, no dominant mass, normal nipple-areolar complex, no lymphadenopathy, and no nipple discharge CHEST: Normal inspiratory effort ABDOMEN: soft, non-tender, and no masses PELVIC: external genitalia atrophic, normal Bartholin's glands, urethra, Bouton's glands, no vulvar lesions, no cervical lesions, good vaginal support, physiologic discharge present, normal appearing perineal body and perianal region, vaginal atrophy noted BIMANUAL: uterus normal size, shape and consistency, no adnexal masses, and non-tender RECTOVAGINAL: deferred. NEURO: exam grossly non-focal EXTREMITIES: normal ASSESSMENT/PLAN: 1) Health maintenance: Pap/HPV up to date. Mammogram ordered to be completed at [facility] Nutrition, exercise and routine health maintenance exams reviewed. Colon cancer screening: up to date with screening TSH/lipids/glucose: followed by PCP Information given on non hormonal treatment options and HRT for menopausal symptoms after discussion of r/b/a Rx for vaginal estrogen sent after discussion of r/b/a 2) Follow up one year or sooner as needed Dagmar Schroeder DO documented in this encounterWhite Hospital04-08-2024 Discharge summary Author Janak Vidal [facility] August 20, 2023 9:46am Note Date/Time August 20, 2023 9:46 am [facility] Physical [facility] [place] [address] / REHABILITATION SERVICES DISCHARGE SUMMARY MR#: [id number] Acct: [id number] Name: CHANELLE GUILLERMO Rep #: [id number] : 1970 53 From: Janak Bobby Referring Dr.: ARIANA Crowder Status: REG R Insurance: [employer] SELF PAY INSURANCE Patient Information Patient Information: CHANELLE GUILLERMO was seen in my office for initial evaluation on 05/16/23. The following Plan of Care was established for this patient: POC Established Initial Frequency: 2x /Week Initial Duration: 6 Weeks Anticipated Interventions Patient/Client Instruction: Educate patient on: Condition, Plan of Care, Risk Factors and Benefits of Fitness Program For the Purpose of:: To improve decision making, To facilitate caregiver knowledge, To improve self management, To prevent re-injury and To improve ability to perform tasks related to life management Therapeutic Exercise to Include: Strength training, Power training, Coordination, Postural training, Flexibilty training, Gait and locomotor training, Passive ROM and Active ROM For the Purpose of:: To decrease pain, To increase ROM, To improve nutrient delivery to tissue, To increase oxygenation perfusion, To improve muscle performance and motor function, To improve ability to perform ADL's, To improve gait and locomotor functions, To improve health of tissue, To decrease soft tissue restriction and To increase flexibility/ROM Last Seen Last Seen: This patient was last seen in our office 06/13/23. Pertinent comments regardingtheir Physical therapy will appear below: Pt. was seen for her ankle ORIF in PT. She was doing very well at her last visit. She was to follow up with PT if needed. She has not been back in several months and will be DC from PT at this point in time. At this point I will be discontinuing this patient from physical therapy. I would be happy to see this patient again in the future if found appropriate by the physician. Thank you! Janak Vidal, DPT Balance/Gait/Functional tests Balance/Special Test Scores Lower Extremity Functional Score: 22 <Electronically signed by Janak Vidal DPT> 08/20/23 0946 CC: ARIANA Crowder; INSURANCE ACCOUNT ASSISTANT-Abad Monroe ~ CLS Signed [facility] Work Phone: 1(248) 967-863807-29-2022 Miscellaneous Notes* Telephone Encounter - MAGO Dawkins - 12/09/2021 9:09 AM EDT Pt would like to use [facility] for appt on 12/12/21 @ 8:40 Please call pt to let her know what time to come in please documented in this encounterWhite Hospital07-27-2022 Miscellaneous Notes* Telephone Encounter - South Zepeda LPN - 12/07/2021 10:26 AM EDT Pt calling to today to make sure her MRI results are available to her ortho provider. She has not seen them come to My Chart yet. Advised her results were in there and provider has not reviewed them yet. Advised her that Dr Mancini's office should be contacting her with results. Pt verbalizes understanding. South Zepeda LPN documented in this encounterWhite Hospital07-26-2022 History of Present illness Narrative* RT Ramón(R) - 12/06/2021 11:20 AM EDT Radiology Service Progress Note PATIENT NAME: Chanelle Guillermo DATE OF SERVICE: December 06, 2021 TIME: 12:13 PM PATIENT IDENTITY VERIFICATION COMPLETED USING TWO (2) IDENTIFIERS: Name and Date of confirmedby patient verbally. FALL SCREENING: Has the patient [...] RT Ramón(R) December 06, 2021 12:13 PM documented in this encounterWhite Hospital07-25-2022 History of Present illness Narrative* Birgit Mancini PA-C - 12/05/2021 4:00 PM EDT Birgit Mancini PA-C Established Patient Department of Orthopaedics Orthopaedics [address] [place] [address] Dept: [phone] December 05, 2021 SUBJECTIVE: CHIEF COMPLAINT: Established Patient and Knee Pain of the Right Knee HPI: Ms. Chanelle Guillermo is a 51 year old female. She [...] HPI Psych: no depression, anxiety OBJECTIVE: Ms. Chanelle Guillermo is a pleasant 51 year old in [...] MRI Birgit Mancini PA-C documented in this encounterWhite Hospital07-07-2022 NotePap Smear Specimen AdequacyJuly 2021 11:59pmComment.Satisfactory for evaluation. Endocervical and/or squamous metaplasticcells (endocervical component)are present.[facility] INTER[facility]ACED A#[id number] Hospital Work Phone: Comment on above:Satisfactory for evaluation. Endocervical and/or squamous metaplasticcells (endocervical component)are present.11-16-2021 Miscellaneous Notes* Telephone Encounter - Isabell Najera RN - 11/16/2021 4:45 PM EDT See [email or web address] message from 11/09/21. * Telephone Encounter - Tim Jane - 11/11/2021 12:55 PM EDT Orthotics ordered. Please have patient peanut picker prescription and she can schedule with [employer] documented in this encounterWhite Hospital07-01-2022 History of Present illness Neha is a 51F presenting to clinic with complaints of R knee pain since June of this year. Shestates that this started after falling onto her knee. She had been doing well with the pain until this November when she felt a pop in her knee while running. She has since been experiencing migrating pain and swelling towards the end of the today. She has tried a intraarticular steroid injection, lastin November at the [facility], which has given her some relief. She has also tried a course of Meloxicam and Tylenol with some relief but the pt is reluctant to stay on medical terminologist medications. She also had an MRI performed showing a R medial meniscal tear. She comes to clinic for a second opinion asshe has been told she is not a surgical candidate for meniscal surgery given her degree of medial compartment arthritis.[facility] [address] Work Phone: 1(195) 149-116307-01-2022 History of Present illness Neha is a 51F presenting to clinic with complaints of R knee pain since June of this year. Shestates that this started after falling onto her knee. She had been doing well with the pain until this November when she felt a pop in her knee while running. She has since been experiencing migrating pain and swelling towards the end of the today. She has tried a intraarticular steroid injection, lastin November at the [facility], which has given her some relief. She has also tried a course of Meloxicam and Tylenol with some relief but the pt is reluctant to stay on longterm medications. She also had an MRI performed showing a R medial meniscal tear. She comes to clinic for a second opinion asshe has been told she is not a surgical candidate for meniscal surgery given her degree of medial co mpartment arthritis.[facility] [address] Work Phone: [phone]) 701-551604-26-2022 Miscellaneous Notes* Telephone Encounter - Birgit Mancini PA-C - 09/06/2021 11:46 AM EDT Noted, thanks Birgit Mancini PA-C * Telephone Encounter - Bailey Sarmiento RN - 09/06/2021 10:52 AM EDT Spoke with pt jihan update: Worked great, solved initial trauma Used it as instructed Asking if she could use on a PRN basis Advised she could Pt verbalized understanding ans will call if she needs anything else documented in this encounterWhite Hospital04-22-2022 History of Present illness Narrative* Devon Lees, PT - 09/02/2021 7:33 AM EDT Episode Visit Count: 3 Therapist That Will Oversee The Plan Of Care: Devon Lees Start of Care Date: 08/10/21 Onset Date: 08/10/18 REHABILITATION AND SPORTS THERAPY PHYSICAL THERAPY TREATMENT NOTE ASSESSMENT: Chanelle Guillermo tolerated the session with expected muscle soreness and no issues. She demonstrated being challenged during single leg bridging today and other new exercises, however showed good form and proper muscle activation. The patient will continue to benefit from ongoing skilled physical therapy to progress toward set goals. PLAN FOR NEXT VISIT: MD SUBJECTIVE: Patient Reason for Visit: Patient reports [...] the patient for the entire session on thisdate. All documentation was reviewed and agreed upon. Devon Lees PT documented in this encounterWhite Hospital04-08-2022 History of Present illness Narrative* Devon Lees PT - 08/19/2021 7:32 AM EDT Episode Visit Count: 2 Therapist That Will Oversee The Plan Of Care: Devon Lees Start of Care Date: 08/10/21 Onset Date: 08/10/18 REHABILITATION AND SPORTS THERAPY PHYSICAL THERAPY TREATMENT NOTE ASSESSMENT: Chanelle Guillermo tolerated the session with decreased pain, expected muscle soreness and noissues. She demonstrated improvements in activity tolerance and decreased symptoms in bilateral knees. The patient will continue to benefit from ongoing skilled physical therapy to progress toward set goals. PLAN FOR NEXT VISIT: Begin squat progression. Focus on dynamic knee valgus control. Progress standing exercises. SUBJECTIVE: Patient Reason for Visit: Patient reports decreased pain in AIDEN knees today. She reports not doing as [...] the patient for the entire session on thisdate. All documentation was reviewed and agreed upon. Devon Lees PT documented in this encounterWhite Hospital03-30-2022 History of Present illness Narrative* Devon Lees PT - 08/10/2021 10:02 AM EDT Episode Visit Count: 1 Therapist That Will Oversee The Plan Of Care: Devon Lees Start of Care Date: 08/10/21 Onset Date: 08/10/18 Patient Identified by Name and Date of : Yes REHABILITATION AND SPORTS THERAPY PHYSICAL THERAPY EVALUATION PLAN OF CARE: Assessment: Chanelle Guillermo presents with chief complaint of R>L knee pain that interferes with walking in the community;stair negotiation;bending;heavy exertion;lifting;physical activities;recreational activities;squatting . She presents with impairments in ADL's, flexibility, independence in exercise, overall function, range of motion, and strength. Prognosis for therapy is Good due to: currentobjective clinical presentation;good overall health status;within-session changes;good support system/ coping skills . She will benefit from skilled therapy services to meet the goals established forthis plan of care as noted below. Goals for Episode of Care: created on 08/10/21 through 10/10/21 [place] in home exercise program. Patient will decrease pain rating by 2 points to meet minimal clinical important difference for numeric pain rating scale. Patient will increase active ROM of R knee to = L or with 5 total degrees to allow pt to to improveperformance of ADLs. Patient will demonstrate increase in BLE strength to 4+ to 5/5 during manual muscle testing in order to improve function for basic self-care tasks, home management tasks, leisure / recreation skills,light functional tasks, moderate to heavy functional tasks and prior functional tasks. Perform squatting and hiking with decreased report of symptoms/pain in 4-6 weeks. Perform ADLs without pain. Improve postural awareness. Planned Interventions, Frequency, and Duration: Current Frequency: 1x/week Duration: 6 weeks Total Number of Visits Planned: 6 Planned Treatment Interventions: Therapeutic exercise (45275);Neuromuscular re- education (83016);Manual therapy (71692);Therapeutic activities (41080);Self- mcfp management (10934);Patient/Family/Caregiver Education;Body Mechanics Training PLAN FOR NEXT VISIT: Assess HEP carry over, will work on decreasing dynamic valgus with heel taps and squatting Patient demonstrates good understanding of plan of care and treatment. The above goals and plan of care were discussed and agreed upon by patient/family. SUBJECTIVE: Chanelle Guillermo is a 51 year old female seen [...] 40 Devon Lees PT documented in this encounterWhite Hospital03-25-2022 History of Present illness Narrative* Birgit Mancini PA-C - 08/05/2021 10:01 AM EDT Birgit Mancini PA-C Department of Orthopaedics Orthopaedics [address] [address] Dept: [phone] August 05, 2021 SUBJECTIVE: CHIEF COMPLAINT: New and Knee Pain of the Right Knee and New and Knee Pain of the Left Knee HPI: Ms. Chanelle Guillermo is a 51 year old female. She presents today with bilateral knee pain that hasbeen present for year. Today she rates her pain a 1 on a scale of 0 to 10. She describes the pain at rest as dull and tight. She describes the pain as sharp with squatting and when navigating down hill. She takes ibuprofenas needed for the pain. She does wear [...] HPI Psych: no depression, anxiety OBJECTIVE: Ms. Chanelle Guillermo is a pleasant 51 year old in [...] on the right compared to the left.. Contact Lens Technician: PSCLaura Transcribe Date/Time: Aug 05 2021 10:12A Dictated by : MORRIS CALDERÓN MD This examination was interpreted and the report reviewed and electronically signed by: MORRIS CALDERÓN MD on Aug 05 2021 10:16AM EST Results-Findings * * *Final Report* * * DATE OF EXAM: Aug 05 2021 9:15AM CHANG 5618 - XR KNEE 4V AP/PA/LAT/MERCH AIDEN / PROCEDURE REASON: [id number] * * * * Physician Interpretation * * * * Knee radiographs HISTORY: 51 years old Clinical information: Pain BILATERAL KNEE PAIN TECHNIQUE: Images: XR KNEE 4V AP/PA/LAT/MERCH AIDEN Comparison: None. RESULT: Findings: LEFT KNEE: Mild [...] for mobic sent to pharmacy. Patient agreeable withplan and will follow up as needed. FOLLOW UP INSTRUCTIONS: As needed Birgit Mancini PA-C documented in this encounterWhite Hospital03-25-2022 History of Present illness Narrative* Barbara Mirza, REMY - 08/05/2021 9:30 AM EDT Radiology Service Progress Note PATIENT NAME: Chanelle Guillermo DATE OF SERVICE: August 05, 2021 TIME: 9:15 AM PATIENT IDENTITY VERIFICATION COMPLETED USING TWO (2) IDENTIFIERS: Name and Date of confirmedby patient verbally. FALL SCREENING: Has the patient had 2 falls in the last year or 1 fall with injury or currently using an Ambulatory Assistive Device (Walker, Cane, Wheelchair, Crutches, etc.)? No PATIENT GENDER DATA: Female. status: : No status: NO. PATIENT RELEVANT IMPLANT DATA REVIEWED: Not Applicable RADIOLOGY DEPARTMENT: General X-ray: Exam(s) Completed: Lower Extremity X- Ray(s): Knee, AP / Lat / Tunne / Merchant Bilateral and Wt. Bearing PERIPHERAL IV DATA: Not applicable SIGNED BY: REMY Armijo August 05, 2021 9:15 AM documented in this encounterWhite HospitalChi complaint Narrative - Reported Patient here for initial evaluation of Right Knee Pain. -mv- XV-Nlardpyvxqre-[facility] Work Phone: Chief complaint Narrative - ReportedPatient here for initial evaluation of Right Knee Pain. -hz-QV-Muexgcylrjzq-[place] [facility] Work Phone: Evaluation note* Diagnosis Bilateral primary osteoarthritis of knee- Primary documented in this encounter [facility] note* Diagnosis Bilateral primary osteoarthritis of knee- Primary documented in this encounter [facility] note* Diagnosis Pain Generalized pain documented in this encounter [facility] note* Diagnosis Bilateral primary osteoarthritis of knee- Primary documented in this encounter [facility] note* Diagnosis Bilateral primary osteoarthritis of knee documented in this encounter [facility] note* Diagnosis Bilateral primary osteoarthritis of knee- Primary documented in this encounter [facility] note* Diagnosis Posterior tibial tendon dysfunction- Primary Other disorders of synovium, tendon, and bursa Arthritis of ankle Unspecified arthropathy, ankle and foot documented in this encounter [facility] noteNo assessment information availableWCleveland Clinic Work Phone: Evaluation note* Diagnosis Primary osteoarthritis of right knee- Primary Primary localized osteoarthrosis, lower leg Chronic pain of right knee documented in this encounter [facility] note* Diagnosis Primary osteoarthritis of right knee Primary localized osteoarthrosis, lower leg Chronic pain of right knee documented in this encounter [facility] note* Diagnosis Primary osteoarthritis of right knee Primary localized osteoarthrosis, lower leg Chronic pain of right knee documented in this encounter [facility] note* Diagnosis Primary osteoarthritis of right knee Primary localized osteoarthrosis, lower leg Chronic pain of right knee documented in this encounter [facility] note* Diagnosis Encounter for long-term (current) use of medications- Primary Encounter for long-term (current) use of other medications [facility] Pain- Primary Generalized pain documented in this encounter [facility] note* Diagnosis Onset Date Resolution Status Bimalleolar fracture of right ankle acute [facility] Work Phone: Evaluation note* Diagnosis Onset Date Resolution Status Hypertension chronic [facility] Work Phone: Evaluation note* Diagnosis Encounter for gynecological examination (general) (routine) without abnormal findings- Primary Encounter for screening mammogram for breast cancer Dense breast tissue documented in this encounter [facility] note No assessment recorded. [place] - [facility] Evaluation note* Diagnosis Family history of cancer- Primary Family history of unspecified malignant neoplasm Hot flashes Symptomatic menopausal or female climacteric states Vaginal dryness Other specified symptom associated with female genital organs Low libido Decreased libido Difficulty sleeping Sleep disturbance, unspecified documented in this encounter [facility] general Narrative - ReportedNo medical history recorded. Gynecological History Statement/Question Response If Post Menopausal, Age at Menopause 47 Date of Last Pap Smear Obstetrics History GPAL:G 0 P 0 0 0 0 [place] - [facility] History of Present illness [id number]-dpvt-[id number] female referred by Dr. Luke for right knee viscosupplementation. Patient has known [...] the past few months. She feels as though her right knee is worse than her left, however her left is now becoming progressively worse.[facility] [address] DO Work Phone: Reason for referral (narrative)* Diagnostic Procedure Only (Routine) - Closed Specialty Diagnoses / Procedures Referred By Archie bobby Referred To Contact XR IMAGING Diagnoses Pain Procedures XR KNEE GENERAL 4V AP BOTH/PA BOTH/LAT/MERC BILATERAL RADIOLOGIC EXAM KNEE COMPLETE 4/MORE VIEWS Toni Echeverria MD [address] [address] Xr Imaging Referral ID Status Reason Start Date Expiration Date V isits Requested Visits Authorized [id number] Closed Auto-Generate d Referral 06/28/2021 07/28/2022 1 1 [facility] for referral (narrative)* Diagnostic Procedure Only (Routine) - Authorized Specialty Diagnoses / Procedures Referred By Contac t Referred To Contact XR IMAGING Diagnoses Pain Procedures XR FOOT GENERAL 3V AP/LAT/OBL RIGHT RADEX FOOT COMPLETE MINIMUM 3 VIEWS Tomas Olivera MD [address] [place] [address] [place] [address] Referral ID Status Reason Start Date Expiration Date Visits Requested Visits Authorized [id number] Authorized Auto-Generat ed Referral 3 05/08/2024 1 1 * Diagnostic Procedure Only (Routine) - Authorized Specialty Diagnoses / Procedures Referred By Contac t Referred To Contact XR IMAGING Diagnoses Pain Procedures XR ANKLE GENERAL 3V AP/LAT/OBL RIGHT RADEX ANKLE COMPLETE MINIMUM 3 VIEWS Tomas Olivera MD [address] [place] [address] [place] [address] Referral ID Status Reason Start Date Expiration Date Visits Requested Visits Authorized [id number] Authorized Auto-Generat ed Referral 3 05/08/2024 1 1 [facility] for referral (narrative)* Diagnostic Procedure Only (Routine) - New Request Specialty Diagnoses / Procedures Referred By Contac t Referred To Contact BR IMAGING Diagnoses Encounter for screening mammogram for breast cancer Dense breast tissue Procedures TOM SCREENING W CORONA SCREENING DIGITAL BREAST TOMOSYNTHESIS BI SCREENING MAMMOGRAPHY BI 2-VIEW BREAST INC CAD Dagmar Schroeder MD [address] [place] [address] Br Imaging [address] [place] [address] Referral ID Status Reason Start Date Expiration Date Visits Requested Visits Authorized [id number] New Request Auto-Generat ed Referral 12/31/2023 01/29/2025 1 1 * Diagnostic Procedure Only (Routine) - New Request Specialty Diagnoses / Procedures Referred By Archie bobby Referred To Contact BR IMAGING Diagnoses Encounter for gynecological examination (general) (routine) without abnormal findings Encounter for screening mammogram for breast cancer Dense breast tissue Procedures TOM SCREENING W CORONA SCREENING DIGITAL BREAST TOMOSYNTHESIS BI SCREENING MAMMOGRAPHY BI 2-VIEW BREAST INC CAD Dagmar Schroeder MD [address] [place] [address] Br [facility] [address] [place] [address] Referral ID Status Reason Start Date Expiration Date Visits Requested Visits Authorized [id number] New Request Auto-Generat ed Referral 12/31/2023 01/29/2025 1 1 [facility] (narrative)No reason for referral information availableWCleveland Clinic Work Phone: Reason for visit Narrative* Diagnostic Procedure Only (Routine) - Closed Specialty Diagnoses / Procedures Referred By Archie bobby Referred To Contact XR IMAGING Diagnoses Pain Procedures XR KNEE GENERAL 4V AP BOTH/PA BOTH/LAT/MERC BILATERAL RADIOLOGIC EXAM KNEE COMPLETE 4/MORE VIEWS Toni Echeverria MD [address] [id number] Xr Imaging Referral ID Status Reason Start Date Expiration Date V isits Requested Visits Authorized [id number] Closed Auto-Generate d Referral 06/28/2021 07/28/2022 1 1 [facility] Reason for Referral Specialty Diagnoses / Procedures Referred By Archie bobby Referred To Contact [facility] Diagnoses Bilateral primary osteoarthritis of knee Procedures CONSULT TO PHYSICAL THERAPY PHYSICAL THERAPY EVALUATION HIGH COMPLEX 45 MINS Birgit Mancini PA-C [address] [place] [address] [facility] [address] [place] [address] Referral ID Status Reason Start Date Expiration Date Visits Requested Visits Authorized [id number] Pending Review Auto-Generat ed Referral 08/05/2021 08/05/2022 1 1 Specialty Diagnoses / Procedures Referred By Archie bobby Referred To Contact [facility] IMAGING Diagnoses Primary osteoarthritis of right knee Chronic pain of right knee Procedures MRI KNEE WO IVCON RT MRI ANY JT LOWER EXTREM W/O CONTRAST Birgit Emerson PA-C [address] [place] [address] Mr Imaging Referral ID Status Reason Start Date Expiration Date Visits Requested Visits Authorized [id number] Authorized Auto-Generat ed Referral 12/05/2021 01/04/2023 1 1 Referral ID Status Reason Start Date Expiration Date V isits Requested Visits Authorized [id number] Closed Auto-Generate d Referral 12/05/2021 01/04/2023 1 1 Family History No Family History Records Found Relationship Condition Age at Onset Recorded Date/T jas father Non-Hodgkin's lymphoma Unknown mother Malignant neoplasm of ovary Unknown Notes:*Relative: Father*Prob kia: , NHL *Relative: Mother*Problem: alive, ovarian cancer *Relative: Unspecified Relation*Problem: alive, sister-atypical neuroendocrine cancer(thymus)Relative: 'Siblings'; Relationship Condition Age at Onset Recorded Date/T jas father Non-Hodgkin's lymphoma Unknown mother Malignant neoplasm of ovary Unknown sister Malignant neoplasm Unknown Advance Directives No Advanced Directives Records Found Advance Directive Response Recorded Date/ Time Living Will No September 05, 2018 3:31pm Power of Spinning Lathe Operator Automatic No September 05 3:31pm Advance Directive Response Recorded Date/ Time Living Will No September 05, 2018 2:31pm Power of Spinning Lathe Operator Automatic No September 05 2:31pm Advance Directive Response Recorded Date/ Time Living Will No April 16 1:02pm Power of Spinning Lathe Operator Automatic No April 16, 2023 1:02pm Advance Directive Response Recorded Date/ Time Living Will No April 16 2:02pm Power of Spinning Lathe Operator Automatic No April 16, 2023 2:02pm Summary Purpose Chief Complaint and Reason for Visit Chief Complaint SCREENING Chief Complaint LUMP IN RIGHT BREAST Chief Complaint LUMP IN RIGHT BREAST ANKLE FX Chief Complaint ANKLE FX PREOP ORIF, right ankle fracture FX R LOWER LEG RX HERE ABNORMAL EKG Reason for Visit Bimalleolar fracture of right ankle Chief Complaint ANKLE FX PREOP ORIF, right ankle fracture ABNORMAL EKG ABNORMAL BI FX R LOWER LEG RX HERE Reason for Visit Bimalleolar fracture of right ankle Chief Complaint ABNORMAL EKG ABNORMAL BI FX R LOWER LEG RX HERE HTN (MONROE) Reason for Visit Hypertension Chief Complaint Admit Date FX OF LOWER LEG RX HERE August 13, 2024 8:00am Chief Complaint Pt is here today for a aiden knee visco consult ref by alonzo. Additional Source Comments Source Comments (unrecognize d section and content) In the event this informatio n is protected by the Federal Confidentiality of Alcohol and Drug Abuse Patient Records regulations: The Federal rules restrict any use of the information to criminally investigate or prosecute any alcohol or drug abuse patient.[facility] the event this information is protected by the Federal Confidentiality of Alcohol and Drug Abuse Patient Records regulations: The Federal rules restrict any use of the information to criminally investigate or prosecute any alcohol or drug abuse patient.[facility] the event this information is protected by the Federal Confidentiality of Alcohol and Drug Abuse Patient Records regulations: The Federal rules restrict any use of the information to criminally investigate or prosecute any alcohol or drug abuse patient.[facility] the event this information is protected by the Federal Confidentiality of Alcohol and Drug Abuse Patient Records regulations: The Federal rules restrict any use of the information to criminally investigate or prosecute any alcohol or drug abuse patient.[facility] the event this information is protected by the Federal Confidentiality of Alcohol and Drug Abuse Patient Records regulations: The Federal rules restrict any use of the information to criminally investigate or prosecute any alcohol or drug abuse patient.[facility] the event this information is protected by the Federal Confidentiality of Alcohol and Drug Abuse Patient Records regulations: The Federal rules restrict any use of the information to criminally investigate or prosecute any alcohol or drug abuse patient.[facility] HospitalIn the event this information is protected by the Federal Confidentiality of Alcohol and Drug Abuse Patient Records regulations: The Federal rules restrict any use of the information to criminally investigate or prosecute any alcohol or drug abuse patient.[facility] the event this information is protected by the Federal Confidentiality of Alcohol and Drug Abuse Patient Records regulations: The Federal rules restrict any use of the information to criminally investigate or prosecute any alcohol or drug abuse patient.[facility] Hospital[facility] the event this information is protected by the Federal Confidentiality of Alcohol and Drug Abuse Patient Records regulations: The Federal rules restrict any use of the information to criminally investigate or prosecute any alcohol or drug abuse patient.[facility] Hospital[facility] the event this information is protected by the Federal Confidentiality of Alcohol and Drug Abuse Patient Records regulations: The Federal rules restrict any use of the information to criminally investigate or prosecute any alcohol or drug abuse patient.[facility] Hospital[facility] the event this information is protected by the Federal Confidentiality of Alcohol and Drug Abuse Patient Records regulations: The Federal rules restrict any use of the information to criminally investigate or prosecute any alcohol or drug abuse patient.[facility] HospitalIn the event this information is protected by the Federal Confidentiality of Alcohol and Drug Abuse Patient Records regulations: The Federal rules restrict any use of the information to criminally investigate or prosecute any alcohol or drug abuse patient.[facility] HospitalIn the event this information is protected by the Federal Confidentiality of Alcohol and Drug Abuse Patient Records regulations: The Federal rules restrict any use of the information to criminally investigate or prosecute any alcohol or drug abuse patient.[facility] HospitalIn the event this information is protected by the Federal Confidentiality of Alcohol and Drug Abuse Patient Records regulations: The Federal rules restrict any use of the information to criminally investigate or prosecute any alcohol or drug abuse patient.[facility] HospitalIn the event this information is protected by the Federal Confidentiality of Alcohol and Drug Abuse Patient Records regulations: The Federal rules restrict any use of the information to criminally investigate or prosecute any alcohol or drug abuse patient.[facility] HospitalIn the event this information is protected by the Federal Confidentiality of Alcohol and Drug Abuse Patient Records regulations: The Federal rules restrict any use of the information to criminally investigate or prosecute any alcohol or drug abuse patient.[facility] HospitalIn the event this information is protected by the Federal Confidentiality of Alcohol and Drug Abuse Patient Records regulations: The Federal rules restrict any use of the information to criminally investigate or prosecute any alcohol or drug abuse patient.[facility] HospitalIn the event this information is protected by the Federal Confidentiality of Alcohol and Drug Abuse Patient Records regulations: The Federal rules restrict any use of the information to criminally investigate or prosecute any alcohol or drug abuse patient.[facility] HospitalIn the event this information is protected by the Federal Confidentiality of Alcohol and Drug Abuse Patient Records regulations: The Federal rules restrict any use of the information to criminally investigate or prosecute any alcohol or drug abuse patient.[facility] HospitalIn the event this information is protected by the Federal Confidentiality of Alcohol and Drug Abuse Patient Records regulations: The Federal rules restrict any use of the information to criminally investigate or prosecute any alcohol or drug abuse patient.[facility] HospitalIn the event this information is protected by the Federal Confidentiality of Alcohol and Drug Abuse Patient Records regulations: The Federal rules restrict any use of the information to criminally investigate or prosecute any alcohol or drug abuse patient.[facility] HospitalIn the event this information is protected by the Federal Confidentiality of Alcohol and Drug Abuse Patient Records regulations: The Federal rules restrict any use of the information to criminally investigate or prosecute any alcohol or drug abuse patient.[facility] HospitalIn the event this information is protected by the Federal Confidentiality of Alcohol and Drug Abuse Patient Records regulations: The Federal rules restrict any use of the information to criminally investigate or prosecute any alcohol or drug abuse patient.[facility] Reason for Visit (unrecogniz ed section and content) Reason Comments Physical Therapy Specialty Diagnoses / Procedures Referred By Archie bobby Referred To Contact [facility] Diagnoses Bilateral primary osteoarthritis of knee Procedures CONSULT TO PHYSICAL THERAPY PHYSICAL THERAPY EVALUATION HIGH COMPLEX 45 MINS Birgit Mancini PA-C [address] [place] [address] [facility] [address] [place] [address] Referral ID Status Reason Start Date Expiration Date Visits Requested Visits Authorized [id number] Authorized Auto-Generat ed Referral 08/05/2021 2022 30 [...] EXTREM W/O CONTRAST MATRL Birgit Mancini PA-C [address] [place] [address] Mr Imaging Referral ID Status Reason Start Date Expiration Date V isits Requested Visits Authorized [id number] Closed Auto-Generate d Referral 12/05/2021 01/04/2023 1 1 Reason Comments Results Reason Comments Opened In Error Reason Comments Appointment Reason Comments Yearly Exam Reason Comments Med Change Request Reason Comments Follow Up Discuss hormone ther apy Care Teams (unrecognized sec tion and content) Internet Systems Administrator Relationship Specialty Start Date End Date Koffi Watt MD PCP - General Family Practice 10/21/15 Internet Systems Administrator Relationship Specialty Start Date End Date Koffi Watt MD PCP - General Family Practice 10/21/15 Internet Systems Administrator Relationship Specialty Start Date End Date Koffi Watt MD PCP - General Family Practice 10/21/15 Internet Systems Administrator Relationship Specialty Start Date End Date Koffi Watt MD PCP - General Family Practice 10/21/15 Internet Systems Administrator Relationship Specialty Start Date End Date Koffi Watt MD PCP - General Family Practice 10/21/15 Internet Systems Administrator Relationship Specialty Start Date End Date Koffi Watt MD PCP - General Family Practice 10/21/15 Internet Systems Administrator Relationship Specialty Start Date End Date Koffi Watt MD PCP - General Family Practice 10/21/15 Internet Systems Administrator Relationship Specialty Start Date End Date Koffi Watt MD PCP - General Family Practice 10/21/15 Internet Systems Administrator Relationship Specialty Start Date End Date Koffi Watt MD PCP - General Family Practice 10/21/15 Internet Systems Administrator Relationship Specialty Start Date End Date Koffi Watt MD PCP - General Family Practice 10/21/15 Internet Systems Administrator Relationship Specialty Start Date End Date Koffi Watt MD PCP - General Family Practice 10/21/15 Internet Systems Administrator Relationship Specialty Start Date End Date Koffi Watt MD PCP - General Family Practice 10/21/15 Internet Systems Administrator Relationship Specialty Start Date End Date Koffi Watt MD PCP - General Family Medicine 10/21/15 Internet Systems Administrator Relationship Specialty Start Date End Date Koffi Watt MD PCP - General Family Medicine 10/21/15 Team Status: Active Member Role Status Dates Dr. Koffi Watt MD Family Provider Active Dr. Koffi Watt MD Primary Care Provider Active Team Status: Inactive Member Role Status Dates Dr. Koffi Watt MD Primary Care Provider Active Dr. Gustavo Schmidt MD Attending Provider, Referring Pr ovider Active Internet Systems Administrator Relationship Specialty Start Date End Date Koffi Watt MD PCP - General Family Medicine 10/21/15 Team Status: Inactive Member Role Status Dates Dr. Koffi Watt MD Primary Care Provider Active Misa Monroe INSURANCE ACCOUNT ASSISTANT, INSURANCE ACCOUNT ASSISTANT-C Attending Provider, Referring Provi nani Active Dr. Jono Crowder DPM Other Provider Active Team Status: Active Member Role Status Dates Dr. Koffi Watt MD Family Provider Active Misa Monroe INSURANCE ACCOUNT ASSISTANT, INSURANCE ACCOUNT ASSISTANT-C Primary Care Provider Active Team Status: Active Member Role Status Dates Dr. Koffi Watt MD Primary Care Provider Active Dr. Beni Fuller MD Attending Provider Active Misa Monroe INSURANCE ACCOUNT ASSISTANT, INSURANCE ACCOUNT ASSISTANT-C Referring Provider Active Team Status: Active Member Role Status Dates Misa Monroe INSURANCE ACCOUNT ASSISTANT, INSURANCE ACCOUNT ASSISTANT-C Primary Care Provider Active Dr. Beni Fuller MD Attending Provider Active Team Status: Inactive Member Role Status Dates Dr. Jono Crowder DPM Attending Provider, Referring Provider Active Misa Patiñone INSURANCE ACCOUNT ASSISTANT, INSURANCE ACCOUNT ASSISTANT-C Primary Care Provider Active Team Status: Inactive Member Role Status Dates Misa Monroe INSURANCE ACCOUNT ASSISTANT, INSURANCE ACCOUNT ASSISTANT-C Primary Care Provide r, Attending Provider, Referring Provider Active Team Status: Active Member Role Status Dates Misa Monroe INSURANCE ACCOUNT ASSISTANT, INSURANCE ACCOUNT ASSISTANT-C Primary Care Provider Active Dr. Jono Crowder DPM Attending Provider, Referring Provider Active Team Status: Inactive Member Role Status Dates Misa Monroe INSURANCE ACCOUNT ASSISTANT, INSURANCE ACCOUNT ASSISTANT-C Primary Care Provider Active Dr. Dagmar Schroeder DO Attending Provider, Referring Pr ovider Active Team Status: Inactive Member Role Status Dates Misa Monroe INSURANCE ACCOUNT ASSISTANT, INSURANCE ACCOUNT ASSISTANT-C Primary Care Provider, Referring Pr ovider Active Dr. Beni Fuller MD Attending Provider Active Team Status: Inactive Member Role Status Dates Misa Monroe NP, INSURANCE ACCOUNT ASSISTANT-C Primary Care Provider Active Dr. Jono Crowder DPM Attending Provider, Referring Provider Active Internet Systems Administrator Relationship Specialty Start Date End Date Koffi Watt MD PCP - General Family Medicine 10/21/15 Internet Systems Administrator Relationship Specialty Start Date End Date Koffi Watt MD PCP - General Family Medicine 10/21/15 Internet Systems Administrator Relationship Specialty Start Date End Date Koffi Watt MD PCP - General Family Medicine 10/21/15 Internet Systems Administrator Relationship Specialty Start Date End Date Koffi Watt MD PCP - General Family Medicine 10/21/15 Team Status: Active Member Role Status Dates JHONY Roth Primary Care Provider Active Team Status: Inactive Member Role Status Dates JHONY Roth Primary Care Provider Active Start: August 13, 2024 End: August 13, 2024 Dr. Jono Crowder DPM Attending Provider Active Start: August 13, 2024 End: August 13, 2024 Dr. Jono Crowder DPM Referring Provider Active Start: August 13, 2024 End: August 13, 2024 Goals (unrecognized section and content) Goals may be documented in a n alternate sectionGoals may be documented in an alternate sectionGoals may be documented in an alternate sectionGoals may be documented in an alternate sectionGoals may be documented in an alternate sectionNone RecordedGoals may be documented in an alternate section INFORMATION SOURCE (unrecogn ized section and content) DATE CREATED AUTHOR 01/14/2022 [facility] DATE CREATED AUTHOR AUTHOR'S ORGANIZ ATION 06/13/2022 [facility] DATE CREATED AUTHOR AUTHOR'S ORGANIZ ATION 06/13/2022 [place] DATE CREATED AUTHOR AUTHOR'S ORGANIZ ATION 10/08/2024 [facility] DATE CREATED AUTHOR AUTHOR'S JOSÉ RUANO 10/17/2024 [facility] FOR RECORDS PERTAINING TO PATIENTS WHO ARE [...] BE BASED ON THE PRIMARY CLINICAL RECORDS. [facility]. provides no warranty or guarantee of the accuracy or completeness of information in this document.
--- NOTE | 2024-10-27 17:53 | CA.SCORE ---
Calcium Scoring Date of Study:: 10/20/24 Indications Indications: HLD Coronary Calcium Scoring: High-resolution Computed Tomographic imaging of the chest was performed on [ 10/20/24], with particular attention paid to the coronary arteries. Images from the examination were analyzed for the presence and extent of coronary artery calcification , using coronary calcium quantification software. The patient tolerated the procedure well and there were no complications. The results of the coronary calcification analysis are provided below. Findings Coronary Artery Left Main (LM): 0 Left Anterior Descending (LAD): 0 Left Circumflex (LCX): 0 Right Coronary Artery (RCA): 0 Total Agatston Score: 0 Percentile Rankin% Calcium Scoring Interpretation: Different methods to categorize the overall amount of coronary plaque. Overall amount CAC SIS Visual of coronary plaque P1 Mild -100 <2 1-2 vessels with mild amount of plaque P2 Moderate 101-300 3-4 1-2 vessels with moderate amount, 3 vessels with mild amount of plaque P3 Severe 301-999 5-7 3 vessels with moderate amount, 1 vessel with severe amount of plaque P4 Extensive >1000 >8 2-3 vessels with severe amount of plaque Conclusion: No atherosclerotic plaquing
== END | disposition home or self-care (01) ==
PROVIDERS: PCP Nurse Practitioner Family; Referring Provider Nurse Practitioner Family; Visit Provider Nurse Practitioner Family
DX: E78.5 Hyperlipidemia, unspecified (principal)
CPT/HCPCS: 75571; 76380

== ENCOUNTER 2024-11-26 18:00 | Outpatient (RCR) | payer OTHER, SELFPAY | END 2024-11-26 19:00 | disposition home or self-care (01) | LOC: PT 18:00 | PROVIDERS: PCP Nurse Practitioner Family; Referring Provider Student in an Organized Health Care Education/Training Program; Visit Provider Student in an Organized Health Care Education/Training Program | DX: M76.821 Posterior tibial tendinitis, right leg (principal) ==

== ENCOUNTER → 2025-02-05 | Outpatient (CLI) | payer OTHER, SELFPAY ==
--- NOTE | 2025-02-05 07:52 | BI_ITS ---
EXAM: SCRN MAMM (CAD)W/CORONA BILAT DATE: 02/05/2025 CLINICAL HISTORY: F, Age 54 y/o , SCREENING TECHNIQUE: Procedure Code: [id number] Modality: MG Procedure: SCRN MAMM (CAD)W/CORONA BILAT COMPARISON: Prior exam(s) were compared FINDINGS: TISSUE DENSITY: The breasts are heterogeneously dense, which may obscure small masses. Bilateral Breast Mammographic Findings: No suspicious masses, calcifications or other abnormalities are identified. BI/SCRN MAMM (CAD)W/CORONA BILAT IMPRESSION: No mammographic evidence of malignancy in either breast. OVERALL FINAL ASSESSMENT BI-RADS 1: NEGATIVE. RECOMMENDATION: Routine annual follow-up in 1 Year Additional Recommendation none A letter with findings and recommendations will be mailed to the patient. Reading Location: [id number]
--- NOTE | 2025-02-05 07:52 | BI_ITS ---
EXAM: SCRN MAMM (CAD)W/CORONA BILAT DATE: 02/05/2025 CLINICAL HISTORY: F, Age 54 y/o , SCREENING TECHNIQUE: Procedure Code: [id number] Modality: MG Procedure: SCRN MAMM (CAD)W/CORONA BILAT COMPARISON: Prior exam(s) were compared FINDINGS: TISSUE DENSITY: The breasts are heterogeneously dense, which may obscure small masses. Bilateral Breast Mammographic Findings: No suspicious masses, calcifications or other abnormalities are identified. BI/SCRN MAMM (CAD)W/CORONA BILAT IMPRESSION: No mammographic evidence of malignancy in either breast. OVERALL FINAL ASSESSMENT BI-RADS 1: NEGATIVE. RECOMMENDATION: Routine annual follow-up in 1 Year Additional Recommendation none A letter with findings and recommendations will be mailed to the patient. Reading Location: [id number]
--- OUTSIDE RECORDS SUMMARY | 2025-02-05 08:13 | XMS RPT_ITS | CCD ---
Author Organization [facility] Care Team Providers Care Home Care Nurse Name Role Phone Magalis REYNOSO, Manjinder Calle Unavailable Shukri HOPE, Koffi Hinkle Primary Care Provider Koffi Watt MD Primary Care Provider Unknown, Referring Provider Unavailable Unav ailable Shukri HOPE, Koffi Hinkle Primary Care Provider [phone] None, No PCP Unavailable Unavailable Self, Referral Referring Unavailable UNKNOWN, PCP Primary Care Unavailable SALATA, Dr. CACHORRO VEGA Attending Jeny vailable Berlin, Dr. Norman Wolf Referring Unavai lable Berlin, Dr. Norman Wolf Attending Unavai lable [place], Dr. Norman Wolf Attending Unavai lable UNKNOWN, PCP Primary Care Unavailable SALATA, Dr. CACHORRO VEGA Referring Jeny vailable UNKNOWN, PCP Primary Care Unavailable [place], Dr. Norman Wolf Attending Koffi Daniel MD Primary Care Provider Dr. Koffi Watt Primary Care Provider Dr. Beni Fuller Attending Provider [place] HUMAN CAPITAL MANAGER, HUMAN CAPITAL MANAGER-C Misa Referring Provider [phone] [place] HUMAN CAPITAL MANAGER, HUMAN CAPITAL MANAGER-C Misa Primary Care Provider [place] HUMAN CAPITAL MANAGER, HUMAN CAPITAL MANAGER-C Misa Primary Care Provider Dr. Beni Fuller Attending Provider [place] HUMAN CAPITAL MANAGER, HUMAN CAPITAL MANAGER-C Misa Referring Provider Koffi Watt MD Primary Care Provider Koffi Watt MD Primary Care Provider Isauro HUMAN CAPITAL MANAGER-C, Skylar Primary Care Provider Vel DPCindy, Dr. De La Cruz Attending Provider Vel DPM, Dr. De La Cruz Referring Provider [phone] Isauro HUMAN CAPITAL MANAGER-C, Skylar Attending Provider Isauro HUMAN CAPITAL MANAGER-C, Skylar Referring Provider Isauro HUMAN CAPITAL MANAGER-C, Skylar Primary Care Physician Isauro HUMAN CAPITAL MANAGER-C, Skylar Attending Physician Isauro HUMAN CAPITAL MANAGER-C, Skylar Nurse Practitioner Alina HOPE, Dr. Bazan Attending Physician Gaurang DANGM, Dr. Ramos Attending Physician Gaurang DPCindy, Dr. Ramos Referring Provider [phone] Jono Crowder Referring Unavailable Isauro, Skylar Primary Care Unavailable Jono Crowder Attending Unavailable Jono Crowder Referring Unavailable Isauro, Skylar Primary Care Unavailable Jono Crowder Attending Unavailable Beni Fuller Attending Unavailable Isauro, Skylar Referring Unavailable Isauro, Skylar Primary Care Unavailable Isauro, Skylar Consulting Unavailable Beni Fuller Attending Unavailable Isauro, Skylar Referring Unavailable Isauro, Skylar Primary Care Unavailable Isauro, Skylar Primary Care Unavailable Jono Crowder Attending Unavailable Jono Crowder Referring Unavailable Isauro, Skylar Attending Unavailable Cachorro Merlos Attending Unavailable Cachorro Merlos Referring Unavailable Isauro, Skylar Primary Care Unavailable Isauro, Skylar Attending Unavailable Isauro, Skylar Referring Unavailable Isauro, Skylar Primary Care Unavailable KOFFI WATT Primary Care Unavailable LUCRECIA CUELLAR Referring Unavailable KOFFI WATT Primary Care Unavailable DAGMAR SCHROEDER Attending Unavailable Medications Current Medications Medication Drug Class(es) Dates Sig (Normalized) Sig (Original) azithromycin 250 mg oral tablet (1 source) [...] Start: 08-04-2024 take 2 tablets by mo uth once daily, then take 1 tablet by [...] Available Start: 08-04-2024 take 1 capsule by mo ut three times daily benzonatate 100 mg capsule Take 1 capsule 3 times a day by oral route for 10 days. 08/04/2024 active Not Available Not Available Not Available cholecalciferol 0.025 mg ora l tablet (10 sources) Vitamin D Start: 09-05-2018 take 2 tablets by mo [facility] once daily Start: 09-05-2018 take 1 tablet by [facility] once daily Cholecalciferol (Vitamin D3) (Vitamin D3) 1,000 UNIT tablet Active 1000 UNIT PO DAILY September 05, 2018 12:00am [place] 5-Uzg-Jkg-Fish Oil (10 sources) Start: 09-05-2018 take 1 capsule by mouth once d aily Start: 09-05-2018 take 1 capsule by mo [facility] once daily [place] 5-Plb-Svc-Fish Oil (Fish Oil) 1 EACH capsule Active 1 NMA PO DAILY September 05, 2018 12:00am Start: 09-05-2018 take 1 capsule by [facility] once daily [place] 4-Wga-Wcr-Fish Oil (Fish Oil) 1 EACH capsule Active 1 EACH PO DAILY September 05, 2018 12:00am Start: 09-05-2018 take 1 capsule by mo [facility] once daily [place] 6-Uih-Hoc-Fish Oil (Fish Oil) 1 EACH capsule Active 1 EACH PO DAILY September 04, 2018 11:00pm Start: 09-05-2018 take 1 capsule by [facility] once daily [place] 3-Sqv-Eam-Fish Oil (Fish Oil 1,000 Mg Softgel) 1 EACH capsule Active 1 EACH PO DAILY September 04, 2018 11:00pm Start: 09-05-2018 take 1 capsule by [facility] once daily [place] 8-Yxj-Hsz-Fish Oil (Fish Oil 1,000 Mg Softgel) 1 EACH capsule Active 1 EACH PO DAILY September 05, 2018 12:00am estradiol 0.1 mg/ml vaginal cream (13 sources) Estrogen Start: 12-10-2024 apply 1 dose transde rmal route two times weekly, then apply 1 dose transdermal route every hour Start: 12-10-2024 Start: 09-15-2024 estradiol (EST RACE) 0.01 % [...] above: Take by mouth once d aily. ibuprofen 200 mg oral tablet (1 source) Nonsteroidal Anti-inflammatory Drug Wal-Profen 200 mg tablet active Encounter Date: 09/26/2023 ; prn;alternating with tylenol Status: 'Taking'; Not Available Not Available Not Available losartan potassium 50 mg oral tablet (17 sources) Angiotensin 2 Receptor Jocelyn Start: 04-11-2023 take 1 tablet by mouth at bedtime MULTI-VITAMIN ORAL (20 sources) MULTI-VITAMIN OR AL Take by mouth once daily. Active MULTI-VITAMIN OR AL Take by mouth once daily. 0 Active Comment on above: Take by mouth once d aily. Ib-Rt-Mbzr-Fa-Ca Carb-Vit K (Women's Daily Formula Tablet) 1 EACH tablet (4 sources) Start: 09-05-2018 Uo-Ku-Njkd-Fa-Ca Carb-Vit K (Women's Daily Formula Tablet) 1 EACH tablet Active 1 EACH PO DAILY September 04, 2018 11:00pm Start: 09-05-2018 Ua-Cz-Oubi-Fa- Ca Carb-Vit K (Women's Daily Formula Tablet) 1 EACH tablet Active 1 EACH PO DAILY September 05, 2018 12:00am Tl-Pg-Ttxh-Fa-Ca Carb-Vit K (Women's Daily Formula) 1 EACH tablet (6 sources) Start: 09-05-2018 take 1 tablet by anya th once daily Start: 09-05-2018 take 1 tablet by anya th once daily Di-Up-Hebb-Fa-Ca Carb-Vit K (Women's Daily Formula) 1 EACH tablet Active 1 NMA PO DAILY September 05, 2018 12:00am Start: 09-05-2018 take 1 tablet by anya th once daily Gh-Ht-Mtwg-Fa-Ca Carb-Vit K (Women's Daily Formula) 1 EACH tablet Active 1 EACH PO DAILY September 05, 2018 12:00am Start: 09-05-2018 take 1 tablet by anya th once daily Ru-Nf-Npfs-Fa-Ca Carb-Vit K (Women's Daily Formula) 1 EACH tablet Active 1 EACH PO DAILY September 04, 2018 11:00pm progesterone 100 mg oral capsule (2 sources) Progesterone Start: 12-10-2024 End: 12-11-2024 take 1 capsule by mouth at bedtime ubidecarenone 30 mg oral capsule (1 source) Start: 12-10-2024 ubidecarenone (ULTRA COQ10 ORAL) (20 sources) ubidecarenone [...] / HYDROcodone bitartrate 5 mg oral tablet (6 sources) Opioid Agonist Start: 04-20-2023 End: 07-11-2023 Hydrocodone-Acetamino phen 5-325 mg tablet Discontinued 1 {tbl} PO Q4H as needed for pain 42 7 0 April 20, 2023 July 11, 2023 3:55pm Other acute postprocedural pain Other acute postprocedural pain Start: 04-20-2023 End: 07-11-2023 take 1 tablet by mouth every four hours Hydrocodone-Acetaminophen Discontinued 1 TABLET PO Q4H 42 7 April 20, 2023 July 11, 2023 3:55pm [...] above: Take 1 tablet by anya th every 4 hours as needed. aspirin 81 mg delayed release oral tablet (15 sources) Platelet Aggregation Inhibitor, Nonsteroidal Anti-inflammator y Drug Start: 05-09-2024 End: 12-10-2024 take 2 tablets by mouth once daily Aspirin 81 mg tablet,delayed release (DR/EC) Discontinued 162 mg PO DAILY 30 May 09, 2024 1:00am December 10, 2024 11:44am Start: 04-20-2023 End: 07-11-2023 take 2 tablets by mouth once daily Aspirin 81 mg tablet,delayed release (DR/EC) Discontinued 162 mg PO DAILY 30 April 20, 2023 1:00am July 11, 2023 3:55pm Start: 04-20-2023 End: 07-11-2023 take 162 mg by mouth once daily Aspirin Discontinued 162 MG PO DAILY April 20, 2023 1:00am July 11, 2023 3:55pm Start: 04-16-2023 End: 04-20-2023 take 1 capsule by mouth once daily Aspirin 81 mg capsule Discontinued 81 mg PO DAILY April 16, 2023 1:00am April 20, 2023 7:08pm calcium polycarbophil 625 mg oral tablet (20 sources) Start: 09-05-2018 End: 01-02-2024 take 1 tablet by mouth once daily Calcium Polycarbophil (Fiber (Calcium Polycarbophil)) 625 MG tablet Discontinued 625 mg PO DAILY September 05, 2018 12:00am January 02, 2024 7:59am SUPPLEMENT docusate sodium 100 mg oral capsule (6 sources) Start: 04-20-2023 End: 07-11-2023 take 1 capsule by mouth twice daily Docusate Sodium 100 mg capsule Discontinued 100 mg PO TWICE A DAY 30 0 April 20, 2023 1:00am July 11, 2023 3:55pm doxycycline monohydrate 100 mg oral capsule (14 sources) Tetracycline-class Drug Start: 09-09-2020 End: 09-09-2020 take 1 capsule by mouth twice daily Doxycycline Monohydrate 100 mg capsule Discontinued 100 mg PO TWICE A DAY 20 0 September 09, 2020 12:00am September 09, 2020 4:55pm Pt aware to abstain from fiber/ calcium supplement and women's multivitamin with iron while on this medication etodolac 500 mg oral tablet (3 sources) Nonsteroidal Anti-inflammatory Drug Start: 01-02-2024 End: 05-05-2024 Etodolac 500 mg tablet Discontinued 500 mg PO TWICE A DAY as needed for pain 60 1 January 02, 2024 12:00am May 05, 2024 9:14am take regularly for 10-14 days then as needed, do not take in conjunction with other NSAID. Tylenol is okay. famotidine 10 mg oral tablet (6 sources) Histamine-2 Receptor Antagonist Start: 04-16-2023 End: [...] 300 mg by mouth daily at bedtime. glucosamine 500 mg oral tablet (14 sources) Start: 07-11-2023 End: 12-10-2024 take 1 tablet by mouth once daily Glucosamine Hcl 500 mg tablet Discontinued 500 mg PO DAILY July 11, 2023 1:00am December 10, 2024 11:44am administer with a meal glucosamine sulf ate (GLUCOSAMINE ORAL) Take by mouth. Active lidocaine 0.05 mg/mg topical ointment (20 sources) Antiarrhythmic, Amide Local Anesthetic Start: 11-09-2016 End: 09-19-2024 lidocaine (XYLOCAINE) 5 % ointment Apply 1 application to affected area as needed. 1 Tube 11/09/2016 09/19/2024 Discontinued (Discontinued by Patient) Comment on above: Apply 1 application to affected area as needed. meloxicam 15 mg oral tablet (20 sources) Nonsteroidal Anti-inflammatory Drug Start: 01-09-2022 End: 09-19-2024 take 1 tablet by mouth once daily [...] VITAMIN) tablet (20 sources) Start: 10-21-2015 End: 09-19-2024 take 1 tablet by mouth once daily multivitamin (DAILY VITAMIN) tablet Take 1 tablet by mouth once daily. 0 10/21/2015 09/19/2024 Discontinued (Discontinued by Patient) Start: 10-21-2015 take 1 tablet by anya th once daily multivitamin (DAILY VITAMIN) tablet Take 1 tablet by mouth once daily. 0 10/21/2015 Active Comment on above: Take 1 tablet by anya th once daily. ondansetron 4 mg disintegrating oral tablet (9 sources) Serotonin-3 Receptor Antagonist Start: 05-09-20 End: 12-11-19 take 1 tablet by mouth every eight hours as needed for nausea and vomiting Ondansetron 4 mg tablet,disintegratin g Discontinued 4 mg PO Q8H as needed for nausea and vomiting 14 0 May 09, 2024 1:00am December 10, 2024 11:44am Start: 04-20-2023 End: 07-11-2023 take 1 tablet by mouth every eight hours as needed for nausea and vomiting Ondansetron 4 mg tablet,disintegrating Discontinued 4 mg PO Q8H as needed for nausea and vomiting 14 0 April 20, 2023 1:00am July 11, 2023 3:56pm oxyCODONE hydrochloride 5 mg oral tablet (10 sources) Opioid Agonist Start: 05-09-2024 End: 12-10-2024 take 1 tablet by mouth every four hours as needed for pain Oxycodone 5 mg tablet Discontinued 5 mg PO Q4H as needed for pain 42 7 0 May 09, 2024 December 10, 2024 11:44am Other acute postprocedural pain Other acute postprocedural pain Start: 04-13-2023 End: 07-11-2023 take 1 capsule by mouth every eight hours as needed for pain Oxycodone 5 mg capsule Discontinued 5 mg PO Q8H as needed for pain 15 5 0 April 13, 2023 July 11, 2023 3:56pm Bimalleolar fracture of right ankle predniSONE 10 mg oral tablet (10 sources) Start: 07-30-2017 End: 08-11-2017 Prednisone 10 mg tablet Discontinued 10 mg PO daily 30 12 0 July 30, 2017 12:00am August 10, 2017 12:00am August 11, 2017 12:06am Unspecified contact dermatitis, unspecified cause Take 4 tabs once daily days 1-3 3 tabs once daily days 4-6 2 tabs once daily days 7-9 and 1 tab once daily days 10-12. sulfamethoxazole 800 mg / trimethoprim 160 mg oral tablet (3 sources) Dihydrofolate Reductase Inhibitor Antibacterial, Sulfonamide Antimicrobial Start: 02-11-2017 BACTRIM DS 800-160 MG TABS one pill q 12 hours SULFAMETHOXAZOLE-TRI METHOPRIM [id number] Manjinder Blancas PA-C Start: 02-11-2017 BACTRIM DS 800 -160 MG TABS one pill q 12 hours SULFAMETHOXAZOLE-TRIMETHOPRIM [id number] Manjinder Blancas PA-C Turmeric extract (3 sources) Start: 01-02-2024 End: 12-10-2024 take 1 capsule by mouth once daily Turmeric 400 mg capsule Discontinued 400 mg PO DAILY January 02, 2024 12:00am December 10, 2024 11:44am Start: 01-02-2024 take 1 capsule by mo uth once daily Turmeric 400 mg capsule Active 400 mg PO DAILY January 02, 2024 12:00am Problems Active Problems Problem Classification Problem Date Documented Date Episodic/Chronic Allergic reactions (10 sources) Contact dermatitis due to detergent; Translations: [Irritant contact dermatitis due to detergents] 07-30-2017 Episodic Chronic ulcer of skin (1 source) Non-pressure chronic ulcer of other part of left foot with fat layer exposed; Translations: [Non-pressure chronic ulcer of other part of left foot with fat layer exposed] Onset: 06-16-2024 Chronic Disorders of lipid metabolism (7 sources) Hypercholesterolemia; Translations: [Pure hypercholesterolemia, unspecified] Onset: 11-19-2024 07-11-2023 Chronic Comment on above: BORDERLINE Essential hypertension (5 sources) Hypertensive disorder; Translations: [Essential (primary) hypertension] 07-11-2023 Chronic Fracture of lower limb (9 sources) Bimalleolar fracture of ankle ; Translations: [Displaced bimalleolar fracture of right lower leg, initial encounter for closed fracture] 04-13-2023 Episodic Joint disorders and dislocations; trauma-related (3 sources) Radial tear of medial meniscus; Translations: [Other tear of medial meniscus, current injury, unspecified knee, initial encounter] 01-02-2024 Episodic Comment on above: Right Menopausal disorders (3 sources) Menopausal flushing; Translations: [Menopausal syndrome] 10-30-2024 Chronic Nonmalignant breast conditions (1 source) Breast finding ; Translations: [Dense breast tissue] 12-31-2023 Episodic Osteoarthritis (20 sources) Primary gonarthrosis, bilateral; Translations: [Bilateral primary osteoarthritis of knee] Onset: 08-10-2021 Chronic Other aftercare (2 sources) Patient encounter status; Translations: [Other [facility] (current[facility] drug therapy] Episodic Other and ill-defined heart disease (5 sources) Diastolic dysfunction; Translations: [Other ill-defined heart diseases] 05-24-2023 Chronic Other connective tissue disease (1 source) Dysfunction of posterior tibial tendon; Translations: [Posterior tibial tendinitis, unspecified leg] Episodic Other connective tissue disease (3 sources) Tibialis tendinitis; Translations: [Posterior tibial tendinitis, right leg] 05-09-2024 Episodic Other female genital disorders (1 source) Vaginal dryness; Translations: [Other specified noninflammatory disorders of vagina] 09-19-2024 Episodic Other lower respiratory disease (2 sources) Cough; Translations: [Cough, unspecified] Onset: 08-04-2024 Resolved: 08-04-2024 Episodic Other nervous system disorders (6 sources) Acute postoperative pain; Translations: [Other acute postprocedural pain] 04-20-2023 Episodic Other non-traumatic joint disorders (8 sources) Pain in right knee; Translations: [Pain in joint, lower leg] Episodic Other non-traumatic joint disorders (3 sources) Pain in left knee; Translations: [Pain in left knee] Onset: 03-24-2022 Episodic Other non-traumatic joint disorders (3 sources) Arthralgia of the ankle and/or foot; Translations: [Pain in right ankle and joints of right foot] 05-09-2024 Episodic Other screening for suspected conditions (not mental disorders or infectious disease) (1 source) Encounter for other screening for malignant neoplasm of breast; Translations: [Encounter for other screening for malignant neoplasm of breast] Onset: 01-29-2025 Episodic Other upper respiratory disease (2 sources) Bleeding from nose; Translations: [Epistaxis] Episodic Other upper respiratory disease (10 sources) Cellulitis of face; Translations: [Abscess, furuncle and carbuncle of nose] 09-09-2020 Episodic Other upper respiratory disease (8 sources) Epistaxis; Translations: [Recurrent epistaxis] 09-09-2020 Episodic [...] unclassified (1 source) Family history of malignant neoplasm of ovary; Translations: [Family history of ovarian cancer] Onset: 01-26-2025 Episodic Residual codes; unclassified (1 source) Family history of other specified conditions; Translations: [Family history of well differentiated neuroendocrine neoplasm] Onset: 01-26-2025 Episodic Residual codes; unclassified (1 source) Family history of malignant neoplasm of breast; Translations: [Family history of breast cancer] Onset: 01-26-2025 Episodic Residual codes; unclassified (1 source) Family history of malignant neoplasm of other genital organs; Translations: [Family history of uterine cancer] Onset: 01-26-2025 Episodic Residual codes; unclassified (1 source) Family history of other malignant neoplasms of lymphoid, hematopoietic and related tissues; Translations: [Family history of non-Hodgkin's lymphoma] Onset: 01-26-2025 Episodic Past or Other Problems Problem Classification Problem Date Documented Da te Episodic/Chronic Anal and rectal conditions (20 sources) Anal polyp; Translations: [Anal polyp] Onset: 10-21-2015 10-21-2015 Episodic Complication of device; implant or graft (4 sources) Pain due to internal prosthetic device; Translations: [Pain due to internal orthopedic prosthetic devices, implants and grafts, initial encounter] Onset: 06-02-2024 05-09-2024 Episodic Genitourinary symptoms and ill-defined conditions (3 sources) Dysuria; Translations: [Dysuria] Onset: 02-11-2017 02-11-2017 Episodic Hemorrhoids (20 sources) Internal hemorrhoids grade II; Translations: [Second degree hemorrhoids] Onset: 10-21-2015 10-21-2015 Episodic Residual codes; unclassified (1 source) Family history of malignant neoplasm, unspecified; Translations: [Family history of cancer] Onset: 09-18-2024 Episodic Results Test Name Value Interpretation Reference Range Facility [facility] 01-23-2025 CNPN Telephone (GMINE) -- CHANELLE GUILLERMO ([id number]) 1970 F Date Time Provider Department 01/23/25 NATALIIA SAMUELS During your visit today, we recorded the following information about you: Nataliia Samuels, MS 01/23/2025 1:33 PM Signed Called pt after seeing her MCM regarding wanting genetic testing. Reviewed that I would put order in for blood work for Multi-Cancer panel through [facility] [facility] and results will be available in 2-3 weeks. I will contact her when the results are available. We also discussed the protections and limitations of the Genetic Information Nondiscrimination Act and all patient/parent questions were answered. Patient agreed to move forward with testing and order has been placed. Allergies As of Date: 01/23/2025 (No Known Allergies) Date Reviewed: 09/18/2024 Reviewed by: Marcela Lazo MA - Fully Assessed Reason for Visit: Patient Update [1234] Prescriptions as of 01/23/2025 - estradiol (ESTRACE) 0.01 % (0.1 mg/gram) vaginal cream INSERT 0.5 GRAM VAGINALLY AT BEDTIME TWICE WEEKLY. APPLY A PEA SIZED AMOUNT TO OUTSIDE OF VAGINA WELL - losartan (COZAAR) 50 mg tablet 1 TABLET ORALLY ONCE A DAY IN EVENING 90 DAYS - calcium polycarbophil (FIBERCON) 625 mg tablet Take by mouth. - glucosamine sulfate (GLUCOSAMINE ORAL) Take by mouth. - MULTI-VITAMIN ORAL Take by mouth once daily. - FISH OIL-DHA-EPA ORAL Take by mouth once daily. - ubidecarenone (ULTRA COQ10 ORAL) Take by mouth. - VITAMIN E, DL,TOCOPHERYL ACET, (VITAMIN E, DL, ACETATE,) 100 unit cap Take by mouth. Problem List As Of Date 01/23/2025 Noted Resolved Second degree hemorrhoids [K64.1] 10/21/2015 Anal polyp [K62.0] 10/21/2015 Bilateral primary osteoarthritis of knee [M17.0]08/10/2021 Encounter Status:Closed by NATALIIA SAMUELS on 01/23/25 [facility] CNPN Tele[facility] (OBGYWM) -- CHANELLE GUILLERMO ([id number]) 1970 F Date Time Provider Department 10/31/24 DAGMAR SCHROEDER OBGYWCindy During your visit today, we recorded the following information about you: Allergies As of Date: 10/31/2024 (No Known Allergies) Date Reviewed: 09/18/2024 Reviewed by: Marcela Lazo MA - Fully Assessed Reason for Visit: Patient Question [8077] Prescriptions as of 10/31/2024 - estradiol (ESTRACE) 0.01 % (0.1 mg/gram) vaginal cream INSERT 0.5 GRAM VAGINALLY AT BEDTIME TWICE WEEKLY. APPLY A PEA SIZED AMOUNT TO OUTSIDE OF VAGINA WELL - losartan (COZAAR) 50 mg tablet 1 TABLET ORALLY ONCE A DAY IN EVENING 90 DAYS - calcium polycarbophil (FIBERCON) 625 mg tablet Take by mouth. - glucosamine sulfate (GLUCOSAMINE ORAL) Take by mouth. - MULTI-VITAMIN ORAL Take by mouth once daily. - FISH OIL-DHA-EPA ORAL Take by mouth once daily. - ubidecarenone (ULTRA COQ10 ORAL) Take by mouth. - VITAMIN E, DL,TOCOPHERYL ACET, (VITAMIN E, DL, ACETATE,) 100 unit cap Take by mouth. Problem List As Of Date 10/31/2024 Noted Resolved Second degree hemorrhoids [K64.1] 10/21/2015 Anal polyp [K62.0] 10/21/2015 Bilateral primary osteoarthritis of knee [M17.0]08/10/2021 Encounter Status:Closed by TAMI MULLINS on 10/31/24 Normal [facility] Coronary Angiography CTon Coronary Angiography CT [facility] Imaging Services [address] [place] [address] 10/27/24 175 MR#: [id number] Acct: [id number] Name: CHANELLE GUILLERMO Rep #: [id number] : 1970 54 From: Beni Fuller MD PCP: JHONY Roth Status:DEP I Y Location: CT Calcium Scoring Date of Study:: 10/20/24 Indications Indications: HLD Coronary Calcium Scoring: High-resolution Computed Tomographic imaging of the chest was performed on [ 10/20/24], with particular attention paid to the coronary arteries. Images from the examination were analyzed for the presence and extent of coronary artery calcification , using coronary calcium quantification software. The patient tolerated the procedure well and there were no complications. The results of the coronary calcification analysis are provided below. Findings Coronary Artery Left Main (LM): 0 Left Anterior Descending (LAD): 0 Left Circumflex (LCX): 0 Right Coronary Artery (RCA): 0 Total Agatston Score: 0 Percentile Rankin% Calcium Scoring Interpretation: Different methods to categorize the overall amount of coronary plaque. Overall amount CAC SIS Visual of coronary plaque P1 Mild -100 <2 1-2 vessels with mild amount of plaque P2 Moderate 101-300 3-4 1-2 vessels with moderate amount, 3 vessels with mild amount of plaque P3 Severe 301-999 5-7 3 vessels with moderate amount, 1 vessel with severe amount of plaque P4 Extensive >1000 >8 2-3 vessels with severe amount of plaque Conclusion: No atherosclerotic plaquing 10/27/241754 Date Beni Fuller MD Cosigner Signature (if applicable): Date CC: JHONY Box; Dr. Beni Fuller MD Signed Normal [facility] Limited Chest CT Cardiac Onl yon 10-20-[address] Cardiac Only [facility] Imaging Services [address] [place], [place] [id number] Limited Chest CT Cardiac Only MR#: [id number] Acct: [id number] Name: CHANELLE GUILLERMO Rep #: [id number] : 1970 F 54 From: Kimani Griffiths DO PCP: JHONY Roth Status: REG CLI Study: Limited Chest CT Cardiac Only Date of Exam: Exam# [id number] Ordering Dr: Skylar Box PROCEDURE: LIMITED CHEST CT CARDIAC ONLY REASON FOR EXAM: HYPERLIPIDEMIA, UNSPECIFIED TECHNIQUE: Prone and supine chest CT without contrast, high resolution CT (HRCT) protocol. Coronal and Sagittal reconstruction series were provided. One or more dose reduction techniques were used (e.g., Automated exposure control, adjustment of the mA and/or kV according to patient size, use of iterative reconstruction technique). COMPARISON: Cardiac calcium scoring October 20, 2024 FINDINGS: Hardware: None Lymph nodes: None. Heart and Vasculature: Normal size heart aortic punctate calcifications Coronary Artery Calcifications: None Lungs and Airways: Lungs and airways are clear. Pleura: No pleural thickening. No effusion. No pneumothorax. Upper Abdomen: Unremarkable. Bones: Unremarkable CT/Limited Chest CT Cardiac Only IMPRESSION: Coronary artery calcification (CAC) is 0 no other significant findings Reading Location: [facility] CC: JHONY Box Char Filter Tank Tender Head: Signed Normal [facility] CNOVon 09-18-2024 CNOV Office Visit (OBGYWM ) -- CHANELLE GUILLERMO ([id number]) 1970 F Date Time Provider Department 09/18/24 10:50 AM DAGMAR SCHROEDER OBGYWCindy During your visit today, we recorded the [...] Living2 SAB0 IAB0 Ectopic0 Multiple0 Live Births0 Home Care Nurse History LMP: Postmenopausal Age at Menarche: Age at First : Age at Menopause: Home Care Nurse History Comments: Sexual Activity: Yes; Male Contraception: [...] with more than 50% of the total kkbg-zt-zuqf time of the visit in counseling / coordination of care. Dagmar Schroeder MD 09/18/2024 11:37 AM Signed Non-Hormonal Ways to [place] with Hot Flashes and Menopause Hormone therapy [...] alcohol can (more content not included)... Normal [facility] Inital Evaluation (1) - PTon 07-16-2024 Inital Evaluation (1) - PT [facility] Physical Therapy [facility] [address] [place] [address] / REHABILITATION SERVICES INITIAL EVALUATION MR#: [id number] Acct: [id number] Name: CHANELLE GUILLERMO Rep #: [id number] : 1970 54 From: Devon Freitas PT, ATC Referring Dr.: Dr. Jono Crowder DPM Status: REG R Insurance: [employer] SELF PAY INSURANCE Patient's Visit Information Visit Information Visit Information: CHANELLE GUILLERMO is a 54 year old F referred to Physical Therapy by Dr. 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 For Medicare only, by signing this I certify the plan of care. Please let me know if there are questions or concerns regarding this plan of care. Physician Signature: Date: 07/16/24 0826 CC: ARIANA Crowder; HUMAN CAPITAL MANAGER-C Skylar Box [facility] Signed Normal [facility] Wound Cultureon 05-28-2024 PATIENT NOT PRESENT Copy of report sent to Infection Control Printer [id number] 05/28/24 0759 ALVERTO. Meth. resistant Staph. aureus Amount Growth 3+ [...] SMX Islt RAUL <=10 S Vancomycin Islt RUAL <=0.5 S Normal [facility] Comment on above: Performed By: #### M 100.3000, #### [facility] Laboratory [address] [place], [place], [address] Gram Stainon 05-27-2024 PATIENT NOT PRESENT Gram Stain Rare Epithelial cells Rare White Blood Cells Rare Gram positive cocci Normal [facility] Comment on above: Performed By: #### M 100.3000, #### [facility] Laboratory [address] [place], [place], [address] Ankle 2 Viewson 05-09-2024 Ankle 2 Views [facility] Imaging Services [address] [place] [address] Ankle 2 Views MR#: [id number] Acct: [id number] Name: CHANELLE GUILLERMO Rep #: [id number] : 1970 F 53 From: Yohana Díaz MD PCP: JHONY Roth Status: [facility] Study: Ankle 2 Views Date of Exam: 05/09/24 Exam# [id number] Ordering Dr: Jono Crowder DPM [id number] INDICATION: PAIN EXAMINATION/TECHNIQUE: X-RAY - RIGHT XR [...] , RAD/Ankle 2 Views IMPRESSION: undefined CC: ARIANA Crowder; HUMAN CAPITAL MANAGER-C Skylar Box Char Filter Tank Tender Head: Signed [facility] MR/POSTOP.[facility] 05-09-2024 MR/POSTOP.[facility] Medical Records Department [address] [place] [address] Anesthesia Postop Eval I 05/09/24 1142 MR#: [id number] Acct: [id number] Name: EAGLECHANELLE ALAN Rep #: [id number] : 1970 53 From: Ralph Smith CRNA PCP: JHONY Roth Status:[facility] Y Race: C Location: [place] [address] Anesthesia: Postop Eval I Current Vital Signs [...] 1 completed: Yes 05/09/24 1144 Date Ralph Blough NUCLEAR EQUIPMENT RESEARCH ENGINEER Cosigner Signature: Date CC: Signed Normal [facility] Operative Reporton 4 Operative Report [facility] Medical Records Department [address] [place] [address] Operative Report 05/09/24 1030 MR#: [id number] Acct: [id number] Name: CHANELLE GUILLERMO Rep #: [id number] : 1970 53 From: Jono Crowder DPM PCP: JHONY Roth Status:[facility] Location: [place] [address] Problems Associated Problem List Diagnoses (1) Pain [...] right ankle 3) exostectomy right medial ankle surgical specialist: Yes Environmental Health And Safety Leader: leonor mederos Tasks completed by perinatal breastfeeding assistant: Opening, Closing, Opening closing, Altering tissue, [...] all DRAINS/GRAFTS/IMPLANTS that apply: Graft Graft details: BeavEx 2 x 4 cm BioSkin Estimated Blood [...] was removed using a screwdriver and a Kirkwood removal was confirmed with fluoroscopic imaging there remained 2 screws to the medial ankle. A medial incision was drawn along the medial aspect of the ankle extending along the course of the tibialis posterior tendon just posterior to the medial malleolus. This incision was made through the epidermis stripes into subcutaneous tissue. Any bleeders identified cauterized. Using help with a Kirkwood the posterior tibial tendon sheath and flexor [...] buried 3-0 Umer (more content not included)... [facility] MR/PAT.Marcio 05-05-2024 MR/PAT.[facility] Medical Records Department [address] [place] [address] PAT - Anesthesia 05/05/24 1636 MR#: [id number] Acct: [id number] Name: CHANELLE GUILLERMO Rep #: [id number] : 1970 53 From: Tez Og MD PCP: JHONY Roth Status:PRE [facility] Y Race: C Location: [facility] Pre-Assessment Diagnosis/Proposed Procedure Planned Operative Procedure(s): Right ankle hardware removal with posterior tibial tendon repair. Anesthesia History Anesthesia History - corn picker: Anesthesia History - corn picker Hx Hospitalization No 05/05/24 08:18 Any Problems [...] take am of surgery PONV PONV - corn picker: PONV - corn picker Female Yes 05/05/24 08:18 HX of Motion [...] 01/02/24 07:55 Respiratory Assessment Respiratory Assessment - corn picker: Respiratory Tract Infection Hx - corn picker Hx Respiratory Tract Infection No 05/05/24 08:18 STOP Sleep Apnea STOP Sleep Apnea - corn picker: STOP Sleep Apnea - corn picker Hx Hypertension Yes 05/05/24 08:18 Hx Sleep [...] Tobacco Use History Tobacco Use History - corn picker: Tobacco Use History - corn picker Tobacco Use Smoking Status Never smoker 05/05/24 08:18 Hx Tobacco Use No 05/05/24 08:18 Years Smoking Packs Smoked per Day Smoking Cessation Date was within the last 15 years Hx Smoking Cessation Date Hx Smoking Cessation Counseling Hematologic Medial History Hematologic Hx - corn picker: Hematologic Medical Hx - winding operator Hx of Blood Transfusion No 05/05/24 08:18 Hx of Transfusion in last 3 No 05/05/24 08:18 Months Date of Last Transfusion (if within last 3 months) Ever experience any problems No 05/05/24 08:18 with transfusion(s)? Specify any problems Hx of Preganancy in last 3 No 05/05/24 08:18 Months Nurse Filling Out Transfusion AMANDA 05/05/24 08:18 Questions: Date: 05/05/24 05/05/24 08:18 Time: 08:20 05/05/24 08:18 Patient unable to answer at this time (ie. confused, unrespo /Reproduction History /Reproductive History - corn picker: /Reproductive Hx- corn picker Hx Now No 05/05/24 08:18 Gestational Age (in weeks): EDC: Hx Hx Para Hx Section SAB No 05/05/24 08:18 [facility] Medical History (Updated 05/05/24 @ 08:29 by [...] History mcg (1,000 unit) tablet (Vitamin D3) vupvywpz-mze-pkgk-FA-Ca carb-vit K 1 ea PO DAILY SUPPLEMENT 09/05/18 Unknown History 18 mg iron-400 mcg-500 mg tablet (Women's Daily Formula) omega 7-qdi-bdo-fish oil 300 1 ea PO DAILY SUPPLEMENT 09/05/18 09/02/18 History mg-1,000 mg capsule (Fish Oil) losartan 50 mg tablet (Cozaa (more content not included)... Normal [facility] Established Visit (Orthopaed ic Surgery)on 06-12-2022 [...] persists or worsens. Rudolph Davidson, Sports Medicine [facility] Please excuse any errors in grammar [...] time. 03/24/22: 51-year-old female referred by Dr. Jackson for right [...] out of 5 with flexion and extension. Emlissa negative. Anterior drawer negative. Posterior drawer negative. [...] procedure. T (more content not included)... Normal [facility] Initial Visit (Orthopaedic Surgery) Diagnoses/Problems Assessed [...] injections when they are approved. Rudolph Davidson, [facility] Please excuse any errors in grammar or translation related to this dictation. Voice recognition software was utilized to prepare this document. Chief Complaint Pt is here today for a aiden knee visco consult ref by alonzo. History of Present Illness 51-year-old female referred by Dr. Jackson for right [...] compartments. Xray Knee Complete 4 or more [id number] 09:08Norman Epstein Test NameResultFlagReference Xray Knee Complete 4 or more View Please click on the link to view the study images Xray Knee Complete 4 or more [id number] 08:34ACachorro Maharaj Test NameResultFlagReference Xray Knee Complete 4 or more View(Report) FINAL REPORT Interpreted by: SENAIT LOPES KRISHNA, MD 01/12/22 10:03 Patient Name: CHANELLE GUILLERMO STUDY: Right knee 4 views. INDICATION: RIGHT KNEE PAIN M25.561: Right knee pain. COMPARISON: None. ACCESSION NUMBER(S): [id number] ORDERING CLINICIAN: CACHORRO JACKSON FINDINGS: No acute fracture or malalignment. Gqcv-jw-mwnjfiwx medial and mild lateral/patellofemoral compartment degenerative changes with joint space loss and osteophytes. 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 Small suprapatellar recess loose body. No significant knee joint effusion. Soft tissues are unremarkable. IMPRESSION: 1. Iocc-wz-qwfzwvxm medial and mild lateral/patellofemoral compartment osteoarthrosis. Electronically [...] Left knee pain. COMPARISON: None. ACCESSION NUMBER(S): [id number] ORDERING CLINICIAN: NORMAN DAVIDSON FINDINGS: Left knee, four views There is tricompartmental osteophytosis without joint space narrowing. There is no fracture. There is no dislocation. There is no effusion. IMPRESSION: Mild degenerative changes left knee Electronically signed by: ANDREA WOOTEN MD Normal [facility] Radiologyon 03-24-2022 XR Knee 4 Views Please click on the link to view the study images Normal [facility]Orthopaedi -[facility] 130 DO Work Phone: Initial Visit (Orthopaedic S urgery)on 01-11-2022 Initial Visit (Orthopaedic Surgery) Diagnoses/Problems Assessed Right knee DJD (715.96) (M17.11) Patient Discussion/Summary R knee, osteoarthritis R [...] steroid injection, last in November at the [facility], which has given her some relief. She has also tried a course of Meloxicam and Tylenol with some relief but the pt is reluctant to stay on [facility] medications. She also had an MRI performed showing a R medial meniscal tear. She comes to clinic for a second opinion as she has been told she is not a surgical candidate for meniscal surgery given her degree of medial compartment arthritis. Review of Systems Reviewed and documented Active Problems Problems Right knee pain (719.46) (M25.561) Vitals Vital Signs Recorded: [id number] 02:10PM Height5 ft Zvcssi777 lb BMI Jskuqsfbhk78.18 kg/m2 BSA Calculated1.76 Physical Exam GENERAL EXAM [...] meniscus Signatures Electronically signed by : Cachorro Jackson MD; Feb 06 2022 7:42AM EST (Author) Normal [facility] KNEE CMPLT, 4 OR MORE VIEWS n 01-11-2022 KNEE CMPLT, 4 OR MORE VIEWS Patient Name: CHANELLE GUILLERMO STUDY: Right knee 4 views. INDICATION: RIGHT KNEE PAIN M25.561: Right knee pain. COMPARISON: None. ACCESSION NUMBER(S): [id number] ORDERING CLINICIAN: CACHORRO JACKSON FINDINGS: No acute fracture or malalignment. Wgvs-lt-mjfnkqfc medial and mild lateral/patellofemoral compartment degenerative changes with joint space loss and osteophytes. 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 Small suprapatellar recess loose body. No significant knee joint effusion. Soft tissues are unremarkable. IMPRESSION: 1. Ouks-kf-vkqmuvhz medial and mild lateral/patellofemoral compartment osteoarthrosis. Electronically signed by: SENAIT LOPES MD Normal [facility] Radiologyon 01-11-2022 XR Knee 4 Views Please click on the link to view the study images Normal [facility]-Orthopaedi [facility] [address] Work Phone: MRI KNEE WO IVCON RTon 12-06 [facility] Cervical or vagninal specime n microscopic examination by cytology stain (reported ason 11-17-2021 Cytology report Cyto stain Doc (Cvx/Vag) Comment . [facility] Work Phone: Comment on above: The [...] DNA Probe+sig amp Ql (Cvx) Negative Negative [facility] Work Phone: Comment on above: This nucleic acid am plification test detects fourteen high- risk HPV types (16,18,31,33,35,39,45,51,52,56,58,59,66,68)without differentiation.Performed at: - [address] [id number] Director: Nara Fernandez MD, Phone: [phone] at: = - [facility] [id number] Director: Nara Fernandez MD, Phone: [phone] Laboratory - Cytologyon Watch Dial Stoner Cyto stain Nom (Cvx/Vag) [ID] Comment . [facility] Work Phone: Comment on above: Riana Carmona, Wire Drawer (ASCP) Laboratory - Miscellaneous t estson 11-17-2021 Service comment (Unsp spec) [Interp] Comment . [facility] Work Phone: Comment on above: This liquid based Th inPrep(R) pap test was screened withthe use of an image guided system. Service comment (Unsp spec) [Interp] . . [facility] Work Phone: No Panel Informationon 11-17 Pathology report final diagnosis Narrative Comment . [facility] Work Phone: Comment on above: NEGATIVE FOR INTRAEP ITHELIAL LESION OR MALIGNANCY. XR KNEE GENERAL 4V AP BOTH/P A BOTH/LAT/MERC BILATERALon 08-05-2021 [facility] Lab Report: (P) Urinalysis, Completeon 02-12-2017 Bilirubin Ql (U) Negative Invalid Interpretation Code Negative [facility] Work Phone: [phone] NITRITE UR Negative Invalid Interpretation Code Negative [facility] Work Phone: [phone] OCCULT BLOOD-UR 250 High Negative [facility] Work Phone: [phone] specific gravity, urine 1.005 Invalid Interpretation Code 1.002-1.030 [facility] Work Phone: [phone] Urine, clarity Sl. Cloudy Invalid Interpretation Code Clear [facility] Work Phone: [phone] Urine, color Straw Invalid Interpretation Code Yellow [facility] Work Phone: [phone] Urine, glucose presence Normal mg/dl Invalid Interpretation Code Normal [facility] Work Phone: [phone] Urine, ketones presence Negative Invalid Interpretation Code Negative [facility] Work Phone: [phone] Urine, leukocyte esterase presence 25 High Negative [facility] Work Phone: [phone] Urine, pH 7.0 [pH] Invalid Interpretation Code 5.0 - 8.0 [facility] Work Phone: [phone] Urine, protein Negative Invalid Interpretation Code Negative [facility] Work Phone: [phone] UROBILI Normal mg/dl Invalid Interpretation Code Normal [facility] Work Phone: [phone] Lab Report: Urinalysis, Comp leteon 02-12-2017 Urine, bacteria in sediment 0 /[HPF] Invalid Interpretation Code None Seen [facility] Work Phone: [phone] Urine, epithelial cells in sediment 0-5 SEEN Invalid Interpretation Code 5-10 [facility] Work Phone: [phone] Urine, erythrocytes in sediment by volume 25-50 SEEN Invalid Interpretation Code 0-5 [facility] Work Phone: [phone] Urine, mucus presence in sediment 0 SEEN Invalid Interpretation Code [facility] Work Phone: [phone] WBC (Leukocytes) 0-5 SEEN Invalid Interpretation Code 0-5 [facility] Work Phone: [phone] Office Visit: UC: Bladder in fectionon 02-11-2017 blood in urine (hemoglobin) by dipstick 3+ Invalid Interpretation Code [facility] Work Phone: [phone] Documentation of current medications (procedure) Done Invalid Interpretation Code [facility] Work Phone: [phone] Fall risk assessment No Invalid Interpretation Code [facility] Work Phone: [phone] specific gravity, urine 1.010 Invalid Interpretation Code [facility] Work Phone: [phone] Tobacco use [facility] Never smoker Invalid Interpretation Code [facility] Work Phone: [phone] Urine, appearance clear Invalid Interpretation Code [facility] Work Phone: [phone] Urine, bilirubin presence Negative Invalid Interpretation Code [facility] Work Phone: [phone] Urine, color lt. yellow Invalid Interpretation Code [facility] Work Phone: [phone] Urine, glucose presence Negative Invalid Interpretation Code [facility] Work Phone: [phone] Urine, ketones presence Negative Invalid Interpretation Code [facility] Work Phone: [phone] Urine, leukocyte esterase presence 2+ Invalid Interpretation Code [facility] Work Phone: [phone] Urine, nitrite presence Negative Invalid Interpretation Code [facility] Work Phone: Urine, pH 5.0 [pH] Invalid Interpretation Code [facility] Work Phone: [phone] Urine, protein Negative Invalid Interpretation Code [facility] Work Phone: [phone] Urine, urobilinogen presence Negative Invalid Interpretation Code [facility] Work Phone: [phone] Vital Signs Date Time Vital Sign Value Performing Clinician Faci lity 09-18-2024 10:59-0400 Body mass index (BMI) [Ratio] 29.75 kg/m2 Dagmar Schroeder MD Work Phone: [facility] 09-18-2024 10:59-0400 Body weight 77.38 kg Dagmar Schroeder MD Work Phone: [facility] 09-18-2024 10:59-0400 Diastolic blood pressure 72 mm[Hg] Dagmar Schroeder MD Work Phone: [facility] 09-18-2024 10:59-0400 Systolic blood pressure 110 mm[Hg] Dagmar Schroeder MD Work Phone: [facility] 12-31-2023 15:15-0400 Body height 161.3 cm Dagmar Schroeder MD Work Phone: [facility] 12-31-2023 15:15-0400 Body mass index (BMI) [Ratio] 29.47 kg/m2 Dagmar Schroeder MD Work Phone: [facility] 12-31-2023 15:15-0400 Body weight 76.66 kg Dagmar Schroeder MD Work Phone: [facility] 12-31-2023 15:15-0400 Diastolic blood pressure 88 mm[Hg] Dagmar Schroeder MD Work Phone: [facility] 12-31-2023 15:15-0400 Systolic blood pressure 142 mm[Hg] Dagmar Schroeder MD Work Phone: [facility] 07-11-2023 14:50-0500 Body height 163.83 cm JHONY Monroe NP Work Phone: [facility] 07-11-2023 14:50-0500 Body mass index (BMI) [Ratio] 29 kg/m2 HUMAN CAPITAL MANAGER-C Misa Monroe HUMAN CAPITAL MANAGER Work Phone: [facility] 07-11-2023 14:50-0500 Body weight 78.1 kg HUMAN CAPITAL MANAGER-C Misa Monroe HUMAN CAPITAL MANAGER Work Phone: [facility] 07-11-2023 14:50-0500 Diastolic blood pressure 81 mm[Hg] HUMAN CAPITAL MANAGER-C Misa Monroe HUMAN CAPITAL MANAGER Work Phone: [facility] 07-11-2023 14:50-0500 Heart rate 104 /min HUMAN CAPITAL MANAGER-C Misa Monroe HUMAN CAPITAL MANAGER Work Phone: [facility] 07-11-2023 14:50-0500 Respiratory rate 14 /min HUMAN CAPITAL MANAGER-C Misa Monroe HUMAN CAPITAL MANAGER Work Phone: [facility] 07-11-2023 14:50-0500 Systolic blood pressure 148 mm[Hg] HUMAN CAPITAL MANAGER-C Misa Monroe HUMAN CAPITAL MANAGER Work Phone: [facility] 04-20-2023 19:00-0500 Body temperature 98.3 [degF] Dr. Koffi Watt Work Phone: [facility] 04-20-2023 19:00-0500 Diastolic blood pressure 80 mm[Hg] Dr. Koffi Watt Work Phone: [facility] 04-20-2023 19:00-0500 Heart rate 78 /min Dr. Koffi Watt Work Phone: [facility] 04-20-2023 19:00-0500 Respiratory rate 18 /min Dr. Koffi Watt Work Phone: [facility] 04-20-2023 19:00-0500 SaO2% (BldA) [Mass fraction] 98 % Dr. Koffi Watt Work Phone: [facility] 04-20-2023 19:00-0500 Systolic blood pressure 136 mm[Hg] Dr. Koffi Watt Work Phone: [facility] 04-20-2023 11:02-0500 Body height 163.[address] Koffi Watt Work Phone: [facility] 04-20-2023 11:02-0500 Body mass index (BMI) [Ratio] 27.6 kg/m2 Dr. Koffi Watt Work Phone: [facility] 04-20-2023 11:02-0500 Body weight 74.[address] Koffi Watt Work Phone: [facility] 01-11-2022 14:10-0400 Body height 152.4 cm Referring Provider Unknown RW-Rjeywtzqnkpd-Tc sman 210 Work Phone: 01-11-2022 14:10-0400 Body mass index (BMI) [Ratio] 34.18 kg/m2 Referring Provider Unknown GF-Wqupggufjbox-Wk sman [address] Work Phone: 01-11-2022 14:10-0400 Body surface area Derived from formula 1.76 m2 Referring Provider Unknown QN-Cidkysalahsg-Gy sman [address] Work Phone: 01-11-2022 14:10-0400 Body weight 79.38 kg Referring Provider Unknown ZN-Tpfujqtpnmgd-Tc sman 210 Work Phone: 12-05-2021 15:47-0400 Body height 165.1 cm Birgit Mancini PA-C Work Phone: [facility] 12-05-2021 15:47-0400 Body weight 81.65 kg Birgit Live PA-C Work Phone: [facility] 08-05-2021 09:41-0400 Body height 162.6 cm Birgit [place] PA-C Work Phone: [facility] 08-05-2021 09:41-0400 Body weight 81.65 kg Birgit [place] PA-C Work Phone: [facility] 02-11-2017 12:11-0400 BMI (Body Mass Index) 30.22 kg/m2 Manjinder Blancas PA-C [facility] Abad valdez Work Phone: 02-11-2017 12:11-0400 Body Temperature 98.4 [degF] Manjinder DAYC [facility] Work Phone: 02-11-2017 12:11-0400 BP Diastolic 72 mm[Hg] Manjinder DAYC [facility] Work Phone: 02-11-2017 12:11-0400 BP Systolic 118 mm[Hg] Manjinder DAYC [facility] Work Phone: 02-11-2017 12:11-0400 Height 165.1 cm Manjinder DAYC [facility] Work Phone: 02-11-2017 12:11-0400 Pulse (Heart Rate) 99 /min Manjinder DAYC [facility] Work Phone: 02-11-2017 12:11-0400 Respiratory Rate 12 /min Manjinder DAYC [facility] Work Phone: 02-11-2017 12:11-0400 Weight 82.37 kg Manjinder DAYC [facility] Work Phone: Encounters Encounter Date Encounter Type Care Provider Facility Start: 02-05-2025 ambulatory Skylar Box [facility] [place] Start: 01-26-2025 End: 01-26-2025 ambulatory KOFFI WATT Facility:[facility] Start: 01-23-2025 End: 01-23-2025 Telephone encounter Nataliia Samuels MS Work Phone: Genetic [facility] Comment on above: Patient Update Start: 11-26-2024 End: 11-26-2024 ambulatory Skylar Box HUMAN CAPITAL MANAGER-C Work Phone: -Physical Therapy Start: 11-26-2024 End: 11-26-2024 Discharged Recurring Cachorro Merlos DPCindy -Physical Therapy Work Phone: Start: 11-06-2024 End: 11-06-2024 ambulatory Dagmar Schroeder MD Work Phone: OB/Gynecology Comment on above: Video or phone? Start: 10-31-2024 End: 10-31-2024 Telephone encounter Dagmar Schroeder MD Work Phone: OB/Gynecology Comment on above: Patient Question Start: 10-27-2024 Non-patient / Non-visit Dr. Norma HOPE -[facility] Start: 10-27-2024 End: 10-27-2024 ambulatory Dagmar Schroeder MD Work Phone: OB/Gynecology Comment on above: Ultrasound results Records Start: 10-22-2024 End: 10-30-2024 ambulatory Dagmar Schroeder MD Work Phone: OB/Gynecology Comment on above: Hormone replacement Start: 10-20-2024 End: 10-20-2024 ambulatory Skylar Box HUMAN CAPITAL MANAGER-C Work Phone: [facility] Work Phone: Start: 10-20-2024 End: 10-20-2024 Patient encounter procedure Skylar Box NP-C -Cat Scan [facility] Work Phone: Start: 10-20-2024 End: 10-20-2024 ambulatory Beni Fuller [facility] Start: 09-19-2024 End: 09-19-2024 E-mail encounter from [...] Start: 09-18-2024 End: 09-18-2024 ambulatory KOFFI WATT Facility:[facility] Start: 09-13-2024 End: 09-15-2024 Refill aDgmar Schroeder MD Work Phone: OB/Gynecology Comment on above: Med Change Request Start: 08-13-2024 End: 08-13-2024 ambulatory Skylar Isauro HUMAN CAPITAL MANAGER-C Work Phone: [facility] Work Phone: Start: 08-13-2024 End: 08-13-[address] Jono Crowder DPM -Physical Therapy Work Phone: Start: 08-04-2024 Office outpatient vi sit 15 minutes Nolvia Jd [facility] Start: 05-26-2024 End: 05-26-2024 ambulatory Skylar Box Facility:[facility] Start: 05-09-2024 End: 05-09-2024 ambulatory Jono Crowder Facility:[facility] Start: 12-31-2023 End: 12-31-2023 Patient encounter procedure Dagmar Schroeder MD Work Phone: OB/Gynecology Comment on above: Encounter for gyneco logical examination (general) (routine) without abnormal findings (Primary Dx); Encounter for screening mammogram for breast cancer; Dense breast tissue Start: 12-31-2023 End: 12-31-2023 Patient encounter status Dagmar Schroeder MD Work Phone: [facility] Start: 07-11-2023 End: 07-11-2023 Patient encounter procedure HUMAN CAPITAL MANAGER-C Misa Monroe HUMAN CAPITAL MANAGER Work Phone: [facility] Work Phone: Start: 06-13-2023 End: 06-13-2023 ambulatory HUMAN CAPITAL MANAGER-C Misa Monroe HUMAN CAPITAL MANAGER Work Phone: [facility] Work Phone: Start: 06-13-2023 End: 06-13-2023 Discharged Recurring HUMAN CAPITAL MANAGER-C Misa Monroe HUMAN CAPITAL MANAGER Work Phone: [facility]-Physical Therapy Work Phone: Start: 05-30-[address] Koffi Watt Work Phone: [facility]-Physical Therapy Work Phone: Start: 05-28-2023 End: 05-28-[address] Koffi Watt Work Phone: [facility] Work Phone: Start: 05-28-2023 End: 05-28-[address] Koffi Watt Work Phone: [facility]-Outpatient Pavilion Ultrasound Work Phone: Start: 05-18-2023 Non-patient / Non-visit Dr. Jesús Watt Work Phone: [facility] Start: 05-18-2023 End: 05-18-[address] Koffi Watt Work Phone: [facility] Work Phone: Start: 05-18-2023 End: 05-18-[address] Koffi Watt Work Phone: [facility]-Cardiovascula r Services Work Phone: Start: 05-16-[address] Koffi Watt Work Phone: [facility]-Physical Therapy Work Phone: Start: 04-20-2023 End: 04-20-2023 Admission to same day surgery center Dr. Koffi Watt Work Phone: [facility]-Surgical Day Care Start: 04-11-2023 End: 04-11-2023 Non-patient / Non-visit Dr. Koffi Watt Work Phone: [facility] Work Phone: Start: 04-11-2023 End: 04-11-2023 ambulatory [facility] Work Phone: Start: 04-11-2023 End: 04-11-2023 Patient encounter procedure [facility]-Radiology, [facility] Work Phone: Start: 04-09-2023 Orders Only Tomas Olivera MD Work Phone: [facility] [place] Comment on above: Pain (Primary Dx) Start: 01-04-2023 End: 01-04-2023 ambulatory [facility] Work Phone: Start: 01-04-2023 End: 01-04-2023 Patient encounter procedure [facility]-Outpatient Breast Imaging Work Phone: Start: 06-12-[address] Norman vo Moran Facility:[id number] Start: 03-24-2022 Office consultation new/estab patient 60 min No PCP None [place]ylsq[place]one[place] [address] DO Work Phone: Start: 03-24-2022 ambulatory PCP UNKNOWN Facility:1 [id number] Start: 03-14-2022 ambulatory Birgit Mil an PA-C Work Phone: Orthopaedics Comment on above: mobic Start: 03-14-2022 E-mail encounter fro m caregiver Birgit Mancini PA-C Work Phone: [facility] Start: 03-14-2022 Refill Birgit Mil an PA-C Work Phone: Orthopaedics Comment on above: Refill Request Start: 01-18-2022 End: 01-18-2022 ambulatory [facility] Work Phone: Start: 01-18-2022 End: 01-18-2022 Patient encounter procedure [facility]-Outpatient Breast Imaging Start: 01-11-2022 Office outpatient ne w 30 minutes Referring Provider Unknown AD-Wtpxzpkiqyvg-Uvpbal 210 Work Phone: Start: 01-11-2022 ambulatory Referral Self Facility: [id number] Start: 01-07-2022 Refill Birgit Mil an PA-C Work Phone: Orthopaedics Comment on above: Refill Request Start: 12-09-2021 Telephone encounter Koffi banuelos DO Work Phone: Hematology/Oncology Comment on above: Appointment Start: 12-07-2021 ambulatory Birgit Mil an PA-C Work Phone: Orthopaedics Comment on above: MRI Results Start: 12-07-2021 Telephone encounter Birgit DAYC Work Phone: [facility] [place] Comment on above: Results Opened In Error Start: 12-06-2021 End: 12-06-2021 Subsequent hospital visit by physician Mri Radio Counts Include [facility] Wstr (I-Stat/1.5t) Work Phone: Radiology Comment on above: Primary osteoarthrit is of right knee [M17.11] Start: 12-05-2021 End: 12-05-2021 Patient encounter procedure Birgit LYNNE-C Work Phone: Orthopaedics Comment on above: Primary osteoarthrit is of right knee (Primary Dx); Chronic pain of right knee Start: 11-17-2021 End: 11-17-2021 Patient encounter procedure [facility]-Laboratory, Specimen Start: 11-11-2021 Orders Only Tim buchanan Work Phone: Podiatry Comment on above: Posterior tibial ten don dysfunction (Primary Dx); Arthritis of ankle Orders Start: 09-06-2021 Telephone encounter Birgit DAYC Work Phone: Orthopaedics Comment on above: Patient Update Start: 09-02-2021 Refill Birgit LYNNE-Abad Work Phone: Orthopaedics Comment on above: Refill Request Start: 09-02-2021 End: 09-02-2021 ambulatory Devon Lees PT Work Phone: [facility] Physical Therapy Comment on above: Bilateral primary os teoarthritis of knee (Primary Dx) Start: 08-19-2021 End: 08-19-2021 ambulatory Devon Lees PT Work Phone: [facility] Physical Therapy Comment on above: Bilateral primary os teoarthritis of knee (Primary Dx) Start: 08-10-2021 End: 08-10-2021 ambulatory Devon Nabeel PT Work Phone: [facility] Physical Therapy Comment on above: Bilateral primary os teoarthritis of knee (Primary Dx) Start: 08-05-2021 End: 03-25-2022 Patient encounter procedure Birgit Mancini PA-C Work Phone: Orthopaedics Comment on above: Bilateral primary os teoarthritis of knee (Primary Dx) Start: 08-05-2021 End: 08-05-2021 Subsequent hospital visit by physician Radio General Mellissa Timmons Work Phone: Radiology Comment on above: Pain [R52] Procedures Date Procedure Procedure Detail Performing Clinician Start: 10-20-2024 CT angiography of co ronary arteries Skylar Box HUMAN CAPITAL MANAGER-C Work Phone: Start: 05-28-[address] Koffi [...] Author Start: 11-17-2026 HPV Testing HPV Testing [facility] Start: 11-17-2026 Pap Testing Pap Testing [facility] Start: 03-25-2025 End: 03-25-2025 Patient encounter procedure 03/25/2025 12:00 PM EST Office Visit [facility] [address] [place] [address] Nataliia Samuels, MS [address] [place], [place] [id number] Family history of cancer [Z80.9] [facility] Comment on above: Family history of ca ncer [Z80.9] Start: 01-15-2025 End: 01-15-2025 Patient encounter procedure 01/15/2025 4:00 PM EDT Office Visit OB/Gynecology [address] [place] [address] Dagmar Schroeder MD [address] [place] [address] Annual OB/Gynecology Comment on above: Annual Start: 01-12-2025 Influenza vaccination [facility] Start: 01-08-2025 Screening for malign ant neoplasm of breast Mammogram Screening [facility] Start: 01-01-2025 End: 01-01-2025 Patient encounter procedure 01/01/2025 4:00 PM EDT Office Visit OB/Gynecology [address] [place] [address] Dagmar Schroeder MD [address] [place] [address] Annual OB/Gynecology Comment on above: Annual Start: 12-01-2024 End: 12-01-2024 Manual pelvic examination 12/01/2024 11:10 AM EDT [facility] OB/Gynecology [address] [place] [address] Dagmar Schroeder MD [address] [place] [address] has questions about HRT and need for pelvic u/s OB/Gynecology Comment on above: has questions about HRT and need for pelvic u/s Start: 11-17-2024 Screening for malign ant neoplasm of cervix Cervical Cancer Screening [facility] Start: 11-11-2024 End: 11-11-2024 Manual pelvic examination 11/11/2024 3:30 PM EDT Procedure OB/Gynecology [address] [place] [address] 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, 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[employer] [address] [place] [address] Pelvic US OB/Gynecology Comment on above: Pelvic US Start: 10-30-2024 End: 10-30-2025 US Pelvis PELVIC US [facility] Routine Menopausal state Expected: 10/30/2024, Expires: 10/30/2025 [facility] Work Phone: Comment on above: Expected: 10/30/2024 , Expires: 10/30/2025 Start: 09-18-2024 End: 09-18-2024 Patient encounter procedure 09/18/2024 10:50 AM EDT Office Visit OB/Gynecology [address] [place] [id number] Dagmar Schroeder MD [address] [place] [address] discuss hormone therapy OB/Gynecology Comment on above: discuss hormone ther apy Start: 08-04-2024 Phone; Acute Simple [facility]; [place] [facility] [place] [facility] Start: 08-04-2024 [place] [facility] Start: 01-13-2024 Covid-19 Vaccine ( season) Covid-19 Vaccine ( season) [facility] Start: 01-13-2024 Influenza vaccination Influenza Vacc ine (#1) [facility] Start: 04-20-2023 Patient discharge [facility] Start: 04-20-2023 Anes open proc bones lower leg/ankle/foot nos ANESTH LOWER LEG BONE SURG [facility] Start: 04-20-2023 Injection aa&/strd other peripheral nerve/branch NJX AA&/STRD OTHER PN/BRANCH [facility] Start: 04-20-2023 Open treatment bimalleolar ankle fracture TREATMENT OF ANKLE FRACTURE [facility] Start: 01-18-2023 Mammography Mammogram Screening [facility] Start: 01-18-2023 Screening for malign ant neoplasm of breast Mammogram Screening [facility] Start: 01-12-2023 Covid-19 Vaccine ( season) Covid-19 Vaccine ( season) [facility] Start: 01-12-2023 Influenza vaccination Influenza Vacc ine (#1) [facility] Start: 05-14-2022 Depression Assessment Depression Ass [facility] Start: 03-14-2022 End: 05-14-2022 CREATININE BLD CREATININE BLD Lab Routine Encounter for long-term (current) use of medications Expected: 03/14/2022, Expires: 05/14/2022 [facility] Work Phone: Comment on above: Expected: 03/14/2022 , Expires: 05/14/2022 Start: 02-10-2022 NPV, Provider: Norman Davidson, Status: Pen, Time: 8:20 AM NPV, Provider: Norman Davidson, Status: Pen, Time: 8:20 AM ZG-Tgmfiwdwogrz-Oofp an 200 Work Phone: Start: 01-27-2022 NPV, Provider: Norman Davidson, Status: Pen, Time: 8:00 AM NPV, Provider: Norman Davidson, Status: Pen, Time: 8:00 AM WY-Znnglcuyoueu-Ykud an 210 Work Phone: Start: 01-12-2022 Influenza vaccination [facility] Start: 05-14-2021 DEPRESSION ASSESSMENT DEPRESSION ASS ESSMENT [facility] Start: 01-12-2021 Influenza vaccination INFLUENZA (#1) [facility] Start: 2018 Pneumococcal Vaccine : 50+ (2 of 2 - PCV20 or PCV21) Pneumococcal Vaccine: 50+ (2 of 2 - PCV20 or PCV21) [facility] Start: 2018 Pneumococcal Vaccine : 50+ (2 of 2 - PPSV23) Pneumococcal Vaccine: 50+ (2 of 2 - PPSV23) [facility] Start: 2018 SHINGRIX VACCINE (1 of 2) SHINGRIX VACCINE (1 of 2) [facility] Start: 02-11-2017 End: 02-11-2017 Urinalysis complete panel - Urine *UAC- Urinalysis, Complete w/ Micro [facility] Work Phone: Start: 02-11-2017 End: 02-11-2017 Appointment Appointment [facility] Work Phone: Start: 02-11-2017 End: 02-11-2017 Urinalysis complete panel - Urine *UAC- Urinalysis, Complete w/ Micro [facility] Work Phone: Start: 2013 COLOGUARD (FIT-DNA) COLOGUARD (FIT-D NA) [facility] Start: 2013 Colonoscopy COLONOSCOPY [facility] Start: 2013 COLORECTAL CANCER SCREENING COLORECTAL CANCER SCREENING [facility] Start: [address] COLONOGRAPHY [facility] Start: 2013 DIABETES SCREEN DIABETES SCREEN [facility] Start: 2013 Diabetes Screening Diabetes Screenin g [facility] Start: 2013 FECAL OCCULT BLOOD FECAL OCCULT BLOO D [facility] Start: 2013 Lipid 1996 panel - Serum or Plasma Lipid Screening [facility] Start: 2013 Lipid panel Lipid Screening [facility] Start: 2013 LIPID SCREEN LIPID SCREEN [facility] Start: 2013 Screening for malign ant neoplasm of colon [facility] Start: 2013 SIGMOIDOSCOPY SIGMOIDOSCOPY [facility] Start: 01-07-2013 Urine microalbumin profile DTaP,Tdap,Td Vaccine (1 - Tdap) [facility] Start: 2008 Mammography MAMMOGRAM [facility] Start: 1998 HPV TESTING HPV TESTING [facility] Start: 1989 PAP TESTING PAP TESTING [facility] Start: 1987 Hepatitis B Vaccine (1 of 3 - 19+ 3-dose series) Hepatitis B Vaccine (1 of 3 - 19+ 3-dose series) [facility] Start: 1987 Urine microalbumin profile DTAP,TDAP,TD (1 - Tdap) [facility] Start: 1986 Anxiety Screening Anxiety Screening [facility] Start: 1986 Depression Screening Depression Scre ening [facility] Start: 1986 HEPATITIS C SCREENING HEPATITIS C [facility] Start: 1986 Hepatitis C screening Hepatitis C [facility] Start: 1986 HIV SCREENING HIV SCREENING [facility] Start: 1986 HIV screening HIV Screening [facility] Start: 1980 Adult depression screening assessment DEPRESSION SCREENING [facility] Start: 1973 COVID-19 VACCINE (1) COVID-19 VACCIN E (1) [facility] Start: 1968 COVID-19 VACCINE (#1) COVID-19 VACCI NE (#1) [facility] Start: 1968 HEPATITIS B (1 of 3 - 3-dose series) HEPATITIS B (1 of 3 - 3-dose series) [facility] Start: 1968 Hepatitis B Vaccine (1 of 3 - 3-dose series) Hepatitis B Vaccine (1 of 3 - 3-dose series) [facility] Blood chemistry [facility] End: 01-29-2025 DBT Breast - bilateral screening [facility] Work Phone: Comment on above: 1 Occurrences starti ng 12/31/2023 until 01/29/2025 Lipid 1996 panel - Serum or Plasma [facility] End: 01-04-2023 MRI KNEE WO IVCON RT MRI KNEE WO IVCON RT Radiology Routine Primary osteoarthritis of right knee Chronic pain of right knee 1 Occurrences starting 12/05/2021 until 01/04/2023 [facility] Work Phone: Comment on above: 1 Occurrences starti ng 12/05/2021 until 01/04/2023 Path report.final Dx Spec [facility] Work Phone: Patient Education Post-Op Tips: Foot [facility] Work Phone: Patient referral [facility] Work Phone: End: 05-08-2024 XR ANKLE GENERAL 3V AP/LAT/OBL RIGHT XR ANKLE GENERAL 3V AP/LAT/OBL RIGHT Radiology Routine Pain 1 Occurrences starting 04/09/2023 until 05/08/2024 [facility] Work Phone: Comment on above: 1 Occurrences starti ng 04/09/2023 until 05/08/2024 End: 05-08-2024 XR FOOT GENERAL 3V AP/LAT/OBL RIGHT XR FOOT GENERAL 3V AP/LAT/OBL RIGHT Radiology Routine Pain 1 Occurrences starting 04/09/2023 until 05/08/2024 [facility] Work Phone: Comment on above: 1 Occurrences starti ng 04/09/2023 until 05/08/2024 [facility] Immunizations Immunization Date Immunization Notes Care Provider Fa joanne 04-03-2016 influenza, injectabl e, quadrivalent, contains preservative No PCP None MJ-[place] [address] DO Work Phone: 04-03-2016 influenza virus vaccine, unspecified formulation Tomas Olivera MD Work Phone: [facility] 01-06-2013 influenza, seasonal, injectable No PCP None [place]wxwfobo[place] [address] DO Work Phone: 01-06-2013 pneumococcal conjuga te vaccine, 13 valent No PCP None FQ-Kdpyujljxioe[place] [address] DO Work Phone: 01-06-2013 TD(adult) unspecifie d formulation No PCP None LY-Ykdocihvqiob[place] [address] DO Work Phone: Payers Date Payer Category Payer Unknown [id number] 2024 Self-pay [id number] 2023 Private Health Insurance [id number] 2021 Private Health Insurance AETNA A ETNA CHOICE POS II [id number] 2021-Present [phone] [address] [place] [address] POS [id number] 2021 Private Health Insurance [id number] 1968 Unknown [id number] 356 1968 Unknown [id number] 356 1968 Unknown [id number] 356 1968 Unknown [id number] 356 Private Health Insurance [id number] Unknown [id number] Unknown AETNA Unknown [id number] 462 Unknown [id number] 462 Unknown [id number] 462 Unknown [id number] 462 Unknown [id number] 462 Unknown [id number] 462 Unknown [id number] 462 Unknown [id number] 462 Social History Date Type Detail Facility Start: 11-08-2016 End: 12-10-2024 Tobacco smoking status ARIS Never smoked tobacco [facility] Work Phone: Start: 11-08-2016 End: 12-31-2023 Tobacco use and exposure Smokeless tobacco non-user [facility] Work Phone: Start: 08-05-2021 End: 09-18-2024 Alcohol intake Current drinker of alcohol (finding) [facility] Start: 08-03-2020 History SDOH Alcohol Comment some [facility] Start: 1970 Sex Assigned At Female [facility] Start: 07-26-2021 End: 12-05-2021 Exposure to SARS-CoV-2 (event) Not sure [facility] Start: 09-09-2020 End: 07-11-2023 Tobacco smoking status NHIS Unknown if ever smoked [facility] Start: 01-16-2023 End: 12-31-2023 History of Social function [facility] Start: 01-16-2023 End: 12-31-2023 Tobacco use panel [facility] Start: 03-02-2014 National Score (1-100), lower number is lower risk 67 [facility] Start: 07-31-2021 Gender identity Identifies as female gender (finding) [facility] Start: 07-31-2021 Sexual orientation Heterosexual (fin charo) [facility] Sex Assigned At Unknown [place] [facility] NEGATED: Highlighted row [facility] Medical Equipment Procedure Code Equipment Code Equipment Origin al Text Equipment Identifier Dates Repair of tendon BIOSKIN, 2 X 4 FDA Star t: 05-09-2024 Repair of tendon BIOSKIN, 2 X 4 FDA Star t: 05-09-2024 Repair of tendon BIOSKIN, 2 X 4 FDA Star t: 05-09-2024 ORIF, ankle Implant ([id number]) ()[id number] FDA Start: 04-20-2023 ORIF, ankle ([id number]) ()[id number] FDA Start: 04-20-2023 ORIF, ankle ([id number]) ()[id number] FDA Start: 04-20-2023 ORIF, ankle ()[id number] FDA Start: 04-20-2023 ORIF, ankle ()[id number] FDA Start: 04-20-2023 ORIF, ankle ([id number]) ()[id number] FDA Start: 04-20-2023 Goals Date Patient Goal Desired Activity /State Mental Status Date Assessment Result Facility 04-20-2023 Cognitive function Level Of Cons ciousness Awake;Alert [facility] Work Phone: 04-20-2023 Cognitive function Voice/Name [facility] Work Phone: Clinical Notes 08-05-2021 to 01-23-2025 Telephone Encounter - Nataliia Samuels, - 01/23/2025 1:31 PM EDTTelephone Encounter - Nataliia Samuels MS - 01/23/2025 1:31 PM EDTTelephone Encounter - Dagmar Schroeder MD - 10/30/2024 9:51 AM EDT Note Date & Type Note Facility 01-23-2025 Telephone encounter Note Called pt after seeing her [facility] regarding wanting genetic testing. Reviewed that I would put order in for blood work for Multi-Cancer panel through [facility] and results will be available in 2-3 weeks. I will contact her when the results are available. We also discussed the protections and limitations of the Genetic Information Nondiscrimination Act and all patient/parent questions were answered. Patient agreed to move forward with testing and order has been placed. [facility] Work Phone: 01-23-2025 Miscellaneous Notes Called pt after seeing her MCM regarding wanting genetic testing. Reviewed that I would put order in for blood work for Multi-Cancer panel through [facility] and results will be available in 2-3 weeks. I will contact her when the results are available. We also discussed the protections and limitations of the Genetic Information Nondiscrimination Act and all patient/parent questions were answered. Patient agreed to move forward with testing and order has been placed. documented in this encounter [facility] 10-30-2024 Telephone encounter Note Pt notified and voiced understanding-pelvic US scheduled. Marcelina Larsen RN [facility] 10-30-2024 Miscellaneous Notes Pt notified and voiced understanding-pelvic US scheduled. Marcelina Larsen RN Left message to call office. Mony Patel RN I would say lets start with pelvic ultrasound and go from there because if lining thin, I do not think EMB is necessary Pt notified. Pt states She had hysteroscopy, D&C, polypectomy in [place] approx 15-46 years ago. Pt states she currently is having no PMB. Pt does state she would feel much better having a pelvic US and EMB prior to starting HRT just to be safe and with hx of PMB. Informed her message would be sent to to let her know. Pt does state that she had painful experience with EMB with Dr. Donna Oconnor in office. States she was advised to take OTC ibuprofen, was numbed with spray and was near passing out. Was not prescribed Cytotec/States she did not feel Was able to get a good enough sample and Also had to step out in middle of procedure for emergency. EMB and Pelvic US orders pending if you feel appropriate to order as Pt prefers prior to starting HRT. Would you like Cytotec ordered if so? Pt willing to schedule another VV if needed to discuss further if necessary. Please advise. Marcelina Larsen RN From what I can tell on US the lining of the uterus was difficult to visualize given the orientation of the uterus. It looks like a hysteroscopy, D&C, polypectomy was scheduled, but I see pathology from an in office bopspy that was benign. If the lining was evaluated and benign in the past that is reassuring. Current guidelines are to not start HRT in the setting of abnormal bleeding or PMB. If she has any bleeding would recommend pelvic US and EMB prior to HRT I found the ultrasounds. They were scanned in back in 2022. She didn't establish with our office until 2023. I did not look back far enough. Reports placed in mailbox. Eduarda Roa RN Please schedule visit (can be virtual) to discuss further if she has any questions or concerns Could not find any scanned pelvic US reports in [facility]. There are no reports in [facility] either. Eduarda Roa RN documented in this encounter [facility] 10-30-2024 Telephone encounter Note Left message to call office. Mony Patel RN [facility] 10-30-2024 Telephone encounter Note I would say lets start with pelvic ultrasound and go from there because if lining thin, I do not think EMB is necessary [facility] 10-30-2024 Telephone encounter Note Pt notified. Pt states She had hysteroscopy, D&C, polypectomy in [place] approx 15-46 years ago. Pt states she currently is having no PMB. Pt does state she would feel much better having a pelvic US and EMB prior to starting HRT just to be safe and with hx of PMB. Informed her message would be sent to SW to let her know. Pt does state that she had painful experience with EMB with Dr. Donna Oconnor in office. States she was advised to take OTC ibuprofen, was numbed with spray and was near passing out. Was not prescribed Cytotec/States she did not feel Was able to get a good enough sample and Also had to step out in middle of procedure for emergency. EMB and Pelvic US orders pending if you feel appropriate to order as Pt prefers prior to starting HRT. Would you like Cytotec ordered if so? Pt willing to schedule another VV if needed to discuss further if necessary. Please advise. Marcelina Larsen RN T [facility] 10-30-2024 Telephone encounter Note From what I can tell on US the lining of the uterus was difficult to visualize given the orientation of the uterus. It looks like a hysteroscopy, D&C, polypectomy was scheduled, but I see pathology from an in office bopspy that was benign. If the lining was evaluated and benign in the past that is reassuring. Current guidelines are to not start HRT in the setting of abnormal bleeding or PMB. If she has any bleeding would recommend pelvic US and EMB prior to HRT T [facility] 10-23-2024 Telephone encounter Note I found the ultrasounds. They were scanned in back in 2022. She didn't establish with our office until 2023. I did not look back far enough. Reports placed in mailbox. Eduarda Roa, RN [facility] 10-23-2024 Telephone encounter Note Please schedule visit (can be virtual) to discuss further if she has any questions or concerns [facility] 10-22-2024 Telephone encounter Note Could not find any scanned pelvic US reports in [facility]. There are no reports in [facility] either. Eduarda oRa, RN [facility] 10-20-2024 Radiology Diagnostic study note [facility] Imaging Services [address] [place] [address] Cardiac Only MR#: [id number] Acct: [id number] Name: CHANELLE GUILLERMO Rep #: [id number] : 1970 F 54 From: Pet er Peer PCP: JHONY Roth Status: REG CLI Study:Limited Chest CT Cardiac Only Date of E xam: 10/20/24 Exam# [id number] Ordering Dr: Ra mina Box PROCEDURE: LIMITED CHEST CT CARDIAC ONLY REASON FOR EXAM: HYPERLIPIDEMIA, UNSPECIFIED TECHNIQUE: Prone and supine chest CT without contrast, high resolution CT (HRCT) protocol. Coronal and Sagittal reconstruction series were provided. One or more dose reduction techniques were used (e.g., Automated exposure control, adjustment of the mA and/or kV according to patient size, use of iterative reconstruction technique). COMPARISON: Cardiac calcium scoring October 20, 2024 FINDINGS: Hardware: None Lymph nodes: None. Heart and Vasculature: Normal size heart aortic punctate calcifications Coronary Artery Calcifications: None Lungs and Airways: Lungs and airways are clear. Pleura: No pleural thickening. No effusion. No pneumothorax. Upper Abdomen: Unremarkable. Bones: Unremarkable CT/Limited Chest CT Cardiac Only IMPRESSION: Coronary artery calcification (CAC) is 0 no other significant findings Reading [facility] CC: JHONY Box ~ Char Filter Tank Tender Head: Signed [facility] 10-07-2024 Discharge summary Note Date/Time October 07, 2024 4:21p m [facility] Physical Therapy [facility] [address] [place] [address]. [address] [place] [address] / REHABILITATION SERVICES DISCHARGE SUMMARY MR#: [id number] Acct: [id number] Name: CHANELLE GUILLERMO Rep #: [id number] : 1970 54 From: Devon Freitas PT, ATC Referring Dr.: ARIANA Crowder Status: REG RCR Insurance: [employer]IG[employer] SELF [...] appear below: [facility] and [...] PT, ATC> 10/07/24 1621 CC: ARIANA Crowder; HUMAN CAPITAL MANAGER-C Skylar Box ~ [facility] Signed [facility] Work Phone: 1(777) 170-382105-27-2025 Discharge summary [facility] [address] [place] [address] / REHABILITATION SERVICES DISCHARGE SUMMARY MR#: [id number] Acct: [id number] Name: CHANELLE GUILLERMO Rep #: [id number] : 1970 54 From: Devon Freitas PT, ATC Referring Dr.: ARIANA Crowder Status: REG R Insurance: [facility] SELF PAY INSURANCE Patient Information Patient Information: [...] Score: 40 10/07/24 1621 CC: ARIANA Crowder; HUMAN CAPITAL MANAGER-C Skylar Box ~ [facility] Signed [facility]05-21-2025 NoteHNO ID: [id number] Author: NATALIIA SAMUELS MS Service: ? Author Type: Genetic Counselor Type: Progress Notes Filed: 01/29/2025 10:46 Note Text: [facility] Department of Medical Genetics Consultation Note Genetic Counselor: Nataliia Samuels MS, [facility] – [place] Patient: Chanelle Guillermo This visit was conducted via [employer]. I have communicated my name and active licensure. The patient's identity and physical location were verified at the time of this visit. Either the patient or their legal inside outside sales representative has been informed of the risks and benefits of -- and alternatives to -- treatment through a remote evaluation and consents to proceed with the evaluation remotely. HIGH LEVEL SUMMARY: Patient's family history is suggestive of a hereditary cancer syndrome. Patient's mother had limited negative genetic testing for BRCA1/2. Patient provided informed consent for Multi-Cancer panel through [facility]. Results will be available in 2-3 weeks. IDENTIFICATION AND CHIEF COMPLAINT: Dr. Dagmar Schroeder [...] 04/20/2023 screws and plates COLONOSCOPY SCREENING 2019 DANCO, DIAG AND/OR THERAPEUTIC 04/19/2011 EXTRACTION ERUPTED TOOTH/EXR [...] Uncle The patient's maternal ancestors are of Micronesian/Kyrgyz descent and paternal ancestors are of Micronesian descent. There is no known Ashkenazi Judaism ancestry. There is no known consanguinity. A copy of the patient's pedigree will be available under the scanned documents tab following today's visit. GENETIC COUNSELING RISK ASSESSMENT, DISCUSSION, AND SUGGESTED FOLLOW UP: We reviewed the natural history and genetic etiology of sporadic, familial and hereditary cancer syndromes. The patient's family history is suggestive of: a hereditary cancer syndrome The patient meets NCCN HBOC testing criteria based on her father having pancreatic cancer. We discussed the following: Approximately 5-10% of cancer is due to an underlying hereditary cancer syndrome Inheritance of hereditary cancer syndromes and possible familial implications of genetic testing Different types of results Positive: a mutation was identified associated with a hereditary cancer syndrome indicating a potentially higher risk to develop one or more types of cancer Negative: no mutations were identified indicating a low likelihood of a hereditary cancer syndrome in the patient Uncertain: a variant of uncertain significance (VUS) was identified, however, there is insufficient data available to determine the clinical impact of the variant Rare possibility of unexpected findings Genetic testing may help the patient's care providers tailor medical management. Individuals with positive genetic testing may consider changes to their cancer surveillance or management such as increased cancer screening, prophylactic surgeries, or targeted treatmen (more content not included)...[facility]05-08-2025 Instructions* Patient Instructions* Dagmar Schroeder MD - 09/18/2024 11:37 AM EDT Non-Hormonal Ways to [place] with Hot Flashes and Menopause Hormone therapy [...] 27.91 Tofu, yogurt 16.30 Source: USDA -- [facility] Database on the Isoflavone Content of [...] black cohosh and soy products) are available mkgy-prq-iamanxx but are not FDA-approved.Some prescription medications are [...] some of the other options. Non-prescription, herbal, bkqj-lgb-zejhdaj therapies: Drug Side Effects Effectiveness Evening [place] Oil Nausea, diarrhea, headache. Only one well-designed [...] per day compared to placebo. Are the ghxl-klk-bbtsqxd herbal products (botanicals) safe? While safe when [...] promoted. Be cautious of products promoted through: [employer] Direct mailings [employer] Ads disguised as valid news articles Ads in the back of magazines Additional red flags to look for include: Big claims: If products claim to be a cure for your condition, or gives outrageous claims, be cautious. Source: Be wary if the product is only offered through one pan devulcanizer or purchased only through [facility] care provider s office. Ingredients: Make sure all of the active ingredients are listed, and don t trust secret formulas. Testimonials: Remember that only people who are satisfied with a product give testimonials and thatthey may be getting paid for their endorsement References: National Center for Complementary and Alternative Medicine. Vitamin E. nccam.nih.gov Assessed 2012 Almas Schmidt et al. meta-analysis: High Dosage Vitamin E. Supplementation Might Increase All Cause Mortality. Annals of Internal Medicine May 17, 2004. annals.org National Center for Complementary and Alternative Medicine. Menopausal Symptoms and CAM. [facility].nih.gov Accessed August 12, [address] [place] Menopause Society, Hormone Therapy for women in 2012. www.menopause.org Assessed August 12, 2012 [place] Congress of Obstetricians and Gynecologists. Publications. The Menopause Years. www.acog.org Accessed 07/11/2010 Centers for Disease Control and Prevention. Women s Reproductive Health: Menopause. www.cdc.gov Accessed 07/11/2010 [place] on Aging. Age Page: Menopause. www.kelli.nih.gov Accessed [...] safe to do so in terms of ferry terminal supervisor heart disease risk. HT and breast cancer [...] Women: Randomized Trial. BMJ Feb 2012. [place] Menopause Society. The 2012 hormone therapy position statement Accessed 10/10/12. [place] Association of Clinical Endocrinologists. [place] Association of Clinical Endocrinologists Medical Guidelines for the Clinical Practice for the Diagnosis and Treatment of Menopause Accessed11/03/12. Committee on Gynecological Practice. Postmenopausal estrogen therapy: Route of administration and risk of venous thromboembolism. Obstet Gynecol 2013 Aug; 121:887. Estrogen alone and joint symptoms in the Women's Health Initiative randomized trial. Menopause 18. documented in [facility]-2025 NoteHNO ID: [id number] Author: DAGMAR SCHROEDER MD Service: ? Author [...] Living2 SAB0 IAB0 Ectopic0 Multiple0 Live Births0 Home Care Nurse History LMP: Postmenopausal Age at Menarche: Age at First : Age at Menopause: Home Care Nurse History Comments: Sexual Activity: Yes; Male Contraception: [...] with more than 50% of the total uyoj-of-jksv time of the visit in counseling / coordination of care.[facility]05-08-2025 History of Present illness Narrative* Dagmar [...] Living2 SAB0 IAB0 Ectopic0 Multiple0 Live Births0 Home Care Nurse History LMP: Postmenopausal Age at Menarche: Age at First : Age at Menopause: Home Care Nurse History Comments: Sexual Activity: Yes; Male Contraception: [...] with more than 50% of the total dsub-kp-exnb time of the visit in counseling / coordination of care. [facility] Telephone encounter Note * Telephone Encounter - Dagmar Schroeder MD - 09/15/2024 12:01 PM EDT filed [facility]05-05-2025 Miscellaneous Notes* Telephone Encounter - Dagmar Schroeder [...] WELL Petty Buck RN documented in this encounterWilson [facility]-2025 Telephone encounter Note * Telephone Encounter - [...] OUTSIDE OF VAGINA WELL Petty Buck RN [facility]08-19-2024 Instructions* Patient Instructions* Dagmar Schroeder MD - [...] safe to do so in terms of [place] heart disease risk. HT and breast cancer [...] Women: Randomized Trial. BMJ Feb 2012. [place] Menopause Society. The 2012 hormone therapy position statement Accessed 10/10/12. [place] Association of Clinical Endocrinologists. [place] Association of Clinical Endocrinologists Medical Guidelines for the Clinical Practice for the Diagnosis and Treatment of Menopause Accessed11/03/12. Committee on Gynecological Practice. Postmenopausal estrogen therapy: Route of administration and risk of venous thromboembolism. Obstet Gynecol 2013 Aug; 121:887. Estrogen alone and joint symptoms in the Women's Health Initiative randomized trial. Menopause 18. Non-Hormonal Ways to [place] with Hot Flashes and Menopause Hormone therapy [...] Tofu, silken 27.91 Tofu, yogurt 16.30 Source: [facility] -- [facility] Database on the Isoflavone Content of [...] black cohosh and soy products) are available rckz-nyv-twmqwyu but are not FDA-approved.Some prescription medications are [...] some of the other options. Non-prescription, herbal, jmwm-lzy-fidmynt therapies: Drug Side Effects Effectiveness Evening [place] Oil Nausea, diarrhea, headache. Only one well-designed [...] per day compared to placebo. Are the brzy-ewc-cblnwnb herbal products (botanicals) safe? While safe when [...] promoted. Be cautious of products promoted through: [employer] Direct mailings [employer] Ads disguised as valid news articles Ads in the back of magazines Additional red flags to look for include: Big claims: If products claim to be a cure for your condition, or gives outrageous claims, be cautious. Source: Be wary if the product is only offered through [employer] or purchased only through [facility] provider s office. Ingredients: Make sure all of the active ingredients are listed, and don t trust secret formulas. Testimonials: Remember that only people who are satisfied with a product give testimonials and thatthey may be getting paid for their endorsement References: National Center for Complementary and Alternative Medicine. Vitamin E. nccam.nih.gov Assessed 2012 Almas Schmidt et al. meta-analysis: High Dosage Vitamin E. Supplementation Might Increase All Cause Mortality. Annals of Internal Medicine May 17, 2004. annals.org National Center for Complementary and Alternative Medicine. Menopausal Symptoms and CAM. nccam.nih.gov Accessed August 12, [address] [place] Menopause Society, Hormone Therapy for women in 2011. www.menopause.org Assessed August 12, 2012 [place] Congress of Obstetricians and Gynecologists. Publications. The Menopause Years. www.acog.org Accessed 07/11/2010 Centers for Disease Control and Prevention. Women s Reproductive Health: Menopause. www.cdc.gov Accessed 07/11/2010 National [place] on Aging. Age Page: Menopause. www.kelli.nih.gov Accessed 07/11/2010 documented in this encounter[facility] History of Present illness Narrative* Dagmar Schroeder [...] L2 SAB0 IAB0 Ectopic0 Multiple0 Live Births0 Home Care Nurse History LMP: Postmenopausal Age at Menarche: Age at First : Age at Menopause: Home Care Nurse History Comments: Sexual Activity: Yes; Male Contraception: [...] external genitalia atrophic, normal Bartholin's glands, urethra, [place]'s glands, no vulvar lesions, no cervical lesions, good vaginal support, physiologic discharge present, normal appearing perineal body and perianal region, vaginal atrophy noted BIMANUAL: uterus normal size, shape and consistency, no adnexal masses, and non-tender RECTOVAGINAL: deferred. NEURO: exam grossly non-focal EXTREMITIES: normal ASSESSMENT/PLAN: 1) Health maintenance: Pap/HPV up to date. Mammogram ordered to be completed at [facility] Nutrition, exercise and routine health maintenance exams reviewed. Colon cancer screening: up to date with screening TSH/lipids/glucose: followed by PCP Information given on non hormonal treatment options and HRT for menopausal symptoms after discussion of r/b/a Rx for vaginal estrogen sent after discussion of r/b/a 2) Follow up one year or sooner as needed Dagmar Schroeder DO documented in this encounterWilson Health04-[facility]-2024 Discharge summary Author Janak Vidal [facility] August 20, 2023 9:46am Note Date/Time August 20, 2023 9:46 am [facility] Physical [facility] [address] [place] [address]. [address] [place] [address] / REHABILITATION SERVICES DISCHARGE SUMMARY MR#: [id number] Acct: [id number] Name: CHANELLE GUILLERMO Rep #: [id number] : 1970 53 From: Janak DANG T Referring Dr.: ARIANA Crowder Status: REG RCR Insurance: CIGNA SELF [...] Vidal DPT> 08/20/23 0946 CC: ARIANA Crowder; HUMAN CAPITAL MANAGER-C Misa Monroe ~ CLS Signed [facility] Work Phone: 1(488) 757-979907-29-2022 Miscellaneous Notes* Telephone Encounter - Mariluz Schonauer, PSS - 12/09/2021 9:09 AM EDT Pt would like to use port for appt on 12/12/21 @ 8:40 Please call pt to let her know what time to come in please documented in this encounterWilson Health07-27-2022 Miscellaneous Notes* Telephone Encounter - [place] [...] understanding. [place] LPN documented in this [facility]07-26-2022 History of Present illness Narrative* RT Ramón(R) [...] 06, 2021 12:13 PM documented in this [facility]07-25-2022 History of Present illness Narrative* Birgit Mancini PA-C - 12/05/2021 4:00 PM EDT Birgit Mancini PA-C Established Patient Department of Orthopaedics Orthopaedics [address] [address] Dept: [phone] December 05, 2021 SUBJECTIVE: CHIEF COMPLAINT: Established [...] MRI Birgit Mancini PA-C documented in this encounterWilson Health07-07-2022 NotePap Smear Specimen AdequacyJuly 2021 11:59pmComment.Satisfactory for evaluation. Endocervical and/or squamous metaplasticcells (endocervical component)are present.[facility] INTERFACED A#[id number]-[facility] Work Phone: Comment on above:Satisfactory for evaluation. Endocervical and/or squamous metaplasticcells (endocervical component)are present.11-16-2021 Miscellaneous Notes* Telephone Encounter - Isabell Najera RN - 11/16/2021 4:45 PM EDT See 1calendarhart message from 11/09/21. * Telephone Encounter - Tim Jane - 11/11/2021 12:55 PM EDT Orthotics ordered. 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, which has given her some relief. 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 She also had an MRI performed showing a R medial meniscal tear. She comes to clinic for a second opinion asshe has been told she is not a surgical candidate for meniscal surgery given her degree of medial compartment arthritis.GT-Tnwdagjlxyku-Zvjlgr 210 Work Phone: 1(301) 194-915107-01-2022 History of Present illness Neha is a [...] intraarticular steroid injection, lastin November at the [facility], which has given her some relief. She has also tried a course of Meloxicam and Tylenol with some relief but the pt is reluctant to stay on [facility] medications. She also had an MRI performed showing a R medial meniscal tear. She comes to clinic for a second opinion asshe has been told she is not a surgical candidate for meniscal surgery given her degree of medial co mpartment arthritis.UT-Fuiyzcbpsuyb-Wkzhhu 200 Work Phone: 1(877) 618-412004-26-2022 Miscellaneous Notes* Telephone Encounter - Birgit Mancini [...] she needs anything else documented in this encounterWilson Health04-22-2022 History of Present illness Narrative* Devon Lees, [...] toward set goals. PLAN FOR NEXT VISIT: DE SUBJECTIVE: Patient Reason for Visit: Patient reports [...] upon. Devon Lees PT documented in this encounterWilson Health04-08-2022 History of Present illness Narrative* Devon Lees [...] upon. Devon Lees PT documented in this encounterWilson Health03-30-2022 History of Present illness Narrative* Devon Lees [...] of Care: created on 08/10/21 through 10/10/21 [place] in home exercise program. Patient will decrease [...] Planned: 6 Planned Treatment Interventions: Therapeutic exercise (75514);Neuromuscular re- education (08278);Manual therapy (50269);Therapeutic activities (43803);Self- penitentiary management (72221);Patient/Family/Caregiver Education;Body Mechanics Training PLAN FOR NEXT VISIT: [...] 40 Devon Lees PT documented in this encounterWilson Health03-25-2022 History of Present illness Narrative* Birgit Mancini PA-C - 08/05/2021 10:01 AM EDT Birgit Mancini PA-C Department of Orthopaedics Orthopaedics [address] [place], [place] [id number] Dept: [phone] August 05, 2021 SUBJECTIVE: CHIEF COMPLAINT: New [...] on the right compared to the left.. Char Filter Tank Tender Head: YANET Transcribe Date/Time: Aug 05 2021 10:12A Dictated by : MORRIS CALDERÓN MD This examination was interpreted and the report reviewed and electronically signed by: MORRIS CALDERÓN MD on Aug 05 2021 10:16AM EST Results-Findings * * *Final Report* * * DATE OF EXAM: Aug 05 2021 9:15AM CHANG 5618 - XR KNEE 4V AP/PA/LAT/MERCH AIDEN / PROCEDURE REASON: Q55-Mogg * * * * Physician Interpretation * * * * Knee radiographs HISTORY: 51 years old Clinical information: Pain BILATERAL KNEE PAIN TECHNIQUE: Images: XR KNEE 4V AP/PA/LAT/MERCH AIEDN Comparison: None. RESULT: Findings: LEFT KNEE: Mild [...] needed Birgit Mancini PA-C documented in this encounterWilson Health03-25-2022 History of Present illness Narrative* REMY Armijo - 08/05/2021 9:30 AM EDT Radiology Service [...] 05, 2021 9:15 AM [facility] - Reported Patient here for initial evaluation of Right Knee Pain. -mv- QL-Oehynxagzxdc-Xrmhuf 210 Work Phone: Chief complaint Narrative - ReportedPatient here for initial evaluation of Right Knee Pain. -jh-LS-Dmcplntcrtki-Risman 200 Work Phone: Evaluation note* Diagnosis Bilateral primary osteoarthritis of knee- Primary documented in this encounter [facility] note* Diagnosis Bilateral primary osteoarthritis of knee- Primary documented in this encounter [facility] note* Diagnosis Pain Generalized pain documented in this encounter [facility] note* Diagnosis Bilateral primary osteoarthritis of knee- Primary documented in this encounter [facility] note* Diagnosis Bilateral primary osteoarthritis of knee documented in this encounter [facility] note* Diagnosis Bilateral primary osteoarthritis of knee- Primary documented in this encounter [facility] note* Diagnosis Posterior tibial tendon dysfunction- Primary Other disorders of synovium, tendon, and bursa Arthritis of ankle Unspecified arthropathy, ankle and foot documented in this encounter [facility] noteNo assessment information [facility]* Diagnosis Primary osteoarthritis of right knee- Primary Primary localized osteoarthrosis, lower leg Chronic pain of right knee documented in this encounter [facility] note* Diagnosis Primary osteoarthritis of right knee Primary localized osteoarthrosis, lower leg Chronic pain of right knee documented in this encounter [facility] note* Diagnosis Primary osteoarthritis of right knee Primary localized osteoarthrosis, lower leg Chronic pain of right knee documented in this encounter [facility] note* Diagnosis Primary osteoarthritis of right knee Primary localized osteoarthrosis, lower leg Chronic pain of right knee documented in this encounter [facility] note* Diagnosis Encounter for long-term (current) use of medications- Primary Encounter for long-term (current) use of other medications documented in this encounter [facility] note* Diagnosis Pain- Primary Generalized pain documented in this encounter [facility] note* Diagnosis Onset Date Resolution Status Bimalleolar fracture of right ankle acute [facility] Work Phone: Evaluation note* Diagnosis Onset Date Resolution Status Hypertension chronic [facility] Work Phone: Evaluation note* Diagnosis Encounter for gynecological examination (general) (routine) without abnormal findings- Primary Encounter for screening mammogram for breast cancer Dense breast tissue documented in this encounter [facility] note No assessment recorded. [place] [facility] Evaluation note* Diagnosis Family history of cancer- Primary Family history of unspecified malignant neoplasm Hot flashes Symptomatic menopausal or female climacteric states Vaginal dryness Other specified symptom associated with female genital organs Low libido Decreased libido Difficulty sleeping Sleep disturbance, unspecified documented in this encounter [facility] note* Diagnosis Menopausal state- Primary Symptomatic menopausal or female climacteric states documented in this encounter [facility] general Narrative - ReportedNo medical history recorded. Gynecological History Statement/Question Response If Post Menopausal, Age at Menopause 47 Date of Last Pap Smear Obstetrics History GPAL:G 0 P 0 0 0 0 [place] - [facility] History of Present illness [id number] female referred by Dr. Jackson for right [...] however her left is now becoming progressively worse.[facility] [address] DO Work Phone: Reason for referral (narrative)* Diagnostic Procedure Only (Routine) - Closed Specialty Diagnoses / Procedures Referred By Archie bobby Referred To Contact XR IMAGING Diagnoses Pain Procedures XR KNEE GENERAL 4V AP BOTH/PA BOTH/LAT/MERC BILATERAL RADIOLOGIC EXAM KNEE COMPLETE 4/MORE VIEWS Toni Echeverria MD [address] [address] Xr Imaging Referral ID Status Reason Start Date Expiration Date V isits Requested Visits Authorized [id number] Closed Auto-Generate d Referral 06/28/2021 07/28/2022 1 1 [facility] for referral (narrative)* Diagnostic Procedure Only (Routine) - Authorized Specialty Diagnoses / Procedures Referred By Archie bobby Referred To Contact XR IMAGING Diagnoses Pain Procedures XR FOOT GENERAL 3V AP/LAT/OBL RIGHT RADEX FOOT COMPLETE MINIMUM 3 VIEWS Tomas Olivera MD [address] [place] [address] [place] [address] Referral ID Status Reason Start Date Expiration Date Visits Requested Visits Authorized [id number] Authorized Auto-Generat ed Referral 3 05/08/2024 1 1 * Diagnostic Procedure Only (Routine) - Authorized Specialty Diagnoses / Procedures Referred By Contac t Referred To Contact XR IMAGING Diagnoses Pain Procedures XR ANKLE GENERAL 3V AP/LAT/OBL RIGHT RADEX ANKLE COMPLETE MINIMUM 3 VIEWS Tomas Olivera MD [address] [place] [address] [place] [address] Referral ID Status Reason Start Date Expiration Date Visits Requested Visits Authorized [id number] Authorized Auto-Generat ed Referral 05/08/2024 1 1 [facility] for referral (narrative)* Diagnostic Procedure Only (Routine) - New Request Specialty Diagnoses / Procedures Referred By Archie bobby Referred To Contact BR IMAGING Diagnoses Encounter for screening mammogram for breast cancer Dense breast tissue Procedures TOM SCREENING W CORONA SCREENING DIGITAL BREAST TOMOSYNTHESIS BI SCREENING MAMMOGRAPHY BI 2-VIEW BREAST INC Dagmar Champion MD [address] [facility] [place] [address] [facility] [address] [place] [address] Referral ID Status Reason Start Date Expiration Date Visits Requested Visits Authorized [id number] New Request Auto-Generat ed Referral 12/31/2023 01/29/2025 [...] BI SCREENING MAMMOGRAPHY BI 2-VIEW BREAST INC Dagmar Champion MD [address] [facility] [place] [address] [facility] [address] [place] [address] Referral ID Status Reason Start Date Expiration Date Visits Requested Visits Authorized [id number] New Request Auto-Generat ed Referral 12/31/2023 01/29/2025 1 1 [facility] for [facility] Reason for visit Narrative* Diagnostic Procedure Only (Routine) - Closed Specialty Diagnoses / Procedures Referred By Archie bobby Referred To Contact XR IMAGING Diagnoses Pain Procedures XR KNEE GENERAL 4V AP BOTH/PA BOTH/LAT/MERC BILATERAL RADIOLOGIC EXAM KNEE COMPLETE 4/MORE VIEWS Toni Echeverria MD [address] [address] Xr Imaging Referral ID Status Reason Start Date Expiration Date V isits Requested Visits Authorized [id number] Closed Auto-Generate d Referral 06/28/2021 07/28/2022 1 1 [facility] Reason for Referral Specialty Diagnoses / Procedures Referred By Archie bobby Referred To Contact [facility] Diagnoses Bilateral primary osteoarthritis of knee Procedures CONSULT TO PHYSICAL THERAPY PHYSICAL THERAPY EVALUATION HIGH COMPLEX 45 MINS Birgit Mancini PA-C [address] [place] [address] [facility] [place] [address] [place] [address] Referral ID Status Reason Start Date Expiration Date Visits Requested Visits Authorized [id number] Pending Review Auto-Generat ed Referral 08/05/2021 08/05/2022 1 1 Specialty Diagnoses / Procedures Referred By Archie bobby Referred To Contact MR IMAGING Diagnoses Primary osteoarthritis of right knee Chronic pain of right knee Procedures MRI KNEE WO IVCON RT MRI ANY JT LOWER EXTREM W/O CONTRAST MATRL Birgit Mancini PA-C [address] [place] [address] Mr Imaging Referral ID Status Reason Start Date Expiration Date Visits Requested Visits Authorized [id number] Authorized Auto-Generat ed Referral 12/05/2021 01/04/2023 1 1 Referral ID Status Reason Start Date Expiration Date V isits Requested Visits Authorized [id number] Closed Auto-Generate d Referral 12/05/2021 01/04/2023 1 [...] of ovary Unknown sister Malignant neoplasm Unknown Relationship Condition Age at Onset Recorded Date/T jas father Non-Hodgkin's lymphoma Unknown mother Malignant neoplasm of ovary Unknown Venous thrombosis Unknown Malignant melanoma Unknown sister Malignant neoplasm Unknown grandmother Asthma Unknown Advance Directives No Advanced Directives Records Found Advance Directive Response Recorded Date/ Time Living Will No September 05, 2018 3:31pm Power of Drag Car Racer No September 05 3:31pm Advance Directive Response Recorded Date/ Time Living Will No September 05, 2018 2:31pm Power of Drag Car Racer No September 05 2:31pm Advance Directive Response Recorded Date/ Time Living Will No April 16 1:02pm Power of Drag Car Racer No April 16, 2023 1:02pm Advance Directive Response Recorded Date/ Time Living Will No April 16 2:02pm Power of Drag Car Racer No April 16, 2023 2:02pm Summary Purpose [...] HERE August 13, 2024 8:00am Chief Complaint Admit Date FX OF LOWER LEG RX HERE August 13, 2024 8:00am Hyperlipidemia, unspecified October 20 7:12am Chief Complaint Admit Date Hyperlipidemia, unspecified October 20 7:12am Hyperlipidemia, unspecified October 27, 025 5:53pm TENDONIITIS RX HERE REQUESTS JANAK November 26, 2024 6:00pm Chief Complaint Pt is here today for [...] or prosecute any alcohol or drug abuse patient.[facility] the event this information is protected by the Federal Confidentiality of Alcohol and Drug Abuse Patient Records regulations: The Federal rules restrict any use of the information to criminally investigate or prosecute any alcohol or drug abuse patient.[facility] the event this information is protected by the Federal Confidentiality of Alcohol and Drug Abuse Patient Records regulations: The Federal rules restrict any use of the information to criminally investigate or prosecute any alcohol or drug abuse patient.[facility] the event this information is protected by the Federal Confidentiality of Alcohol and Drug Abuse Patient Records regulations: The Federal rules restrict any use of the information to criminally investigate or prosecute any alcohol or drug abuse patient.[facility] the event this information is protected by the Federal Confidentiality of Alcohol and Drug Abuse Patient Records regulations: The Federal rules restrict any use of the information to criminally investigate or prosecute any alcohol or drug abuse patient.[facility] the event this information is protected by the Federal Confidentiality of Alcohol and Drug Abuse Patient Records regulations: The Federal rules restrict any use of the information to criminally investigate or prosecute any alcohol or drug abuse patient.[facility] the event this information is protected by the Federal Confidentiality of Alcohol and Drug Abuse Patient Records regulations: The Federal rules restrict any use of the information to criminally investigate or prosecute any alcohol or drug abuse patient.[facility] the event this information is protected by the Federal Confidentiality of Alcohol and Drug Abuse Patient Records regulations: The Federal rules restrict any use of the information to criminally investigate or prosecute any alcohol or drug abuse patient.[facility] the event this information is protected by the Federal Confidentiality of Alcohol and Drug Abuse Patient Records regulations: The Federal rules restrict any use of the information to criminally investigate or prosecute any alcohol or drug abuse patient.[facility] the event this information is protected by the Federal Confidentiality of Alcohol and Drug Abuse Patient Records regulations: The Federal rules restrict any use of the information to criminally investigate or prosecute any alcohol or drug abuse patient.[facility] the event this information is protected by the Federal Confidentiality of Alcohol and Drug Abuse Patient Records regulations: The Federal rules restrict any use of the information to criminally investigate or prosecute any alcohol or drug abuse patient.[facility] the event this information is protected by the Federal Confidentiality of Alcohol and Drug Abuse Patient Records regulations: The Federal rules restrict any use of the information to criminally investigate or prosecute any alcohol or drug abuse patient.[facility] the event this information is protected by the Federal Confidentiality of Alcohol and Drug Abuse Patient Records regulations: The Federal rules restrict any use of the information to criminally investigate or prosecute any alcohol or drug abuse patient.[facility] the event this information is protected by the Federal Confidentiality of Alcohol and Drug Abuse Patient Records regulations: The Federal rules restrict any use of the information to criminally investigate or prosecute any alcohol or drug abuse patient.[facility] the event this information is protected by the Federal Confidentiality of Alcohol and Drug Abuse Patient Records regulations: The Federal rules restrict any use of the information to criminally investigate or prosecute any alcohol or drug abuse patient.[facility] the event this information is protected by the Federal Confidentiality of Alcohol and Drug Abuse Patient Records regulations: The Federal rules restrict any use of the information to criminally investigate or prosecute any alcohol or drug abuse patient.[facility] the event this information is protected by the Federal Confidentiality of Alcohol and Drug Abuse Patient Records regulations: The Federal rules restrict any use of the information to criminally investigate or prosecute any alcohol or drug abuse patient.[facility] the event this information is protected by the Federal Confidentiality of Alcohol and Drug Abuse Patient Records regulations: The Federal rules restrict any use of the information to criminally investigate or prosecute any alcohol or drug abuse patient.[facility] the event this information is protected by the Federal Confidentiality of Alcohol and Drug Abuse Patient Records regulations: The Federal rules restrict any use of the information to criminally investigate or prosecute any alcohol or drug abuse patient.[facility] the event this information is protected by the Federal Confidentiality of Alcohol and Drug Abuse Patient Records regulations: The Federal rules restrict any use of the information to criminally investigate or prosecute any alcohol or drug abuse patient.[facility] the event this information is protected by the Federal Confidentiality of Alcohol and Drug Abuse Patient Records regulations: The Federal rules restrict any use of the information to criminally investigate or prosecute any alcohol or drug abuse patient.[facility] the event this information is protected by the Federal Confidentiality of Alcohol and Drug Abuse Patient Records regulations: The Federal rules restrict any use of the information to criminally investigate or prosecute any alcohol or drug abuse patient.[facility] the event this information is protected by the Federal Confidentiality of Alcohol and Drug Abuse Patient Records regulations: The Federal rules restrict any use of the information to criminally investigate or prosecute any alcohol or drug abuse patient.[facility] the event this information is protected by the Federal Confidentiality of Alcohol and Drug Abuse Patient Records regulations: The Federal rules restrict any use of the information to criminally investigate or prosecute any alcohol or drug abuse patient.[facility] the event this information is protected by the Federal Confidentiality of Alcohol and Drug Abuse Patient Records regulations: The Federal rules restrict any use of the information to criminally investigate or prosecute any alcohol or drug abuse patient.[facility] the event this information is protected by the Federal Confidentiality of Alcohol and Drug Abuse Patient Records regulations: The Federal rules restrict any use of the information to criminally investigate or prosecute any alcohol or drug abuse patient.[facility] the event this information is protected by the Federal Confidentiality of Alcohol and Drug Abuse Patient Records regulations: The Federal rules restrict any use of the information to criminally investigate or prosecute any alcohol or drug abuse patient.[facility] the event this information is protected by the Federal Confidentiality of Alcohol and Drug Abuse Patient Records regulations: The Federal rules restrict any use of the information to criminally investigate or prosecute any alcohol or drug abuse patient.[facility] the event this information is protected by the Federal Confidentiality of Alcohol and Drug Abuse Patient Records regulations: The Federal rules restrict any use of the information to criminally investigate or prosecute any alcohol or drug abuse patient.[facility] Reason for Visit (unrecogniz ed section and content) Reason Comments Physical Therapy Specialty Diagnoses / Procedures Referred By Archie t Referred To Contact [facility] Diagnoses Bilateral primary osteoarthritis of knee Procedures CONSULT TO PHYSICAL THERAPY PHYSICAL THERAPY EVALUATION HIGH COMPLEX 45 MINS Birgit Mancini PA-C [address] [place] [address] [facility] [address] [address] Referral ID Status Reason Start Date Expiration Date Visits Requested Visits Authorized [id number] Authorized Auto-Generat ed Referral 08/05/2021 2022 30 30 Reason Comments New Knee Pain Reason Comments PT Eval Reason Comments Refill Request Reason Comments Patient Update Reason Comments Orders Reason Comments Established Patient Knee Pain Specialty Diagnoses / Procedures Referred By Archie t Referred To Contact MR IMAGING Diagnoses Primary osteoarthritis of right knee Chronic pain of right knee Procedures MRI KNEE WO IVCON RT MRI ANY JT LOWER EXTREM W/O CONTRAST Birgit Emerson PA-C [address] [place] [id number] Mr Imaging Referral ID Status Reason Start Date Expiration Date V isits Requested Visits Authorized [id number] Closed Auto-Generate d Referral 12/05/2021 01/04/2023 1 1 Reason Comments Results Reason Comments Opened In Error Reason Comments Appointment Reason Comments Yearly Exam Reason Comments Med Change Request Reason Comments Follow Up Discuss hormone ther apy Reason Comments Patient Question Care Teams (unrecognized sec tion and content) Home Care Nurse Relationship Specialty Start Date End Date Koffi Watt MD PCP - General Family Practice 10/21/15 Home Care Nurse Relationship Specialty Start Date End Date Koffi Watt MD PCP - General Family Practice 10/21/15 Home Care Nurse Relationship Specialty Start Date End Date Koffi Watt MD PCP - General Family Practice 10/21/15 Home Care Nurse Relationship Specialty Start Date End Date Koffi Watt MD PCP - General Family Practice 10/21/15 Home Care Nurse Relationship Specialty Start Date End Date Koffi Watt MD PCP - General Family Practice 10/21/15 Home Care Nurse Relationship Specialty Start Date End Date Koffi Watt MD PCP - General Family Practice 10/21/15 Home Care Nurse Relationship Specialty Start Date End Date Koffi Watt MD PCP - General Family Practice 10/21/15 Home Care Nurse Relationship Specialty Start Date End Date Koffi Watt MD PCP - General Family Practice 10/21/15 Home Care Nurse Relationship Specialty Start Date End Date Koffi Watt MD PCP - General Family Practice 10/21/15 Home Care Nurse Relationship Specialty Start Date End Date Koffi Watt MD PCP - General Family Practice 10/21/15 Home Care Nurse Relationship Specialty Start Date End Date Koffi Watt MD PCP - General Family Practice 10/21/15 Home Care Nurse Relationship Specialty Start Date End Date Koffi Watt MD PCP - General Family Practice 10/21/15 Home Care Nurse Relationship Specialty Start Date End Date Koffi Watt MD PCP - General Family Medicine 10/21/15 Home Care Nurse Relationship Specialty Start Date End Date Koffi Watt MD PCP - General Family Medicine 10/21/15 Team Status: Active Member Role Status Dates Dr. Koffi Watt MD Family Provider Active Dr. Koffi Watt MD Primary Care Provider Active Team Status: Inactive Member Role Status Dates Dr. Koffi Watt MD Primary Care Provider Active Dr. Gustavo Schmidt MD Attending Provider, Referring Pr ovider Active Home Care Nurse Relationship Specialty Start Date End Date Koffi Watt MD PCP - General Family Medicine 10/21/15 Team Status: Inactive Member Role Status Dates Dr. Koffi Watt MD Primary Care Provider Active Misa Monroe HUMAN CAPITAL MANAGER, HUMAN CAPITAL MANAGER-C Attending Provider, Referring Provi nani Active ALTON ParryM Other Provider Active Team Status: Active Member Role Status Dates Dr. Koffi Watt MD Family Provider Active Misa Monroe HUMAN CAPITAL MANAGER, HUMAN CAPITAL MANAGER-C Primary Care Provider Active Team Status: Active Member Role Status Dates Dr. Koffi Watt MD Primary Care Provider Active Dr. Beni Fuller MD Attending Provider Active Misa Monroe HUMAN CAPITAL MANAGER, HUMAN CAPITAL MANAGER-C Referring Provider Active Team Status: Active Member Role Status Dates Misa Monroe HUMAN CAPITAL MANAGER, HUMAN CAPITAL MANAGER-C Primary Care Provider Active Dr. Beni Fuller MD Attending Provider Active Team Status: Inactive Member Role Status Dates Dr. Jono Crowder DPM Attending Provider, Referring Provider Active Misa Monroe HUMAN CAPITAL MANAGER, HUMAN CAPITAL MANAGER-C Primary Care Provider Active Team Status: Inactive Member Role Status Dates Misa Monroe HUMAN CAPITAL MANAGER, HUMAN CAPITAL MANAGER-C Primary Care Provide r, Attending Provider, Referring Provider Active Team Status: Active Member Role Status Dates Misa Monroe HUMAN CAPITAL MANAGER, HUMAN CAPITAL MANAGER-C Primary Care Provider Active Dr. Jono Crowder DPM Attending Provider, Referring Provider Active Team Status: Inactive Member Role Status Dates Misa Patiñone HUMAN CAPITAL MANAGER, HUMAN CAPITAL MANAGER-C Primary Care Provider Active Dr. Dagmar Schroeder , Attending Provider, Referring Pr ovider Active Team Status: Inactive Member Role Status Dates Misa Monroe HUMAN CAPITAL MANAGER, HUMAN CAPITAL MANAGER-C Primary Care Provider, Referring Pr ovider Active Dr. Beni Fuller MD Attending Provider Active Team Status: Inactive Member Role Status Dates Misa Monroe HUMAN CAPITAL MANAGER, HUMAN CAPITAL MANAGER-C Primary Care Provider Active Dr. Jono Crowder DPM Attending Provider, Referring Provider Active Home Care Nurse Relationship Specialty Start Date End Date Koffi Watt MD PCP - General Family Medicine 10/21/15 Home Care Nurse Relationship Specialty Start Date End Date Koffi Watt MD PCP - General Family Medicine 10/21/15 Home Care Nurse Relationship Specialty Start Date End Date Koffi Watt MD PCP - General Family Medicine 10/21/15 Home Care Nurse Relationship Specialty Start Date End Date Koffi Watt MD PCP - General Family Medicine 10/21/15 Team Status: Active Member Role Status Dates Skylar Box HUMAN CAPITAL MANAGER-C Primary Care Provider Active Team Status: Inactive Member Role Status Dates Skylar Box HUMAN CAPITAL MANAGER-C Primary Care Provider Active Start: August 13, 2024 End: August 13, 2024 Dr. Jono Crowder DPM Attending Provider Active Start: August 13, 2024 End: August 13, 2024 Dr. Jono Crowder , DPM Referring Provider Active Start: August 13, 2024 End: August 13, 2024 Team Status: Inactive Member Role Status Dates Skylar Box NP-C Primary Care Provider Active Start: October 20, 2024 End: October 20, 2024 Skylar Box NP-C Attending Provider Active St art: October 20, 2024 End: October 20, 2024 Skylar Box HUMAN CAPITAL MANAGER-C Referring Provider Active St art: October 20, 2024 End: October 20, 2024 Home Care Nurse Relationship Specialty Start Date End Date Koffi Watt MD PCP - General Family Medicine 10/21/15 Home Care Nurse Relationship Specialty Start Date End Date Koffi Watt MD PCP - General Family Medicine 10/21/15 Home Care Nurse Relationship Specialty Start Date End Date Koffi Watt MD PCP - General Family Medicine 10/21/15 Team Status: Active Member Role/Relationship Status Dates Skylar Box NP-C Primary care physician Active Team Status: Inactive Member Role/Relationship Status Dates Skylar Box HUMAN CAPITAL MANAGER-C Primary care physician Active Start: October 20, 2024 End: October 20, 2024 Skylar Box NP-C Attending physician Active S tart: October 20, 2024 End: October 20, 2024 Skylar Box HUMAN CAPITAL MANAGER-C Referring Provider Active St art: October 20, 2024 End: October 20, 2024 Team Status: Active Member Role/Relationship Status Dates Skylar Box HUMAN CAPITAL MANAGER-C Primary care physician Active Start: October 27, 2024 Skylar Box HUMAN CAPITAL MANAGER-C Referring Provider Active St art: October 27, 2024 Skylar Box HUMAN CAPITAL MANAGER-C Nurse Practitioner Active St art: October 27, 2024 Dr. Beni Fuller MD Attending physician Active Start: October 27, 2024 Team Status: Inactive Member Role/Relationship Status Dates JHONY Roth Primary care physician Active Start: November 26, 2024 End: November 26, 2024 Dr. Cachorro Merlos DPM Attending physician Active Start: November 26, 2024 End: November 26, 2024 Dr. Cachorro Merlos DPM Referring Provider Active Start: November 26, 2024 End: November 26, 2024 Goals (unrecognized section and content) Goals may be documented in a n alternate sectionGoals may be documented in an alternate sectionGoals may be documented in an alternate sectionGoals may be documented in an alternate sectionGoals may be documented in an alternate sectionNone RecordedGoals may be documented in an alternate sectionGoals may be documented in an alternate sectionGoals may be documented in an alternate section INFORMATION SOURCE (unrecogn ized section and content) DATE CREATED AUTHOR 01/14/2022 [facility] DATE CREATED AUTHOR AUTHOR'S ORGANIZ ATION 06/13/2022 [facility] DATE CREATED AUTHOR AUTHOR'S ORGANIZ ATION 06/13/2022 [employer] DATE CREATED AUTHOR AUTHOR'S ORGANIZ ATION 01/30/2025 [facility] DATE CREATED AUTHOR AUTHOR'S ORGANIZ ATION 01/30/2025 [facility] FOR RECORDS PERTAINING TO PATIENTS WHO [...] BE BASED ON THE PRIMARY CLINICAL RECORDS. [facility] [employer] [facility] provides no warranty or guarantee of the accuracy or completeness of information in this document.
--- OUTSIDE RECORDS SUMMARY | 2025-02-05 08:13 | XMS RPT_ITS | CCD ---
Author Organization [facility] Care Team Providers Care Commercial Loan Analyst Name Role Phone Magalis REYNOSO, Manjinder Calle Unavailable Shukri HOPE, Koffi Hinkle Primary Care Provider Koffi Watt MD Primary Care Provider [phone] Unknown, Referring Provider Unavailable Unav ailable Shukri HOPE, Koffi Hinkle Primary Care Provider [phone] None, No PCP Unavailable Unavailable Self, Referral [...] Provider Dr. Beni Fuller Attending Provider Monroe CEMENT MASON MAINTENANCE, CEMENT MASON MAINTENANCE-C Misa Referring Provider [phone] Monroe CEMENT MASON MAINTENANCE, CEMENT [place]ON MAINTENANCE-C Misa Primary Care Provider Monroe CEMENT MASON MAINTENANCE, CEMENT [place]ON MAINTENANCE-C Misa Primary Care Provider Dr. Beni Fuller Attending Provider Monroe CEMENT MASON MAINTENANCE, CEMENT [place]ON MAINTENANCE-C Misa Referring Provider Koffi Watt MD Primary Care Provider Koffi Watt MD Primary Care Provider Isauro CEMENT MASON MAINTENANCE-C, Skylar Primary Care Provider Vel DPCindy, Dr. De La Cruz Attending Provider Vel DPM, Dr. De La Cruz Referring Provider [phone] Isauro CEMENT MASON MAINTENANCE-C, Skylar Attending Provider Isauro CEMENT MASON MAINTENANCE-C, Skylar Referring Provider Isauro CEMENT MASON MAINTENANCE-C, Skylar Primary Care Physician Isauro CEMENT MASON MAINTENANCE-C, Skylar Attending Physician Isauro CEMENT MASON MAINTENANCE-C, Skylar Nurse Practitioner Alina HOPE, Dr. Bazan Attending Physician Gaurang DANGM, Dr. Ramos Attending Physician Gaurang DPCindy, Dr. Ramos Referring Provider [phone] Jono Crowder Referring Unavailable Isauro, Skylar Primary [...] Start: 09-05-2018 take 2 tablets by mo [facility] once daily Start: 09-05-2018 take 1 tablet by [facility] once daily Cholecalciferol (Vitamin D3) (Vitamin D3) 1,000 UNIT tablet Active 1000 UNIT PO DAILY September 05, 2018 12:00am [place] 8-Ryu-Zqz-Fish Oil (10 sources) Start: 09-05-2018 take 1 capsule by mouth once d aily Start: 09-05-2018 take 1 capsule by mo [facility] once daily [place] 0-Wdw-Sde-Fish Oil (Fish Oil) 1 EACH capsule Active 1 NMA PO DAILY September 05, 2018 12:00am Start: 09-05-2018 take 1 capsule by [facility] once daily [place] 1-Zwu-Hdm-Fish Oil (Fish Oil) 1 EACH capsule Active 1 EACH PO DAILY September 05, 2018 12:00am Start: 09-05-2018 take 1 capsule by mo [facility] once daily [place] 1-Gbq-Qzy-Fish Oil (Fish Oil) 1 EACH capsule Active 1 EACH PO DAILY September 04, 2018 11:00pm Start: 09-05-2018 take 1 capsule by [facility] once daily [place] 5-Msr-Ipu-Fish Oil (Fish Oil 1,000 Mg Softgel) 1 EACH capsule Active 1 EACH PO DAILY September 04, 2018 11:00pm Start: 09-05-2018 take 1 capsule by [facility] once daily [place] 5-Vxt-Zyi-Fish Oil (Fish Oil 1,000 Mg Softgel) 1 [...] above: Take by mouth once d aily. Eg-Eo-Tkcr-Fa-Ca Carb-Vit K (Women's Daily Formula Tablet) 1 EACH tablet (4 sources) Start: 09-05-2018 Vp-Ui-Zxfp-Fa-Ca Carb-Vit K (Women's Daily Formula Tablet) 1 EACH tablet Active 1 EACH PO DAILY September 04, 2018 11:00pm Start: 09-05-2018 Fo-Si-Kjhh-Fa- Ca Carb-Vit K (Women's Daily Formula Tablet) 1 EACH tablet Active 1 EACH PO DAILY September 05, 2018 12:00am Ss-Zx-Kqkp-Fa-Ca Carb-Vit K (Women's Daily Formula) 1 EACH tablet (6 sources) Start: 09-05-2018 take 1 tablet by anya th once daily Start: 09-05-2018 take 1 tablet by anya th once daily Bz-Gf-Obub-Fa-Ca Carb-Vit K (Women's Daily Formula) 1 EACH tablet Active 1 NMA PO DAILY September 05, 2018 12:00am Start: 09-05-2018 take 1 tablet by anya th once daily Wa-Cj-Mkmx-Fa-Ca Carb-Vit K (Women's Daily Formula) 1 EACH tablet Active 1 EACH PO DAILY September 05, 2018 12:00am Start: 09-05-2018 take 1 tablet by anya th once daily Zd-Xq-Ptpg-Fa-Ca Carb-Vit K (Women's Daily Formula) 1 EACH [...] one pill q 12 hours SULFAMETHOXAZOLE-TRI METHOPRIM [id number] Manjinder Blancas PA-C Start: 02-11-2017 BACTRIM DS 800 -160 MG TABS one pill q 12 hours SULFAMETHOXAZOLE-TRIMETHOPRIM [id number] Manjinder Blancas PA-C Turmeric extract (3 sources) [...] (2 sources) Patient encounter status; Translations: [Other group home (current) drug therapy] Episodic Other and ill-defined [...] Test Name Value Interpretation Reference Range Facility [facility] 01-23-2025 CNPN Telephone (GMINE) -- CHANELLE GUILLERMO ([id number]) 1970 F Date Time Provider Department 01/23/25 NATALIIA SAMEULS During your visit today, we recorded the following information about you: Nataliia Samuels, MS 01/23/2025 1:33 PM Signed Called pt after seeing her MCM regarding wanting genetic testing. Reviewed that I would put order in for blood work for Multi-Cancer panel through [facility] and results will be available in 2-3 [...] Status:Closed by NATALIIA SAMUELS on 01/23/25 [facility] 10-31-2024 CNPN Telephone (OBGYWM) -- CHANELLE GUILLERMO ([id number]) 1970 F Date Time Provider Department 10/31/24 DAGMAR SCHROEDER OBGYWCindy During your visit today, we recorded the following information about you: Allergies As of Date: 10/31/2024 (No Known Allergies) Date Reviewed: 09/18/2024 Reviewed by: Marcela Lazo MA - Fully Assessed Reason for Visit: Patient Question [5847] Prescriptions as of 10/31/2024 - estradiol (ESTRACE) [...] Status:Closed by TAMI MULLINS on 10/31/24 Normal [facility] Coronary Angiography CTon Coronary Angiography CT [facility] Imaging Services [address] [place] [address] 10/27/24 175 MR#: [id number] Acct: [id number] Name: CHANELLE GUILLERMO Rep #: [id number] : 1970 54 From: Beni Fuller MD [...] Box; Dr. Beni Fuller MD Signed Normal [facility] Limited Chest CT Cardiac Onl yon 10-20-[address] Cardiac Only [facility] Imaging Services [address] [place], [place] [address] Limited Chest CT Cardiac Only MR#: [id number] Acct: [id number] Name: CHANELLE GUILLERMO Rep #: [id number] : 1970 F 54 From: Kimani Griffiths DO PCP: JHONY Roth Status: REG CLI Study: Limited Chest CT Cardiac Only Date of Exam: Exam# [id number] Ordering Dr: Skylar Box PROCEDURE: LIMITED CHEST [...] 0 no other significant findings Reading Location: [facility] CC: JHONY Box Button Station Worker: Signed Normal [facility] CNOVon 09-18-2024 CNOV Office Visit (OBGYWM ) -- CHNAELLE GUILLERMO ([id number]) 1970 F Date Time Provider Department 09/18/24 [...] Living2 SAB0 IAB0 Ectopic0 Multiple0 Live Births0 Clearance Rep History LMP: Postmenopausal Age at Menarche: Age at First : Age at Menopause: Clearance Rep History Comments: Sexual Activity: Yes; Male Contraception: [...] with more than 50% of the total orus-bt-jmgn time of the visit in counseling / coordination of care. Dagmar Schroeder MD 09/18/2024 11:37 AM Signed Non-Hormonal Ways to [place] with Hot Flashes and Menopause Hormone therapy [...] alcohol can (more content not included)... Normal [facility] Inital Evaluation (1) - PTon 07-16-2024 Inital Evaluation (1) - PT [facility] Physical Therapy [facility] [address] [place] [address] / REHABILITATION SERVICES INITIAL EVALUATION MR#: [id number] Acct: [id number] Name: CHANELLE GUILLERMO Rep #: [id number] : 1970 54 From: Devon Freitas PT, ATC Referring Dr.: Dr. Jono Crowder DPM Status: REG R Insurance: [employer] SELF PAY INSURANCE Patient's Visit Information Visit [...] pain now. 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 For Medicare only, by signing this I certify the plan of care. Please let me know if there are questions or concerns regarding this plan of care. Physician Signature: Date: 07/16/24 0826 CC: ARIANA Crowder; CEMENT MASON MAINTENANCE-C Skylar Box [facility] Signed Normal [facility] Wound Cultureon 05-28-2024 PATIENT NOT PRESENT [...] S Vancomycin Islt RAUL <=0.[address] [facility] Comment on above: Performed By: #### M 100.3000, #### [facility] Laboratory [address]. [place], [place], [address] Gram Stainon 05-27-2024 PATIENT NOT PRESENT Gram Stain Rare Epithelial cells Rare White Blood Cells Rare Gram positive cocci Normal [facility] Comment on above: Performed By: #### M 100.3000, #### [facility] Laboratory [address] [place], [place], [address] Ankle 2 Viewson 05-09-2024 Ankle 2 Views [facility] Imaging Services [address] [place] [address] Ankle 2 Views MR#: [id number] Acct: [id number] Name: CHANELLE GUILLERMO Rep #: [id number] : 1970 F 53 From: Yohana Díaz MD PCP: JHONY Roth Status: [facility] Study: Ankle 2 Views Date of Exam: 05/09/24 Exam# [id number] Ordering Dr: Jono Crowder DPM [id number] INDICATION: PAIN EXAMINATION/TECHNIQUE: X-RAY - RIGHT XR [...] 2 Views IMPRESSION: undefined CC: ARIANA Crowder; CEMENT MASON MAINTENANCE-C Skylar Box Button Station Worker: Signed [facility] MR/POSTOP.[facility] 05-09-2024 MR/POSTOP.[facility] Medical Records Department [address] [place] [address] Anesthesia Postop Eval I 05/09/24 1142 MR#: [id number] Acct: [id number] Name: EAGLECHANELLE ALAN Rep #: [id number] : 1970 53 From: Ralph Smith CRNA PCP: JHONY Roth Status:[facility] Y Race: C Location: [place] [address]1 Anesthesia: Postop Eval I Current Vital Signs [...] completed: Yes 05/09/24 1144 Date Ralph Blough BUILDING ENERGY RETROFIT TECHNICIAN Cosigner Signature: Date CC: Signed Normal [facility] Operative Reporton 4 Operative Report [facility] Medical Records Department [address] [place] [address] Operative Report 05/09/24 1030 MR#: [id number] Acct: [id number] Name: CHANELLE GUILLERMO Rep #: [id number] : 1970 53 From: Jono Crowder DPM PCP: JHONY Roth Status:[facility] Location: [place] [address] Problems Associated Problem List Diagnoses (1) Pain [...] right ankle 3) exostectomy right medial ankle master sheet clerk: Yes Fire Operations Forester: leonor mederos Tasks completed by assistant manager of operations: Opening, Closing, Opening closing, Altering tissue, Hemostasis: [...] all DRAINS/GRAFTS/IMPLANTS that apply: Graft Graft details: COPsync 2 x 4 cm BioSkin Estimated Blood [...] was removed using a screwdriver and a [place] removal was confirmed with fluoroscopic imaging there remained 2 screws to the medial ankle. A medial incision was drawn along the medial aspect of the ankle extending along the course of the tibialis posterior tendon just posterior to the medial malleolus. This incision was made through the epidermis stripes into subcutaneous tissue. Any bleeders identified cauterized. Using help with a [place] the posterior tibial tendon sheath and flexor [...] buried 3-0 Umer (more content not included)... [facility] MR/PAT.Marcio 05-05-2024 MR/PAT.[facility] Medical Records Department [address] [place] [address] PAT - Anesthesia 05/05/24 1636 MR#: [id number] Acct: [id number] Name: CHANELLE GUILLERMO Rep #: [id number] : 1970 53 From: Tez Og MD PCP: JHONY Roth Status:PRE [facility] Y Race: C Location: [facility] Pre-Assessment Diagnosis/Proposed Procedure Planned Operative Procedure(s): Right ankle hardware removal with posterior tibial tendon repair. Anesthesia History Anesthesia History - [place]: Anesthesia History - [place] Hx Hospitalization No 05/05/24 08:18 Any Problems [...] take am of surgery PONV PONV - [place]: PONV - [place] Female Yes 05/05/24 08:18 HX of Motion [...] 01/02/24 07:55 Respiratory Assessment Respiratory Assessment - [place]: Respiratory Tract Infection Hx - [place] Hx Respiratory Tract Infection No 05/05/24 08:18 STOP Sleep Apnea STOP Sleep Apnea - [place]: STOP Sleep Apnea - [place] Hx Hypertension Yes 05/05/24 08:18 Hx Sleep [...] Tobacco Use History Tobacco Use History - [place]: Tobacco Use History - [place] Tobacco Use Smoking Status Never smoker 05/05/24 08:18 Hx Tobacco Use No 05/05/24 08:18 Years Smoking Packs Smoked per Day Smoking Cessation Date was within the last 15 years Hx Smoking Cessation Date Hx Smoking Cessation Counseling Hematologic Medial History Hematologic Hx - [place]: 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 Hx of Blood Transfusion No 05/05/24 08:18 [...] confused, unrespo /Reproduction History /Reproductive History - [place]: /Reproductive Hx- [place] Hx Now No 05/05/24 08:18 Gestational Age (in weeks): EDC: Hx Hx Para Hx Section SAB No 05/05/24 08:18 [facility] Medical History (Updated 05/05/24 @ 08:29 by [...] History mcg (1,000 unit) tablet (Vitamin D3) igzxoqoq-ppz-ewml-FA-Ca carb-vit K 1 ea PO DAILY SUPPLEMENT 09/05/18 Unknown History 18 mg iron-400 mcg-500 mg tablet (Women's Daily Formula) omega 3-usx-cya-fish oil 300 1 ea PO DAILY SUPPLEMENT 09/05/18 09/02/18 History mg-1,000 mg capsule (Fish Oil) losartan 50 mg tablet (Cozaa (more content not included)... Normal [facility] Established Visit (Orthopaed ic Surgery)on 06-12-2022 [...] persists or worsens. Rudolph Davidson, Sports Medicine [facility] Please excuse any errors in grammar [...] included)... Normal [facility] [facility]on 03-24-2022 Initial Visit (Orthopaedic Surgery) Diagnoses/Problems [...] injections when they are approved. Rudolph Davidson, [facility] Please excuse any errors in grammar [...] compartments. Xray Knee Complete 4 or more [id number] 09:08Norman Epstein Test NameResultFlagReference Xray Knee Complete 4 or more View Please click on the link to view the study images Xray Knee Complete 4 or more [id number] 08:34ACachorro Maharaj Test NameResultFlagReference Xray Knee Complete 4 or more View(Report) FINAL REPORT Interpreted by: SENAIT LOPES KRISHNA, MD 01/12/22 10:03 Patient Name: CHANELLE GUILLERMO STUDY: Right knee 4 views. INDICATION: RIGHT KNEE PAIN M25.561: Right knee pain. COMPARISON: None. ACCESSION NUMBER(S): [id number] ORDERING CLINICIAN: CACHORRO JACKSON FINDINGS: No acute fracture or malalignment. Zvdb-dk-mgednrji medial and mild lateral/patellofemoral compartment degenerative changes with joint space loss and osteophytes. 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 Small suprapatellar recess loose body. No significant knee joint effusion. Soft tissues are unremarkable. IMPRESSION: 1. Fham-ix-gpralmus medial and mild lateral/patellofemoral compartment osteoarthrosis. Electronically [...] Left knee pain. COMPARISON: None. ACCESSION NUMBER(S): [id number] ORDERING CLINICIAN: NORMAN DAVIDSON FINDINGS: Left knee, four views There is tricompartmental osteophytosis without joint space narrowing. There is no fracture. There is no dislocation. There is no effusion. IMPRESSION: Mild degenerative changes left knee Electronically signed by: ANDREA WOOTEN MD Normal [facility] Radiologyon 03-24-2022 XR Knee 4 Views Please click on the link to view the study images Normal [facility] -[facility] 130 DO Work Phone: Initial Visit (Orthopaedic [...] steroid injection, last in November at the [facility], which has given her some relief. She has also tried a course of Meloxicam and Tylenol with some relief but the pt is reluctant to stay on group home medications. She also had an MRI performed showing a R medial meniscal tear. She comes to clinic for a second opinion as she has been told she is not a surgical candidate for meniscal surgery given her degree of medial compartment arthritis. Review of Systems Reviewed and documented Active Problems Problems Right knee pain (719.46) (M25.561) Vitals Vital Signs Recorded: [id number] 02:10PM Height5 ft Llghgr808 lb BMI Brgoihocam78.18 kg/m2 BSA Calculated1.76 Physical Exam GENERAL EXAM [...] Feb 06 2022 7:42AM EST (Author) Normal [facility] KNEE CMPLT, 4 OR MORE VIEWS n 01-11-2022 KNEE CMPLT, 4 OR MORE VIEWS Patient Name: CHANELLE GUILLERMO STUDY: Right knee 4 views. INDICATION: RIGHT KNEE PAIN M25.561: Right knee pain. COMPARISON: None. ACCESSION NUMBER(S): [id number] ORDERING CLINICIAN: CACHORRO JACKSON FINDINGS: No acute fracture or malalignment. Afne-ss-spklwtye medial and mild lateral/patellofemoral compartment degenerative changes with joint space loss and osteophytes. 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 Small suprapatellar recess loose body. No significant knee joint effusion. Soft tissues are unremarkable. IMPRESSION: 1. Vgzk-nq-zekmugjf medial and mild lateral/patellofemoral compartment osteoarthrosis. Electronically signed by: SENAIT LOPES MD Normal [facility][note 2] Radiologyon 01-11-2022 XR Knee 4 Views Please click on the link to view the study images Normal [facility] [address] Work Phone: MRI KNEE WO IVCON RTon 12-06 [facility] Cervical or vagninal specime n microscopic examination by cytology stain (reported ason 11-17-2021 Cytology report Cyto stain Doc (Cvx/Vag) Comment . [facility] Work Phone: Comment on above: The [...] DNA Probe+sig amp Ql (Cvx) Negative Negative [facility] Work Phone: Comment on above: This nucleic acid am plification test detects fourteen high- risk HPV types (16,18,31,33,35,39,45,51,52,56,58,59,66,68)without differentiation.Performed at: - [address] [id number] Director: Nara Fernandez MD, Phone: [phone] at: = - [facility] [id number] Director: Nara Fernandez MD, Phone: [phone] Laboratory - Cytologyon Flight Software Test Engineer Cyto stain Nom (Cvx/Vag) [ID] Comment . [facility] Work Phone: Comment on above: Riana Carmona, Pin Game Machine Inspector (ASCP) Laboratory - Miscellaneous t estson 11-17-2021 Service comment (Unsp spec) [Interp] Comment . [facility] Work Phone: Comment on above: This liquid based Th inPrep(R) pap test was screened withthe use of an image guided system. Service comment (Unsp spec) [Interp] . . [facility] Work Phone: No Panel Informationon 11-17 Pathology report final diagnosis Narrative Comment . [facility] Work Phone: Comment on above: NEGATIVE FOR INTRAEP ITHELIAL LESION OR MALIGNANCY. XR KNEE GENERAL 4V AP BOTH/P A BOTH/LAT/MERC BILATERALon 08-05-2021 [facility] Lab Report: (P) Urinalysis, Completeon 02-12-2017 Bilirubin Ql (U) Negative Invalid Interpretation Code Negative [facility] Work Phone: [phone] NITRITE UR Negative Invalid Interpretation Code Negative [facility] Work Phone: [phone] OCCULT BLOOD-UR 250 High Negative [facility] Work Phone: [phone] specific gravity, urine 1.005 Invalid Interpretation Code 1.002-1.030 [facility] Work Phone: [phone] Urine, clarity Sl. Cloudy Invalid Interpretation Code Clear [facility] Work Phone: [phone] Urine, color Straw Invalid Interpretation Code Yellow [facility] Work Phone: [phone] Urine, glucose presence Normal mg/dl Invalid Interpretation Code Normal [facility] Work Phone: [phone] Urine, ketones presence Negative Invalid Interpretation Code Negative [facility] Work Phone: [phone] Urine, leukocyte esterase presence 25 High Negative [facility] Work Phone: [phone] Urine, pH 7.0 [pH] Invalid Interpretation Code 5.0 - 8.0 [facility] Work Phone: [phone] Urine, protein Negative Invalid Interpretation Code Negative [facility] Work Phone: [phone] UROBILI Normal mg/dl Invalid Interpretation Code Normal [facility] Work Phone: [phone] Lab Report: Urinalysis, Comp leteon 02-12-2017 Urine, bacteria in sediment 0 /[HPF] Invalid Interpretation Code None Seen [facility] Work Phone: [phone] Urine, epithelial cells in sediment 0-5 SEEN Invalid Interpretation Code 5-[address] [facility] Work Phone: [phone] Urine, erythrocytes in sediment by volume 25-50 SEEN Invalid Interpretation Code 0-[address] [facility] Work Phone: [phone] Urine, mucus presence in sediment 0 SEEN Invalid Interpretation Code [facility] Work Phone: [phone] WBC (Leukocytes) 0-5 SEEN Invalid Interpretation Code 0-5 [facility] Work Phone: [phone] Office Visit: UC: Bladder in fectionon 02-11-2017 blood in urine (hemoglobin) by dipstick 3+ Invalid Interpretation Code [facility] Work Phone: [phone] Documentation of current medications (procedure) Done Invalid Interpretation Code [facility] Work Phone: [phone] Fall risk assessment No Invalid Interpretation Code [facility] Work Phone: [phone] specific gravity, urine 1.010 Invalid Interpretation Code [facility] Work Phone: [phone] Tobacco use [facility] Never smoker Invalid Interpretation Code [facility] Work Phone: [phone] Urine, appearance clear Invalid Interpretation Code [facility] Work Phone: [phone] Urine, bilirubin presence Negative Invalid Interpretation Code [facility] Work Phone: [phone] Urine, color lt. yellow Invalid Interpretation Code [facility] Work Phone: [phone] Urine, glucose presence Negative Invalid Interpretation Code [facility] Work Phone: [phone] Urine, ketones presence Negative Invalid Interpretation Code [facility] Work Phone: [phone] Urine, leukocyte esterase presence 2+ Invalid Interpretation Code [facility] Work Phone: [phone] Urine, nitrite presence Negative Invalid Interpretation Code [facility] Work Phone: Urine, pH 5.0 [pH] Invalid Interpretation Code [facility] Work Phone: [phone] Urine, protein Negative Invalid Interpretation Code [facility] Work Phone: [phone] Urine, urobilinogen presence Negative Invalid Interpretation Code [facility] Work Phone: [phone] Vital Signs Date Time Vital Sign Value Performing Clinician Faci lity 09-18-2024 10:59-0400 Body mass index (BMI) [Ratio] 29.75 kg/m2 Dagmar Schroeder MD Work Phone: [facility] 09-18-2024 10:59-0400 Body weight 77.38 kg Dagmar Schroeder MD Work Phone: [facility] 09-18-2024 10:59-0400 Diastolic blood pressure 72 mm[Hg] Dagmar Schroeder MD Work Phone: [facility] 09-18-2024 10:59-0400 Systolic blood pressure 110 mm[Hg] Dagmar Schroeder MD Work Phone: [facility] 12-31-2023 15:15-0400 Body height 161.3 cm Dagmar Schroeder MD Work Phone: [facility] 12-31-2023 15:15-0400 Body mass index (BMI) [Ratio] 29.47 kg/m2 Dagmar Schroeder MD Work Phone: [facility] 12-31-2023 15:15-0400 Body weight 76.66 kg Dagmar Schroeder MD Work Phone: [facility] 12-31-2023 15:15-0400 Diastolic blood pressure 88 mm[Hg] Dagmar Scrhoeder MD Work Phone: [facility] 12-31-2023 15:15-0400 Systolic blood pressure 142 mm[Hg] Dagmar Schroeder MD Work Phone: [facility] 07-11-2023 14:50-0500 Body height 163.83 cm JHONY Monroe NP Work Phone: [facility] 07-11-2023 14:50-0500 Body mass index (BMI) [Ratio] 29 kg/m2 [employer] Misa Monroe [employer] Work Phone: [facility] 07-11-2023 14:50-0500 Body weight 78.1 kg [employer] Misa Monroe [employer] Work Phone: [facility] 07-11-2023 14:50-0500 Diastolic blood pressure 81 mm[Hg] [employer] Misa Monroe [employer] Work Phone: [facility] 07-11-2023 14:50-0500 Heart rate 104 /min [employer] Msia Monroe [employer] Work Phone: [facility] 07-11-2023 14:50-0500 Respiratory rate 14 /min [employer] Misa Monroe [employer] Work Phone: [facility] 07-11-2023 14:50-0500 Systolic blood pressure 148 mm[Hg] [employer] Misa Monroe [employer] Work Phone: [facility] 04-20-2023 19:00-0500 Body temperature 98.3 [degF] Dr. Koffi Watt Work Phone: [facility] 04-20-2023 19:00-0500 Diastolic blood pressure 80 mm[Hg] Dr. Koffi Watt Work Phone: [facility] 04-20-2023 19:00-0500 Heart rate 78 /min Dr. Koffi Watt Work Phone: [facility] 04-20-2023 19:00-0500 Respiratory rate 18 /min Dr. Koffi Watt Work Phone: [facility] 04-20-2023 19:00-0500 SaO2% (BldA) [Mass fraction] 98 % Dr. Koffi Watt Work Phone: [facility] 04-20-2023 19:00-0500 Systolic blood pressure 136 mm[Hg] Dr. Koffi Watt Work Phone: [facility] 04-20-2023 11:02-0500 Body height 163.[address] Koffi Wtat Work Phone: [facility] 04-20-2023 11:02-0500 Body mass index (BMI) [Ratio] 27.6 kg/m2 Dr. Koffi Watt Work Phone: [facility] 04-20-2023 11:02-0500 Body weight 74.[address] Koffi Watt Work Phone: [facility] 01-11-2022 14:10-0400 Body height 152.4 cm Referring Provider Unknown RA-Rdnjbmnueiee-Ng sman 210 Work Phone: 01-11-2022 14:10-0400 Body mass index (BMI) [Ratio] 34.18 kg/m2 Referring Provider Unknown AQ-Blmgzswimkfq-In sman 210 Work Phone: 01-11-2022 14:10-0400 Body surface area Derived from formula 1.76 m2 Referring Provider Unknown IE-Iptavvknkevj-Tj sman 210 Work Phone: 01-11-2022 14:10-0400 Body weight 79.38 kg Referring Provider Unknown LM-Jphqtphphynt-Lq sman 210 Work Phone: 12-05-2021 15:47-0400 Body height 165.1 cm Birgit Mancini PA-C Work Phone: [facility] 12-05-2021 15:47-0400 Body weight 81.65 kg Birgit Live PA-C Work Phone: [facility] 08-05-2021 09:41-0400 Body height 162.6 cm Birgit Freeman PA-C Work Phone: [facility] 08-05-2021 09:41-0400 Body weight 81.65 kg Birgit Freeman PA-C Work Phone: [facility] 02-11-2017 12:11-0400 BMI (Body Mass Index) 30.22 kg/m2 Manjinder Blancas PA-C [facility] Abad valdez Work Phone: 02-11-2017 12:11-0400 Body [...] 02-11-2017 12:11-0400 Weight 82.37 kg Manjinder DAYC [facility] Work Phone: Encounters Encounter Date Encounter Type Care Provider Facility Start: 02-05-2025 ambulatory Skylar Box Facility:[facility] Start: 01-26-2025 End: 01-26-2025 ambulatory KOFFI WATT Facility:[facility] Start: 01-23-2025 End: 01-23-2025 Telephone encounter Nataliia Samuels MS Work Phone: [facility] Comment on above: Patient Update Start: 11-26-2024 End: 11-26-2024 ambulatory Skylar Box [employer] Work Phone: -Physical Therapy Start: 11-26-2024 End: 11-26-2024 Discharged Recurring Cachorro Merlos DPCindy -Physical Therapy Work Phone: Start: 11-06-2024 End: 11-06-2024 ambulatory Dagmar Schroeder MD Work Phone: OB/Gynecology Comment on above: Video or phone? Start: 10-31-2024 End: 10-31-2024 Telephone encounter Dagmar Schroeder MD Work Phone: OB/Gynecology Comment on above: Patient Question Start: 10-27-2024 Non-patient / Non-visit Dr. Norma HOPE -[facility] Start: 10-27-2024 End: 10-27-2024 ambulatory Dagmar Schroeder MD Work Phone: OB/Gynecology Comment on above: Ultrasound results Records Start: 10-22-2024 End: 10-30-2024 ambulatory Dagmar Schroeder MD Work Phone: OB/Gynecology Comment on above: Hormone replacement Start: 10-20-2024 End: 10-20-2024 ambulatory Skylar Box [employer] Work Phone: [facility] Work Phone: Start: 10-20-2024 End: 10-20-2024 Patient encounter procedure Skylar Box NP-C -Cat Scan [facility] Work Phone: Start: 10-20-2024 End: 10-20-2024 ambulatory Beni Fuller Facility:[facility] Start: 09-19-2024 End: 09-19-2024 E-mail encounter from [...] Start: 09-18-2024 End: 09-18-2024 ambulatory KOFFI WATT Facility:[facility] Start: 09-13-2024 End: 09-15-2024 Refill Dagmar Schroeder MD Work Phone: OB/Gynecology Comment on above: Med Change Request Start: 08-13-2024 End: 08-13-2024 ambulatory Skylar Isauro [employer] Work Phone: [facility] Work Phone: Start: 08-13-2024 End: 08-13-[address] Jono Crowder DPM -Physical Therapy Work Phone: Start: 08-04-2024 Office outpatient vi sit 15 minutes Nolvia Jd [facility] Start: 05-26-2024 End: 05-26-2024 ambulatory Skylar Box Facility:[facility] Start: 05-09-2024 End: 05-09-2024 ambulatory Jono Crowder Facility:[facility] Start: 12-31-2023 End: 12-31-2023 Patient encounter procedure Dagmar Schroeder MD Work Phone: OB/Gynecology Comment on above: Encounter for gyneco logical examination (general) (routine) without abnormal findings (Primary Dx); Encounter for screening mammogram for breast cancer; Dense breast tissue Start: 12-31-2023 End: 12-31-2023 Patient encounter status Dagmar Schroeder MD Work Phone: [facility] Start: 07-11-2023 End: 07-11-2023 Patient encounter procedure [employer] Misa Monroe [employer] Work Phone: [facility] Work Phone: Start: 06-13-2023 End: 06-13-2023 ambulatory [employer] Misa Monroe [employer] Work Phone: [facility] Work Phone: Start: 06-13-2023 End: 06-13-2023 Discharged Recurring [employer] Misa Monroe [employer] Work Phone: [facility]-Physical Therapy Work Phone: Start: 05-30-[address] Koffi Watt Work Phone: [facility]-Physical Therapy Work Phone: Start: 05-28-2023 End: 05-28-[address] Koffi Watt Work Phone: [facility] Work Phone: Start: 05-28-2023 End: 05-28-[address] Koffi Watt Work Phone: [facility]-Outpatient Pavilion Ultrasound Work Phone: Start: 05-18-2023 Non-patient / Non-visit Dr. Jesús Watt Work Phone: [facility] Start: 05-18-2023 End: 05-18-[address] Koffi Watt Work Phone: [facility] Work Phone: Start: 05-18-2023 End: 05-18-[address] Koffi Watt Work Phone: [facility]-Cardiovascula r Services Work Phone: Start: 05-16-[address] Koffi Watt Work Phone: [facility]-Physical Therapy Work Phone: Start: 04-20-2023 End: 04-20-2023 Admission to same day surgery center Dr. Koffi Watt Work Phone: [facility]-Surgical Day Care Start: 04-11-2023 End: 04-11-2023 Non-patient / Non-visit Dr. Koffi Watt Work Phone: [facility] Work Phone: Start: 04-11-2023 End: 04-11-[address] [facility] Work Phone: Start: 04-11-2023 End: 04-11-2023 Patient encounter procedure [facility]-Radiology, [facility] Work Phone: Start: 04-09-2023 Orders Only Tomas Olivera MD Work Phone: [facility] [place] Comment on above: Pain (Primary Dx) Start: 01-04-2023 End: 01-04-[address] [facility] Work Phone: Start: 01-04-2023 End: 01-04-2023 Patient encounter procedure [facility]-Outpatient Breast Imaging Work Phone: Start: 06-12-[address] Norman vo [place] Facility:[id number] Start: 03-24-2022 Office consultation new/estab patient 60 min No PCP None MQ-Vftqealbcyxa-Sksrfe ld [place] [address] DO Work Phone: Start: 03-24-2022 ambulatory PCP UNKNOWN Facility:1 [id number] Start: 03-14-2022 ambulatory Birgit Mil an PA-C Work Phone: Orthopaedics Comment on above: mobic Start: 03-14-2022 E-mail encounter fro m caregiver Birgit Mancini PA-C Work Phone: [facility] Start: 03-14-2022 Refill Birgit Mil an PA-C Work Phone: Orthopaedics Comment on above: Refill Request Start: 01-18-2022 End: 01-18-[address] [facility] Work Phone: Start: 01-18-2022 End: 01-18-2022 Patient encounter procedure [facility]-Outpatient Breast Imaging Start: 01-11-2022 Office outpatient ne w 30 minutes Referring Provider Unknown AD-Zznfsrwgzqku-Nbvhow 210 Work Phone: Start: 01-11-2022 ambulatory Referral Self Facility: [id number] Start: 01-07-2022 Refill Birgit Mil an PA-C Work Phone: Orthopaedics Comment on above: Refill Request Start: 12-09-2021 Telephone encounter Koffi banuelos DO Work Phone: Hematology/Oncology Comment on above: Appointment Start: 12-07-2021 ambulatory Birgit Mil an PA-C Work Phone: Orthopaedics Comment on above: MRI Results Start: 12-07-2021 Telephone encounter Birgit DAYC Work Phone: [facility] [place] Comment on above: Results Opened In Error Start: 12-06-2021 End: 12-06-2021 Subsequent hospital visit by physician [facility] [employer] [facility] (I-Stat/1.5t) Work Phone: Radiology Comment on above: Primary osteoarthrit is of right knee [M17.11] Start: 12-05-2021 End: 12-05-2021 Patient encounter procedure Birgit LYNNE-C Work Phone: Orthopaedics Comment on above: Primary osteoarthrit is of right knee (Primary Dx); Chronic pain of right knee Start: 11-17-2021 End: 11-17-2021 Patient encounter procedure [facility]-Laboratory, Specimen Start: 11-11-2021 Orders Only Tim buchanan Work Phone: Podiatry Comment on above: Posterior tibial ten don dysfunction (Primary Dx); Arthritis of ankle Orders Start: 09-06-2021 Telephone encounter Birgit DAYC Work Phone: Orthopaedics Comment on above: Patient Update Start: 09-02-2021 Refill Birgit LYNNE-Abad Work Phone: Orthopaedics Comment on above: Refill Request Start: 09-02-2021 End: 09-02-2021 ambulatory Devon Lees PT Work Phone: [facility] Physical Therapy Comment on above: Bilateral primary os teoarthritis of knee (Primary Dx) Start: 08-19-2021 End: 08-19-2021 ambulatory Devon Lees PT Work Phone: [facility] Physical Therapy Comment on above: Bilateral primary os teoarthritis of knee (Primary Dx) Start: 08-10-2021 End: 08-10-2021 ambulatory Devon Nabeel PT Work Phone: [facility] Physical Therapy Comment on above: Bilateral primary [...] angiography of co ronary arteries Skylar Box [employer] Work Phone: Start: 05-28-2023 Ultrasonography of breast [...] Author Start: 11-17-2026 HPV Testing HPV Testing [facility] Start: 11-17-2026 Pap Testing Pap Testing [facility] Start: 03-25-2025 End: 03-25-2025 Patient encounter procedure 03/25/2025 12:00 PM EST Office Visit [facility] ACC BREAST SURG [address] [place] [address] Nataliia Samuels, [place] [address] [place], [place] [id number] Family history of cancer [Z80.9] [facility] ACC BREAST SURG Comment on above: Family history of ca ncer [Z80.9] Start: 01-15-2025 End: 01-15-2025 Patient encounter procedure 01/15/2025 4:00 PM EDT Office Visit OB/Gynecology [address] [place] [address] Dagmar Schroeder MD [address] [place] [address] Annual OB/Gynecology Comment on above: Annual Start: 01-12-2025 Influenza vaccination [facility] Start: 01-08-2025 Screening for malign ant neoplasm of breast Mammogram Screening [facility] Start: 01-01-2025 End: 01-01-2025 Patient encounter procedure 01/01/2025 4:00 PM EDT Office Visit OB/Gynecology [address] [place] [address] Dagmar Schroeder MD [address] [place] [address] Annual OB/Gynecology Comment on above: Annual Start: 12-01-2024 End: 12-01-2024 Manual pelvic examination 12/01/2024 11:10 AM EDT [facility] OB/Gynecology [address] [place] [address] Dagmar Schroeder MD [address] [place] [address] has questions about HRT and need for pelvic u/s OB/Gynecology Comment on above: has questions about HRT and need for pelvic u/s Start: 11-17-2024 Screening for malign ant neoplasm of cervix Cervical Cancer Screening [facility] Start: 11-11-2024 End: 11-11-2024 Manual pelvic examination 11/11/2024 3:30 PM EDT Procedure OB/Gynecology [address] [place] [address] Remote, Supervisor [employer] [address] [place] [address] Pelvic US OB/Gynecology Comment on above: Pelvic US Start: 10-30-2024 End: 10-30-2025 US Pelvis PELVIC US [facility] Anc Imaging Routine Menopausal state Expected: 10/30/2024, Expires: 10/30/2025 [facility] Work Phone: Comment on above: Expected: 10/30/2024 , Expires: 10/30/2025 Start: 09-18-2024 End: 09-18-2024 Patient encounter procedure 09/18/2024 10:50 AM EDT Office Visit OB/Gynecology [address] [place] [id number] Dagmar Schroeder MD [address] [place] [address] discuss hormone therapy OB/Gynecology Comment on above: discuss hormone ther apy Start: 08-04-2024 Phone; Acute Simple [facility]; [facility] [place] [facility] [place] [facility] Start: 08-04-2024 [place] [facility] Start: 01-13-2024 Covid-19 Vaccine ( season) Covid-19 Vaccine ( season) [facility] Start: 01-13-2024 Influenza vaccination Influenza Vacc ine (#1) [facility] Start: 04-20-2023 Patient discharge [facility] Start: 04-20-2023 Anes open proc bones lower leg/ankle/foot nos ANESTH LOWER LEG BONE SURG [facility] Start: 04-20-2023 Injection aa&/strd other peripheral nerve/branch NJX AA&/STRD OTHER PN/BRANCH [facility] Start: 04-20-2023 Open treatment bimalleolar ankle fracture TREATMENT OF ANKLE FRACTURE [facility] Start: 01-18-2023 Mammography Mammogram Screening [facility] Start: 01-18-2023 Screening for malign ant neoplasm of breast Mammogram Screening [facility] Start: 01-12-2023 Covid-19 Vaccine ( season) Covid-19 Vaccine ( season) [facility] Start: 01-12-2023 Influenza vaccination Influenza Vacc ine (#1) [facility] Start: 05-14-2022 Depression Assessment Depression Ass [facility] Start: 03-14-2022 End: 05-14-2022 CREATININE BLD CREATININE BLD Lab Routine Encounter for long-term (current) use of medications Expected: 03/14/2022, Expires: 05/14/2022 [facility] Work Phone: Comment on above: Expected: 03/14/2022 , Expires: 05/14/2022 Start: 02-10-2022 NPV, Provider: Norman Davidson, Status: Pen, Time: 8:20 AM NPV, Provider: Norman Davidson, Status: Pen, Time: 8:20 AM PI-Zrsnsmtuoqix-Ssvy an 200 Work Phone: Start: 01-27-2022 NPV, Provider: Norman Davidson, Status: Pen, Time: 8:00 AM NPV, Provider: Norman Davidson, Status: Pen, Time: 8:00 AM BK-Tyfqzcanqhgh-Tuxm an 210 Work Phone: Start: 01-12-2022 Influenza vaccination [facility] Start: 05-14-2021 DEPRESSION ASSESSMENT DEPRESSION ASS ESSMENT [facility] Start: 01-12-2021 Influenza vaccination INFLUENZA (#1) [facility] Start: 2018 Pneumococcal Vaccine : 50+ (2 of 2 - PCV20 or PCV21) Pneumococcal Vaccine: 50+ (2 of 2 - PCV20 or PCV21) [facility] Start: 2018 Pneumococcal Vaccine : 50+ (2 of 2 - PPSV23) Pneumococcal Vaccine: 50+ (2 of 2 - PPSV23) [facility] Start: 2018 SHINGRIX VACCINE (1 of 2) SHINGRIX VACCINE (1 of 2) [facility] Start: 02-11-2017 End: 02-11-2017 Urinalysis complete panel - Urine *UAC- Urinalysis, Complete w/ Micro [facility] Work Phone: Start: 02-11-2017 End: 02-11-2017 Appointment Appointment [facility] Work Phone: Start: 02-11-2017 End: 02-11-2017 Urinalysis complete panel - Urine *UAC- Urinalysis, Complete w/ Micro [facility] Work Phone: Start: 2013 COLOGUARD (FIT-DNA) COLOGUARD (FIT-D NA) [facility] Start: 2013 Colonoscopy COLONOSCOPY [facility] Start: 2013 COLORECTAL CANCER SCREENING COLORECTAL CANCER SCREENING [facility] Start: [address] COLONOGRAPHY [facility] Start: 2013 DIABETES SCREEN DIABETES SCREEN [facility] Start: 2013 Diabetes Screening Diabetes Screenin g [facility] Start: 2013 FECAL OCCULT BLOOD FECAL OCCULT BLOO D [facility] Start: 2013 Lipid 1996 panel - Serum or Plasma Lipid Screening [facility] Start: 2013 Lipid panel Lipid Screening [facility] Start: 2013 LIPID SCREEN LIPID SCREEN [facility] Start: 2013 Screening for malign ant neoplasm of colon [facility] Start: 2013 SIGMOIDOSCOPY SIGMOIDOSCOPY [facility] Start: 01-07-2013 Urine microalbumin profile DTaP,Tdap,Td Vaccine (1 - Tdap) [facility] Start: 2008 Mammography MAMMOGRAM [facility] Start: 1998 HPV TESTING HPV TESTING [facility] Start: 1989 PAP TESTING PAP TESTING [facility] Start: 1987 Hepatitis B Vaccine (1 of 3 - 19+ 3-dose series) Hepatitis B Vaccine (1 of 3 - 19+ 3-dose series) [facility] Start: 1987 Urine microalbumin profile DTAP,TDAP,TD (1 - Tdap) [facility] Start: 1986 Anxiety Screening Anxiety Screening [facility] Start: 1986 Depression Screening Depression Scre ening [facility] Start: 1986 HEPATITIS C SCREENING HEPATITIS C [facility] Start: 1986 Hepatitis C screening Hepatitis C [facility] Start: 1986 HIV SCREENING HIV SCREENING [facility] Start: 1986 HIV screening HIV Screening [facility] Start: 1980 Adult depression screening assessment DEPRESSION SCREENING [facility] Start: 1973 COVID-19 VACCINE (1) COVID-19 VACCIN E (1) [facility] Start: 1968 COVID-19 VACCINE (#1) COVID-19 VACCI NE (#1) [facility] Start: 1968 HEPATITIS B (1 of 3 - 3-dose series) HEPATITIS B (1 of 3 - 3-dose series) [facility] Start: 1968 Hepatitis B Vaccine (1 of 3 - 3-dose series) Hepatitis B Vaccine (1 of 3 - 3-dose series) [facility] Blood chemistry [facility] End: 01-29-2025 DBT Breast - bilateral screening [facility] Work Phone: Comment on above: 1 Occurrences starti ng 12/31/2023 until 01/29/2025 Lipid 1996 panel - Serum or Plasma [facility] End: 01-04-2023 MRI KNEE WO IVCON RT MRI KNEE WO IVCON RT Radiology Routine Primary osteoarthritis of right knee Chronic pain of right knee 1 Occurrences starting 12/05/2021 until 01/04/2023 [facility] Work Phone: Comment on above: 1 Occurrences starti ng 12/05/2021 until 01/04/2023 Path report.final Dx Spec [facility] Work Phone: Patient Education Post-Op Tips: Foot [facility] Work Phone: Patient referral [facility] Work Phone: End: 05-08-2024 XR ANKLE GENERAL 3V AP/LAT/OBL RIGHT XR ANKLE GENERAL 3V AP/LAT/OBL RIGHT Radiology Routine Pain 1 Occurrences starting 04/09/2023 until 05/08/2024 [facility] Work Phone: Comment on above: 1 Occurrences starti ng 04/09/2023 until 05/08/2024 End: 05-08-2024 XR FOOT GENERAL 3V AP/LAT/OBL RIGHT XR FOOT GENERAL 3V AP/LAT/OBL RIGHT Radiology Routine Pain 1 Occurrences starting 04/09/2023 until 05/08/2024 [facility] Work Phone: Comment on above: 1 Occurrences starti ng 04/09/2023 until 05/08/2024 [facility] Immunizations Immunization Date Immunization Notes Care Provider Fa joanne 04-03-2016 influenza, injectabl e, quadrivalent, contains preservative No PCP None KP[place]vf[place] [address] DO Work Phone: 04-03-2016 influenza virus vaccine, unspecified formulation Tomas Olivera MD Work Phone: [facility] 01-06-2013 influenza, seasonal, injectable No PCP None OK-Jwtlhahvcedv-[place]ub[place] [address] DO Work Phone: 01-06-2013 pneumococcal conjuga te vaccine, 13 valent No PCP None OI-Gyhxcmrzznmj-[place]xy[place] [address] DO Work Phone: 01-06-2013 TD(adult) unspecifie d formulation No PCP None DG-Xcfkmdhxuuvz-[place] [address] DO Work Phone: Payers Date Payer Category Payer Unknown [id number] 2024 Self-pay [id number] 2023 Private Health Insurance [id number] 2021 Private Health Insurance AETNA A ETNA CHOICE POS II [id number] 2021-Present [phone] [address] [place] [address] POS [id number] 2021 Private Health Insurance [id number] 1970 Unknown [id number] 1968 Unknown [id number] 356 1968 Unknown [id number] 356 1968 Unknown [id number] 356 Private Health Insurance [id number] Unknown [id number] Unknown [employer] Unknown [id number] Unknown [id number] 462 Unknown [id number] 462 Unknown [id number] 462 Unknown [id number] 462 Unknown [id number] 462 Unknown [id number] 462 Unknown [id number] 462 Social History Date Type Detail Facility Start: 11-08-2016 End: 12-10-2024 Tobacco smoking status GAIS Never smoked tobacco [facility] Work Phone: Start: 11-08-2016 End: 12-31-2023 Tobacco use and exposure Smokeless tobacco non-user [facility] Work Phone: Start: 08-05-2021 End: 09-18-2024 Alcohol intake Current drinker of alcohol (finding) [facility] Start: 08-03-2020 History SDOH Alcohol Comment some [facility] Start: 1970 Sex Assigned At Female C [facility] Start: 07-26-2021 End: 12-05-2021 Exposure to SARS-CoV-2 (event) Not sure [facility] Start: 09-09-2020 End: 07-11-2023 Tobacco smoking status NHIS Unknown if ever smoked [facility] Start: 01-16-2023 End: 12-31-2023 History of Social function [facility] Start: 01-16-2023 End: 12-31-2023 Tobacco use panel [facility] Start: 03-02-2014 National Score (1-100), lower number is lower risk 67 [facility] Start: 07-31-2021 Gender identity Identifies as female gender (finding) [facility] Start: 07-31-2021 Sexual orientation Heterosexual (fin charo) [facility] Sex Assigned At Unknown [place] - [facility] NEGATED: Highlighted row [facility] Medical Equipment Procedure Code Equipment Code Equipment Origin al Text Equipment Identifier Dates Repair of tendon BIOSKIN, 2 X 4 FDA Star t: 05-09-2024 Repair of tendon BIOSKIN, 2 X 4 FDA Star t: 05-09-2024 Repair of tendon BIOSKIN, 2 X 4 FDA Star t: 05-09-2024 ORIF, ankle Implant ([id number]) [id number] FDA Start: 04-20-2023 ORIF, ankle ([id number]) ()[id number] FDA Start: 04-20-2023 ORIF, ankle ([id number]) ()[id number] 843 FDA Start: 04-20-2023 ORIF, ankle ()[id number] 854 FDA Start: 04-20-2023 ORIF, ankle ()[id number] FDA Start: 04-20-2023 ORIF, ankle ([id number]) ()[id number] 751 FDA Start: 04-20-2023 Goals Date Patient Goal Desired Activity /State Mental Status Date Assessment Result Facility 04-20-2023 Cognitive function Level Of Cons ciousness Awake;Alert [facility] Work Phone: 04-20-2023 Cognitive function Voice/Name [facility] Work Phone: Clinical Notes 08-05-2021 to 01-23-2025 Telephone Encounter - Nataliia Samuels, - 01/23/2025 1:31 PM EDTTelephone Encounter - Nataliia Samuels MS - 01/23/2025 1:31 PM EDTTelephone Encounter - Dagmar Schroeder MD - 10/30/2024 9:51 AM EDT Note Date & Type Note Facility 01-23-2025 Telephone encounter Note Called pt after seeing her [facility] regarding wanting genetic testing. Reviewed that I [...] with testing and order has been placed. [facility] Work Phone: 01-23-2025 Miscellaneous Notes Called pt [...] has been placed. documented in this encounter [facility] 10-30-2024 Telephone encounter Note Pt notified and voiced understanding-pelvic US scheduled. Marcelina Larsen RN [facility] 10-30-2024 Miscellaneous Notes Pt notified and voiced understanding-pelvic US scheduled. Marcelina Larsen RN Left message to call office. Mony Patel RN I would say lets start with pelvic ultrasound and go from there because if lining thin, I do not think EMB is necessary Pt notified. Pt states She had hysteroscopy, D&C, polypectomy in [place] approx 15-46 years ago. Pt states she [...] find any scanned pelvic US reports in [email or web address]. There are no reports in [employer] either. Eduarda Roa RN documented in this encounter [facility] 10-30-2024 Telephone encounter Note Left message to call office. Mony Patel RN [facility] 10-30-2024 Telephone encounter Note I would say lets start with pelvic ultrasound and go from there because if lining thin, I do not think EMB is necessary [facility] 10-30-2024 Telephone encounter Note Pt notified. Pt states She had hysteroscopy, D&C, polypectomy in [place] approx 15-46 years ago. Pt states she [...] necessary. Please advise. Marcelina Larsen RN T [facility] 10-30-2024 Telephone encounter Note From what I [...] US and EMB prior to HRT T [facility] 10-23-2024 Telephone encounter Note I found the ultrasounds. They were scanned in back in 2022. She didn't establish with our office until 2023. I did not look back far enough. Reports placed in mailbox. Eduarda Roa, RN [facility] 10-23-2024 Telephone encounter Note Please schedule visit (can be virtual) to discuss further if she has any questions or concerns [facility] 10-22-2024 Telephone encounter Note Could not find any scanned pelvic US reports in [facility]. There are no reports in [employer] either. Eduarda Roa, RN [facility] 10-20-2024 Radiology Diagnostic study note [facility] Imaging Services [address] [place] [address] Cardiac Only MR#: [id number] Acct: [id number] Name: CHANELLE GUILLERMO Rep #: [id number] : 1970 F 54 From: Pet er Peer PCP: JHONY Roth Status: REG CLI Study:Limited Chest CT Cardiac Only Date of E xam: 10/20/24 Exam# [id number] Ordering Dr: Ra mina Box PROCEDURE: LIMITED [...] 0 no other significant findings Reading [facility] CC: JHONY Box ~ Button Station Worker: Signed [facility] 10-07-2024 Discharge summary Note Date/Time October 07, 2024 4:21p m [facility] Physical Therapy [facility] [address] [place] [address]. [address] [place] [address] / REHABILITATION SERVICES DISCHARGE SUMMARY MR#: [id number] Acct: [id number] Name: CHANELLE GUILLERMO Rep #: [id number] [...] appear below: [facility] greater than 30 days and [...] PT, ATC> 10/07/24 1621 CC: ARIANA Crowder; CEMENT MASON MAINTENANCE-C Skylar Box ~ [facility] Signed [facility] Work Phone: [phone]) 854-764505-27-2025 Discharge [address] [facility] Physical [facility] [address] [place] [address] / REHABILITATION SERVICES DISCHARGE SUMMARY MR#: [id number] Acct: [id number] Name: CHANELLE GUILLERMO Rep #: [id number] : 1970 54 From: Devon Freitas PT, ATC Referring Dr.: ARIANA Crowder Status: REG R Insurance: [facility] SELF PAY INSURANCE Patient Information Patient Information: [...] Score: 40 10/07/24 1621 CC: ARIANA Crowder; CEMENT MASON MAINTENANCE-C Skylar Box ~ [facility] Signed [facility]05-21-2025 NoteHNO ID: [id number] Author: NATALIIA SAMUELS MS Service: ? Author Type: Genetic Counselor Type: Progress Notes Filed: 01/29/2025 10:46 Note Text: [facility] Department of Medical Genetics Consultation Note Genetic Counselor: Nataliia Samuels MS, [facility] Patient: Chanelle Guillermo This visit was conducted via [employer]. I have communicated my name and active licensure. The patient's identity and physical location were verified at the time of this visit. Either the patient or their legal sales representative education courses has been informed of the risks and [...] 04/20/2023 screws and plates COLONOSCOPY SCREENING 2019 DANMN, DIAG AND/OR THERAPEUTIC 04/19/2011 EXTRACTION ERUPTED TOOTH/EXR [...] Uncle The patient's maternal ancestors are of Uzbek/Persian descent and paternal ancestors are of Uzbek descent. There is no known Ashkenazi Christianity ancestry. There is no known consanguinity. A [...] surgeries, or targeted treatmen (more content not included)...[facility]05-08-2025 Instructions* Patient Instructions* Dagmar Schroeder MD - 09/18/2024 11:37 AM EDT Non-Hormonal Ways to [place] with Hot Flashes and Menopause Hormone therapy [...] 27.91 Tofu, yogurt 16.30 Source: USDA -- [facility] Database on the Isoflavone Content of [...] black cohosh and soy products) are available ysnl-svs-fxqfwco but are not FDA-approved.Some prescription medications are [...] some of the other options. Non-prescription, herbal, ufre-klx-nirswzq therapies: Drug Side Effects Effectiveness Evening Warren Oil Nausea, diarrhea, headache. Only one well-designed [...] per day compared to placebo. Are the zrau-ktl-zclyzuf herbal products (botanicals) safe? While safe when [...] promoted. Be cautious of products promoted through: [employer] Direct mailings [employer] Ads disguised as valid news articles Ads in the back of magazines Additional red flags to look for include: Big claims: If products claim to be a cure for your condition, or gives outrageous claims, be cautious. Source: Be wary if the product is only offered through one accountant machine processing or purchased only through [facility] provider s office. Ingredients: Make [...] and Alternative Medicine. Menopausal Symptoms and CAM. [facility].nih.gov Accessed August 12, 2012 [place] Menopause Society, Hormone Therapy for women in 2012. www.menopause.org Assessed August 12, 2012 [place] Congress of Obstetricians and Gynecologists. Publications. The Menopause Years. www.acog.org Accessed 07/11/2010 Centers for Disease Control and Prevention. Women s Reproductive Health: Menopause. www.cdc.gov Accessed 07/11/2010 National [place] on Aging. Age Page: Menopause. www.kelli.nih.gov Accessed [...] safe to do so in terms of termite control representative heart disease risk. HT and breast cancer [...] Women: Randomized Trial. BMJ Feb 2012. [place] Menopause Society. The 2012 hormone therapy position statement Accessed 10/10/12. [place] Association of Clinical Endocrinologists. [place] Association of Clinical Endocrinologists Medical Guidelines for the Clinical Practice for the Diagnosis and Treatment of Menopause Accessed11/03/12. Committee on Gynecological Practice. Postmenopausal estrogen therapy: Route of administration and risk of venous thromboembolism. Obstet Gynecol 2013 Aug; 121:887. Estrogen alone and joint symptoms in the Women's Health Initiative randomized trial. Menopause 18. documented in this encounter[facility]05-08-2025 NoteHNO ID: [id number] Author: DAGMAR SCHROEDER MD Service: ? Author [...] Living2 SAB0 IAB0 Ectopic0 Multiple0 Live Births0 Clearance Rep History LMP: Postmenopausal Age at Menarche: Age at First : Age at Menopause: Clearance Rep History Comments: Sexual Activity: Yes; Male Contraception: [...] with more than 50% of the total mjmy-mp-zmvb time of the visit in counseling / coordination of care.[facility]05-08-2025 History of Present illness Narrative* Dagmar Schroeder [...] Living2 SAB0 IAB0 Ectopic0 Multiple0 Live Births0 Clearance Rep History LMP: Postmenopausal Age at Menarche: Age at First : Age at Menopause: Clearance Rep History Comments: Sexual Activity: Yes; Male Contraception: [...] with more than 50% of the total vnnv-zu-iite time of the visit in counseling / coordination of care. documented in this encounterBarn[facility]05-05-2025 Telephone encounter Note * Telephone Encounter - Dagmar Schroeder MD - 09/15/2024 12:01 PM EDT filed [facility]05-05-2025 Miscellaneous Notes* Telephone Encounter - Dagmar [...] WELL Petty Buck RN documented in this encounterBarnesville Hospital05-05-2025 Telephone encounter Note * Telephone Encounter [...] OUTSIDE OF VAGINA WELL Petty Buck RN [facility]08-19-2024 Instructions* Patient Instructions* Dagmar Schroeder MD [...] safe to do so in terms of group home heart disease risk. HT and breast cancer [...] Women: Randomized Trial. BMJ Feb 2012. [place] Menopause Society. The 2012 hormone therapy position statement Accessed 10/10/12. [place] Association of Clinical Endocrinologists. [place] Association of Clinical Endocrinologists Medical Guidelines for the Clinical Practice for the Diagnosis and Treatment of Menopause Accessed11/03/12. Committee on Gynecological Practice. Postmenopausal estrogen therapy: Route of administration and risk of venous thromboembolism. Obstet Gynecol 2013 Aug; 121:887. Estrogen alone and joint symptoms in the Women's Health Initiative randomized trial. Menopause 18. Non-Hormonal Ways to [place] with Hot Flashes and Menopause Hormone therapy [...] Tofu, silken 27.91 Tofu, yogurt 16.30 Source: [facility] -- [facility] Database on the Isoflavone Content of [...] black cohosh and soy products) are available lpmi-xdy-kvbdkyv but are not FDA-approved.Some prescription medications are [...] some of the other options. Non-prescription, herbal, flfe-tql-hflodot therapies: Drug Side Effects Effectiveness Evening Warren Oil Nausea, diarrhea, headache. Only one well-designed [...] per day compared to placebo. Are the hgif-yjt-pykzozv herbal products (botanicals) safe? While safe when [...] promoted. Be cautious of products promoted through: [employer] Direct mailings [employer] Ads disguised as valid news articles Ads in the back of magazines Additional red flags to look for include: Big claims: If products claim to be a cure for your condition, or gives outrageous claims, be cautious. Source: Be wary if the product is only offered through one accountant machine processing or purchased only through [facility] provider s office. Ingredients: Make sure [...] CAM. nccam.nih.gov Accessed August 12, 2012 [place] Menopause Society, Hormone Therapy for women in 2011. www.menopause.org Assessed August 12, 2012 [place] Congress of Obstetricians and Gynecologists. Publications. The Menopause Years. www.acog.org Accessed 07/11/2010 Centers for Disease Control and Prevention. Women s Reproductive Health: Menopause. www.cdc.gov Accessed 07/11/2010 National [place] on Aging. Age Page: Menopause. www.kelli.nih.gov Accessed 07/11/2010 documented in this encounterBarnesville Hospital08-19-2024 History of Present illness Narrative* Dagmar [...] L2 SAB0 IAB0 Ectopic0 Multiple0 Live Births0 Clearance Rep History LMP: Postmenopausal Age at Menarche: Age at First : Age at Menopause: Clearance Rep History Comments: Sexual Activity: Yes; Male Contraception: [...] external genitalia atrophic, normal Bartholin's glands, urethra, Munford's glands, no vulvar lesions, no cervical lesions, good vaginal support, physiologic discharge present, normal appearing perineal body and perianal region, vaginal atrophy noted BIMANUAL: uterus normal size, shape and consistency, no adnexal masses, and non-tender RECTOVAGINAL: deferred. NEURO: exam grossly non-focal EXTREMITIES: normal ASSESSMENT/PLAN: 1) Health maintenance: Pap/HPV up to date. Mammogram ordered to be completed at [facility] Nutrition, exercise and routine health maintenance exams reviewed. Colon cancer screening: up to date with screening TSH/lipids/glucose: followed by PCP Information given on non hormonal treatment options and HRT for menopausal symptoms after discussion of r/b/a Rx for vaginal estrogen sent after discussion of r/b/a 2) Follow up one year or sooner as needed Dagmar Schroeder DO documented in this encounterBarnesville Hospital04-08-2024 Discharge summary Author Janak Vidal [facility] August 20, 2023 9:46am Note Date/Time August 20, 2023 9:[address] [facility] Physical [facility] [address] [place] [address]. [address] [place] [address] / REHABILITATION SERVICES DISCHARGE SUMMARY MR#: [id number] Acct: [id number] Name: CHANELLE GUILLERMO Rep #: [id number] [...] Vidal DPT> 08/20/23 0946 CC: ARIANA Crowder; CEMENT MASON MAINTENANCE-C Misa Monroe ~ CLS Signed [facility] Work Phone: [phone]) 693-974207-29-2022 Miscellaneous Notes* Telephone Encounter - Mariluz Schonauer, PSS - 12/09/2021 9:09 AM EDT Pt would like to use port for appt on 12/12/21 @ 8:40 Please call pt to let her know what time to come in please documented in this encounterBarnesville Hospital07-27-2022 Miscellaneous Notes* Telephone Encounter - South [...] understanding. South Zepeda LPN documented in this [facility]07-26-2022 History of Present illness Narrative* RT Ramón(R) - 12/06/2021 11:20 AM EDT Radiology Service Progress Note PATIENT NAME: Chnaelle Guillermo DATE OF SERVICE: December 06, 2021 [...] 06, 2021 12:13 PM documented in this [facility]07-25-2022 History of Present illness Narrative* Birgit Mancini PA-C - 12/05/2021 4:00 PM EDT Birgit Mancini PA-C Established Patient Department of Orthopaedics Orthopaedics [address] [address] Dept: [phone] December 05, 2021 SUBJECTIVE: CHIEF COMPLAINT: Established [...] MRI Birgit Mancini PA-C documented in this encounterBarnesville Hospital07-07-2022 NotePap Smear Specimen AdequacyJuly 2021 11:59pmComment.Satisfactory for evaluation. Endocervical and/or squamous metaplasticcells (endocervical component)are present.[facility] INTER[facility]ACED A#[id number] St[facility] Work Phone: Comment on above:Satisfactory for evaluation. Endocervical and/or squamous metaplasticcells (endocervical component)are present.11-16-2021 Miscellaneous Notes* Telephone Encounter - Isabell Najera RN - 11/16/2021 4:45 PM EDT See Kinn[employer] Software[employer] message from 11/09/21. * Telephone Encounter - Tim Jane - 11/11/2021 12:55 PM EDT Orthotics ordered. 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 She has also tried a course of Meloxicam and Tylenol with some relief but the pt is reluctant to stay on termite control representative medications. She also had an MRI performed showing a R medial meniscal tear. She comes to clinic for a second opinion asshe has been told she is not a surgical candidate for meniscal surgery given her degree of medial compartment arthritis.KD-Irvkwiyxdnak-Hirwzu [address] Work Phone: 1(511) 453-522907-01-2022 History of Present illness Neha is a [...] intraarticular steroid injection, lastin November at the [facility], which has given her some relief. She has also tried a course of Meloxicam and Tylenol with some relief but the pt is reluctant to stay on group home medications. She also had an MRI performed showing a R medial meniscal tear. She comes to clinic for a second opinion asshe has been told she is not a surgical candidate for meniscal surgery given her degree of medial co mpartment arthritis.WX-Dksszrqgvqjl-Zlahif [address] Work Phone: 1(132) 277-597204-26-2022 Miscellaneous Notes* Telephone Encounter - Birgit Mancini [...] she needs anything else documented in this encounterBarnesville Hospital04-22-2022 History of Present illness Narrative* Devon [...] toward set goals. PLAN FOR NEXT VISIT: [place] SUBJECTIVE: Patient Reason for Visit: Patient reports [...] upon. Devon Lees PT documented in this encounterBarnesville Hospital04-08-2022 History of Present illness Narrative* Devon [...] upon. Devon Lees PT documented in this encounterBarnesville Hospital03-30-2022 History of Present illness Narrative* Devon [...] of Care: created on 08/10/21 through 10/10/21 [place] in home exercise program. Patient will decrease [...] Planned: 6 Planned Treatment Interventions: Therapeutic exercise (96153);Neuromuscular re- education (56921);Manual therapy (99349);Therapeutic activities (91852);Self- long-term management (11278);Patient/Family/Caregiver Education;Body Mechanics Training PLAN FOR NEXT VISIT: [...] 38 Devon Lees PT documented in this encounterBarnesville Hospital03-25-2022 History of Present illness Narrative* Birgit Mancini PA-C - 08/05/2021 10:01 AM EDT Birgit Mancini PA-C Department of Orthopaedics Orthopaedics [address] [place], [place] [address] Dept: [phone] August 05, 2021 SUBJECTIVE: CHIEF COMPLAINT: New [...] on the right compared to the left.. Button Station Worker: YANET Transcribe Date/Time: Aug 05 2021 10:12A Dictated by : MORRIS CALDERÓN MD This examination was interpreted and the report reviewed and electronically signed by: MORRIS CALDERÓN MD on Aug 05 2021 10:16AM EST Results-Findings * * *Final Report* * * DATE OF EXAM: Aug 05 2021 9:15AM CHANG 5618 - XR KNEE 4V AP/PA/LAT/MERCH AIDEN / PROCEDURE REASON: X29-Xxof * * * * Physician Interpretation * [...] needed Birgit Mancini PA-C documented in this encounterBarnesville Hospital03-25-2022 History of Present illness Narrative* REMY Armijo [...] 05, 2021 9:15 AM [facility] N[facility] - Reported Patient here for initial evaluation of Right Knee Pain. -mv- LY-Gsgfxtjigupv-Qjixwm 210 Work Phone: Chief complaint Narrative - ReportedPatient here for initial evaluation of Right Knee Pain. -jc-KF-Gaffldtthfwv-Risman 200 Work Phone: Evaluation note* Diagnosis Bilateral primary osteoarthritis of knee- Primary documented in this encounter [facility] note* Diagnosis Bilateral primary osteoarthritis of knee- Primary documented in this encounter [facility] note* Diagnosis Pain Generalized pain documented in this encounter [facility] note* Diagnosis Bilateral primary osteoarthritis of knee- Primary documented in this encounter [facility] note* Diagnosis Bilateral primary osteoarthritis of knee documented in this encounter [facility] note* Diagnosis Bilateral primary osteoarthritis of knee- Primary documented in this encounter [facility] note* Diagnosis Posterior tibial tendon dysfunction- Primary Other disorders of synovium, tendon, and bursa Arthritis of ankle Unspecified arthropathy, ankle and foot documented in this encounter [facility] noteNo assessment information availableWProMedica [facility]ost[facility] Work Phone: Evaluation note* Diagnosis Primary osteoarthritis of right knee- Primary Primary localized osteoarthrosis, lower leg Chronic pain of right knee documented in this encounter [facility] note* Diagnosis Primary osteoarthritis of right knee Primary localized osteoarthrosis, lower leg Chronic pain of right knee documented in this encounter [facility] note* Diagnosis Primary osteoarthritis of right knee Primary localized osteoarthrosis, lower leg Chronic pain of right knee documented in this encounter [facility] note* Diagnosis Primary osteoarthritis of right knee Primary localized osteoarthrosis, lower leg Chronic pain of right knee documented in this encounter [facility] note* Diagnosis Encounter for long-term (current) use of medications- Primary Encounter for long-term (current) use of other medications documented in this encounter [facility] note* Diagnosis Pain- Primary Generalized pain documented in this encounter [facility] note* Diagnosis Onset Date Resolution Status Bimalleolar fracture of right ankle acute [facility] Work Phone: Evaluation note* Diagnosis Onset Date Resolution Status Hypertension chronic [facility] Work Phone: Evaluation note* Diagnosis Encounter for gynecological examination (general) (routine) without abnormal findings- Primary Encounter for screening mammogram for breast cancer Dense breast tissue documented in this encounter [facility] note No assessment recorded. [place] - [facility] Evaluation note* Diagnosis Family history of cancer- Primary Family history of unspecified malignant neoplasm Hot flashes Symptomatic menopausal or female climacteric states Vaginal dryness Other specified symptom associated with female genital organs Low libido Decreased libido Difficulty sleeping Sleep disturbance, unspecified documented in this encounter [facility] note* Diagnosis Menopausal state- Primary Symptomatic menopausal or female climacteric states documented in this encounter [facility] general Narrative - ReportedNo medical history recorded. Gynecological History Statement/Question Response If Post Menopausal, Age at Menopause 47 Date of Last Pap Smear Obstetrics History GPAL:G 0 P 0 0 0 0 [place] - [facility] History of Present illness Hnxuvkzdq66-nsks-jbb female referred by Dr. Jackson for right [...] however her left is now becoming progressively worse.NW-Acfdqurgrjrc-Wytlgquv [place] [address] DO Work Phone: Reason for referral (narrative)* Diagnostic Procedure Only (Routine) - Closed Specialty Diagnoses / Procedures Referred By Archie bobby Referred To Contact XR IMAGING Diagnoses Pain Procedures XR KNEE GENERAL 4V AP BOTH/PA BOTH/LAT/MERC BILATERAL RADIOLOGIC EXAM KNEE COMPLETE 4/MORE VIEWS Toni Echeverria MD [address] [address] Xr Imaging Referral ID Status Reason Start Date Expiration Date V isits Requested Visits Authorized [id number] Closed Auto-Generate d Referral 06/28/2021 07/28/2022 1 1 [facility] for referral (narrative)* Diagnostic Procedure Only (Routine) - Authorized Specialty Diagnoses / Procedures Referred By Archie bobby Referred To Contact XR IMAGING Diagnoses Pain Procedures XR FOOT GENERAL 3V AP/LAT/OBL RIGHT RADEX FOOT COMPLETE MINIMUM 3 VIEWS Tomas Olivera MD [address] [place] [address] [place] [address] Referral ID Status Reason Start Date Expiration Date Visits Requested Visits Authorized [id number] Authorized Auto-Generat ed Referral 3 05/08/2024 1 1 * Diagnostic Procedure Only (Routine) - Authorized Specialty Diagnoses / Procedures Referred By Contac t Referred To Contact XR IMAGING Diagnoses Pain Procedures XR ANKLE GENERAL 3V AP/LAT/OBL RIGHT RADEX ANKLE COMPLETE MINIMUM 3 VIEWS Tomas Olivera MD [address] [place] [address] [place] [address] Referral ID Status Reason Start Date Expiration Date Visits Requested Visits Authorized [id number] Authorized Auto-Generat ed Referral 05/08/2024 1 1 [facility] for referral (narrative)* Diagnostic Procedure Only (Routine) - New Request Specialty Diagnoses / Procedures Referred By Archie bobby Referred To Contact BR IMAGING Diagnoses Encounter for screening mammogram for breast cancer Dense breast tissue Procedures TOM SCREENING W [place]ONA SCREENING DIGITAL BREAST TOMOSYNTHESIS BI SCREENING MAMMOGRAPHY BI 2-VIEW BREAST INC Dagmar Champion MD [address] [facility] [place] [address] [facility] [address] [place] [address] Referral ID Status Reason Start Date Expiration Date Visits Requested Visits Authorized [id number] New Request Auto-Generat ed Referral 12/31/2023 01/29/2025 [...] BREAST INC Dagmar Champion MD [address] [facility] [place] [address] [facility] [address] [place] [address] Referral ID Status Reason Start Date Expiration Date Visits Requested Visits Authorized [id number] New Request Auto-Generat ed Referral 12/31/2023 01/29/2025 1 1 [facility]No reason for referral information availableWPro[facility] Work Phone: Reason for visit Narrative* Diagnostic Procedure Only (Routine) - Closed Specialty Diagnoses / Procedures Referred By Archie bobby Referred To Contact XR IMAGING Diagnoses Pain Procedures XR KNEE GENERAL 4V AP BOTH/PA BOTH/LAT/MERC BILATERAL RADIOLOGIC EXAM KNEE COMPLETE 4/MORE VIEWS Toni Echeverria MD [address] [address] Xr Imaging Referral ID Status Reason Start Date Expiration Date V isits Requested Visits Authorized [id number] Closed Auto-Generate d Referral 06/28/2021 07/28/2022 1 1 [facility] Reason for Referral Specialty Diagnoses / Procedures Referred By Archie bobby Referred To Contact [facility] Diagnoses Bilateral primary osteoarthritis of knee Procedures CONSULT TO PHYSICAL THERAPY PHYSICAL THERAPY EVALUATION HIGH COMPLEX 45 MINS Birgit Mancini PA-C [address] [place] [address] [facility] [place] [address] [place] [address] Referral ID Status Reason Start Date Expiration Date Visits Requested Visits Authorized [id number] Pending Review Auto-Generat ed Referral 08/05/2021 08/05/2022 1 1 Specialty Diagnoses / Procedures Referred By Archie bobby Referred To Contact MR IMAGING Diagnoses Primary osteoarthritis of right knee Chronic pain of right knee Procedures MRI KNEE WO IVCON RT MRI ANY JT LOWER EXTREM W/O CONTRAST MATRL Birgit Mancini PA-C [address] [place] [address] Mr Imaging Referral ID Status Reason Start Date Expiration Date Visits Requested Visits Authorized [id number] Authorized Auto-Generat ed Referral 12/05/2021 01/04/2023 1 1 Referral ID Status Reason Start Date Expiration Date V isits Requested Visits Authorized [id number] Closed Auto-Generate d Referral 12/05/2021 01/04/2023 1 [...] No September 05, 2018 3:31pm Power of Baling Press Operator No September 05 3:31pm Advance Directive Response Recorded Date/ Time Living Will No September 05, 2018 2:31pm Power of [employer]aling [employer] Operator No September 05 2:31pm Advance Directive Response Recorded Date/ Time Living Will No April 16 1:02pm Power of Baling Press Operator No April 16, 2023 1:02pm Advance Directive Response Recorded Date/ Time Living Will No April 16 2:02pm Power of Baling Press Operator No April 16, 2023 2:02pm Summary Purpose [...] or prosecute any alcohol or drug abuse patient.[facility] the event this information is protected by the Federal Confidentiality of Alcohol and Drug Abuse Patient Records regulations: The Federal rules restrict any use of the information to criminally investigate or prosecute any alcohol or drug abuse patient.[facility] the event this information is protected by the Federal Confidentiality of Alcohol and Drug Abuse Patient Records regulations: The Federal rules restrict any use of the information to criminally investigate or prosecute any alcohol or drug abuse patient.[facility] HospitalIn the event this information is protected by the Federal Confidentiality of Alcohol and Drug Abuse Patient Records regulations: The Federal rules restrict any use of the information to criminally investigate or prosecute any alcohol or drug abuse patient.[facility] HospitalIn the event this information is protected by the Federal Confidentiality of Alcohol and Drug Abuse Patient Records regulations: The Federal rules restrict any use of the information to criminally investigate or prosecute any alcohol or drug abuse patient.[facility] HospitalIn the event this information is protected by the Federal Confidentiality of Alcohol and Drug Abuse Patient Records regulations: The Federal rules restrict any use of the information to criminally investigate or prosecute any alcohol or drug abuse patient.[facility] HospitalIn the event this information is protected by the Federal Confidentiality of Alcohol and Drug Abuse Patient Records regulations: The Federal rules restrict any use of the information to criminally investigate or prosecute any alcohol or drug abuse patient.[facility] HospitalIn the event this information is protected by the Federal Confidentiality of Alcohol and Drug Abuse Patient Records regulations: The Federal rules restrict any use of the information to criminally investigate or prosecute any alcohol or drug abuse patient.[facility] HospitalIn the event this information is protected by the Federal Confidentiality of Alcohol and Drug Abuse Patient Records regulations: The Federal rules restrict any use of the information to criminally investigate or prosecute any alcohol or drug abuse patient.[facility] HospitalIn the event this information is protected by the Federal Confidentiality of Alcohol and Drug Abuse Patient Records regulations: The Federal rules restrict any use of the information to criminally investigate or prosecute any alcohol or drug abuse patient.[facility] HospitalIn the event this information is protected by the Federal Confidentiality of Alcohol and Drug Abuse Patient Records regulations: The Federal rules restrict any use of the information to criminally investigate or prosecute any alcohol or drug abuse patient.[facility] HospitalIn the event this information is protected by the Federal Confidentiality of Alcohol and Drug Abuse Patient Records regulations: The Federal rules restrict any use of the information to criminally investigate or prosecute any alcohol or drug abuse patient.[facility] HospitalIn the event this information is protected by the Federal Confidentiality of Alcohol and Drug Abuse Patient Records regulations: The Federal rules restrict any use of the information to criminally investigate or prosecute any alcohol or drug abuse patient.[facility] HospitalIn the event this information is protected by the Federal Confidentiality of Alcohol and Drug Abuse Patient Records regulations: The Federal rules restrict any use of the information to criminally investigate or prosecute any alcohol or drug abuse patient.[facility] HospitalIn the event this information is protected by the Federal Confidentiality of Alcohol and Drug Abuse Patient Records regulations: The Federal rules restrict any use of the information to criminally investigate or prosecute any alcohol or drug abuse patient.[facility] HospitalIn the event this information is protected by the Federal Confidentiality of Alcohol and Drug Abuse Patient Records regulations: The Federal rules restrict any use of the information to criminally investigate or prosecute any alcohol or drug abuse patient.[facility] HospitalIn the event this information is protected by the Federal Confidentiality of Alcohol and Drug Abuse Patient Records regulations: The Federal rules restrict any use of the information to criminally investigate or prosecute any alcohol or drug abuse patient.[facility] HospitalIn the event this information is protected by the Federal Confidentiality of Alcohol and Drug Abuse Patient Records regulations: The Federal rules restrict any use of the information to criminally investigate or prosecute any alcohol or drug abuse patient.[facility] HospitalIn the event this information is protected by the Federal Confidentiality of Alcohol and Drug Abuse Patient Records regulations: The Federal rules restrict any use of the information to criminally investigate or prosecute any alcohol or drug abuse patient.[facility] HospitalIn the event this information is protected by the Federal Confidentiality of Alcohol and Drug Abuse Patient Records regulations: The Federal rules restrict any use of the information to criminally investigate or prosecute any alcohol or drug abuse patient.[facility] HospitalIn the event this information is protected by the Federal Confidentiality of Alcohol and Drug Abuse Patient Records regulations: The Federal rules restrict any use of the information to criminally investigate or prosecute any alcohol or drug abuse patient.[facility] HospitalIn the event this information is protected by the Federal Confidentiality of Alcohol and Drug Abuse Patient Records regulations: The Federal rules restrict any use of the information to criminally investigate or prosecute any alcohol or drug abuse patient.[facility] HospitalIn the event this information is protected by the Federal Confidentiality of Alcohol and Drug Abuse Patient Records regulations: The Federal rules restrict any use of the information to criminally investigate or prosecute any alcohol or drug abuse patient.[facility] HospitalIn the event this information is protected by the Federal Confidentiality of Alcohol and Drug Abuse Patient Records regulations: The Federal rules restrict any use of the information to criminally investigate or prosecute any alcohol or drug abuse patient.[facility] HospitalIn the event this information is protected by the Federal Confidentiality of Alcohol and Drug Abuse Patient Records regulations: The Federal rules restrict any use of the information to criminally investigate or prosecute any alcohol or drug abuse patient.[facility] HospitalIn the event this information is protected by the Federal Confidentiality of Alcohol and Drug Abuse Patient Records regulations: The Federal rules restrict any use of the information to criminally investigate or prosecute any alcohol or drug abuse patient.[facility] HospitalIn the event this information is protected by the Federal Confidentiality of Alcohol and Drug Abuse Patient Records regulations: The Federal rules restrict any use of the information to criminally investigate or prosecute any alcohol or drug abuse patient.[facility] HospitalIn the event this information is protected by the Federal Confidentiality of Alcohol and Drug Abuse Patient Records regulations: The Federal rules restrict any use of the information to criminally investigate or prosecute any alcohol or drug abuse patient.[facility] HospitalIn the event this information is protected by the Federal Confidentiality of Alcohol and Drug Abuse Patient Records regulations: The Federal rules restrict any use of the information to criminally investigate or prosecute any alcohol or drug abuse patient.[facility] Reason for Visit (unrecogniz ed section and content) Reason Comments Physical Therapy Specialty Diagnoses / Procedures Referred By Archie t Referred To Contact [facility] Diagnoses Bilateral primary osteoarthritis of knee Procedures CONSULT TO PHYSICAL THERAPY PHYSICAL THERAPY EVALUATION HIGH COMPLEX 45 MINS Birgit Mancini PA-C [address] [place] [address] [facility] [address] [address] Referral ID Status Reason Start Date Expiration Date Visits Requested Visits Authorized [id number] Authorized Auto-Generat ed Referral 08/05/2021 2022 30 [...] W/O CONTRAST Birgit Emerson PA-C [address] [place] [id number] Mr Imaging Referral ID Status Reason Start Date Expiration Date V isits Requested Visits Authorized [id number] Closed Auto-Generate d Referral 12/05/2021 01/04/2023 1 1 Reason Comments Results Reason Comments Opened In Error Reason Comments Appointment Reason Comments Yearly Exam Reason Comments Med Change Request Reason Comments Follow Up Discuss hormone ther apy Reason Comments Patient Question Care Teams (unrecognized sec tion and content) Commercial Loan 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 Relationship Specialty Start Date End Date Koffi Watt MD PCP - General Family Practice 10/21/15 Commercial Loan Analyst Relationship Specialty Start Date End Date Koffi Watt MD PCP - General Family Practice 10/21/15 Commercial Loan Analyst Relationship Specialty Start Date End Date Koffi Watt MD PCP - General Family Practice 10/21/15 Commercial Loan Analyst Relationship Specialty Start Date End Date Koffi Watt MD PCP - General Family Practice 10/21/15 Commercial Loan Analyst Relationship Specialty Start Date End Date Koffi Watt MD PCP - General Family Practice 10/21/15 Commercial Loan Analyst Relationship Specialty Start Date End Date Koffi Watt MD PCP - General Family Practice 10/21/15 Commercial Loan Analyst Relationship Specialty Start Date End Date Koffi Watt MD PCP - General Family Practice 10/21/15 Commercial Loan Analyst Relationship Specialty Start Date End Date Koffi Watt MD PCP - General Family Practice 10/21/15 Commercial Loan Analyst Relationship Specialty Start Date End Date Koffi Watt MD PCP - General Family Practice 10/21/15 Commercial Loan Analyst Relationship Specialty Start Date End Date Koffi Watt MD PCP - General Family Practice 10/21/15 Commercial Loan Analyst Relationship Specialty Start Date End Date Koffi Watt MD PCP - General Family Practice 10/21/15 Commercial Loan Analyst Relationship Specialty Start Date End Date Koffi Watt MD PCP - General Family Practice 10/21/15 Commercial Loan Analyst Relationship Specialty Start Date End Date Koffi Watt MD PCP - General Family Medicine 10/21/15 Commercial Loan Analyst Relationship Specialty Start Date End Date Koffi Watt MD PCP - General Family Medicine 10/21/15 Team Status: Active Member Role Status Dates Dr. Koffi Watt MD Family Provider Active Dr. Koffi Watt MD Primary Care Provider Active Team Status: Inactive Member Role Status Dates Dr. Koffi Watt MD Primary Care Provider Active Dr. Gustavo Schmidt MD Attending Provider, Referring Pr ovider Active Commercial Loan Analyst Relationship Specialty Start Date End Date Koffi Watt MD PCP - General Family Medicine 10/21/15 Team Status: Inactive Member Role Status Dates Dr. Koffi Watt MD Primary Care Provider Active Misa Monroe [employer], [employer]-C Attending Provider, Referring Provi nani Active ALTON ParryM Other Provider Active Team Status: Active Member Role Status Dates Dr. Koffi Watt MD Family Provider Active Misa Monroe [employer], [employer] Primary Care Provider Active Team Status: Active Member Role Status Dates Dr. Koffi Watt MD Primary Care Provider Active Dr. Beni Fuller MD Attending Provider Active Misa Monroe [employer], [employer]-C Referring Provider Active Team Status: Active Member Role Status Dates Misa Monroe [employer], [employer]-C Primary Care Provider Active Dr. Beni Fuller MD Attending Provider Active Team Status: Inactive Member Role Status Dates Dr. Jono Crowder DPM Attending Provider, Referring Provider Active Misa Monroe [employer], [employer]-C Primary Care Provider Active Team Status: Inactive Member Role Status Dates Misa Monroe [employer], [employer]-C Primary Care Provide r, Attending Provider, Referring Provider Active Team Status: Active Member Role Status Dates Misa Monroe [employer], [employer]-C Primary Care Provider Active Dr. Jono Crowder DPM Attending Provider, Referring Provider Active Team Status: Inactive Member Role Status Dates Misa Patiñone [employer], [employer]-C Primary Care Provider Active Dr. Dagmar Schroeder , Attending Provider, Referring Pr ovider Active Team Status: Inactive Member Role Status Dates Misa Monroe [employer], [employer]C Primary Care Provider, Referring Pr ovider Active Dr. Beni Fuller MD Attending Provider Active Team Status: Inactive Member Role Status Dates Misa Monroe [employer], [employer]-C Primary Care Provider Active Dr. Jono Crowder DPM Attending Provider, Referring Provider Active Commercial Loan Analyst Relationship Specialty Start Date End Date Koffi Watt MD PCP - General Family Medicine 10/21/15 Commercial Loan Analyst Relationship Specialty Start Date End Date Koffi Watt MD PCP - General Family Medicine 10/21/15 Commercial Loan Analyst Relationship Specialty Start Date End Date Koffi Watt MD PCP - General Family Medicine 10/21/15 Commercial Loan Analyst Relationship Specialty Start Date End Date Koffi Watt MD PCP - General Family Medicine 10/21/15 Team Status: Active Member Role Status Dates Skylar Box [employer]-C Primary Care Provider Active Team Status: Inactive Member Role Status Dates Skylar Box [employer]-C Primary Care Provider Active Start: August 13, [...] 2024 End: October 20, 2024 Skylar Box [employer]-C Referring Provider Active St art: October 20, 2024 End: October 20, 2024 Commercial Loan Analyst Relationship Specialty Start Date End Date Koffi Watt MD PCP - General Family Medicine 10/21/15 Commercial Loan Analyst Relationship Specialty Start Date End Date Koffi Watt MD PCP - General Family Medicine 10/21/15 Commercial Loan Analyst Relationship Specialty Start Date End Date Koffi Watt MD PCP - General Family Medicine 10/21/15 Team Status: Active Member Role/Relationship Status Dates Skylar Box NP-C Primary care physician Active Team Status: Inactive Member Role/Relationship Status Dates Skylar Box [employer]-C Primary care physician Active Start: October 20, 2024 End: October 20, 2024 Skylar Box NP-C Attending physician Active S tart: October 20, 2024 End: October 20, 2024 Skylar Box [employer]-C Referring Provider Active St art: October 20, 2024 End: October 20, 2024 Team Status: Active Member Role/Relationship Status Dates Skylar Box [employer]-C Primary care physician Active Start: October 27, 2024 Skylar Box [employer]-C Referring Provider Active St art: October 27, 2024 Skylar Box [employer] Nurse Practitioner Active St art: October 27, [...] section and content) DATE CREATED AUTHOR 01/14/2022 [facility] [place][note 2] DATE CREATED AUTHOR AUTHOR'S ORGANIZ ATION 06/13/2022 [facility] DATE CREATED AUTHOR AUTHOR'S ORGANIZ ATION 06/13/2022 [employer] DATE CREATED AUTHOR AUTHOR'S ORGANIZ ATION 01/30/2025 [facility] DATE CREATED AUTHOR AUTHOR'S ORGANIZ ATION 01/30/2025 [facility] FOR RECORDS PERTAINING TO PATIENTS WHO ARE [...] BE BASED ON THE PRIMARY CLINICAL RECORDS. [facility] [employer] [facility] provides no warranty or guarantee of the accuracy or completeness of information in this document.
== END | disposition home or self-care (01) ==
LOC: OPBI 07:51
PROVIDERS: PCP Nurse Practitioner Family; Referring Provider Nurse Practitioner Family; Visit Provider Nurse Practitioner Family
DX: Z12.31 Encounter for screening mammogram for malignant neoplasm of breast (principal)
CPT/HCPCS: 77063; 77067